=== PATIENT | female | born 1935 | race Caucasian/White ===

== ENCOUNTER 2017-02-06 01:14 | Inpatient (IN) ==
[2017-02-06] MEDS ORDERED: Ipratropium/Albuterol Neb 3 ML IH ONE (01:16)
[2017-02-06] MEDS ORDERED: Nitroglycerin 1 INCH/GM PACKET TP ONE (01:17)
[2017-02-06] MEDS ORDERED: *HR* Morphine 2 MG/ML SYRINGE IVP ONE (01:18)
--- NOTE | 2017-02-06 01:20 | Emergency Department Note ---
Disposition Clinical Impression: Respiratory distress, acute Acute exacerbation of CHF (congestive heart failure) Qualifiers: Congestive heart failure type: systolic Qualified Code(s): I50.23 - Acute on chronic systolic (congestive) heart failure Disposition: Admitted As Inpatient Condition: Undetermined Referrals: Tana Delgado DO [Primary Care Provider] - Forms: ED Satisfaction Letter Time of Disposition: 03:03 SOB HPI - General Chief Complaint: ED Shortness of Breath/Dyspnea Stated Complaint: jerilyn Time Seen by Provider: 02/06/17 01:16 Source: patient Mode of arrival: EMS Limitations: no limitations Nursing Notes Reviewed: Yes Vital Signs Reviewed: Yes - History of Present Illness ED-year-old female history of CHF who currently smokes without home oxygen arrives [facility] emergency department complaining of difficulty breathing that started just prior to calling EMS. The patient states that she typically has exacerbations of CHF and has to call EMS for this. The patient states this is similar to this in the past. Upon arrival from EMS stated the patient was hypertensive with an O2 saturation in the 70s to 80%. The patient was placed on oxygen as well as a DuoNeb started for wheezing. The patient was also given one sublingual nitroglycerin which helped relieve some of her shortness of breath. Upon arrival to the emergency department the patient was speaking in short sentences without difficulty. The patient was sitting up and using accessory muscle use. The patient was taken off oxygen for a brief period of time during transport from cot to head and became very short of breath and was unable to speak for a couple seconds. The patient will be placed on BiPAP and do a nebs will be started. Pt Subjective Complaint: shortness of breath Onset (ago): Just [employer]ITION[employer] Severity: moderate, severe Consistency/Duration: intermittent Improves with: oxygen, bronchodilators Worsens with: exertion, coughing Known history of: congestive heart failure Associated symptoms: Reports: wheezing Cough present: Yes Sputum production: No - Related Data Home oxygen amount: none Home Medications Medication Instructions Recorded Confirmed Atorvastatin [Lipitor] 20 mg PO HS 05/25/15 06/10/15 Carvedilol [Coreg] 6.25 mg PO BID 05/25/15 06/10/15 Gabapentin [Neurontin] 100 mg PO DAILY PRN 05/25/15 06/10/15 HYDROcodone/Acet 5/325 mg [[place] 1 tab PO Q6HR PRN 05/25/15 06/10/15 5-325 mg] Losartan Potassium [Cozaar] 100 mg PO DAILY 05/25/15 06/10/15 Potassium Chloride [Klor-Con M15] 20 meq PO DAILY 05/25/15 06/10/15 Aspirin [Adult Low Dose Aspirin EC] 81 mg PO 06/10/15 Previous Rx's Medication Instructions Recorded Furosemide [Lasix] 40 mg PO BID #90 tablet 06/13/15 Isosorbide MONOnitrate (24 HR) 90 mg PO DAILY #90 tab.er.24h 06/13/15 [Imdur] Spironolactone [Aldactone] 12.5 mg PO DAILY #60 tablet 06/13/15 hydrALAZINE [HydrALAZINE] 50 mg PO Q8HR #90 tablet 06/13/15 Allergies Allergy/AdvReac Type Severity Reaction Status Date / Time Penicillins [PCN] Allergy Mild Itching Verified 06/10/15 05:21 Sulfa (Sulfonamide Allergy Mild Hives Verified 06/10/15 05:21 Antibiotics) pheniramine Allergy Unknown UNKNOWN Verified 05/07/15 07:27 PER PATIENT codeine AdvReac Mild "HARD ON Verified 06/10/15 05:21 BOWELS" All systems ED: reviewed and negative except as stated. Constitutional: Reports: weakness. Denies: fever, chills, weight change Cardiovascular: Denies: chest pain, palpitations, dyspnea on exertion, edema, syncope Respiratory: Reports: dyspnea, wheezes. Denies: cough, hemoptysis, stridor, sputum production Gastrointestinal: Denies: abdominal pain, nausea, vomiting, diarrhea, constipation, hematemesis, melena, hematochezia Musculoskeletal: Denies: back pain, neck pain, arthralgia, myalgia Past Medical History - Past Medical History Attestation: Yes The following information was validated with the patient. Source: patient, old records reviewed Medical history: Reports: cardiomyopathy, CHF, COPD, coronary artery disease, hypertension, other Surgical history: Reports: other (PPM placement in 2011. Last device check was completed 04/2015. ) Psychiatric history: Reports: no psych history - Social History Smoking Status: Current every day smoker Smokeless Tobacco Status: No Alcohol use: Reports: rarely Drug use: Reports: none Physical Exam - General Limitations: no limitations General appearance: alert, in distress (Respiratory) - Neck Neck exam: Present: normal inspection, full ROM, trachea midline - Chest Chest inspection: Present: normal inspection, symmetric chest wall rise - Respiratory Respiratory exam: Present: wheezes, accessory muscle use - Expanded Respiratory Exam Location: wheezes: Left, Right, Lower - Cardiovascular Cardiovascular exam: Present: regular rate, normal rhythm, normal heart sounds - Abdominal Exam Abdominal exam: Present: soft, Non-Tender. Absent: tenderness, distention, guarding, rebound, rigidity - Extremities Exam Extremities exam: Present: normal inspection, full ROM. Absent: tenderness, pedal edema - Neurological Exam Neurological exam: Present: alert, oriented X3 Course Vital Signs Temperature 97.7 F 02/06/17 01:15 Pulse Rate 101 02/06/17 01:15 Respiratory Rate 24 02/06/17 01:15 Blood Pressure 186/110 02/06/17 01:15 O2 Sat by Pulse Oximetry 88 02/06/17 01:15 Temperature 97.7 F 02/06/17 01:15 Pulse Rate 82 02/06/17 01:55 Respiratory Rate 18 02/06/17 01:55 Blood Pressure 165/83 02/06/17 01:55 O2 Sat by Pulse Oximetry 97 02/06/17 01:55 Oxygen Delivery Oxygen Delivery Bipap Shortness of Breath/Dyspnea - MDM Narrative Medical decision making narrative: His workup here in the emergency department demonstrated findings consistent with CHF exacerbation. The patient has an elevated BNP. Chest x-ray demonstrates no acute findings. The patient was hypoxic in the low 80s upon arrival from EMS. The patient is feeling much better at this time on BiPAP after receiving nitroglycerin. She is resting comfortably with an O2 sat in the 90s on BiPAP. We will admit the patient to the hospital, accepted by Dr. Jackson. - Lab Data Lab results reviewed: Yes I reviewed the patient's lab results. Result diagrams: 02/06/17 01:25 02/06/17 01:25 Lab Results 02/06/17 02/06/17 02/06/17 Range/Units 01:25 01:25 01:25 WBC 8.3 (4.3-11.1) K/mcL RBC 4.49 (3.82-4.97) M/mcL Hgb 14.4 (11.5-15.4) g/dL Hct 44.4 (35.3-44.9) % MCV 98.9 (83.0-100.0) fL MCH 32.1 (28.0-33.3) pg MCHC 32.4 (31.6-35.5) g/dL RDW 14.1 (11.5-14.5) % Plt Count 234 (140-400) K/mcL MPV 9.5 (9.4-12.4) fL Immature Gran % 0.4 (0-4) % Seg Neutrophils % 79.6 % Lymphocytes % 8.2 % Monocytes % 9.9 % Eosinophils % 1.2 % Basophils % 0.7 % Neutrophils # 6.6 (1.6-8.9) K/mcL Lymphocytes # 0.7 (0.6-4.6) K/mcL Monocytes # 0.8 (0.0-1.3) K/mcL Eosinophils # 0.1 (0.0-0.6) K/mcL Basophils # 0.1 (0.0-0.2) K/mcL Sodium 136 (136-145) mEq/L Potassium 4.4 (3.5-4.5) mEq/L Chloride 107 (98-109) mEq/L Carbon Dioxide 20 (19-29) mEq/L BUN 18 (7-20) mg/dL Creatinine 0.78 (0.57-1.11) mg/dL Est GFR ( Amer) > 60 (> 60) Est GFR (Non-Af Amer) > 60 (> 60) BUN/Creatinine Ratio 23 (6-26) Glucose 126 H (70-99) mg/dL Calculated Osmolality 285 (280-300) Calcium 9.0 (8.6-10.8) mg/dL Troponin I 0.02 (0-0.03) ng/mL B-Natriuretic Peptide (0-100) pg/mL 02/06/17 Range/Units 01:25 WBC (4.3-11.1) K/mcL RBC (3.82-4.97) M/mcL Hgb (11.5-15.4) g/dL Hct (35.3-44.9) % MCV (83.0-100.0) fL MCH (28.0-33.3) pg MCHC (31.6-35.5) g/dL RDW (11.5-14.5) % Plt Count (140-400) K/mcL MPV (9.4-12.4) fL Immature Gran % (0-4) % Seg Neutrophils % % Lymphocytes % % Monocytes % % Eosinophils % % Basophils % % Neutrophils # (1.6-8.9) K/mcL Lymphocytes # (0.6-4.6) K/mcL Monocytes # (0.0-1.3) K/mcL Eosinophils # (0.0-0.6) K/mcL Basophils # (0.0-0.2) K/mcL Sodium (136-145) mEq/L Potassium (3.5-4.5) mEq/L Chloride (98-109) mEq/L Carbon Dioxide (19-29) mEq/L BUN (7-20) mg/dL Creatinine (0.57-1.11) mg/dL Est GFR ( Amer) (> 60) Est GFR (Non-Af Amer) (> 60) BUN/Creatinine Ratio (6-26) Glucose (70-99) mg/dL Calculated Osmolality (280-300) Calcium (8.6-10.8) mg/dL Troponin I (0-0.03) ng/mL B-Natriuretic Peptide 1579 H (0-100) pg/mL - Radiology Data Radiology results reviewed: Yes I reviewed the patient's radiology results. - EKG Data EKG attestation: Yes I reviewed and interpreted this EKG. EKG results narrative: Heart rate 95 bpm. AK interval 161 ms. QTC 395. Normal axis. Normal sinus rhythm. No ST elevation or ST depression noted. EKG is similar in appearance to EKG from 07/24/2015. Critical Care Time Critical Care Time: Yes Total Critical Care Time: 35 Attestation: Critical care performed: Time is exclusive of separately billable procedures. Time includes: direct patient care, patient reassessment, coordination of patient care, interpretation of data (laboratory data, radiology data, and respiratory data), review of patient's medical records, medical consultation and documentation of patient care. Procedures included in critical care time: Procedures excluded from critical care time: Attestation Statement - Attestation Attestation: I, Tripp Cardoso MD, personally evaluated this patient and discussed their management with the resident physician. I reviewed the resident's note and agree with the documented findings, medical decision making, and plan of care. 81-year-old female presents to the emergency department by embolus with a complaint of shortness of breath which started this evening when she tried to lay down and watched television. She states that she became short of breath which rapidly progressed and became severe. No chest pain. No cough or fever. She does have a history of CHF. On arrival patient in moderate respiratory distress. She was placed on BiPAP with significant improvement and stabilization. On examination patient is a well-developed thin elderly female in mild respiratory distress. She is alert and oriented 3. There is no cyanosis or diaphoresis. Breath sounds are decreased bilaterally with scattered bilateral rales and rhonchi. A few scattered wheezes. Heart regular rate and rhythm. Abdomen soft and nontender with normal bowel sounds. EKG shows electronic ventricular pacemaker. Labs reviewed. BNP 1579. Chest x- ray shows no significant change compared to prior study. No focal lung opacity or consolidation. Stable diffuse interstitial markings as before. The hospitalist, Dr. Jackson, was consulted and accepted admission of the patient.
[2017-02-06 01:32] LABS: Basophils # 0.1 K/mcL (0.0-0.2); Basophils % 0.7 %; Eosinophils # 0.1 K/mcL (0.0-0.6); Eosinophils % 1.2 %; Hematocrit 44.4 % (35.3-44.9); Hemoglobin 14.4 g/dL (11.5-15.4); Immature Granulocytes % 0.4 % (0-4); Lymphocytes # 0.7 K/mcL (0.6-4.6); Lymphocytes % 8.2 %; Mean Corpuscular HGB Conc 32.4 g/dL (31.6-35.5); Mean Corpuscular Hemoglobin 32.1 pg (28.0-33.3); Mean Corpuscular Volume 98.9 fL (83.0-100.0); Mean Platelet Volume 9.5 fL (9.4-12.4); Monocytes # 0.8 K/mcL (0.0-1.3); Monocytes % 9.9 %; Neutrophils # 6.6 K/mcL (1.6-8.9); Platelet Count 234 K/mcL (140-400); Red Blood Count 4.49 M/mcL (3.82-4.97); Red Cell Distribution Width 14.1 % (11.5-14.5); Segmented Neutrophils % 79.6 %
[2017-02-06 01:45] LABS: BUN/Creatinine Ratio 23 (6-26); Blood Urea Nitrogen 18 mg/dL (7-20); Carbon Dioxide 20 mEq/L (19-29); Chloride 107 mEq/L (98-109); Glucose 126 mg/dL (70-99); Osmolality,Calculated 285 (280-300); Sodium 136 mEq/L (136-145); eGFR For African Americans > 60 (> 60); eGFR For Non-African Americans > 60 (> 60)
[2017-02-06 01:46] LABS: Potassium 4.4 mEq/L (3.5-4.5)
--- NOTE | 2017-02-06 04:15 | Event Note ---
Date of Encounter: 02/06/17 Time of Encounter: 04:13 Patient seen and examined with medical transcription. Presentation suggestive of acute pulmonary edema. Onset rapid at 9 PM. Mentioned that 6 hours earlier she took a flu shot. Denies any chest pain. She has some cough with clear sputum but no significant amount of sputum production. Patient was placed on BiPAP on our arrival to the emergency room to help with the work of breathing. No active wheezing during my interview. She denies any recent increase in lower extremity swelling. This definitely maybe anti-ischemic event. Would ask real disservice to see the patient. Serial troponin. Will give one dose of 1 mg per KG Lovenox. Will start the patient, IV Lasix and long-acting nitrates. She is full code. Inpatient admission
[2017-02-06] MEDS: Furosemide 40 MG/4 ML VIAL IVP SCH ×2 (04:54→16:33)
--- NOTE | 2017-02-06 06:34 | Internal Med History&Physical ---
Date of Encounter: 02/06/17 Time of Encounter: 03:30 Assessment and Plan (1) Acute exacerbation of CHF (congestive heart failure) Current visit: Yes Status: Acute The patient's shortness of breath is likely secondary to a CHF exacerbation. Patient started on IV Lasix, long-acting nitrates, and carvedilol. One dose of 1 mg/kg Lovenox. Qualifiers: Congestive heart failure type: systolic Qualified Code(s): I50.23 - Acute on chronic systolic (congestive) heart failure (2) CHF (congestive heart failure) Current visit: No Status: Acute Continue home meds. Qualifiers: Congestive heart failure type: systolic Congestive heart failure chronicity : acute on chronic Qualified Code(s): I50.23 - Acute on chronic systolic ( congestive) heart failure (3) Respiratory distress, acute Current visit: Yes Status: Acute Patient's respiratory function is currently stable. -Continue IV Lasix. -Continue to monitor vital signs. Internal Medicine - H&P: HPI Admitted From: Home (Shortness of breath) History of present illness: Ms. Randall is a 81 year old female with past medical history of CHF presents to the emergency department with chief complaint of shortness of breath. Patient states that at approximately 9:30 PM, patient began to feel short of breath when she tried to lie down and watch television. Patient stated that she took a flu shot approximately 6 hours earlier. When patient presented to the hospital, she did not have any chest pain, although she did have some cough with clear sputum production. Upon arrival patient was hypertensive with a blood pressure of 165/83 with an O2 saturation in the 70-80%. Upon arrival, patient was placed on oxygen as well as DuoNeb's and BiPAP. Patient's O2 sat improved, rising to 97%. Patient was also given 1 sublingual nitroglycerin, which helped relieve her shortness of breath. Patient was sitting up and using accessory muscles when she first presented. EKG was obtained, which showed electronic ventricular pacemaker. Patient's labs revealed a BNP of 1579. Chest x-ray showed no significant change compared to her prior study. Patient denied having any fever, chills, productive cough, hemoptysis, weakness or lightheadedness. Past Med Surg Social Fam HX - Past Medical History Medical history: cardiomyopathy, CHF, COPD, coronary artery disease, hypertension, other Psychiatric history: no psych history - Past Surgical History Surgical History: other - Social History Smoking Status: Current every day smoker Smokeless Tobacco Status: No Alcohol use: rarely Drug use: none - Family History Father Adopted: No Family Member Ethnicity: Non- Living Status: Hx Family Cardiac Disorders: Yes Internal Medicine - H&P: Meds Atorvastatin [Lipitor] 20 mg PO HS 05/25/15 [History] Carvedilol [Coreg] 6.25 mg PO BID 05/25/15 [History] Gabapentin [Neurontin] 100 mg PO DAILY PRN 05/25/15 [History] HYDROcodone/Acet 5/325 mg [[place] 5-325 mg] 1 tab PO Q6HR PRN 05/25/15 [History] Losartan Potassium [Cozaar] 100 mg PO DAILY 05/25/15 [History] Potassium Chloride [Klor-Con M15] 20 meq PO DAILY 05/25/15 [History] Aspirin [Adult Low Dose Aspirin EC] 81 mg PO 06/10/15 [History] Furosemide [Lasix] 40 mg PO BID #90 tablet 06/13/15 [Rx] Isosorbide MONOnitrate (24 HR) [Imdur] 90 mg PO DAILY #90 tab.er.24h 06/13/15 [ Rx] Spironolactone [Aldactone] 12.5 mg PO DAILY #60 tablet 06/13/15 [Rx] hydrALAZINE [HydrALAZINE] 50 mg PO Q8HR #90 tablet 06/13/15 [Rx] 3 Allergy/AdvReac Type Severity Reaction Status Date / Time Penicillins [PCN] Allergy Mild Itching Verified 06/10/15 05:21 Sulfa (Sulfonamide Allergy Mild Hives Verified 06/10/15 05:21 Antibiotics) pheniramine Allergy Unknown UNKNOWN Verified 05/07/15 07:27 PER PATIENT codeine AdvReac Mild "HARD ON Verified 06/10/15 05:21 BOWELS" All Systems PM: A 10-system review of systems was performed and is negative for pertinent findings except as documented above in the HPI. - Constitutional Constitutional: no excessive sweating, no fatigue, no weakness - Cardiovascular Cardiovascular ROS IM: dyspnea, no chest pain, no irregular heart rhythm, no lightheadedness, no palpitations, no syncope - Respiratory Respiratory: cough, no wheezing, no stridor, no pain on inspiration, no chest congestion - Constitutional Vitals: Temp Pulse Resp BP Pulse Ox 98.1 F 78 16 148/98 93 02/06/17 03:59 02/06/17 03:59 02/06/17 04:05 02/06/17 03:59 02/06/17 04:25 General appearance: Present: A&O X 3, pleasant, answers questions appropriately - Head Head exam: Present: normal inspection - ENT ENT exam: Present: mucous membranes moist - Respiratory Respiratory exam: Present: wheezes. Absent: accessory muscle use, rales, rhonchi Additional comments: Patient has expiratory wheezes bilaterally. - Cardiovascular Cardiovascular exam: Present: RRR, +S1, +S2. Absent: diastolic murmur, gallop, rubs, systolic murmur - Extremities Exam Extremities exam: Absent: pedal edema Internal Med - H&P Results - Labs CBC & Chem 7: 02/06/17 01:25 02/06/17 01:25
[2017-02-06] MEDS: Aspirin Enteric Coated 81 MG Tablet PO SCH (08:36)
[2017-02-06] MEDS: Isosorbide MONOnitrate (24 HR) 30 MG TAB.ER.24H PO SCH (08:38)
--- NOTE | 2017-02-06 15:40 | Cardiology Consult Note ---
<Meseret Friedman - Last Filed: 02/06/17 15:34> Date of Encounter: 02/06/17 Time of Encounter: 15:00 Assessment and Plan (1) Systolic congestive heart failure, NYHA class 2 Current Visit: Yes Status: Acute Per cardiology: -Known cardiomyopathy with LVEF 40%. -Reports sudden onset shortness of breath, similar to previous CHF symptoms. -BNP 1579. -Chest x-ray with vascular congestive changes, similar to previous exam. -Weight today 111 pounds, weight 10/2016 108 pounds. -Patient reports weight up about 5 pounds per home scale. -On lasix 40IV BID. On beta marcelino. -Net positive 480 ml this admission. -Strict i/os, fluid restriction, daily weights. -Will restart losartan. -Will continue to monitor. Qualifiers: Congestive heart failure chronicity: acute on chronic Qualified Code(s): I50.23 - Acute on chronic systolic (congestive) heart failure (2) Elevated troponin I level Current Visit: No Status: Acute Per cardiology: -Troponin 0.02, 0.04, 0.03. -Troponins flat and adynamic in the setting of hypoxia and CHF. -Denies chest pain. -ECG with no ischemic changes. -06/10/15 Echo with LVEF 40%, asymetric hypertrophy of basal septum, no LVOT obsrtuction, moderate diastolic dysfunction, mild AR, mild MR, mild TR, mild pulmonary hypertension, mid inferior, basal inferior, mid inferior lateral and basal inferior lateral berad hypokinetic, all other beard with normal motion. -06/29/2011 LHC with 30% proximal LAD, 30% diagonal, 30% proximal circumflex, patent OM stent, 90-99% stenosis in mid RCA (further described as small vessel) . -Do not suspect NSTEMI, suspect demand ischemia related to above. NO cardiac rehab warranted at this time. -Will continue to monitor. (3) CAD (coronary artery disease) Current Visit: No Status: Chronic Per cardiology: -KNown CAD with LHC and echo as above -Denies chest pain. -ON asa, statin, beta blcoker. -Will continue to monitor. Qualifiers: Coronary Disease-Associated Artery/Lesion type: [place] artery [place] vs. transplanted heart: [place] heart Associated angina: without angina Qualified Code(s): I25.10 - Atherosclerotic heart disease of [place] coronary artery without angina pectoris (4) Paroxysmal atrial fibrillation Current Visit: Yes Status: Chronic Per cardiology: -Known PAF. -On beta marcelino. -Hr controlled. -Chads 2 vasc score 5 (age, gender, HTN, vascular disease, and CHF) -Not on anticoagulation due to patient's non-compliance with lab draws for INR/ Coumadin. Patient educated on risk of CVA, states understanding and accepts increased risk. -Will continue to monitor. Discussion w patient/family: The assessment and plan as outlined above was discussed with the patient who expressed understanding and agreement. All questions were answered. Thank you for involving us in the care of your patient. Please call with any questions. Discussed and reviewed with . History of Present Illness Consult date: 02/06/17 Requesting physician: Hakan Gramajo Consult reason: pulmonary edema Chief complaint: shortness of breath History of present illness: Ms. Randall is a 81 year old female with a relevant past medical history of CHF , cardiomyopathy, atrial fibrillation, HTN, CAD, [place], tachybrady syndrome s/p pacemaker, thyroid disease, CEA. Patent states she was in her normal state of health, when she was woken up by sudden onset of shortness of breath. Patient states she pushed her life alert button and was having difficulty speak to assistance due to shortness of breath. Patient states symptoms similar to previous CHF exacerbations. Per review of reports, SpO2 was noted to be 70% upon EMS arrival. Patient denies worsening edema. Patient denies chest pain or increased fatigue. Patient reports her weight is up about 5 pounds from her baseline weight. Patient reports compliance with sodium and fluid restriction at home. Past Med Surg Social Fam HX - Past Medical History Attestation: Yes The following information was validated with the patient. Source: patient, old records reviewed Medical history: cardiomyopathy, CHF, COPD, coronary artery disease, hypertension, other Psychiatric history: no psych history - Past Surgical History Surgical History: other - Social History Smoking Status: Current every day smoker Smokeless Tobacco Status: No Alcohol use: rarely Drug use: none - Family History Father Adopted: No Family Member Ethnicity: Non- Living Status: Hx Family Cardiac Disorders: Yes Medications and Allergies Atorvastatin [Lipitor] 20 mg PO HS 05/25/15 [History] Carvedilol [Coreg] 18.75 mg PO BID 05/25/15 [History] Losartan Potassium [Cozaar] 100 mg PO DAILY 05/25/15 [History] Potassium Chloride [Klor-Con M15] 20 meq PO DAILY 05/25/15 [History] Furosemide [Lasix] 40 mg PO BID #90 tablet 06/13/15 [Rx] Isosorbide MONOnitrate (24 HR) [Imdur] 90 mg PO DAILY #90 tab.er.24h 06/13/15 [ Rx] Trospium Chloride [Trospium Chloride] 20 mg PO BID 02/06/17 [History] 3 Allergy/AdvReac Type Severity Reaction Status Date / Time Penicillins [PCN] Allergy Mild Itching Verified 02/06/17 12:29 Sulfa (Sulfonamide Allergy Mild Hives Verified 02/06/17 12:29 Antibiotics) pheniramine Allergy Unknown UNKNOWN Verified 02/06/17 12:29 PER PATIENT codeine AdvReac Mild "HARD ON Verified 02/06/17 12:29 BOWELS" All Systems Review: A 10-system review of systems was performed and is negative for pertinent findings except as documented above in the HPI. - Constitutional Constitutional: weight gain - Cardiovascular Cardiovascular: as per HPI, dyspnea at rest, dyspnea on exertion Physical Examination Vital Signs Temperature 97.7 F 02/06/17 01:15 Pulse Rate 101 02/06/17 01:15 Respiratory Rate 24 02/06/17 01:15 Blood Pressure 186/110 02/06/17 01:15 O2 Sat by Pulse Oximetry 88 02/06/17 01:15 Temperature 97.9 F 02/06/17 11:00 Pulse Rate 62 02/06/17 11:00 Respiratory Rate 15 02/06/17 11:00 Blood Pressure 121/67 02/06/17 11:00 O2 Sat by Pulse Oximetry 98 02/06/17 11:00 Oxygen Delivery Oxygen Delivery Bipap General: Conversant, No Apparent Distress HEENT: Atraumatic, Normocephaly, Mucus Membranes Moist Neck: No JVD, Normal carotid pulses Cardiac: Reg Rate and Rhythm, Normal S1 and S2, No Murmur Lungs: Normal Breath Sounds, No Wheeze, Rales, Rhonchi Neuro: Alert and responsive, No focal deficits noted Abdomen: Soft, Non-Tender Skin: No rashes noted on visualized skin Musculoskeletal: No Chest Wall Tenderness Extremities: No Clubbing, No Cyanosis, No Edema, Normal Pulses Results 02/06/17 01:25 02/06/17 01:25 Lab Results Impressions Chest X-Ray 02/06/17 01:16 IMPRESSION: 1. No significant change compared to prior study. 2. No focal lung opacity or consolidation. 3. Stable diffuse interstitial markings as before. D/ / 02/06/2017 07:53:26 Julius Patricia MD / Kelsea Pearson Interpreting Provider: Julius Patricia MD Active Medications Aspirin (Aspirin Ec) 81 mg PO DAILY DIAMANTE Stop: 08/08/17 09:01 Last Admin: 02/06/17 08:36 Dose: 81 mg Atorvastatin Calcium (Lipitor) 20 mg PO HS DIAMANTE Stop: 08/08/17 21:01 Carvedilol (Coreg) 6.25 mg PO BID DIAMANTE PRN Reason: Protocol Stop: 08/08/17 09:01 Last Admin: 02/06/17 08:38 Dose: 6.25 mg Furosemide (Lasix) 40 mg IVP BIDDIURETIC DIAMANTE Stop: 08/08/17 04:31 Last Admin: 02/06/17 04:54 Dose: Not Given Isosorbide Mononitrate (Imdur) 90 mg PO DAILY DIAMANTE Stop: 08/08/17 09:01 Last Admin: 02/06/17 08:38 Dose: 90 mg Laboratory Tests 02/06/17 02/06/17 02/06/17 01:25 01:25 01:25 Hgb 14.4 Creatinine 0.78 Troponin I 0.02 B-Natriuretic Peptide 02/06/17 02/06/17 02/06/17 01:25 06:44 13:24 Hgb Creatinine Troponin I 0.04 H* 0.03 B-Natriuretic Peptide 1579 H - Imaging and Cardiology Chest Xray: report reviewed Echo: report reviewed Cardiac cath: report reviewed - EKG Interpretation EKG results cardiology: personally reviewed (ECG with paced rhythm.), other ( Telemetry reviewed with average HR previous 12 hours noted to be 70, sinus rhythm with intermittent paced rhythm. PVCs, couplets, and one 5 beat run of non -sustained ventricular tachycardia noted.) Consult Discharge Plan - Plan Referrals: Little,Tana E, DO [Primary Care Provider] - <Dennys Christopher - Last Filed: 02/07/17 08:54> Date of Encounter: 02/06/17 Assessment and Plan Discussion w patient/family: The assessment and plan as outlined above was discussed with the patient and/or family members who expressed understanding and agreement. All questions were answered. Thank you for involving us in the care of your patient. Please call with any questions. History of Present Illness History of present illness: Ms. Randall is a 81 year old female All Systems Review: A 10-system review of systems was performed and is negative for pertinent findings except as documented above in the HPI. Physical Examination Vital Signs, Last 4 Hours Temp Pulse Resp BP Pulse Ox 02/07/17 06:20 97.5 F L 62 15 145/80 96 02/07/17 04:58 98.9 F 73 21 138/77 96 Results 02/06/17 01:25 02/07/17 04:16 Lab Results 02/06/17 02/07/17 13:24 04:16 Sodium 139 Potassium 3.6 Chloride 107 Carbon Dioxide 25 BUN 23 H Creatinine 0.83 Glucose 94 Calcium 8.1 L Troponin I 0.03 - Attending Attestation PT seen and examined independently, chart reviewed, essentially agree with findings as documented, my evaluation as below IMP/Plan 1. Acute on chronic systolic heart faillure, with reduced ejection fraction, unlclear precipitating event, pt mostly compliant with dietary sodium and fluid restrictions, notes felt "flu like" symptoms following yearly flu shot with mild palpitations, nausea and shortness of breath, which have improved since hospital admission. She noted 5 pound weight gain over 48 hours. Feeling much better this afternoon, following IV diuresis, resumed Losartin, switch back to po diuretics in am if continues to improve. . 2. Moderately impaired LV systolic function with EF 40% on most recent echo due to ischemic cardiomyopathy. 3. Stable Class 2 angina on current meds, minimal elevation of troponins, suspect may have had small enzeme leak secondary to demand perfusion mismatch, not clincally significant. 4. Paroxysmal Atrial fibrillation, ventricular response rate controlled on current meds, not a candidate for systemic anticoagulation, pt refuses.
--- NOTE | 2017-02-06 15:48 | Event Note ---
<TrevonCirilo - Last Filed: 02/06/17 15:48> Date of Encounter: 02/06/17 Time of Encounter: 15:38 Patient reports sob has resolved. Denies CP, abdominal pain, nausea, blurry vision, cough, leg pain. General: pleasant female w/o distress Heart: RRR no murmur Lungs: clear w/o rales abdomen: soft NT/ND +BS Extremities: no pedal edema, +2/4 peripheral pulses Acute respritory failure with hypoxia: 2nd chf exacerbation, continue O2, diuresis Acute systolic HF NYHA class 2: BNP 1579 continue lasix, will start jonathan once exacerbation has resolved. elevated troponin: 0.02>>004>>0.03 2nd to chf exacerbation, unlikley acs CAD: Last left heart catheterization in 2011 showed patent OM stent and a 90-99 % stenosis in the mid RCA. continue aspirin statin bb DVT prophylaxis: epcds and heparin sq <Shemar Hanson - Last Filed: 02/06/17 16:10> Date of Encounter: 02/06/17 Pt admitted earlier today for acute exac CHF. Has had improvement since admit. Appreciate rob mcgee. Agree with plan as above.
[2017-02-06] MEDS: *HR* Heparin 5,000 UNIT/ML VIAL SQ SCH (18:27)
[2017-02-06] MEDS ORDERED: *HR* Heparin 5,000 UNIT/ML VIAL SQ SCH (22:00)
[2017-02-07 04:52] LABS: BUN/Creatinine Ratio 28 (6-26); Blood Urea Nitrogen 23 mg/dL (7-20); Calcium 8.1 mg/dL (8.6-10.8); Carbon Dioxide 25 mEq/L (19-29); Chloride 107 mEq/L (98-109); Glucose 94 mg/dL (70-99); Osmolality,Calculated 291 (280-300); Potassium 3.6 mEq/L (3.5-4.5); Sodium 139 mEq/L (136-145); eGFR For African Americans > 60 (> 60); eGFR For Non-African Americans > 60 (> 60)
[2017-02-07] MEDS: *HR* Heparin 5,000 UNIT/ML VIAL SQ SCH (06:07)
[2017-02-07 06:22] VITALS: BP 145/80
[2017-02-07] MEDS: Aspirin Enteric Coated 81 MG Tablet PO SCH (08:34)
[2017-02-07] MEDS: Isosorbide MONOnitrate (24 HR) 30 MG TAB.ER.24H PO SCH (08:34)
[2017-02-07] MEDS: Furosemide 40 MG/4 ML VIAL IVP SCH (08:35)
--- NOTE | 2017-02-07 09:33 | Discharge Summary ---
<Cirilo Lester - Last Filed: 02/07/17 12:11> Date of Encounter: 02/07/17 Time of Encounter: 09:30 - Discharge Diagnosis (1) Acute respiratory failure Priority: Primary Status: Acute Qualifiers: Respiratory failure complication: hypoxia Qualified Code(s): J96.01 - Acute respiratory failure with hypoxia (2) Acute systolic CHF (congestive heart failure), NYHA class 2 Priority: Secondary Status: Acute (3) Elevated troponin Priority: Secondary Status: Acute (4) DVT prophylaxis Priority: Secondary Status: Acute (5) CAD (coronary artery disease) Priority: Secondary Status: Chronic Qualifiers: Coronary Disease-Associated Artery/Lesion type: [place] artery [place] vs. transplanted heart: [place] heart Associated angina: without angina Qualified Code(s): I25.10 - Atherosclerotic heart disease of [place] coronary artery without angina pectoris - Discharge Medications Prescriptions: Losartan [Cozaar] 50 mg PO DAILY #30 tablet Home Medications: Atorvastatin [Lipitor] 20 mg PO HS 05/25/15 [History] Carvedilol [Coreg] 18.75 mg PO BID 05/25/15 [History] Losartan Potassium [Cozaar] 100 mg PO DAILY 05/25/15 [History] Potassium Chloride [Klor-Con M15] 20 meq PO DAILY 05/25/15 [History] Furosemide [Lasix] 40 mg PO BID #90 tablet 06/13/15 [Rx] Isosorbide MONOnitrate (24 HR) [Imdur] 90 mg PO DAILY #90 tab.er.24h 06/13/15 [ Rx] Trospium Chloride 20 mg PO BID 02/06/17 [History] Losartan [Cozaar] 50 mg PO DAILY #30 tablet 02/07/17 [Rx] Allergies/Adverse Reactions: 3 Allergy/AdvReac Type Severity Reaction Status Date / Time Penicillins [PCN] Allergy Mild Itching Verified 02/06/17 12:29 Sulfa (Sulfonamide Allergy Mild Hives Verified 02/06/17 12:29 Antibiotics) pheniramine Allergy Unknown UNKNOWN Verified 02/06/17 12:29 PER PATIENT codeine AdvReac Mild "HARD ON Verified 02/06/17 12:29 BOWELS" Date of admission: 02/06/17 04:16 Primary care physician: Matias Klein Consults: Cardiology Discharging clinician: Cirilo Lester Anticipated date of discharge: 02/07/17 - Patient Status Disposition: Home, Self-Care Condition: Good Functional capacity at discharge: independent ambulation Overall status at discharge: patient is progressing back to baseline - Discharge Instructions Instructions: Losartan (By mouth), Myocardial Infarction (DC), Heart Failure ( DC), Atrial Fibrillation (DC), Chronic Obstructive Pulmonary Disease (DC), Chronic Hypertension (DC) Follow Up With: Tana Delgado DO [Primary Care Provider] - (a request has been sent to dr delgado office. if they have not called you by wednesday please call their office to get an appointment) Additional Instructions: please start taking losartan. please return to ER if you have chest pain, sob, or episode of passing out. please follow up with PCP. - Diet and Activity Activity: increase activity as tolerated Diet: low fat, low cholesterol, low salt diet Interval History: 81F presentd due to sudden onset of sob. EMS found her to have SPO2 70%he was found to be in acute on chronic systolic CHF. Patient was diuresed, and started on bipap which resolved her symptoms. She initally required O2 supplementation and this was weaned off. Cardiology was consulted and restarted patients losartan. Patient has had similar episodes previously. Currently she is free of sob, tolerating her diet, ambulating independently. She is ready for discharge. Plan: start losartan. follow up with PCP after discharge. Hospital course: Ms. Randall is a 81 year old female - Time Spent with Patient Total time spent providing and/or coordinating discharge services: - Constitutional Vitals: Temp Pulse Resp BP Pulse Ox 97.5 F L 62 15 145/80 96 02/07/17 06:20 02/07/17 06:20 02/07/17 06:20 02/07/17 06:20 02/07/17 08:43 General appearance: Present: A&O X 3, pleasant, answers questions appropriately - Head Head exam: Present: atraumatic, normocephalic - Eye Eye exam: Present: PERRL, conjuntiva pink, sclera anicteric - Neck Neck exam general surgery: Present: supple, trachea midline. Absent: lymphadenopathy - Respiratory Respiratory exam: Present: CTAB. Absent: accessory muscle use, rales, rhonchi, wheezes - Cardiovascular Cardiovascular exam: Present: RRR, +S1, +S2. Absent: diastolic murmur, gallop, rubs, systolic murmur - GI/Abdominal GI/Abdominal exam: Present: normal bowel sounds, soft, no peritoneal signs. Absent: distended, tenderness - Extremities Exam Extremities exam: Present: warm, radial pulses palpable and symmetrical. Absent : calf tenderness, cyanotic, pedal edema - Neurological Exam Neurological exam: Present: CN II-XII intact, oriented X3, no focal deficits. Absent: pronater drift, facial droop, speech deficit - Skin Skin exam: Present: dry, intact <ValentinShemar Song - Last Filed: 02/07/17 13:30> Date of Encounter: 02/07/17 - Discharge Diagnosis (1) Acute respiratory failure Status: Acute Qualifiers: Respiratory failure complication: hypoxia Qualified Code(s): J96.01 - Acute respiratory failure with hypoxia (2) Acute systolic CHF (congestive heart failure), NYHA class 2 Status: Acute (3) Paroxysmal atrial fibrillation Priority: Secondary Status: Chronic (4) COPD (chronic obstructive pulmonary disease) Priority: Secondary Status: Chronic Qualifiers: COPD type: chronic bronchitis Qualified Code(s): J41.0 - Simple chronic bronchitis (5) CAD (coronary artery disease) Status: Chronic Qualifiers: Coronary Disease-Associated Artery/Lesion type: [place] artery [place] vs. transplanted heart: [place] heart Associated angina: without angina Qualified Code(s): I25.10 - Atherosclerotic heart disease of [place] coronary artery without angina pectoris (6) Hypertension Priority: Secondary Status: Chronic Qualifiers: Hypertension type: essential hypertension Qualified Code(s): I10 - Essential (primary) hypertension (7) Tobacco abuse Priority: Secondary Status: Chronic Date of admission: 02/06/17 04:16 Primary care physician: Matias Klein Hospital course: Ms. Randall is a 81 year old female - Time Spent with Patient Total time spent providing and/or coordinating discharge services: 38min - Constitutional Vitals: Temp Pulse Resp BP Pulse Ox 97.5 F L 62 15 145/80 96 02/07/17 06:20 02/07/17 06:20 02/07/17 06:20 02/07/17 06:20 02/07/17 08:43 - Attending Attestation I examined this patient and my medical decision-making was reviewed with the Resident Physician on 02/07/17. I agree with the documented findings, disposition and treatment plan as described except to the extent set forth below. Ms Randall has been admitted for hypoxic resp failure related to exac CHF. She is now on room air and vitals are stable. She is ambulating without difficulty. She feels ready to discharge home. Exam Alert. Comfortable Mucus membranes dry Heart not tachy now Lungs clear now Abd soft Plan D/C home today Follow up with PCP Resume home Coreg dose. Decrease Losartan by half.
--- NOTE | 2017-02-07 18:03 | Electrocardiograph Report ---
[place] [id number] Test Date: 2017-02-06 Pat Name: Julissa Randall Department: 103 Room: [facility] Gender: F Consulting Utility Forester: PERLA : 1935 Requested By: Maciel Santoyo Order Number: [id number] Reading MD: Addi Simental MD Measurements Intervals [place] Rate: 95 P: 45 [place]: 161 QRS: 40 QRSD: 105 T: 43 QT: 343 QTc: 395 Interpretive Statements ELECTRONIC VENTRICULAR PACEMAKER PVC Electronically Signed On 02-07-2017 18:02:05 EDT by Addi Simental MD
[2017-02-11 10:04] LABS: CK-MB (CK isoenzymes) 0 % (0-4); CK-MM (CK-isoenzymes) 100 % (96-100)
[2017-02-11 10:04] LABS: CK-MB (CK isoenzymes) 0 % (0-4); CK-MM (CK-isoenzymes) 100 % (96-100)
[2017-02-11 10:43] LABS: CK Total (Ck Isoenzymes) 42 U/L (20-180); CK-BB (CK isoenzymes) 0 % (0-0)
[2017-02-11 10:44] LABS: CK Total (Ck Isoenzymes) 38 U/L (20-180); CK-BB (CK isoenzymes) 0 % (0-0)
== END 2017-02-07 14:00 | disposition home or self-care (01) | DRG 291 ==
LOC: EMEROO 01:14 → 2NENU 01:14
PROVIDERS: ADMIT Family Medicine; ATTEND Internal Medicine

== ENCOUNTER 2017-04-10 02:22 | Observation (INO) ==
[2017-04-10] MEDS ORDERED: Oxymetazoline Nasal SPRAY BOTTLE NS ONE (02:54)
[2017-04-10] MEDS: Lidocaine Jelly 11 ml Syringe TP ONE ×2 (04:13→05:18)
[2017-04-10] MEDS ORDERED: *HR* Labetalol 100 MG/20 ML MDV IVP ONE (04:19)
--- NOTE | 2017-04-10 04:25 | Emergency Department Note ---
START Narrative - START START: I examined this patient and my medical decision-making was reviewed with the Resident Physician. I agree with the documented findings, disposition and treatment plan as described except to the extent set forth below. 82-year-old female presents with a left-sided epistaxis. We tried Afrin spray and nasal clamping without much luck. We tried to place a left-sided anterior Rhino Rocket but the patient did not tolerate this. It appears she has a deviated septum. She started bleeding on the other side. I pulled the Rhino Rocket out. We will consult with ENT as I am concerned she might have a posterior bleed. We will add on lab work including a CBC and coags. Also treat her blood pressure with labetalol. We will consult with ENT.
[2017-04-10 04:47] LABS: Basophils % 0.4 %; Eosinophils # 0.1 K/mcL (0.0-0.6); Eosinophils % 0.7 %; Hematocrit 40.6 % (35.3-44.9); Hemoglobin 13.6 g/dL (11.5-15.4); Immature Granulocytes % 0.4 % (0-4); Lymphocytes # 1.3 K/mcL (0.6-4.6); Mean Corpuscular HGB Conc 33.5 g/dL (31.6-35.5); Mean Corpuscular Hemoglobin 32.7 pg (28.0-33.3); Mean Corpuscular Volume 97.6 fL (83.0-100.0); Mean Platelet Volume 9.5 fL (9.4-12.4); Monocytes # 0.8 K/mcL (0.0-1.3); Monocytes % 10.6 %; Neutrophils # 5.2 K/mcL (1.6-8.9); Platelet Count 247 K/mcL (140-400); Red Blood Count 4.16 M/mcL (3.82-4.97); Red Cell Distribution Width 14.4 % (11.5-14.5); Segmented Neutrophils % 69.9 %
[2017-04-10 04:54] LABS: INR 1.2; Prothrombin Time 13.2 Seconds (9.4-12.1)
[2017-04-10 05:00] LABS: BUN/Creatinine Ratio 38 (6-26); Blood Urea Nitrogen 29 mg/dL (7-20); Carbon Dioxide 20 mEq/L (19-29); Chloride 107 mEq/L (98-109); Potassium 4.4 mEq/L (3.5-4.5); Sodium 137 mEq/L (136-145)
[2017-04-10 05:01] LABS: Calcium 8.9 mg/dL (8.6-10.8); Glucose 105 mg/dL (70-99); Osmolality,Calculated 290 (280-300); eGFR For African Americans > 60 (> 60); eGFR For Non-African Americans > 60 (> 60)
[2017-04-10] MEDS ORDERED: Lidocaine Jelly 6ml 1 APPL/6 ML JEL.PF.APP TP ONE (05:14)
--- NOTE | 2017-04-10 06:04 | ENT - Consult Note ---
Date of Encounter: 04/10/17 Time of Encounter: 06:00 Assessment and Plan (1) Posterior epistaxis Current Visit: Yes Status: Acute White female the left side of nose was anesthetized with 2% lidocaine gel followed by tamped to discern the exact site of bleeding which because of compliance issues was impossible a anterior posterior pack was placed and about 7 mL of saline was injected in both the anterior and posterior balloon until bleeding stopped a small ooze continued from the right side the patient's oxygen saturation was good but she felt short of breath and because of this it was thought appropriate to hospitalize her and observe her until she felt a little better encouraged her to follow-up in the ENT clinic on Wednesday for packing removal she should be placed on an antibiotic and pain medicine at home History of Present Illness Consult date: 04/10/18 Reason for ENT Consult: epistaxis History of present illness: Pleasant 82-year-old with left epistaxis apparently ER unable to pack because of resistance on placing packing patient had bleeding from a more posterior site and Bleeding posteriorly and around to the right side the actual bleeding site was not identifiable and was probably at least at the mid-level or perhaps posteriorly in the septum the right septum was severely deviated Past Med Surg Social Fam HX - Past Medical History Medical history: cardiomyopathy, CHF, COPD, coronary artery disease, hypertension, other Psychiatric history: no psych history - Past Surgical History Surgical History: other - Social History Smoking Status: Current every day smoker Smokeless Tobacco Status: No Alcohol use: rarely Drug use: none - Family History Father Adopted: No Family Member Ethnicity: Non- Living Status: Hx Family Cardiac Disorders: Yes Medications and Allergies Atorvastatin [Lipitor] 20 mg PO HS 05/25/15 [History] Carvedilol [Coreg] 18.75 mg PO BID 05/25/15 [History] Losartan Potassium [Cozaar] 100 mg PO DAILY 05/25/15 [History] Potassium Chloride [Klor-Con M15] 20 meq PO DAILY 05/25/15 [History] Furosemide [Lasix] 40 mg PO BID #90 tablet 06/13/15 [Rx] Isosorbide MONOnitrate (24 HR) [Imdur] 90 mg PO DAILY #90 tab.er.24h 06/13/15 [ Rx] Trospium Chloride 20 mg PO BID 02/06/17 [History] Losartan [Cozaar] 50 mg PO DAILY #30 tablet 02/07/17 [Rx] 3 Allergy/AdvReac Type Severity Reaction Status Date / Time Penicillins [PCN] Allergy Mild Itching Verified 02/06/17 12:29 Sulfa (Sulfonamide Allergy Mild Hives Verified 02/06/17 12:29 Antibiotics) pheniramine Allergy Unknown UNKNOWN Verified 02/06/17 12:29 PER PATIENT codeine AdvReac Mild "HARD ON Verified 02/06/17 12:29 BOWELS" ENT Exam Initial Vital Signs Temp Pulse Resp BP Pulse Ox 97.5 F L 78 20 172/85 97 04/10/17 02:33 04/10/17 02:33 04/10/17 02:33 04/10/17 02:33 04/10/17 02:33 - General physical appearance well developed, well nourished, no distress, no pain. negative: moderate distress, severe distress, moderate pain, severe pain, cachectic, obese - Eyes PERRL, normal ocular movement, icteric - ENT normal pinna, normal nares, normal mucosa, no hearing loss, no congestion, deviated nasal septum, Other (Bilateral epistaxis primarily from the left side) . negative: decreased hearing, nasal discharge, poor long-term, dentures, mucosal exudate, dry mucosa - Neck no masses, trachea midline, no lymphadectomy. negative: deviated trachea, diffuse goiter, limited ROM - Abdomen Abdomen: soft, non tender, bowel sounds, no tender, no surgical scars - Integumentary no rash, no growths, no abnormal pigmentation - Neurologic normal coordination, normal sensation - Musculoskeletal normal gait, normal posture Exam Initial Vital Signs Temp Pulse Resp BP Pulse Ox 97.5 F L 78 20 172/85 97 04/10/17 02:33 04/10/17 02:33 04/10/17 02:33 04/10/17 02:33 04/10/17 02:33 Results - Labs 04/10/17 04:39 04/10/17 04:39 Abnormal lab results PT 13.2 Seconds (9.4-12.1) H 04/10/17 04:39 BUN 29 mg/dL (7-20) H 04/10/17 04:39 BUN/Creatinine Ratio 38 (6-26) H 04/10/17 04:39 Glucose 105 mg/dL (70-99) H 04/10/17 04:39 Diabetes panel 04/10/17 Range/Units 04:39 Sodium 137 (136-145) mEq/L Potassium 4.4 (3.5-4.5) mEq/L Chloride 107 (98-109) mEq/L Carbon Dioxide 20 (19-29) mEq/L BUN 29 H (7-20) mg/dL Creatinine 0.77 (0.57-1.11) mg/dL Glucose 105 H (70-99) mg/dL Calcium 8.9 (8.6-10.8) mg/dL Calcium panel 04/10/17 Range/Units 04:39 Calcium 8.9 (8.6-10.8) mg/dL Pituitary panel 04/10/17 Range/Units 04:39 Sodium 137 (136-145) mEq/L Potassium 4.4 (3.5-4.5) mEq/L Chloride 107 (98-109) mEq/L Carbon Dioxide 20 (19-29) mEq/L BUN 29 H (7-20) mg/dL Creatinine 0.77 (0.57-1.11) mg/dL Glucose 105 H (70-99) mg/dL Calcium 8.9 (8.6-10.8) mg/dL Adrenal panel 04/10/17 Range/Units 04:39 Sodium 137 (136-145) mEq/L Potassium 4.4 (3.5-4.5) mEq/L Chloride 107 (98-109) mEq/L Carbon Dioxide 20 (19-29) mEq/L BUN 29 H (7-20) mg/dL Creatinine 0.77 (0.57-1.11) mg/dL Glucose 105 H (70-99) mg/dL Calcium 8.9 (8.6-10.8) mg/dL All other labs normal. Consult Discharge Plan - Plan Referrals: Tana Delgado DO [Primary Care Provider] -
--- NOTE | 2017-04-10 06:08 | Emergency Department Note ---
Disposition Clinical Impression: Epistaxis Disposition: Admitted As Inpatient Condition: Good Epistaxis HPI - General Chief complaint: ED Epistaxis Stated complaint: Epistaxis Time Seen by Provider: 04/10/17 02:48 Source: patient Limitations: no limitations Nursing Notes Reviewed: Yes Vital Signs Reviewed: Yes - History of Present Illness HPI Narrative: Patients presents for evaluation of nosebleed. Patient states that she takes an aspirin every day. No other anticoagulation. Patient had intermittent nosebleeds over the last several days. Today she woke up in the bleeding did not stop. She not sure if she injured her nose over the night. The patient had a nasal clamp placed. The emergency department Afrin was used as well as pressure. Patient's bleeding did not stop. The patient had a anterior nasal packing attempted to be placed. Significant resistance was met. Nasopharyngeal scope was used and unable to visualize bleed. Concern for posterior nasal bleeding. ENT was called. ENT came to bedside and evaluated the patient. He will packing was placed. Patient normally resides of her left nostril is complaining about some respiratory distress. This is related to having to mouth breathe. Patient will be admitted for further observation. ENT will follow her as consult. - Related Data Home Medications Medication Instructions Recorded Confirmed Atorvastatin [Lipitor] 20 mg PO HS 05/25/15 02/06/17 Carvedilol [Coreg] 18.75 mg PO BID 05/25/15 02/06/17 Losartan Potassium [Cozaar] 100 mg PO DAILY 05/25/15 02/06/17 Potassium Chloride [Klor-Con M15] 20 meq PO DAILY 05/25/15 02/06/17 Trospium Chloride 20 mg PO BID 02/06/17 02/06/17 Previous Rx's Medication Instructions Recorded Furosemide [Lasix] 40 mg PO BID #90 tablet 06/13/15 Isosorbide MONOnitrate (24 HR) 90 mg PO DAILY #90 tab.er.24h 06/13/15 [Imdur] Losartan [Cozaar] 50 mg PO DAILY #30 tablet 02/07/17 Allergies Allergy/AdvReac Type Severity Reaction Status Date / Time Penicillins [PCN] Allergy Mild Itching Verified 02/06/17 12:29 Sulfa (Sulfonamide Allergy Mild Hives Verified 02/06/17 12:29 Antibiotics) pheniramine Allergy Unknown UNKNOWN Verified 02/06/17 12:29 PER PATIENT codeine AdvReac Mild "HARD ON Verified 02/06/17 12:29 BOWELS" All systems ED: reviewed and negative except as stated. ENT ED: Reports: other (Epistaxis) Past Medical History - Past Medical History Medical history: Reports: cardiomyopathy, CHF, COPD, coronary artery disease, hypertension, other Surgical history: Reports: other Psychiatric history: Reports: no psych history - Social History Smoking Status: Current every day smoker Smokeless Tobacco Status: No Alcohol use: Reports: rarely Drug use: Reports: none Physical Exam General appearance: NAD, conversant Eyes: anicteric sclerae, moist conjunctivae; no lid-lag; PERRL HENT: Nasal epistaxis worse on the left than the right. Neck: Normal appearance; Trachea midline Chest: Symmetrical chest rise; No respiratory distress Extremities: No peripheral edema or extremity tenderness Skin: Normal temperature, turgor and texture; no rash, ulcers or subcutaneous nodules Psych: Appropriate mood and affect Neuro: Awake and alert - General Limitations: no limitations General appearance: alert, in no apparent distress Course Course Narrative: Initial bleeding that stopped with pressure. CBC and coags will be obtained. Patient received 2% jelly intranasally for anesthetic. Nasopharyngoscope does not show anterior bleed. ENT consult. - Consultations Consultation #1: ENT consult. Saw the patient at bedside. Posterior nasal packing in place. If the patient continues to have bleeding she can have 1 mL of air placed within the balloon that has a stripe. This is the posterior balloon that needs more volume to increase the pressure. Vital Signs Temperature 97.5 F L 04/10/17 02:33 Pulse Rate 78 04/10/17 02:33 Respiratory Rate 20 04/10/17 02:33 Blood Pressure 172/85 04/10/17 02:33 O2 Sat by Pulse Oximetry 97 04/10/17 02:33 Temperature 97.5 F L 04/10/17 08:08 Pulse Rate 69 04/10/17 08:08 Respiratory Rate 15 04/10/17 08:08 Blood Pressure 172/95 04/10/17 08:08 O2 Sat by Pulse Oximetry 97 04/10/17 08:08 Oxygen Delivery Oxygen Delivery Room Air Epistaxis - Medical Records Medical records reviewed: Yes I reviewed the patient's medical records. - Lab Data Lab results reviewed: Yes I reviewed the patient's lab results. Result diagrams: 04/10/17 04:39 04/10/17 04:39 Lab Results 04/10/17 04/10/17 04/10/17 Range/Units 04:39 04:39 04:39 WBC 7.4 (4.3-11.1) K/mcL RBC 4.16 (3.82-4.97) M/mcL Hgb 13.6 (11.5-15.4) g/dL Hct 40.6 (35.3-44.9) % MCV 97.6 (83.0-100.0) fL MCH 32.7 (28.0-33.3) pg MCHC 33.5 (31.6-35.5) g/dL RDW 14.4 (11.5-14.5) % Plt Count 247 (140-400) K/mcL MPV 9.5 (9.4-12.4) fL Immature Gran % 0.4 (0-4) % Seg Neutrophils % 69.9 % Lymphocytes % 18.0 % Monocytes % 10.6 % Eosinophils % 0.7 % Basophils % 0.4 % Neutrophils # 5.2 (1.6-8.9) K/mcL Lymphocytes # 1.3 (0.6-4.6) K/mcL Monocytes # 0.8 (0.0-1.3) K/mcL Eosinophils # 0.1 (0.0-0.6) K/mcL Basophils # 0.0 (0.0-0.2) K/mcL PT 13.2 H (9.4-12.1) Seconds INR 1.2 Sodium 137 (136-145) mEq/L Potassium 4.4 (3.5-4.5) mEq/L Chloride 107 (98-109) mEq/L Carbon Dioxide 20 (19-29) mEq/L BUN 29 H (7-20) mg/dL Creatinine 0.77 (0.57-1.11) mg/dL Est GFR ( Amer) > 60 (> 60) Est GFR (Non-Af Amer) > 60 (> 60) BUN/Creatinine Ratio 38 H (6-26) Glucose 105 H (70-99) mg/dL Calculated Osmolality 290 (280-300) Calcium 8.9 (8.6-10.8) mg/dL - Radiology Data Radiology results reviewed: Yes I reviewed the patient's radiology results. - EKG Data EKG attestation: Yes I reviewed and interpreted this EKG. EKG results narrative: EKG shows sinus rhythm with ventricular rate of 68. AR interval 154. QRS 102. QTC 386. Abnormal baseline secondary to movement.
[2017-04-10] MEDS ORDERED: *HR* FentaNYL (PF) 100 MCG/2 ML VIAL IVP ONE (06:21)
[2017-04-10] MEDS ORDERED: Acetaminophen 325 MG TABLET PO PRN (06:31)
[2017-04-10] MEDS ORDERED: Naloxone 0.4 MG/ML INJ IVP PRN ×2 (06:31→06:33)
--- NOTE | 2017-04-10 08:03 | Internal Med History&Physical ---
Date of Encounter: 04/10/17 Time of Encounter: 07:59 Assessment and Plan (1) Epistaxis Current visit: Yes Status: Acute Patient had packing by ENT service. Appreciate ENT follow-up. I will keep patient on antibiotics to prevent secondary infection. Follow H&H. Control blood pressure (2) COPD (chronic obstructive pulmonary disease) Current visit: No Status: Chronic Stable no active wheezing. Qualifiers: COPD type: chronic bronchitis Qualified Code(s): J41.0 - Simple chronic bronchitis (3) Hypertension Current visit: No Status: Chronic Systolic blood pressure 160-170. Will optimally control Qualifiers: Hypertension type: essential hypertension Qualified Code(s): I10 - Essential (primary) hypertension Internal Medicine - H&P: HPI Chief complaint: nose bleeding History of present illness: Ms. Randall is a 82 year old female with multiple medical problems presents the emergency room today with main complain of nosebleeds. This started yesterday night patient started bleeding from both nostrils. She was able to control bleeding with nasal pressure. She started bleeding again early this morning from the left nostril. She mentioned that she bled approximately one or 2 cups. The patient had anterior nasal packing attempt in the ED without control of bleeding so ENT seen the patient attended the packing with minimal bleeding around it and feeling that small amount of blood trickles back from her throat. She denies bleeding from elsewhere. She is on aspirin but no other antiplatelet or intracardiac medications. She has been hypertensive during her course in the ED systolic blood pressure running between 160s- 170 Past Med Surg Social Fam HX - Past Medical History Medical history: cardiomyopathy, CHF, COPD, coronary artery disease, hypertension, other Psychiatric history: no psych history - Past Surgical History Surgical History: other - Social History Smoking Status: Current every day smoker Smokeless Tobacco Status: No Alcohol use: rarely Drug use: none - Family History Father Adopted: No Family Member Ethnicity: Non- Living Status: Hx Family Cardiac Disorders: Yes Internal Medicine - H&P: Meds Atorvastatin [Lipitor] 20 mg PO HS 05/25/15 [History] Carvedilol [Coreg] 18.75 mg PO BID 05/25/15 [History] Losartan Potassium [Cozaar] 100 mg PO DAILY 05/25/15 [History] Potassium Chloride [Klor-Con M15] 20 meq PO DAILY 05/25/15 [History] Furosemide [Lasix] 40 mg PO BID #90 tablet 06/13/15 [Rx] Isosorbide MONOnitrate (24 HR) [Imdur] 90 mg PO DAILY #90 tab.er.24h 06/13/15 [ Rx] Trospium Chloride 20 mg PO BID 02/06/17 [History] Losartan [Cozaar] 50 mg PO DAILY #30 tablet 02/07/17 [Rx] 3 Allergy/AdvReac Type Severity Reaction Status Date / Time Penicillins [PCN] Allergy Mild Itching Verified 02/06/17 12:29 Sulfa (Sulfonamide Allergy Mild Hives Verified 02/06/17 12:29 Antibiotics) pheniramine Allergy Unknown UNKNOWN Verified 02/06/17 12:29 PER PATIENT codeine AdvReac Mild "HARD ON Verified 02/06/17 12:29 BOWELS" All Systems PM: A 10-system review of systems was performed and is negative for pertinent findings except as documented above in the HPI. Review of systems: 10 point review systems is negative except for HPI - Constitutional Vitals: Temp Pulse Resp BP Pulse Ox 97.5 F L 73 16 168/67 96 04/10/17 02:33 04/10/17 07:10 04/10/17 07:10 04/10/17 07:10 04/10/17 07:10 Exam: Gen.: patient is alert oriented times 3 not in distress. Cardiac: normal S1 S2 no additional sounds or murmurs chest: fair air entry. no active wheezing. No crackles or bronchial breathing. abdomen: soft nontender nondistended normal bowel sounds neuro: no focal deficit HEENT: nasal packing in place Internal Med - H&P Results - Labs CBC & Chem 7: 04/10/17 04:39 04/10/17 04:39
[2017-04-10] MEDS ORDERED: Cefuroxime PO 500 MG TABLET PO SCH (09:00)
[2017-04-10] MEDS: Famotidine 20 MG/2 ML VIAL IVP SCH (09:50)
[2017-04-10] MEDS: Cefuroxime PO 500 MG TABLET PO SCH ×2 (10:25→22:29)
[2017-04-10] MEDS ORDERED: Ondansetron 4 MG/2 ML VIAL ONE (11:40)
[2017-04-10] MEDS ORDERED: Ondansetron 4 MG/2 ML VIAL IVP PRN (12:05)
[2017-04-10] MEDS ORDERED: *HR* HYDROcodone/Acet 5/325 mg TABLET PO PRN (13:34)
[2017-04-10] MEDS: Furosemide 40 MG TABLET PO SCH (15:44)
[2017-04-11 03:04] LABS: Basophils % 0.3 %; Hematocrit 36.3 % (35.3-44.9); Hemoglobin 12.4 g/dL (11.5-15.4); Immature Granulocytes % 0.3 % (0-4); Immature Platelets 2.9 % (1.1-6.1); Lymphocytes # 0.7 K/mcL (0.6-4.6); Lymphocytes % 4.7 %; Mean Corpuscular HGB Conc 34.2 g/dL (31.6-35.5); Mean Corpuscular Hemoglobin 32.8 pg (28.0-33.3); Mean Platelet Volume 9.6 fL (9.4-12.4); Monocytes # 1.3 K/mcL (0.0-1.3); Monocytes % 9.5 %; Neutrophils # 11.8 K/mcL (1.6-8.9); Platelet Count 269 K/mcL (140-400); Red Blood Count 3.78 M/mcL (3.82-4.97); Red Cell Distribution Width 14.6 % (11.5-14.5); Segmented Neutrophils % 85.2 %
[2017-04-11 03:29] LABS: BUN/Creatinine Ratio 34 (6-26); Blood Urea Nitrogen 28 mg/dL (7-20); Calcium 9.1 mg/dL (8.6-10.8); Chloride 107 mEq/L (98-109); Glucose 122 mg/dL (70-99); Osmolality,Calculated 291 (280-300); Potassium 3.6 mEq/L (3.5-4.5); Sodium 137 mEq/L (136-145); eGFR For African Americans > 60 (> 60); eGFR For Non-African Americans > 60 (> 60)
[2017-04-11 03:39] LABS: Carbon Dioxide 20 mEq/L (19-29)
--- NOTE | 2017-04-11 07:50 | ENT - Progress Note ---
Date of Encounter: 04/11/17 Time of Encounter: 07:30 - Assessment and Plan (1) Posterior epistaxis Current Visit: Yes Status: Acute White female the left side of nose packed secure with slight amount of bleeding from the right side may need 1 more cc saline in the right using excessive otherwise I believe this patient can go home today on antibiotics and arrange for follow-up in the office on Wednesday we will call the patient for follow-up appointment also she was given my number to call if she has any problems. Subjective Patient reports: no new complaints, other (Minimal bleeding consistent with packing and posterior pharyngeal bleeding of small amount right nostril may need to blow up the posterior balloon with more fluid if continues to ooze ) Objective Initial Vital Signs Temp Pulse Resp BP Pulse Ox 97.5 F L 78 20 172/85 97 04/10/17 02:33 04/10/17 02:33 04/10/17 02:33 04/10/17 02:33 04/10/17 02:33 - General physical appearance well developed, well nourished, no distress - Eyes PERRL, normal ocular movement - ENT normal pinna, Other (left nasal packing secure small amt of blood in right nostril may need to inflate posterior baloon more) - Neck no masses, trachea midline, no lymphadectomy - Respiratory normal expansion, normal respiratory effort - Abdomen soft, non tender - Integumentary no rash, no growths - Neurologic CN 2-12 grossly intact, normal coordination, normal sensation - Psychiatric oriented to time, oriented to person, oriented to place, speech is normal - Labs 04/11/17 02:46 04/11/17 02:46 Diabetes panel 04/11/17 Range/Units 02:46 Sodium 137 (136-145) mEq/L Potassium 3.6 (3.5-4.5) mEq/L Chloride 107 (98-109) mEq/L Carbon Dioxide 20 (19-29) mEq/L BUN 28 H (7-20) mg/dL Creatinine 0.83 (0.57-1.11) mg/dL Glucose 122 H (70-99) mg/dL Calcium 9.1 (8.6-10.8) mg/dL Calcium panel 04/11/17 Range/Units 02:46 Calcium 9.1 (8.6-10.8) mg/dL Pituitary panel 04/11/17 Range/Units 02:46 Sodium 137 (136-145) mEq/L Potassium 3.6 (3.5-4.5) mEq/L Chloride 107 (98-109) mEq/L Carbon Dioxide 20 (19-29) mEq/L BUN 28 H (7-20) mg/dL Creatinine 0.83 (0.57-1.11) mg/dL Glucose 122 H (70-99) mg/dL Calcium 9.1 (8.6-10.8) mg/dL Adrenal panel 04/11/17 Range/Units 02:46 Sodium 137 (136-145) mEq/L Potassium 3.6 (3.5-4.5) mEq/L Chloride 107 (98-109) mEq/L Carbon Dioxide 20 (19-29) mEq/L BUN 28 H (7-20) mg/dL Creatinine 0.83 (0.57-1.11) mg/dL Glucose 122 H (70-99) mg/dL Calcium 9.1 (8.6-10.8) mg/dL Consult Discharge Plan - Plan
[2017-04-11] MEDS: Isosorbide MONOnitrate (24 HR) 30 MG TAB.ER.24H PO SCH (08:57)
[2017-04-11] MEDS: Furosemide 40 MG TABLET PO SCH ×2 (08:57→16:38)
[2017-04-11] MEDS: Famotidine 20 MG/2 ML VIAL IVP SCH (08:58)
[2017-04-11] MEDS: Cefuroxime PO 500 MG TABLET PO SCH ×2 (10:56→20:46)
--- NOTE | 2017-04-11 15:17 | Internal Med Progress Note ---
Date of Encounter: 04/11/17 Time of Encounter: 10:15 - Assessment and plan (1) Epistaxis Current Visit: Yes Status: Acute Assessment and plan: Improving. Blood counts have remained stable. ENT has cleared patient for discharge. However she is concerned about managing by herself at home. We will monitor overnight while we wait for physical therapy evaluation. (2) Generalized weakness Current Visit: Yes Status: Acute Assessment and plan: We will consult physical therapy to evaluate patient. (3) COPD (chronic obstructive pulmonary disease) Current Visit: Yes Status: Chronic Assessment and plan: Chronic. Not in Acute exacerbation. Will place patient on bronchodilators as needed. Qualifiers: COPD type: chronic bronchitis Qualified Code(s): J41.0 - Simple chronic bronchitis (4) Hypertension Current Visit: Yes Status: Chronic Assessment and plan: Blood pressure elevated this morning. Received carvedilol, Cozaar and Imdur. Blood pressure has since improved. Qualifiers: Hypertension type: essential hypertension Qualified Code(s): I10 - Essential (primary) hypertension - Subjective Interval history: Patient does not feel good at this time. Also concerned about managing by herself at home as she lives alone. Epistaxis has mostly stopped. There remains minimal oozing down her right nare. Denies any headache. Has been very somnolent. Also complains of some throat pain and discomfort. - Constitutional Vitals: Temp Pulse Resp BP Pulse Ox 98.5 F 90 14 131/63 96 04/11/17 15:03 04/11/17 15:03 04/11/17 15:03 04/11/17 15:03 04/11/17 15:03 General appearance: Present: cooperative, mild distress, A&O X 3, answers questions appropriately - ENT Additional comments: Nasal balloon in place in the left naris. - Respiratory Respiratory exam: Present: prolonged expiratory phase. Absent: accessory muscle use, rales, rhonchi, wheezes - Cardiovascular Cardiovascular exam: Present: RRR, +S1, +S2. Absent: diastolic murmur, gallop, rubs, systolic murmur - GI/Abdominal GI/Abdominal exam: Present: normal bowel sounds, soft, no peritoneal signs. Absent: distended, tenderness - Extremities Exam Extremities exam: Present: warm, radial pulses palpable and symmetrical. Absent : calf tenderness, cyanotic, pedal edema - Neurological Exam Neurological exam: Present: alert, oriented X3, no focal deficits. Absent: facial droop, speech deficit Internal Medicine: Result - Labs CBC & Chem 7: 04/11/17 02:46 04/11/17 02:46 Labs: Short CBC 04/11/17 Range/Units 02:46 WBC 13.9 H D (4.3-11.1) K/mcL Hgb 12.4 (11.5-15.4) g/dL Hct 36.3 (35.3-44.9) % Plt Count 269 (140-400) K/mcL Neutrophils # 11.8 H (1.6-8.9) K/mcL BMP 04/11/17 02:46 Sodium 137 Potassium 3.6 Chloride 107 Carbon Dioxide 20 BUN 28 H Creatinine 0.83 Glucose 122 H Calcium 9.1 - ABG Interpretation ABG results: PT/INR, D-dimer PT 13.2 Seconds (9.4-12.1) H 04/10/17 04:39 Consult Discharge Plan - Plan Instructions: Heart Failure (DC), Atrial Fibrillation (DC), Epistaxis (DC), Chronic Hypertension (DC), Cigarette Smoking and Your Health, 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
[2017-04-12 04:13] LABS: Hematocrit 33.8 % (35.3-44.9); Hemoglobin 11.2 g/dL (11.5-15.4)
--- NOTE | 2017-04-12 09:48 | ENT - Progress Note ---
Date of Encounter: 04/12/17 Time of Encounter: 09:45 - Assessment and Plan (1) Epistaxis Current Visit: Yes Status: Acute Patient previously seen and nasal packing put in place by Dr. Wallace on 04/10/17. Additional CC'S added to balloon once placed due to oozing from right nare. Patient seen and examined at bedside this A.M. with no bleeding or oozing from left nare, and with subtle oozing from right nare noted. Actual site of bleeding in right nare is not identified at this time, and bleeding is believed to be coming from posterior left side. There is no blood or clot noted to the oropharynx. Patient's O2 sats within normal limits at this time. Patient will follow up in ENT office wednesday04/14/17 for evaluation and packing removal if indicated. Continue oral antibiotics and medications for pain management as needed. Patient noted to have consistent severely elevated BP's with systolic readings noted to be in the high 170's at times. Recommend optimization of BP to aid in controlling epistaxis and oozing at this time. (2) Hypertensive urgency Current Visit: Yes Status: Acute Patient's vitals reviewed and patient noted to have continuously elevated BP's, with a systolic reading of 177 this A.M. and systolic reading of 179 on when nasal packing was placed. The elevation in BP is likely contributory to the epistaxis and continued oozing. Recommend optimization of BP at this time. Subjective Patient reports: no new complaints, tolerating liquids well, tolerating a regular diet, voiding w/o difficulty, afebrile Objective Initial Vital Signs Temp Pulse Resp BP Pulse Ox 97.5 F L 78 20 172/85 97 04/10/17 02:33 04/10/17 02:33 04/10/17 02:33 04/10/17 02:33 04/10/17 02:33 - General physical appearance no distress - Eyes normal ocular movement - ENT CN 2-12 grossly intact, Other (nasal packing and inflated nasal rhino rocket in place in left nare without drainage or oozing noted to left nare. Right nare with subtle oozing noted. No blood or clot noted to the oropharynx. 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
[2017-04-12] MEDS: Isosorbide MONOnitrate (24 HR) 30 MG TAB.ER.24H PO SCH (10:06)
[2017-04-12] MEDS: amLODIPine 5 MG TABLET PO SCH (10:06)
[2017-04-12] MEDS: Furosemide 40 MG TABLET PO SCH ×2 (10:07→17:00)
[2017-04-12] MEDS: Famotidine 20 MG TABLET PO SCH (10:08)
[2017-04-12] MEDS: Cefuroxime PO 500 MG TABLET PO SCH ×2 (10:08→22:07)
--- NOTE | 2017-04-12 12:57 | Discharge Summary ---
Date of Encounter: 04/12/17 Time of Encounter: 09:30 - Discharge Diagnosis (1) Epistaxis Priority: Primary Status: Acute (2) Generalized weakness Priority: Secondary Status: Acute (3) COPD (chronic obstructive pulmonary disease) Priority: Secondary Status: Chronic Qualifiers: COPD type: chronic bronchitis Chronic bronchitis type: simple Qualified Code(s): J41.0 - Simple chronic bronchitis (4) Hypertension Priority: Secondary Status: Chronic Qualifiers: Hypertension type: essential hypertension Qualified Code(s): I10 - Essential (primary) hypertension - Discharge Medications Prescriptions: amLODIPine [Norvasc] 5 mg PO DAILY #30 tablet Benzocaine/Menthol Reji [Cepacol Sore Throat Lozenge] 1 each MM Q2H PRN #20 lozenge PRN Reason: Sore Throat Cefuroxime PO [Ceftin] 500 mg PO Q12H #8 tablet Home Medications: Carvedilol [Coreg] 18.75 mg PO BID 05/25/15 [History] Potassium Chloride [Klor-Con M15] 20 meq PO DAILY 05/25/15 [History] Losartan [Cozaar] 50 mg PO DAILY #30 tablet 02/07/17 [Rx] Furosemide [Lasix] 40 mg PO DAILY 04/10/17 [History] HYDROcodone/Acet 5/325 mg [Luke 5-325 mg] 1 tab PO Q8H PRN 04/10/17 [History] Isosorbide MONOnitrate (24 HR) [Imdur] 30 mg PO DAILY 04/10/17 [History] Rosuvastatin Calcium [Crestor] 5 mg PO DAILY 04/10/17 [History] Atorvastatin [Lipitor] 20 mg PO HS tablet 04/12/17 [Rx] Benzocaine/Menthol Reji [Cepacol Sore Throat Lozenge] 1 each MM Q2H PRN #20 lozenge 04/12/17 [Rx] Cefuroxime PO [Ceftin] 500 mg PO Q12H #8 tablet 04/12/17 [Rx] amLODIPine [Norvasc] 5 mg PO DAILY #30 tablet 04/12/17 [Rx] Allergies/Adverse Reactions: 3 Allergy/AdvReac Type Severity Reaction Status Date / Time Penicillins [PCN] Allergy Mild Itching Verified 02/06/17 12:29 Sulfa (Sulfonamide Allergy Mild Hives Verified 02/06/17 12:29 Antibiotics) pheniramine Allergy Unknown UNKNOWN Verified 02/06/17 12:29 PER PATIENT codeine AdvReac Mild "HARD ON Verified 02/06/17 12:29 BOWELS" Date of admission: 04/10/17 07:17 Primary care physician: Matias Kleni Consults: 04/10/17 07:57 Consult to Physical Therapy [CONS] Routine Comment: Evaluate, develop and implement POC Reason for Consult: wekaness 04/11/17 12:03 Consult to Physical Therapy [CONS] Stat Comment: Evaluate, develop and implement POC Reason for Consult: patient has difficulty transfering and walking 04/11/17 12:04 OT [Consult to Occupational Therapy] [CONS] Stat Comment: Evaluate, develop and implement POC Reason for Consult: weakness and difficulty performing daily activities. Discharging clinician: Phill Morrison Anticipated date of discharge: 04/13/17 - Patient Status Disposition: Transfer Inpatient Rehab Fac Condition: Good Functional capacity at discharge: independent ambulation Overall status at discharge: patient is progressing back to baseline - Discharge Instructions Instructions: Cefuroxime (By mouth), Amlodipine (By mouth), Benzocaine/Menthol (By mouth), Heart Failure (DC), Atrial Fibrillation (DC), Epistaxis (DC), Chronic Hypertension (DC), Cigarette Smoking and Your Health, [employer] Brakes ( GEN) Follow Up With: Tana Delgado DO [Primary Care Provider] - Jonathan Valverde MD [Partnered Physician] - 04/14/17 1:00 pm Stefany Brandt DO [Non-Partnered Physician] - (CYNDI) Forms: ED Satisfaction Letter - Diet and Activity Activity: increase activity as tolerated Diet: low fat, low cholesterol, low salt diet Hospital course: Ms. Randall is a 82 year old female patient with history of COPD, HTN, CHF, Cardiomyopathy who was hospitalized here after presenting with epistaxis. ENT was consulted. Bleeding site was not able to be identified but patient underwent anterior and posterior packing with balloon which was injected with saline to stop bleeding. Patient was then hospitalized as she was short of breath. Epistaxis has slowly subsided and is now a mild ooze. Blood counts have been fairly stable. Patient has uncontrolled hypertension and her BP has been severely elevated. She is on multiple medications and amlodipine has been added to help control it better. Her hypertension would definitely make controlling her epistaxis harder but given her age, we are limited to adding medications slowly to avoid complications. Her blood pressure is improving overall and ENT recommends outpatient follow up to have the balloon removed. She was evaluated by PT and recommended inpatient rehab placement. printed circuit board reworker has been consulted and will make arrangements for this. She will stay in the hospital till she has approval for placement. She is also on antibiotics per ENT recommendations due to nasal balloon placement. - Time Spent with Patient Total time spent providing and/or coordinating discharge services: Greater than 30 minutes (35 min) - Constitutional Vitals: Temp Pulse Resp BP Pulse Ox 98.3 F 76 16 166/81 98 04/12/17 10:54 04/12/17 10:54 04/12/17 10:54 04/12/17 10:54 04/12/17 10:54 General appearance: Present: cooperative, mild distress, A&O X 3, answers questions appropriately - Eye Eye exam: Present: PERRL, conjuntiva pink, sclera anicteric Pupils: Present: PERRL - ENT Additional comments: nasal balloon in left nare. Slight oozing from right nare likely from left posterior nare - Respiratory Respiratory exam: Present: CTAB. Absent: accessory muscle use, rales, rhonchi, wheezes - Cardiovascular Cardiovascular exam: Present: RRR, +S1, +S2. Absent: diastolic murmur, gallop, rubs, systolic murmur - Extremities Exam Extremities exam: Present: warm, radial pulses palpable and symmetrical. Absent : calf tenderness, cyanotic, pedal edema - Neurological Exam Neurological exam: Present: alert, CN II-XII intact, oriented X3, no focal deficits. Absent: facial droop, speech deficit - Skin Skin exam: Present: dry, intact
--- NOTE | 2017-04-12 15:43 | Physician Discharge Referral ---
ExtendedCare Referral Info Provider in Charge after Transfer: PCP Institutional Level of Care: Skilled - Diagnosis (1) Epistaxis Priority: Primary Status: Acute (2) Generalized weakness Priority: Secondary Status: Acute (3) COPD (chronic obstructive pulmonary disease) Priority: Secondary Status: Chronic (4) Hypertension Priority: Secondary Status: Chronic Prognosis: Fair Aware of Diagnosis: Patient Aware of Prognosis: Patient - Transfer Medications Prescriptions: amLODIPine [Norvasc] 5 mg PO DAILY #30 tablet Benzocaine/Menthol Reji [Cepacol Sore Throat Lozenge] 1 each MM Q2H PRN #20 lozenge PRN Reason: Sore Throat Cefuroxime PO [Ceftin] 500 mg PO Q12H #8 tablet Home Medications: Carvedilol [Coreg] 18.75 mg PO BID 05/25/15 [History] Potassium Chloride [Klor-Con M15] 20 meq PO DAILY 05/25/15 [History] Losartan [Cozaar] 50 mg PO DAILY #30 tablet 02/07/17 [Rx] Furosemide [Lasix] 40 mg PO DAILY 04/10/17 [History] HYDROcodone/Acet 5/325 mg [[place] 5-325 mg] 1 tab PO Q8H PRN 04/10/17 [History] Isosorbide MONOnitrate (24 HR) [Imdur] 30 mg PO DAILY 04/10/17 [History] Rosuvastatin Calcium [Crestor] 5 mg PO DAILY 04/10/17 [History] Atorvastatin [Lipitor] 20 mg PO HS tablet 04/12/17 [Rx] Benzocaine/Menthol Reji [Cepacol Sore Throat Lozenge] 1 each MM Q2H PRN #20 lozenge 04/12/17 [Rx] Cefuroxime PO [Ceftin] 500 mg PO Q12H #8 tablet 04/12/17 [Rx] amLODIPine [Norvasc] 5 mg PO DAILY #30 tablet 04/12/17 [Rx] Allergies/Adverse Reactions: 3 Allergy/AdvReac Type Severity Reaction Status Date / Time Penicillins [PCN] Allergy Mild Itching Verified 02/06/17 12:29 Sulfa (Sulfonamide Allergy Mild Hives Verified 02/06/17 12:29 Antibiotics) pheniramine Allergy Unknown UNKNOWN Verified 02/06/17 12:29 PER PATIENT codeine AdvReac Mild "HARD ON Verified 02/06/17 12:29 BOWELS" - Respiratory Orders Smoking Cessation: Smoking cessation has been advised. For more information, call the [place] Tobacco Quit Line at 6-682-QCRC-NOW. - Advance Directives Code Status: Full Code - Mobility Orders Other (per PT) - Rehabiliation Orders Rehab Potential: Fair Rehab Orders: Evaluation for Physical Therapy, Evaluation for Occupational Therapy - Diet Orders Cardiac CERTIFICATION: I certify that the transfer of the above named patient to an Extended Care Facility is necessary for the continuing treatment of the diagnosis listed. The above information is true and accurate reflection of patient's current condition. Confidential - Redisclosure prohibited without a patient's written consent.
[2017-04-13] MEDS: Cefuroxime PO 500 MG TABLET PO SCH ×2 (09:39→21:55)
[2017-04-13] MEDS: Isosorbide MONOnitrate (24 HR) 30 MG TAB.ER.24H PO SCH (09:39)
[2017-04-13] MEDS: Furosemide 40 MG TABLET PO SCH ×2 (09:39→18:30)
[2017-04-13] MEDS: amLODIPine 5 MG TABLET PO SCH (09:39)
[2017-04-13] MEDS: Famotidine 20 MG TABLET PO SCH (09:40)
--- NOTE | 2017-04-13 12:40 | Internal Med Progress Note ---
Date of Encounter: 04/13/17 Time of Encounter: 12:38 - Subjective Interval history: Patient seen and examined at bedside. reports of generalized weakness but denies any chest pain or shortness of breath. No recurrent epistaxis reported noted to be in Afib with RVR but she did not receive her morning dose of Carvedilol until noon. will closely monitor and adjust meds as needed Rate currently controlled and pt tolerating increase in Carvedilol Pt was discharged yesterday pending ECF placement. D/c on hold today due to Afib with RVR LIkely d/c to ECF in am if rate remains controlled. continue home medications Vitals within acceptable range (1) Epistaxis Priority: Primary Status: Acute ENT on board will remove packing in am continue oral abx as prescribed (2) Generalized weakness Priority: Secondary Status: Acute (3) COPD (chronic obstructive pulmonary disease) Priority: Secondary Status: Chronic Qualifiers: COPD type: chronic bronchitis Chronic bronchitis type: simple Qualified Code(s): J41.0 - Simple chronic bronchitis (4) Hypertension Priority: Secondary Status: Chronic Qualifiers: Hypertension type: essential hypertension Qualified Code(s): I10 - Essential (primary) hypertension - Constitutional Vitals: Temp Pulse Resp BP Pulse Ox 97.8 F 105 14 118/87 98 04/13/17 10:35 04/13/17 10:35 04/13/17 10:35 04/13/17 10:35 04/13/17 10:35 General appearance: Present: cooperative, A&O X 3, no acute distress, answers questions appropriately - Head Head exam: Present: atraumatic, normocephalic - Eye Eye exam: Present: conjuntiva pink, sclera anicteric - Respiratory Respiratory exam: Present: CTAB. Absent: accessory muscle use, rales, rhonchi, wheezes - Cardiovascular Cardiovascular exam: Present: irregular rhythm, +S1, +S2, tachycardia - GI/Abdominal GI/Abdominal exam: Present: normal bowel sounds, soft, no peritoneal signs. Absent: distended, tenderness - Extremities Exam Extremities exam: Present: warm, radial pulses palpable and symmetrical. Absent : calf tenderness, cyanotic, pedal edema - Neurological Exam Neurological exam: Present: alert, oriented X3 Internal Medicine: Result - Labs CBC & Chem 7: 04/12/17 03:41 04/11/17 02:46 - ABG Interpretation ABG results: PT/INR, D-dimer PT 13.2 Seconds (9.4-12.1) H 04/10/17 04:39 Consult Discharge Plan - Plan Instructions: Cefuroxime (By mouth), Amlodipine (By mouth), Benzocaine/Menthol (By mouth), Heart Failure (DC), Atrial Fibrillation (DC), Epistaxis (DC), Chronic Hypertension (DC), Cigarette Smoking and Your Health, Pharmacy Operations Coordinator ( GEN) Referrals: Tana Delgado DO [Primary Care Provider] - Stefany Brandt DO [Non-Partnered Physician] - (CYNDI) Jonathan Valverde MD [Partnered Physician] - 04/14/17 1:00 pm Prescriptions: amLODIPine [Norvasc] 5 mg PO DAILY #30 tablet Benzocaine/Menthol Reji [Cepacol Sore Throat Lozenge] 1 each MM Q2H PRN #20 lozenge PRN Reason: Sore Throat Cefuroxime PO [Ceftin] 500 mg PO Q12H #8 tablet
--- NOTE | 2017-04-13 13:44 | ENT - Progress Note ---
Date of Encounter: 04/13/17 Time of Encounter: 11:00 - Assessment and Plan (1) Epistaxis Current Visit: Yes Status: Acute Patient seen and examined at bedside this A.M. with no bleeding or oozing noted from either nare bilaterally. There is no blood or clot noted to the oropharynx. Patient's O2 sats within normal limits at this time. Patient will follow up in ENT office wednesday04/14/17 for evaluation and packing removal if indicated. Continue oral antibiotics and medications for pain management as needed. Continue to monitor and optimize BP. (2) Hypertensive urgency Current Visit: Yes Status: Acute Patient's vitals reviewed today and patient's BP's readings reflect a drop, with most readings within normal limits or below. Continue to recommend optimization of BP. Subjective Patient reports: no new complaints, tolerating liquids well, tolerating a regular diet, voiding w/o difficulty Objective Initial Vital Signs Temp Pulse Resp BP Pulse Ox 97.5 F L 78 20 172/85 97 04/10/17 02:33 04/10/17 02:33 04/10/17 02:33 04/10/17 02:33 04/10/17 02:33 - General physical appearance no distress - Eyes normal ocular movement - ENT CN 2-12 grossly intact, Other (no drainage, oozing, or bleeding noted to either nare bilaterally. Inflated nasal rhino rockets in place in left nare. No blood noted in the oropharynx. ) - Neck no masses, trachea midline, no lymphadectomy - Respiratory normal respiratory effort - Labs 04/12/17 03:41 04/11/17 02:46 Consult Discharge Plan - Plan Instructions: Cefuroxime (By mouth), Amlodipine (By mouth), Benzocaine/Menthol (By mouth), Heart Failure (DC), Atrial Fibrillation (DC), Epistaxis (DC), Chronic Hypertension (DC), Cigarette Smoking and Your Health, Efficiency Expert ( GEN) Referrals: Tana Delgado DO [Primary Care Provider] - Stefany Brandt DO [Non-Partnered Physician] - (CYNDI) Jonathan Valverde MD [Partnered Physician] - 04/14/17 1:00 pm Prescriptions: amLODIPine [Norvasc] 5 mg PO DAILY #30 tablet Benzocaine/Menthol Reji [Cepacol Sore Throat Lozenge] 1 each MM Q2H PRN #20 lozenge PRN Reason: Sore Throat Cefuroxime PO [Ceftin] 500 mg PO Q12H #8 tablet
[2017-04-13] MEDS ORDERED: amLODIPine 5 MG TABLET PO SCH (14:56)
[2017-04-14 06:43] LABS: Basophils % 0.2 %; Hematocrit 32.4 % (35.3-44.9); Hemoglobin 10.8 g/dL (11.5-15.4); Immature Granulocytes % 0.3 % (0-4); Lymphocytes # 0.9 K/mcL (0.6-4.6); Lymphocytes % 9.9 %; Mean Corpuscular HGB Conc 33.3 g/dL (31.6-35.5); Mean Corpuscular Hemoglobin 32.5 pg (28.0-33.3); Mean Corpuscular Volume 97.6 fL (83.0-100.0); Mean Platelet Volume 10.1 fL (9.4-12.4); Monocytes # 1.3 K/mcL (0.0-1.3); Monocytes % 13.7 %; Neutrophils # 6.9 K/mcL (1.6-8.9); Platelet Count 222 K/mcL (140-400); Red Blood Count 3.32 M/mcL (3.82-4.97); Red Cell Distribution Width 14.8 % (11.5-14.5); Segmented Neutrophils % 75.9 %
[2017-04-14 06:55] LABS: BUN/Creatinine Ratio 30 (6-26); Blood Urea Nitrogen 24 mg/dL (7-20); Calcium 8.4 mg/dL (8.6-10.8); Carbon Dioxide 24 mEq/L (19-29); Chloride 105 mEq/L (98-109); Glucose 106 mg/dL (70-99); Osmolality,Calculated 292 (280-300); Phosphorous 2.9 mg/dL (2.3-4.7); Potassium 3.3 mEq/L (3.5-4.5); Sodium 139 mEq/L (136-145); eGFR For African Americans > 60 (> 60); eGFR For Non-African Americans > 60 (> 60)
[2017-04-14] MEDS: Isosorbide MONOnitrate (24 HR) 30 MG TAB.ER.24H PO SCH (09:10)
[2017-04-14] MEDS: Cefuroxime PO 500 MG TABLET PO SCH (09:11)
[2017-04-14] MEDS: Famotidine 20 MG TABLET PO SCH (09:11)
[2017-04-14] MEDS: Furosemide 40 MG TABLET PO SCH ×2 (09:11→17:39)
[2017-04-14 10:56] VITALS: BP 128/78
--- NOTE | 2017-04-14 12:21 | Electrocardiograph Report ---
[address] [place], [place] [address] Test Date: 2017-04-10 Pat Name: Julissa Randall Department: [id number] Room: 2NE27 Gender: F Train Dispatcher: ONEIL : [id number] Requested By: Michael Ku Order Number: [id number] Reading MD: Addi Simental MD Measurements Intervals [place] Rate: 68 P: 33 GA: 154 QRS: -39 QRSD: 102 T: 235 QT: 369 QTc: 386 Interpretive Statements SINUS RHYTHM WITH OCCASIONAL VENTRICULAR PREMATURE COMPLEXES MARKED LEFT AXIS DEVIATION LATERAL ISCHEMIA Poor R wave progression BASELINE ARTIFACT COMPLICATES ACCURATE INTERPRETATION Electronically Signed On 04-14-2017 12:19:39 EST by Addi Simental MD
--- NOTE | 2017-04-14 13:55 | ENT - Progress Note ---
Date of Encounter: 04/14/17 Time of Encounter: 13:00 - Assessment and Plan (1) Epistaxis Current Visit: Yes Status: Acute Patient remained inpatient today and was seen on unit at bedside for nasal packing removal. Patient with no bleeding or oozing noted from either nare bilaterally. Anterior/posterior balloon removal completed without complications or bleeding post removal. There was no blood or clot noted to the oropharynx post balloon removal. Patient's O2 sats within normal limits at this time. Continue oral antibiotics x5 more days and medications for pain management as needed. Orders placed for mupirocin ointment to nares bilaterally TID and normal saline spray rinses. Patient may follow up PRN on outpatient basis. (2) Hypertensive urgency Current Visit: Yes Status: Acute Patient's vitals reviewed today and patient's BP's within normal limits. Heart rate more controlled today and noted to be within normal limits. Continue to recommend optimization of BP. Subjective Patient reports: no new complaints, feels better, tolerating liquids well, tolerating a regular diet, voiding w/o difficulty Objective Initial Vital Signs Temp Pulse Resp BP Pulse Ox 97.5 F L 78 20 172/85 97 04/10/17 02:33 04/10/17 02:33 04/10/17 02:33 04/10/17 02:33 04/10/17 02:33 - General physical appearance well developed, well nourished, no distress - Eyes normal ocular movement - ENT CN 2-12 grossly intact, Other (normal right nare mucosa, with no drainage or oozing noted. No drainage or oozing noted from left nare. Inflated rhino rocket previously in place in left nare removed, with no bleeding noted after removal and no obvious hypervascular areas or areas of trauma noted to the septum. ) - Labs 04/14/17 06:08 04/14/17 06:08 Diabetes panel 04/14/17 Range/Units 06:08 Sodium 139 (136-145) mEq/L Potassium 3.3 L (3.5-4.5) mEq/L Chloride 105 (98-109) mEq/L Carbon Dioxide 24 (19-29) mEq/L BUN 24 H (7-20) mg/dL Creatinine 0.81 (0.57-1.11) mg/dL Glucose 106 H (70-99) mg/dL Calcium 8.4 L (8.6-10.8) mg/dL Calcium panel 04/14/17 Range/Units 06:08 Calcium 8.4 L (8.6-10.8) mg/dL Phosphorus 2.9 (2.3-4.7) mg/dL Pituitary panel 04/14/17 Range/Units 06:08 Sodium 139 (136-145) mEq/L Potassium 3.3 L (3.5-4.5) mEq/L Chloride 105 (98-109) mEq/L Carbon Dioxide 24 (19-29) mEq/L BUN 24 H (7-20) mg/dL Creatinine 0.81 (0.57-1.11) mg/dL Glucose 106 H (70-99) mg/dL Calcium 8.4 L (8.6-10.8) mg/dL Adrenal panel 04/14/17 Range/Units 06:08 Sodium 139 (136-145) mEq/L Potassium 3.3 L (3.5-4.5) mEq/L Chloride 105 (98-109) mEq/L Carbon Dioxide 24 (19-29) mEq/L BUN 24 H (7-20) mg/dL Creatinine 0.81 (0.57-1.11) mg/dL Glucose 106 H (70-99) mg/dL Calcium 8.4 L (8.6-10.8) mg/dL Consult Discharge Plan - Plan Instructions: Cefuroxime (By mouth), Amlodipine (By mouth), Benzocaine/Menthol (By mouth), Heart Failure (DC), Atrial Fibrillation (DC), Epistaxis (DC), Chronic Hypertension (DC), Cigarette Smoking and Your Health, Hand Umbrella Tipper ( GEN) Referrals: Tana Delgado DO [Primary Care Provider] - Stefany Brandt DO [Non-Partnered Physician] - (CYNDI) Jonathan Valverde MD [Partnered Physician] - 04/14/17 1:00 pm Prescriptions: amLODIPine [Norvasc] 5 mg PO DAILY #30 tablet Benzocaine/Menthol Reji [Cepacol Sore Throat Lozenge] 1 each MM Q2H PRN #20 lozenge PRN Reason: Sore Throat Carvedilol [Coreg] 25 mg PO BID #30 tablet Cefuroxime PO [Ceftin] 500 mg PO Q12H #8 tablet
--- NOTE | 2017-04-14 14:13 | Internal Med Progress Note ---
Date of Encounter: 04/14/17 Time of Encounter: 14:13 - Subjective Interval history: Patient seen and examined at bedside. reports of generalized weakness but denies any chest pain or shortness of breath. No recurrent epistaxis reported noted to be in Afib with RVR, increased Carvedilol to 25mg PO BID. Rate controlled. Amlodipine to be only used if SBP>140. Pt's discharge instructions updated. Pt to be discharged to ECF today continue home medications Vitals within acceptable range (1) Epistaxis Priority: Primary Status: Acute ENT on board packing removed abx given to be d/c to ECF today (2) Generalized weakness Priority: Secondary Status: Acute (3) COPD (chronic obstructive pulmonary disease) Priority: Secondary Status: Chronic Qualifiers: COPD type: chronic bronchitis Chronic bronchitis type: simple Qualified Code(s): J41.0 - Simple chronic bronchitis (4) Hypertension Priority: Secondary Status: Chronic Qualifiers: Hypertension type: essential hypertension Qualified Code(s): I10 - Essential (primary) hypertension - Constitutional Vitals: Temp Pulse Resp BP Pulse Ox 97.5 F L 68 16 128/78 99 04/14/17 11:00 04/14/17 11:00 04/14/17 11:00 04/14/17 11:00 04/14/17 11:00 General appearance: Present: cooperative, A&O X 3, no acute distress, answers questions appropriately - Head Head exam: Present: atraumatic, normocephalic - Eye Eye exam: Present: conjuntiva pink, sclera anicteric - Respiratory Respiratory exam: Present: CTAB. Absent: respiratory distress, wheezes - Cardiovascular Cardiovascular exam: Present: irregular rhythm, +S1, +S2. Absent: tachycardia - GI/Abdominal GI/Abdominal exam: Present: normal bowel sounds, soft, no peritoneal signs. Absent: distended, tenderness - Extremities Exam Extremities exam: Present: warm, radial pulses palpable and symmetrical. Absent : calf tenderness - Neurological Exam Neurological exam: Present: alert, oriented X3 Internal Medicine: Result - Labs CBC & Chem 7: 04/14/17 06:08 04/14/17 06:08 Labs: Short CBC 04/14/17 Range/Units 06:08 WBC 9.1 (4.3-11.1) K/mcL Hgb 10.8 L (11.5-15.4) g/dL Hct 32.4 L (35.3-44.9) % Plt Count 222 (140-400) K/mcL Neutrophils # 6.9 (1.6-8.9) K/mcL BMP 04/14/17 06:08 Sodium 139 Potassium 3.3 L Chloride 105 Carbon Dioxide 24 BUN 24 H Creatinine 0.81 Glucose 106 H Calcium 8.4 L - ABG Interpretation ABG results: PT/INR, D-dimer PT 13.2 Seconds (9.4-12.1) H 04/10/17 04:39 Consult Discharge Plan - Plan Instructions: Cefuroxime (By mouth), Amlodipine (By mouth), Benzocaine/Menthol (By mouth), Heart Failure (DC), Atrial Fibrillation (DC), Epistaxis (DC), Chronic Hypertension (DC), Cigarette Smoking and Your Health, Furnace Tapper ( GEN) Referrals: Tana Delgado DO [Primary Care Provider] - Stefany Brandt DO [Non-Partnered Physician] - (CYNDI) Jonathan Valverde MD [Partnered Physician] - 04/14/17 1:00 pm Prescriptions: amLODIPine [Norvasc] 5 mg PO DAILY #30 tablet Benzocaine/Menthol Reji [Cepacol Sore Throat Lozenge] 1 each MM Q2H PRN #20 lozenge PRN Reason: Sore Throat Carvedilol [Coreg] 25 mg PO BID #30 tablet Cefuroxime PO [Ceftin] 500 mg PO Q12H #8 tablet
--- NOTE | 2017-04-14 14:41 | ENT - Procedure Note ---
Date of procedure: 04/14/17 Pre-op diagnosis: epistaxis Post-op diagnosis: same Procedure: Anterior/posterior balloon deflated and removed without acute epistaxis post removal. Patient tolerated procedure well. Small amount of sterile lubricant placed in left nare post balloon removal. Orders placed for mupirocin ointment and saline rinses. Anesthesia: none Surgeon: Jonathan Valverde Estimated blood loss (cc): 0 Condition: stable
[2017-04-14] MEDS ORDERED: Saline Nasal Spray 44 ML BOTTLE NS SCH (21:00)
== END 2017-04-14 18:29 ==
LOC: 2NENU 02:22 → EMEROO 02:22 → SUATTDRO 07:17 → 2NENU 07:55
PROVIDERS: ADMIT Hospitalist; ATTEND Internal Medicine

== ENCOUNTER 2017-07-18 04:59 | Observation (INO) ==
[2017-07-18] MEDS ORDERED: Aspirin 81 MG TAB.CHEW PO ONE (05:09)
--- NOTE | 2017-07-18 05:20 | Emergency Department Note ---
Disposition Clinical Impression: Elevated troponin Chest pain Qualifiers: Chest pain type: unspecified Qualified Code(s): R07.9 - Chest pain, unspecified Abdominal pain Qualifiers: Abdominal location: generalized Qualified Code(s): R10.84 - Generalized abdominal pain UTI (urinary tract infection) Qualifiers: Urinary tract infection type: acute cystitis Hematuria presence: with hematuria Qualified Code(s): N30.01 - Acute cystitis with hematuria Disposition: Still a Patient Condition: Good Referrals: Tana Delgado DO [Primary Care Provider] - Forms: ED Satisfaction Letter General Adult HPI - General Chief complaint: ED Chest Pain Stated complaint: Chest pain, abd pain, SHAWANDA Time Seen by Provider: 07/18/17 05:00 Source: patient, EMS Mode of arrival: EMS Limitations: no limitations Nursing Notes Reviewed: Yes Vital Signs Reviewed: Yes - History of Present Illness HPI Narrative: 82-year-old female with significant past medical history of CHF, COPD and and STEMI presenting to the emergency department with chief complaint of chest pain and abdominal pain. Patient states yesterday she had an episode of substernal chest pain that may her diaphoretic and nauseous but it resolved by itself so she did not come in to be seen. Then today she had another episode similar to this. She is also complaining of some epigastric abdominal pain as well. She denies any nausea, vomiting or diarrhea. Patient is a poor historian. States she has had a stent in the past. No CABG. Pain Scale: 3 - Related Data Home Medications Medication Instructions Recorded Confirmed Potassium Chloride [Klor-Con M15] 20 meq PO DAILY 05/25/15 04/20/17 Isosorbide MONOnitrate (24 HR) 30 mg PO DAILY 04/10/17 04/20/17 [Imdur] Rosuvastatin Calcium [Crestor] 5 mg PO DAILY 04/10/17 04/20/17 Previous Rx's Medication Instructions Recorded Losartan [Cozaar] 50 mg PO DAILY #30 tablet 02/07/17 amLODIPine [Norvasc] 5 mg PO DAILY #30 tablet 04/12/17 Carvedilol [Coreg] 25 mg PO BIDWM #60 tablet 04/21/17 Furosemide [Lasix] 40 mg PO BID #60 tablet 04/21/17 Allergies Allergy/AdvReac Type Severity Reaction Status Date / Time Penicillins [PCN] Allergy Mild Itching Verified 02/06/17 12:29 Sulfa (Sulfonamide Allergy Mild Hives Verified 02/06/17 12:29 Antibiotics) pheniramine Allergy Unknown UNKNOWN Verified 02/06/17 12:29 PER PATIENT codeine AdvReac Mild "HARD ON Verified 02/06/17 12:29 BOWELS" Past Medical History - Past Medical History Medical history: Reports: cardiomyopathy, CHF, COPD, coronary artery disease, hypertension, other Surgical history: Reports: pacemaker/AICD (Dual-lead pacemaker), other Psychiatric history: Reports: no psych history - Social History Smoking Status: Current every day smoker Smokeless Tobacco Status: No Alcohol use: Reports: rarely Drug use: Reports: none Physical Exam - General Limitations: no limitations General appearance: alert, in no apparent distress - Head Head exam: atraumatic, normocephalic, normal inspection - Eye Eye exam: Present: normal appearance. Absent: scleral icterus, conjunctival injection - Neck Neck exam: Present: normal inspection. Absent: tenderness, meningismus - Chest Chest inspection: Present: normal inspection, symmetric chest wall rise. Absent : tenderness, rash - Respiratory Respiratory exam: Present: normal lung sounds bilaterally. Absent: respiratory distress, wheezes - Cardiovascular Cardiovascular exam: Present: regular rate, normal rhythm, normal heart sounds - Abdominal Exam Abdominal exam: Present: soft, tenderness. Absent: distention, guarding, rebound, rigidity Abdominal tenderness: Present: epigastrium, moderate - Extremities Exam Extremities exam: Present: normal inspection, full ROM - Neurological Exam Neurological exam: Present: alert - Psychiatric Psychiatric exam: Present: normal affect, normal mood - Skin Skin exam: Present: warm, dry Course Course Narrative: 82-year-old female presenting to the emergency department with chief complaint of chest pain. Patient has a known and STEMI in the past. She states she was nauseous and diaphoretic with this. We will obtain chest pain workup including CBC, BMP, EKG, troponin. Patient also complaining of epigastric pain. Because of this we will also obtain a CTA of the chest and abdomen with pelvis and add hepatic panel and lipase. Patient is alert and oriented 3 in the room with stable vital signs at this time. She agrees with this plan. Disposition will most likely be admission but pending results. - Reevaluation(s) Reevaluation #1: Laboratory analysis shows elevated troponin I 0.04. Last troponin completed was also 0.04. We will trend these but will not heparinize the patient at this time. Urinalysis also shows urinary tract infection. We will provide the patient with Rocephin at this time. CTA pending. We will plan to sign out this patient to the day team for continued workup and probable admission. Patient is alert and oriented 3 in the room with stable vital signs at this time. She agrees with this plan. Vital Signs Temperature 97.3 F L 07/18/17 05:00 Pulse Rate 86 07/18/17 05:00 Respiratory Rate 20 07/18/17 05:00 Blood Pressure 171/91 07/18/17 05:00 O2 Sat by Pulse Oximetry 93 07/18/17 05:00 Temperature 97.3 F L 07/18/17 05:00 Pulse Rate 86 07/18/17 05:00 Respiratory Rate 20 07/18/17 05:00 Blood Pressure 171/91 07/18/17 05:00 O2 Sat by Pulse Oximetry 93 07/18/17 05:00 Oxygen Delivery Oxygen Delivery Nasal Cannula Medical Decision Making - Lab Data Result diagrams: 07/18/17 05:20 07/18/17 05:44 Lab Results 07/18/17 07/18/17 07/18/17 Range/Units 05:20 05:44 05:44 WBC 6.8 (4.3-11.1) K/mcL RBC 4.14 (3.82-4.97) M/mcL Hgb 12.8 (11.5-15.4) g/dL Hct 40.3 (35.3-44.9) % MCV 97.3 (83.0-100.0) fL MCH 30.9 (28.0-33.3) pg MCHC 31.8 (31.6-35.5) g/dL RDW 17.4 H (11.5-14.5) % Plt Count 258 (140-400) K/mcL MPV 9.3 L (9.4-12.4) fL Immature Gran % 0.4 (0-4) % Seg Neutrophils % 70.7 % Lymphocytes % 16.8 % Monocytes % 10.2 % Eosinophils % 1.3 % Basophils % 0.6 % Neutrophils # 4.8 (1.6-8.9) K/mcL Lymphocytes # 1.2 (0.6-4.6) K/mcL Monocytes # 0.7 (0.0-1.3) K/mcL Eosinophils # 0.1 (0.0-0.6) K/mcL Basophils # 0.0 (0.0-0.2) K/mcL PT 11.3 (9.4-12.1) Seconds INR 1.1 APTT 30.0 (26.0-36.0) Seconds Sodium 134 L (136-145) mEq/L Potassium 4.7 (3.5-5.1) mEq/L Chloride 107 (98-107) mEq/L Carbon Dioxide 25 (23-29) mEq/L BUN 19 (8-23) mg/dL Creatinine 0.88 (0.60-1.20) mg/dL Est GFR ( Amer) > 60 (> 60) Est GFR (Non-Af Amer) > 60 (> 60) BUN/Creatinine Ratio 22 (6-26) Glucose 113 H (70-105) mg/dL Calculated Osmolality 281 (280-300) Calcium 9.1 (8.6-10.3) mg/dL Total Bilirubin 0.8 (0.3-1.0) mg/dL Direct Bilirubin 0.2 (0.0-0.2) mg/dL Indirect Bilirubin 0.6 (0.0-1.2) mg/dL AST 21 (13-39) Units/L ALT 10 (7-52) Units/L Alkaline Phosphatase 74 (34-104) Units/L Troponin I 0.04 H* (< 0.04) ng/mL Serum Total Protein 6.1 L (6.4-8.9) g/dL Albumin 3.5 (3.5-5.7) g/dL Globulin 2.6 (2.4-3.5) g/dL Albumin/Globulin Ratio 1.3 (1.1-2.2) Lipase 14 (11-82) Units/L Urine Color (Yellow) Urine Clarity (Clear) Urine pH (5.0-8.0) pH Units Ur Specific [place] (1.010-1.025) Urine Protein (Neg-Trace) mg/dL Urine Glucose (UA) (Normal) mg/dL Urine Ketones (Negative) mg/dL Urine Blood (Negative) Urine Nitrite (Negative) Urine Bilirubin (Negative) Urine Urobilinogen (Normal) mg/dL Ur Leukocyte Esterase (Negative) Urine Microscopic RBC (0-3) per hpf Urine Microscopic WBC (0-3) per hpf Ur Squamous Epith Cells (None-Few) per lpf Urine Bacteria (None-Few) per hpf Hyaline Casts (None-Few) per lpf Ur Culture Indicated? (NO) 07/18/17 Range/Units 06:10 WBC (4.3-11.1) K/mcL RBC (3.82-4.97) M/mcL Hgb (11.5-15.4) g/dL Hct (35.3-44.9) % MCV (83.0-100.0) fL MCH (28.0-33.3) pg MCHC (31.6-35.5) g/dL RDW (11.5-14.5) % Plt Count (140-400) K/mcL MPV (9.4-12.4) fL Immature Gran % (0-4) % Seg Neutrophils % % Lymphocytes % % Monocytes % % Eosinophils % % Basophils % % Neutrophils # (1.6-8.9) K/mcL Lymphocytes # (0.6-4.6) K/mcL Monocytes # (0.0-1.3) K/mcL Eosinophils # (0.0-0.6) K/mcL Basophils # (0.0-0.2) K/mcL PT (9.4-12.1) Seconds INR APTT (26.0-36.0) Seconds Sodium (136-145) mEq/L Potassium (3.5-5.1) mEq/L Chloride (98-107) mEq/L Carbon Dioxide (23-29) mEq/L BUN (8-23) mg/dL Creatinine (0.60-1.20) mg/dL Est GFR ( Amer) (> 60) Est GFR (Non-Af Amer) (> 60) BUN/Creatinine Ratio (6-26) Glucose (70-105) mg/dL Calculated Osmolality (280-300) Calcium (8.6-10.3) mg/dL Total Bilirubin (0.3-1.0) mg/dL Direct Bilirubin (0.0-0.2) mg/dL Indirect Bilirubin (0.0-1.2) mg/dL AST (13-39) Units/L ALT (7-52) Units/L Alkaline Phosphatase (34-104) Units/L Troponin I (< 0.04) ng/mL Serum Total Protein (6.4-8.9) g/dL Albumin (3.5-5.7) g/dL Globulin (2.4-3.5) g/dL Albumin/Globulin Ratio (1.1-2.2) Lipase (11-82) Units/L Urine Color Yellow (Yellow) Urine Clarity Cloudy A (Clear) Urine pH 5.5 (5.0-8.0) pH Units Ur Specific [place] 1.021 (1.010-1.025) Urine Protein 100 H (Neg-Trace) mg/dL Urine Glucose (UA) Normal (Normal) mg/dL Urine Ketones Negative (Negative) mg/dL Urine Blood Moderate H (Negative) Urine Nitrite Positive A (Negative) Urine Bilirubin Negative (Negative) Urine Urobilinogen Normal (Normal) mg/dL Ur Leukocyte Esterase Negative (Negative) Urine Microscopic RBC 5-15 H (0-3) per hpf Urine Microscopic WBC 5-15 H (0-3) per hpf Ur Squamous Epith Cells Many H (None-Few) per lpf Urine Bacteria Many H (None-Few) per hpf Hyaline Casts Few (None-Few) per lpf Ur Culture Indicated? NO. (NO) - EKG Data EKG #1 EKG attestation: Yes I reviewed and interpreted this EKG. EKG results narrative: Sinus rhythm. Left atrial enlargement. Left ventricular hypertrophy. A. fib beats per minute. IN interval 155, QRS 108, QTc 405. T-wave inversion noted in V5 and V6. Significant artifact in this EKG. EKG #2 EKG attestation: Yes I reviewed and interpreted this EKG. EKG results narrative: PVCs. 82 bpm. Left axis deviation. IN interval 158, QRS 107, QTC 417. T- wave inversion noted in V5, V6. Compared to previous EKG completed on 2016 no significant changes noted. Attestation Statement - Attestation Attestation: I examined this patient and my medical decision-making was reviewed with the Resident Physician. I agree with the documented findings, disposition and treatment plan as described except to the extent set forth below. Patient to the emergency department with a chief complaint of chest pain. Patient has some epigastric pain. Just some pain in her lower chest as well. Nonradiating. States she is nauseated with it. Patient is unable to describe what feels like. History of coronary disease with stent placement. Patient in no distress on examination. She is some mild epigastric tenderness. Vitals are stable. Plan. Cardiac workup. Patient has pain on both sides of the diaphragm. We will check CTA. Troponin 0.04. This is the same as her last. She is given aspirin. Will be admitted for further cardiac workup. CTA still pending at this time. We will sign out today shift. Patient is chest pain-free.
[2017-07-18] MEDS ORDERED: Nitroglycerin 0.4 MG TAB.SUBL SL PRN (05:24)
[2017-07-18 05:40] LABS: Basophils % 0.6 %; Eosinophils # 0.1 K/mcL (0.0-0.6); Eosinophils % 1.3 %; Hematocrit 40.3 % (35.3-44.9); Hemoglobin 12.8 g/dL (11.5-15.4); Immature Granulocytes % 0.4 % (0-4); Lymphocytes # 1.2 K/mcL (0.6-4.6); Lymphocytes % 16.8 %; Mean Corpuscular HGB Conc 31.8 g/dL (31.6-35.5); Mean Corpuscular Hemoglobin 30.9 pg (28.0-33.3); Mean Corpuscular Volume 97.3 fL (83.0-100.0); Mean Platelet Volume 9.3 fL (9.4-12.4); Monocytes # 0.7 K/mcL (0.0-1.3); Monocytes % 10.2 %; Neutrophils # 4.8 K/mcL (1.6-8.9); Platelet Count 258 K/mcL (140-400); Red Blood Count 4.14 M/mcL (3.82-4.97); Red Cell Distribution Width 17.4 % (11.5-14.5); Segmented Neutrophils % 70.7 %
[2017-07-18 05:46] LABS: INR 1.1; Prothrombin Time 11.3 Seconds (9.4-12.1)
[2017-07-18 06:23] LABS: Alanine Aminotransferase 10 Units/L (7-52); Albumin 3.5 g/dL (3.5-5.7); Albumin/Globulin Ratio 1.3 (1.1-2.2); Alkaline Phosphatase 74 Units/L (34-104); Aspartate Amino Transferase 21 Units/L (13-39); BUN/Creatinine Ratio 22 (6-26); Bilirubin,Direct 0.2 mg/dL (0.0-0.2); Bilirubin,Indirect 0.6 mg/dL (0.0-1.2); Bilirubin,Total 0.8 mg/dL (0.3-1.0); Blood Urea Nitrogen 19 mg/dL (8-23); Calcium 9.1 mg/dL (8.6-10.3); Carbon Dioxide 25 mEq/L (23-29); Chloride 107 mEq/L (98-107); Globulin 2.6 g/dL (2.4-3.5); Glucose 113 mg/dL (70-105); Lipase 14 Units/L (11-82); Osmolality,Calculated 281 (280-300); Potassium 4.7 mEq/L (3.5-5.1); Sodium 134 mEq/L (136-145); Total Protein 6.1 g/dL (6.4-8.9); eGFR For African Americans > 60 (> 60); eGFR For Non-African Americans > 60 (> 60)
[2017-07-18 06:36] LABS: Bilirubin,Urine Negative (Negative); Blood,Urine Moderate (Negative); Clarity,Urine Cloudy (Clear); Color,Urine Yellow (Yellow); Glucose,Urine (UA) Normal (Normal); Ketones,Urine Negative (Negative); Leukocyte Esterase,Urine Negative (Negative); Nitrite,Urine Positive (Negative); PH,Urine 5.5 pH Units (5.0-8.0); Protein,Urine 100 mg/dL (Neg-Trace); Specific Gravity,Urine 1.021 (1.010-1.025); Urobilinogen,Urine Normal (Normal)
[2017-07-18 06:39] LABS: Troponin I 0.04 ng/mL (< 0.04)
[2017-07-18 06:39] LABS: Bacteria,Urine Many per hpf (None-Few); Hyaline Casts,Urine Few per lpf (None-Few); Squamous Epithelial Cell,Urine Many per lpf (None-Few)
--- NOTE | 2017-07-18 07:25 | Emergency Department Note ---
Disposition Clinical Impression: Elevated troponin Chest pain Qualifiers: Chest pain type: unspecified Qualified Code(s): R07.9 - Chest pain, unspecified Abdominal pain Qualifiers: Abdominal location: generalized Qualified Code(s): R10.84 - Generalized abdominal pain UTI (urinary tract infection) Qualifiers: Urinary tract infection type: acute cystitis Hematuria presence: without hematuria Qualified Code(s): N30.00 - Acute cystitis without hematuria Disposition: Admitted As Inpatient Condition: Good Time of Disposition: 07:38 General Adult HPI - General Chief complaint: ED Chest Pain Stated complaint: Chest pain, abd pain, SHAWANDA Time Seen by Provider: 07/18/17 05:00 Source: patient, EMS Mode of arrival: EMS Limitations: no limitations - History of Present Illness HPI Narrative: Patient was seen by the prior provider. Please see their documentation for complete history and physical. Pain Scale: 10 - Related Data Home Medications Medication Instructions Recorded Confirmed Potassium Chloride [Klor-Con M15] 20 meq PO DAILY 05/25/15 07/18/17 Isosorbide MONOnitrate (24 HR) 30 mg PO DAILY 04/10/17 07/18/17 [Imdur] Rosuvastatin Calcium [Crestor] 5 mg PO DAILY 04/10/17 07/18/17 Aspirin 81 mg PO DAILY 07/18/17 07/18/17 Calcium Carbonate [Calcium] 500 mg PO DAILY 07/18/17 07/18/17 Previous Rx's Medication Instructions Recorded Losartan [Cozaar] 50 mg PO DAILY #30 tablet 02/07/17 Carvedilol [Coreg] 25 mg PO BIDWM #60 tablet 04/21/17 Furosemide [Lasix] 40 mg PO BID #60 tablet 04/21/17 Allergies Allergy/AdvReac Type Severity Reaction Status Date / Time Penicillins [PCN] Allergy Mild Itching Verified 07/18/17 11:20 Sulfa (Sulfonamide Allergy Mild Hives Verified 07/18/17 11:20 Antibiotics) pheniramine Allergy Unknown UNKNOWN Verified 07/18/17 11:20 PER PATIENT codeine AdvReac Mild "HARD ON Verified 07/18/17 11:20 BOWELS" Past Medical History - Past Medical History Medical history: Reports: cardiomyopathy, CHF, COPD, coronary artery disease, hypertension, other Surgical history: Reports: pacemaker/AICD (Dual-lead pacemaker), other Psychiatric history: Reports: no psych history - Social History Smoking Status: Current every day smoker Smokeless Tobacco Status: No Alcohol use: Reports: rarely Drug use: Reports: none Physical Exam - General Limitations: no limitations General appearance: alert, in no apparent distress Course - Reevaluation(s) Reevaluation #1: Patient seen and examined. Patient denies any to this time. Patient was worked up for chest pain and abdominal pain. Concerns for ACS etiology. Patient's been having symptoms over the past 24 hours. She primarily notes pain in her shoulder blades. Patient states he felt nauseous. Patient does have a cardiac history. Patient received aspirin. Patient has a troponin elevation without any acute EKG findings. Patient will be admitted to hospitalist for further evaluation of her chest pain and ACS. Time: 07:24 Vital Signs Temperature 97.3 F L 07/18/17 05:00 Pulse Rate 86 07/18/17 05:00 Respiratory Rate 20 07/18/17 05:00 Blood Pressure 171/91 07/18/17 05:00 O2 Sat by Pulse Oximetry 93 07/18/17 05:00 Temperature 97.7 F 07/18/17 11:34 Pulse Rate 69 07/18/17 11:34 Respiratory Rate 17 07/18/17 11:34 Blood Pressure 123/62 07/18/17 11:34 O2 Sat by Pulse Oximetry 95 07/18/17 11:34 Oxygen Delivery Oxygen Delivery Nasal Cannula Medical Decision Making - [facility] Narrative Medical decision making narrative: 82-year-old female transferred evaluation of chest pain and epigastric pain. Patient does have a cardiac history. Patient's workup shows an elevated troponin of 0.04. Patient's troponins were elevated in the past. Patient is currently denying any chest pain. Patient's pain has been controlled. Patient' s received aspirin. Patient had CT imaging of the chest abdomen pelvis which did not show any acute abnormalities the patient does have chronic calcifications however no pulmonary embolism was identified. No dissection. Patient incidentally had some abnormalities with the urine and was treated with Rocephin. Patient will be admitted to the hospital service for further evaluation monitoring of her chest pain. - Lab Data Lab results reviewed: Yes I reviewed the patient's lab results. Result diagrams: 07/18/17 05:20 07/18/17 05:44 Lab Results 07/18/17 07/18/17 07/18/17 Range/Units 05:20 05:44 05:44 WBC 6.8 (4.3-11.1) K/mcL RBC 4.14 (3.82-4.97) M/mcL Hgb 12.8 (11.5-15.4) g/dL Hct 40.3 (35.3-44.9) % MCV 97.3 (83.0-100.0) fL MCH 30.9 (28.0-33.3) pg MCHC 31.8 (31.6-35.5) g/dL RDW 17.4 H (11.5-14.5) % Plt Count 258 (140-400) K/mcL MPV 9.3 L (9.4-12.4) fL Immature Gran % 0.4 (0-4) % Seg Neutrophils % 70.7 % Lymphocytes % 16.8 % Monocytes % 10.2 % Eosinophils % 1.3 % Basophils % 0.6 % Neutrophils # 4.8 (1.6-8.9) K/mcL Lymphocytes # 1.2 (0.6-4.6) K/mcL Monocytes # 0.7 (0.0-1.3) K/mcL Eosinophils # 0.1 (0.0-0.6) K/mcL Basophils # 0.0 (0.0-0.2) K/mcL PT 11.3 (9.4-12.1) Seconds INR 1.1 APTT 30.0 (26.0-36.0) Seconds Sodium 134 L (136-145) mEq/L Potassium 4.7 (3.5-5.1) mEq/L Chloride 107 (98-107) mEq/L Carbon Dioxide 25 (23-29) mEq/L BUN 19 (8-23) mg/dL Creatinine 0.88 (0.60-1.20) mg/dL Est GFR ( Amer) > 60 (> 60) Est GFR (Non-Af Amer) > 60 (> 60) BUN/Creatinine Ratio 22 (6-26) Glucose 113 H (70-105) mg/dL Calculated Osmolality 281 (280-300) Calcium 9.1 (8.6-10.3) mg/dL Total Bilirubin 0.8 (0.3-1.0) mg/dL Direct Bilirubin 0.2 (0.0-0.2) mg/dL Indirect Bilirubin 0.6 (0.0-1.2) mg/dL AST 21 (13-39) Units/L ALT 10 (7-52) Units/L Alkaline Phosphatase 74 (34-104) Units/L Troponin I 0.04 H* (< 0.04) ng/mL B-Natriuretic Peptide (Less than 100) pg/mL Serum Total Protein 6.1 L (6.4-8.9) g/dL Albumin 3.5 (3.5-5.7) g/dL Globulin 2.6 (2.4-3.5) g/dL Albumin/Globulin Ratio 1.3 (1.1-2.2) Lipase 14 (11-82) Units/L Urine Color (Yellow) Urine Clarity (Clear) Urine pH (5.0-8.0) pH Units Ur Specific [place] (1.010-1.025) Urine Protein (Neg-Trace) mg/dL Urine Glucose (UA) (Normal) mg/dL Urine Ketones (Negative) mg/dL Urine Blood (Negative) Urine Nitrite (Negative) Urine Bilirubin (Negative) Urine Urobilinogen (Normal) mg/dL Ur Leukocyte Esterase (Negative) Urine Microscopic RBC (0-3) per hpf Urine Microscopic WBC (0-3) per hpf Ur Squamous Epith Cells (None-Few) per lpf Urine Bacteria (None-Few) per hpf Hyaline Casts (None-Few) per lpf Ur Culture Indicated? (NO) 07/18/17 07/18/17 Range/Units 05:44 06:10 WBC (4.3-11.1) K/mcL RBC (3.82-4.97) M/mcL Hgb (11.5-15.4) g/dL Hct (35.3-44.9) % MCV (83.0-100.0) fL MCH (28.0-33.3) pg MCHC (31.6-35.5) g/dL RDW (11.5-14.5) % Plt Count (140-400) K/mcL MPV (9.4-12.4) fL Immature Gran % (0-4) % Seg Neutrophils % % Lymphocytes % % Monocytes % % Eosinophils % % Basophils % % Neutrophils # (1.6-8.9) K/mcL Lymphocytes # (0.6-4.6) K/mcL Monocytes # (0.0-1.3) K/mcL Eosinophils # (0.0-0.6) K/mcL Basophils # (0.0-0.2) K/mcL PT (9.4-12.1) Seconds INR APTT (26.0-36.0) Seconds Sodium (136-145) mEq/L Potassium (3.5-5.1) mEq/L Chloride (98-107) mEq/L Carbon Dioxide (23-29) mEq/L BUN (8-23) mg/dL Creatinine (0.60-1.20) mg/dL Est GFR ( Amer) (> 60) Est GFR (Non-Af Amer) (> 60) BUN/Creatinine Ratio (6-26) Glucose (70-105) mg/dL Calculated Osmolality (280-300) Calcium (8.6-10.3) mg/dL Total Bilirubin (0.3-1.0) mg/dL Direct Bilirubin (0.0-0.2) mg/dL Indirect Bilirubin (0.0-1.2) mg/dL AST (13-39) Units/L ALT (7-52) Units/L Alkaline Phosphatase (34-104) Units/L Troponin I (< 0.04) ng/mL B-Natriuretic Peptide 2163 H (Less than 100) pg/mL Serum Total Protein (6.4-8.9) g/dL Albumin (3.5-5.7) g/dL Globulin (2.4-3.5) g/dL Albumin/Globulin Ratio (1.1-2.2) Lipase (11-82) Units/L Urine Color Yellow (Yellow) Urine Clarity Cloudy A (Clear) Urine pH 5.5 (5.0-8.0) pH Units Ur Specific [place] 1.021 (1.010-1.025) Urine Protein 100 H (Neg-Trace) mg/dL Urine Glucose (UA) Normal (Normal) mg/dL Urine Ketones Negative (Negative) mg/dL Urine Blood Moderate H (Negative) Urine Nitrite Positive A (Negative) Urine Bilirubin Negative (Negative) Urine Urobilinogen Normal (Normal) mg/dL Ur Leukocyte Esterase Negative (Negative) Urine Microscopic RBC 5-15 H (0-3) per hpf Urine Microscopic WBC 5-15 H (0-3) per hpf Ur Squamous Epith Cells Many H (None-Few) per lpf Urine Bacteria Many H (None-Few) per hpf Hyaline Casts Few (None-Few) per lpf Ur Culture Indicated? NO. (NO) - Radiology Data Radiology results reviewed: Yes I reviewed the patient's radiology results. Abdomen/Pelvis CTA 07/18/17 05:10 IMPRESSION: Multifocal vascular calcification. There is no aneurysm of the aorta. 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 Pleural effusions bilaterally with prominent interstitium raising the question of mild edema Additional findings in the abdomen and pelvis as described D/ / Rashawn Melo / Rashawn Melo Interpreting Provider: Rashawn Melo Chest CTA 07/18/17 05:10 IMPRESSION: Multifocal vascular calcification. There is no aneurysm of the aorta. 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 Pleural effusions bilaterally with prominent interstitium raising the question of mild edema Additional findings in the abdomen and pelvis as described D/ / Rashawn Melo / Rashawn Melo Interpreting Provider: Rashawn Melo S.BNadine - S.B.AReese Situation: Demographics Background: Presenting Complaint Assessment: Vital Signs, Patient/Family Expectation Recommendation: Barrier(s) to disposition, Recommendation based on pending studies, treatments, or consults S.B.ASocorroRSocorro Report Given to: Dr. Munoz SJacques Repor Time: 07:37 Attestation Statement - Attestation Attestation: I, Marco A Cowan DO, examined this patient [id number] and my medical decision-making was reviewed with Dr. Gerardo Toscano, Resident Physician. I agree with the documented findings, disposition and treatment plan as described except to the extent set forth below. Please see my progress notes for details. 82-year-old female presents to the emergency room for complaint of generalized malaise, chest pain, difficulty in breathing. Patient was seen and evaluated and treatment course was established by the daytime physicians Drs. Ricketts. Detailed review of the patient's presentation symptoms and social issues were discussed. Patient does currently live at home by herself. She has described chest discomfort and pain. She has also had intermittent shortness of breath. She does not have oxygen in place at home. Detailed physical exam completed with chest x-ray CT angiography of the chest and CT of the belly secondary to the multiple vague complaints. Troponin was elevated but it appears to be chronic. EKG shows stable presentation. Physical exam, patient is well- appearing resting in the bed talking in full sentences. She has multiple things that she describes and discusses during the evaluation at the bedside none of which appear to be specific or consistent with any medical issues at this time. Patient will be admitted and managed for what appears to be chest discomfort of undifferentiated nature causing shortness of breath and oxygen requirement. Patient is also concerning for being discharged home secondary to living by herself and few resources in place. Otherwise her labs imaging and vital signs remained stable throughout treatment course and evaluation. Patient will be admitted for further evaluation and definitive management. Mildly involvement was with the follow-up on CT imaging of the chest and abdomen admission process. Patient otherwise has not required any further intervention or workup. The emergency room. Physical exam shows clear lungs heart is regular abdomen that soft but she does have some mild diffuse tenderness but no point tenderness guarding or rigidity. She moves all 4 extremities. She has no visible signs of pitting edema or swelling at this point. Patient will be admitted under the hospitalist care for further evaluation and treatment course. See detailed documentation of the physical exam medical intervention medical decision-making and disposition and the previous provider's note as well as my resident's documentation. Patient was admitted to the hospital for further evaluation of her intermittent exertional dyspnea and shortness of breath. Patient otherwise is clinically stable except for when she exerts herself but chose to have conversations. No other clinical findings noted in his treatment course and evaluation. Patient will be admitted at this time. She is in stable medical condition.
[2017-07-18] MEDS ORDERED: Naloxone 0.4 MG/ML INJ IVP PRN (08:20)
[2017-07-18] MEDS ORDERED: Acetaminophen 325 MG TABLET PO PRN (08:20)
--- NOTE | 2017-07-18 08:47 | Internal Med History&Physical ---
<Ja Leon - Last Filed: 07/18/17 09:13> Date of Encounter: 07/18/17 Time of Encounter: 08:47 Assessment and Plan (1) Systolic and diastolic CHF, acute on chronic Current visit: No Status: Acute - Last ECHO 04/20/2017 EF 35% with moderate LVDD. NYHA stage 3. - home meds including losartan, coreg, lasix, imdur and norvasc. - BP elevated at ED with [id number]. BNP 2162 ( 04/2017, 2290) - DC Norvasc due to negative inotropic effect, titrate imdur to acheive better BP control. change lasix to 40 mg IV BID ( home dose 40 mg po BID). May increase dose of Losartan if BP still high. - Heart health diet, daily weight, and 1500 md FR. (2) Abdominal pain Current visit: No Status: Acute - CT abdominal possible cholecystitis, will order US. - IV PPI for possible GERD. Qualifiers: Abdominal location: generalized Qualified Code(s): R10.84 - Generalized abdominal pain (3) Chest pain Current visit: No Status: Acute _ EKG normal, troponin negative x1. - cycle troponin, stress test in am. - increase dose of imdur. monitor BP and adjust meds as needed to achieve SBP< 120. Qualifiers: Chest pain type: unspecified Qualified Code(s): R07.9 - Chest pain, unspecified (4) UTI (urinary tract infection) Current visit: No Status: Acute - pending urine culture. - start on rocephin IV daily. Qualifiers: Urinary tract infection type: acute cystitis Hematuria presence: without hematuria Qualified Code(s): N30.00 - Acute cystitis without hematuria (5) Accelerated essential hypertension Current visit: No Status: Acute - BP poorly controlled. - reinforced education about the importance of BP given CAD, CHF, abdominal aneurysm, and diffuse atherosclerosis. - adjust meds to achieve SBP<120. (6) CAD (coronary artery disease) Current visit: No Status: Chronic - continue asa, BB, ARB. - achieve better BP control. - may increase statin dose to high-strength due to CV risk factors. Qualifiers: Coronary Disease-Associated Artery/Lesion type: [place] vs. transplanted heart: [place] heart Associated angina: without angina Qualified Code(s): I25.10 - Atherosclerotic heart disease of [place] coronary artery without angina pectoris (7) Paroxysmal atrial fibrillation Current visit: No Status: Chronic - currently SR. - not on AC due to poor compliance and risk of fall. (8) Hyperlipemia Current visit: No Status: Chronic - continue statins. Qualifiers: Hyperlipidemia type: unspecified Qualified Code(s): E78.5 - Hyperlipidemia , unspecified Internal Medicine - H&P: HPI Admitted From: Home Plans for Post Hospital Care: Home History of present illness: 82-year-old female with significant past medical history of CHF, COPD and and STEMI presenting to the emergency department with chief complaint of sob, chest pain, and abdominal pain. She first noticed shortness of breath starting the beginning of last week with associated weakness. Home PT told her to use cane and she said she has to use cane more than usual. She also reported subjective fever and a cough productive of white mucus with blood tinge. She also told me that she drank pop which caused heartburn and chest pain. Patient states yesterday she had an episode of substernal chest pain that makes her diaphoretic and nauseous but it resolved by itself so she did not come in to be seen. She described the pain is different from the heartburn and is similar to the pain when she had a heart attach. Today she had another episode similar to this. She is also complaining of some epigastric abdominal pain as well. She denies any nausea, vomiting or diarrhea. Patient is a poor historian. States she has had a stent in the past. No CABG. She was admitted to this hospital last April for shortness of breath. Repeat echocardiogram revealed EF 35% with moderate left ventricular diastolic dysfunction. She was treated with diuretics and then released home. At the ED her blood pressure was significantly elevated. Troponin was negative. EKG revealed sinus rhythm without ST-T changes. UA revealed UTI. CT chest and CT abdomen revealed diffuse atherosclerosis and the bilateral iliac artery aneurysm, increased interlobular septum sickening, and small bilateral pleural effusion. She will be admitted to inpatient for further management. Past Med Surg Social Fam HX - Past Medical History Medical history: cardiomyopathy, CHF, COPD, coronary artery disease, hypertension, other Psychiatric history: no psych history - Past Surgical History Surgical History: pacemaker/AICD (Dual-lead pacemaker), other - Social History Smoking Status: Current every day smoker Smokeless Tobacco Status: No Alcohol use: rarely Drug use: none - Family History Father Adopted: No Family Member Ethnicity: Non- Living Status: Hx Family Cardiac Disorders: Yes Internal Medicine - H&P: Meds Potassium Chloride [Klor-Con M15] 20 meq PO DAILY 05/25/15 [History] Losartan [Cozaar] 50 mg PO DAILY #30 tablet 02/07/17 [Rx] Isosorbide MONOnitrate (24 HR) [Imdur] 30 mg PO DAILY 04/10/17 [History] Rosuvastatin Calcium [Crestor] 5 mg PO DAILY 04/10/17 [History] Carvedilol [Coreg] 25 mg PO BIDWM #60 tablet 04/21/17 [Rx] Furosemide [Lasix] 40 mg PO BID #60 tablet 04/21/17 [Rx] Aspirin 81 mg PO DAILY 07/18/17 [History] Calcium Carbonate [Calcium] 500 mg PO DAILY 07/18/17 [History] 3 Allergy/AdvReac Type Severity Reaction Status Date / Time Penicillins [PCN] Allergy Mild Itching Verified 07/18/17 11:20 Sulfa (Sulfonamide Allergy Mild Hives Verified 07/18/17 11:20 Antibiotics) pheniramine Allergy Unknown UNKNOWN Verified 07/18/17 11:20 PER PATIENT codeine AdvReac Mild "HARD ON Verified 07/18/17 11:20 BOWELS" All Systems PM: A 10-system review of systems was performed and is negative for pertinent findings except as documented above in the HPI. Review of systems: REVIEW OF SYSTEMS: CONSTITUTIONAL: see HPI. HEENT: Eyes: No visual loss, blurred vision, double vision or yellow sclerae. Ears, Nose, Throat: No hearing loss, sneezing, congestion, runny nose or sore throat. SKIN: No rash or itching. CARDIOVASCULAR: see HPI. RESPIRATORY: see HPI. GASTROINTESTINAL: see HPI. GENITOURINARY: No dysuria, urgency, or frequency. NEUROLOGICAL: No headache, dizziness, syncope, paralysis, ataxia, numbness or tingling in the extremities. No change in bowel or bladder control. MUSCULOSKELETAL: No muscle, back pain, joint pain or stiffness. HEMATOLOGIC: No anemia, bleeding or bruising. LYMPHATICS: No enlarged nodes. No history of splenectomy. PSYCHIATRIC: No history of depression or anxiety. ENDOCRINOLOGIC: No reports of sweating, cold or heat intolerance. No polyuria or polydipsia. - Constitutional Vitals: Temp Pulse Resp BP Pulse Ox 97.3 F L 71 13 154/82 97 07/18/17 05:00 07/18/17 08:13 07/18/17 08:13 07/18/17 08:13 07/18/17 08:13 Exam: PHYSICAL EXAMINATION: GENERAL APPEARANCE: The patient is alert, oriented and in no acute distress. HEENT: Head is normocephalic. The sinuses are nontender. Pupils are equal and reactive. The nares are patent. Oropharynx clear without lesions. NECK: Supple without lymphadenopathy. HEART: Regular rate and rhythm. LUNGS: bilateral crackles noted to the middle lung zone. ABDOMEN: Soft, nontender, nondistended with good bowel sounds heard. Inguinal area is normal. EXTREMITIES: 1+ pitting edema bilaterally NEUROLOGICAL: Gross nonfocal. SKIN: Warm and dry without any rash. Internal Med - H&P Results - Labs CBC & Chem 7: 07/18/17 05:20 07/18/17 05:44 <Sera Munoz - Last Filed: 07/18/17 18:18> Date of Encounter: 07/18/17 Internal Medicine - H&P: HPI History of present illness: Ms. Randall is a 82 year old female All Systems PM: A 10-system review of systems was performed and is negative for pertinent findings except as documented above in the HPI. - Constitutional Vitals: Temp Pulse Resp BP Pulse Ox 98.8 F 61 16 118/56 92 07/18/17 16:44 07/18/17 16:44 07/18/17 16:44 07/18/17 16:44 07/18/17 16:44 Internal Med - H&P Results - Labs CBC & Chem 7: 07/18/17 05:20 07/18/17 05:44 Labs: Cardiac Enzymes 07/18/17 Range/Units 12:32 Troponin I 0.03 (< 0.04) ng/mL - Attending Attestation I have personally performed a face to face evaluation on this patient. I have reviewed and agree with the care plan provided by [facility] . History and Exam by me shows: 82-year-old female with significant past medical history of combined CHF, COPD , HTN and CAD pt presented to ER with SOB and Chest discomfort. Gen: A, A, O x 3 Chest: Diminished BS b/l Heart: S1S2+ RRR No murmurs A/p 1. Mild acute on chronic combine CHF exacerbation Gentle diuresis resumed other home meds 2 D Echo 04/25 EF 35% with moderate LV diastolic dysfunction 2. Acute chest pain on Tele check serial trop stress test in AM
[2017-07-18] MEDS ORDERED: Isosorbide MONOnitrate (24 HR) 30 MG TAB.ER.24H PO SCH (09:00)
[2017-07-18] MEDS: Isosorbide MONOnitrate (24 HR) 60 MG TAB.ER.24H PO SCH (09:10)
[2017-07-18] MEDS: traMADol 50 MG TABLET PO PRN ×2 (09:12→18:01)
[2017-07-18] MEDS: Pantoprazole 40 MG VIAL IVP SCH (09:17)
[2017-07-18] MEDS ORDERED: Mag Hydrox/Al Hydrox/Simeth 30 ML UDC PO PRN (09:20)
[2017-07-18] MEDS ORDERED: Ondansetron 4 MG/2 ML VIAL IVP PRN (09:20)
[2017-07-18] MEDS: Furosemide 40 MG/4 ML VIAL IVP SCH ×2 (09:25→18:00)
[2017-07-18] MEDS: cefTRIAXone 1,000 MG in Water for inj. (sterile) 20 ML 10 ML IVP SCH (09:25)
[2017-07-18] MEDS: *HR* Heparin 5,000 UNIT/ML VIAL SQ SCH (17:59)
[2017-07-19 05:10] LABS: Basophils % 0.5 %; Eosinophils # 0.1 K/mcL (0.0-0.6); Eosinophils % 1.9 %; Hematocrit 34.8 % (35.3-44.9); Immature Granulocytes % 0.2 % (0-4); Lymphocytes % 22.7 %; Mean Corpuscular HGB Conc 31.6 g/dL (31.6-35.5); Mean Corpuscular Hemoglobin 30.9 pg (28.0-33.3); Mean Corpuscular Volume 97.8 fL (83.0-100.0); Mean Platelet Volume 9.7 fL (9.4-12.4); Monocytes # 0.6 K/mcL (0.0-1.3); Neutrophils # 2.6 K/mcL (1.6-8.9); Platelet Count 193 K/mcL (140-400); Red Blood Count 3.56 M/mcL (3.82-4.97); Red Cell Distribution Width 17.3 % (11.5-14.5); Segmented Neutrophils % 60.7 %
[2017-07-19 05:34] LABS: Calcium 8.5 mg/dL (8.6-10.3); Chol/HDL Ratio 2.7 (0-4.9); Magnesium 2.2 mg/dL (1.6-2.6); Potassium 4.5 mEq/L (3.5-5.1)
[2017-07-19] MEDS: *HR* Heparin 5,000 UNIT/ML VIAL SQ SCH ×2 (05:55→18:10)
[2017-07-19] MEDS: Isosorbide MONOnitrate (24 HR) 60 MG TAB.ER.24H PO SCH (09:31)
[2017-07-19] MEDS: Pantoprazole 40 MG VIAL IVP SCH (09:34)
[2017-07-19] MEDS: Furosemide 40 MG/4 ML VIAL IVP SCH ×2 (09:34→18:09)
[2017-07-19] MEDS: cefTRIAXone 1,000 MG in Water for inj. (sterile) 20 ML 10 ML IVP SCH (09:35)
--- NOTE | 2017-07-19 13:14 | Internal Med Progress Note ---
Date of Encounter: 07/19/17 Time of Encounter: 13:12 - Assessment and plan (1) Acute systolic CHF (congestive heart failure), NYHA class 2 Current Visit: No Status: Acute Assessment and plan: presented with SOB and lower extremity edema. 04/2017 TTE with EF 35-40%, BNP 2162. Chest CTA with mild edema. Appears overloaded with rails and lower extremity edema on exam. Continue IV Lasix, daily weights, strict BRENDAN and low- sodium diet. Consider cardiology consult if not adequately diuresing (2) Abdominal pain Current Visit: Yes Status: Acute Assessment and plan: ABD CT concerning for cholecystitis. Right upper quadrant ultrasound with possible mild gallbladder sludge no evidence of acute cholecystitis. Of note RUQ US showed small enhancing liver lesions that were not well visualized. Denies ABD pain on my exam. Hold on general surgery consult at this time. Monitor overnight and we will consult neurosurgery if abdominal pain recurs. Liver MRI pending. Qualifiers: Abdominal location: generalized Qualified Code(s): R10.84 - Generalized abdominal pain (3) UTI (urinary tract infection) Current Visit: Yes Status: Acute Assessment and plan: UA concerning for UTI. Continue ceftriaxone. Follow urine culture and narrow ATB accordingly. Qualifiers: Urinary tract infection type: acute cystitis Hematuria presence: with hematuria Qualified Code(s): N30.01 - Acute cystitis with hematuria (4) Accelerated hypertension Current Visit: Yes Status: Acute Assessment and plan: With SBP's in 160s to 170s on arrival. Likely secondary to medication noncompliance. BP controlled with resuming home BP medication. Monitor BP and titrate PRN . (5) CAD (coronary artery disease) Current Visit: No Status: Chronic Assessment and plan: hx 2 previous MIs. With right shoulder pain similar to previous MIs, concerning for anginal equivalent. ABVD/pelvis CTA with multifocal vascular calcification. Nothing by mouth at midnight for stress test. Continue ASA, BB , arm, statin. Qualifiers: Coronary Disease-Associated Artery/Lesion type: [place] artery [place] vs. transplanted heart: [place] heart Associated angina: without angina Qualified Code(s): I25.10 - Atherosclerotic heart disease of [place] coronary artery without angina pectoris (6) DVT prophylaxis Current Visit: No Status: Acute Assessment and plan: heparin - Subjective Interval history: Seen and examined at bedside, patient is new to me. Information obtained from chart review and patient report. Says she feels well on my exam. No abdominal pain or chest pain at this time. Feels a little short of breath gets worse with exertion and feels weak lower extremities have mild swelling. She reports medication compliance but has several frozen/prepackaged meals over the past few days. - Constitutional Vitals: Temp Pulse Resp BP Pulse Ox 97.4 F L 65 16 129/63 96 07/19/17 11:06 07/19/17 11:06 07/19/17 11:06 07/19/17 11:06 07/19/17 11:06 General appearance: Present: A&O X 3, no acute distress - Head Head exam: Present: atraumatic, normocephalic - Eye Eye exam: Present: PERRL, conjuntiva pink, sclera anicteric Pupils: Present: PERRL - Neck Neck exam general surgery: Present: supple, trachea midline. Absent: lymphadenopathy - Respiratory Respiratory exam: Present: rales. Absent: accessory muscle use, rhonchi, wheezes - Cardiovascular Cardiovascular exam: Present: RRR, +S1, +S2. Absent: diastolic murmur, gallop, rubs, systolic murmur - GI/Abdominal GI/Abdominal exam: Present: normal bowel sounds, soft, no peritoneal signs. Absent: distended, tenderness - Extremities Exam Extremities exam: Present: warm, radial pulses palpable and symmetrical. Absent : calf tenderness, cyanotic, pedal edema - Neurological Exam Neurological exam: Present: CN II-XII intact, oriented X3, no focal deficits. Absent: pronater drift, facial droop, speech deficit - Skin Skin exam: Present: dry, intact Internal Medicine: Result - Labs CBC & Chem 7: 07/19/17 04:16 07/19/17 04:16 Labs: Short CBC 07/19/17 Range/Units 04:16 WBC 4.2 L (4.3-11.1) K/mcL Hgb 11.0 L D (11.5-15.4) g/dL Hct 34.8 L (35.3-44.9) % Plt Count 193 (140-400) K/mcL Neutrophils # 2.6 (1.6-8.9) K/mcL BMP 07/19/17 04:16 Sodium 136 Potassium 4.5 Chloride 106 Carbon Dioxide 24 BUN 22 Creatinine 1.08 Glucose 79 Calcium 8.5 L Cardiac Enzymes 07/18/17 07/18/17 07/18/17 Range/Units 12:32 17:40 22:40 Troponin I 0.03 0.03 0.04 H* (< 0.04) ng/mL - ABG Interpretation ABG results: PT/INR, D-dimer PT 11.3 Seconds (9.4-12.1) 07/18/17 05:44 - Impressions Impressions Gallbladder Ultrasound 07/19/17 08:30 IMPRESSION: 1. Possible mild gallbladder sludge. No evidence for acute cholecystitis. 2. Small enhancing liver lesions seen on CT are not visualized on ultrasound. Consider [facility] liver MRI for further evaluation. 3. A 6 x 5 mm cystic lesion within the pancreatic tail is nonspecific but could represent a side branch IPMN. No follow-up needed unless clinically indicated. 4. 1.4 cm right renal cyst. 5. Small right pleural effusion. D/ / Tyron Arreaga MD / Tyron Arreaga MD Interpreting Provider: Tyron Arreaga MD Consult Discharge Plan - Plan Referrals: Tana Delgado DO [Primary Care Provider] -
[2017-07-19] MEDS: traMADol 50 MG TABLET PO PRN (18:11)
--- NOTE | 2017-07-19 19:50 | Electrocardiograph Report ---
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
--- NOTE | 2017-07-19 19:52 | Electrocardiograph Report ---
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
[2017-07-20] MEDS: traMADol 50 MG TABLET PO PRN ×2 (01:18→23:13)
[2017-07-20] MEDS: *HR* Heparin 5,000 UNIT/ML VIAL SQ SCH ×2 (06:03→18:01)
[2017-07-20] MEDS ORDERED: Regadenoson 0.4 MG/5 ML SYRINGE IVP ONE (06:17)
[2017-07-20] MEDS: Isosorbide MONOnitrate (24 HR) 60 MG TAB.ER.24H PO SCH (11:31)
[2017-07-20] MEDS: cefTRIAXone 1,000 MG in Water for inj. (sterile) 20 ML 10 ML IVP SCH (11:34)
[2017-07-20] MEDS: Furosemide 40 MG/4 ML VIAL IVP SCH ×2 (11:34→18:02)
[2017-07-20] MEDS: Pantoprazole 40 MG VIAL IVP SCH (11:36)
--- NOTE | 2017-07-20 17:11 | Internal Med Progress Note ---
Date of Encounter: 07/20/17 Time of Encounter: 14:00 - Time Spent With Patient (1) Acute systolic CHF (congestive heart failure), NYHA class 2 Current Visit: No Status: Acute Assessment and plan: presented with SOB and lower extremity edema. 04/2017 TTE with EF 35-40%, BNP 2162. Chest CTA with mild edema. Appears overloaded with rails and lower extremity edema on exam. Continue IV Lasix, daily weights, strict I&O, low- sodium diet. Weight is trending down; will likely change Lasix to oral 07/21 (2) CAD (coronary artery disease) Current Visit: No Status: Chronic Assessment and plan: hx 2 previous MIs. With right shoulder pain similar to previous MIs, concerning for anginal equivalent. ABD/pelvis CTA with multifocal vascular calcification. Stress test with infarct involving the inferior and inferior lateral beard, no evidence of for ischemia. Still with intermittent right shoulder and back pain. Increase isosorbide and monitor overnight. If symptoms persist consult cardiology for anginal equivalent. Continue ASA, BB, arm, statin. Qualifiers: Coronary Disease-Associated Artery/Lesion type: [place] artery [place] vs. transplanted heart: [place] heart Associated angina: without angina Qualified Code(s): I25.10 - Atherosclerotic heart disease of [place] coronary artery without angina pectoris (3) Abdominal pain Current Visit: Yes Status: Acute Assessment and plan: ABD CT concerning for cholecystitis. Right upper quadrant ultrasound with possible mild gallbladder sludge no evidence of acute cholecystitis. Of note RUQ US showed small enhancing liver lesions that were not well visualized. Unable to have MRI secondary to PPM. Out ACS as noted above, if symptoms persist we will consult general surgery Qualifiers: Abdominal location: generalized Qualified Code(s): R10.84 - Generalized abdominal pain (4) UTI (urinary tract infection) Current Visit: Yes Status: Acute Assessment and plan: UA concerning for UTI. Continue ceftriaxone. Follow urine culture and narrow ATB accordingly. Qualifiers: Urinary tract infection type: acute cystitis Hematuria presence: with hematuria Qualified Code(s): N30.01 - Acute cystitis with hematuria (5) Accelerated hypertension Current Visit: Yes Status: Acute Assessment and plan: With SBP's in 160s to 170s on arrival. Likely secondary to medication noncompliance. BP controlled with resuming home BP medication. Monitor BP and titrate PRN. BP acceptable on 07/20 review (6) DVT prophylaxis Current Visit: No Status: Acute Assessment and plan: heparin - Subjective Interval history: Seen and examined at bedside; says she did not sleep well. Still having intermittent right shoulder pain and right scapula pain. No abdominal pain. No chest pain or shortness of breath - Constitutional Vitals: Temp Pulse Resp BP Pulse Ox 97.6 F 61 16 120/66 96 07/20/17 16:02 07/20/17 16:02 07/20/17 16:02 07/20/17 16:02 07/20/17 16:02 General appearance: Present: A&O X 3, no acute distress - Head Head exam: Present: atraumatic, normocephalic - Eye Eye exam: Present: PERRL, conjuntiva pink, sclera anicteric Pupils: Present: PERRL - Neck Neck exam general surgery: Present: supple, trachea midline. Absent: lymphadenopathy - Respiratory Respiratory exam: Present: CTAB. Absent: accessory muscle use, rales, rhonchi, wheezes - Cardiovascular Cardiovascular exam: Present: RRR, +S1, +S2. Absent: diastolic murmur, gallop, rubs, systolic murmur - GI/Abdominal GI/Abdominal exam: Present: normal bowel sounds, soft, no peritoneal signs. Absent: distended, tenderness - Extremities Exam Extremities exam: Present: warm, radial pulses palpable and symmetrical. Absent : calf tenderness, cyanotic, pedal edema - Neurological Exam Neurological exam: Present: CN II-XII intact, oriented X3, no focal deficits. Absent: pronater drift, facial droop, speech deficit - Skin Skin exam: Present: dry, intact Internal Medicine: Result - Labs CBC & Chem 7: 07/19/17 04:16 07/19/17 04:16 - ABG Interpretation ABG results: PT/INR, D-dimer PT 11.3 Seconds (9.4-12.1) 07/18/17 05:44 Consult Discharge Plan - Plan Referrals: Tana Delgado DO [Primary Care Provider] -
[2017-07-20] MEDS ORDERED: Isosorbide MONOnitrate (24 HR) 30 MG TAB.ER.24H PO ONE (17:47)
[2017-07-21 04:38] LABS: Hematocrit 33.3 % (35.3-44.9); Hemoglobin 10.6 g/dL (11.5-15.4); Mean Corpuscular HGB Conc 31.8 g/dL (31.6-35.5); Mean Corpuscular Hemoglobin 30.9 pg (28.0-33.3); Mean Corpuscular Volume 97.1 fL (83.0-100.0); Mean Platelet Volume 9.7 fL (9.4-12.4); Platelet Count 196 K/mcL (140-400); Red Blood Count 3.43 M/mcL (3.82-4.97); Red Cell Distribution Width 17.2 % (11.5-14.5)
[2017-07-21 04:52] LABS: BUN/Creatinine Ratio 23 (6-26); Blood Urea Nitrogen 24 mg/dL (8-23); Calcium 8.6 mg/dL (8.6-10.3); Carbon Dioxide 26 mEq/L (23-29); Chloride 105 mEq/L (98-107); Glucose 90 mg/dL (70-105); Osmolality,Calculated 286 (280-300); Potassium 4.1 mEq/L (3.5-5.1); Sodium 136 mEq/L (136-145); eGFR For African Americans > 60 (> 60); eGFR For Non-African Americans 51 (> 60)
[2017-07-21] MEDS: *HR* Heparin 5,000 UNIT/ML VIAL SQ SCH (06:21)
[2017-07-21] MEDS: Isosorbide MONOnitrate (24 HR) 60 MG TAB.ER.24H PO SCH (08:50)
[2017-07-21] MEDS: cefTRIAXone 1,000 MG in Water for inj. (sterile) 20 ML 10 ML IVP SCH (08:51)
[2017-07-21] MEDS: Furosemide 40 MG/4 ML VIAL IVP SCH (08:51)
[2017-07-21] MEDS: Pantoprazole 40 MG VIAL IVP SCH (08:52)
--- NOTE | 2017-07-21 15:10 | Discharge Summary ---
Orders not resulted at time of discharge: Pending orders 07/19/17 13:49 NM michele perf SPECT multi [NM] Routine Date of Encounter: 07/21/17 Time of Encounter: 14:59 - Discharge Diagnosis (1) Acute systolic CHF (congestive heart failure), NYHA class 2 Priority: Primary Status: Acute Comments: presented with SOB and lower extremity edema. 04/2017 TTE with EF 35-40%, BNP 2162. Chest CTA with mild edema. Appeared overloaded with rails and lower extremity edema on exam. She was diuresed with IV Lasix. Educated on importance of daily weights, strict I&O, low-sodium diet. Cont home ASA, lasix, ARB, BB. Follow-up with cardiology outpatient (2) Abdominal pain Priority: Primary Status: Acute Comments: ABD CT concerning for cholecystitis. Right upper quadrant ultrasound with possible mild gallbladder sludge no evidence of acute cholecystitis. Of note RUQ US showed small enhancing liver lesions that were not well visualized. Unable to have MRI secondary to PPM. Patient declined General Surgery consultation. She was not agreeable to cholecystectomy at this time. Preferred to follow-up outpatient with PCP. ABD pain improved at time of discharge. Advised to return to ER if severe abdominal pain recurs. Qualifiers: Abdominal location: generalized Qualified Code(s): R10.84 - Generalized abdominal pain (3) Accelerated essential hypertension Priority: Primary Status: Acute Comments: With SBP's in 160s to 170s on arrival. Likely secondary to medication noncompliance. BP controlled with resuming home BP medication. (4) UTI (urinary tract infection) Priority: Primary Status: Acute Comments: UA concerning for UTI. No urine cx available for review. Completed 4 day course of IV ceftriaxone. Qualifiers: Urinary tract infection type: acute cystitis Hematuria presence: with hematuria Qualified Code(s): N30.01 - Acute cystitis with hematuria (5) CAD (coronary artery disease) Priority: Primary Status: Acute Comments: hx 2 previous MIs. With right shoulder pain similar to previous MIs, concerning for anginal equivalent. ABD/pelvis CTA with multifocal vascular calcification. Stress test with evidence of prior infarct, no ischemia. TTE as noted above. Home isosorbide increased with improvement in symptoms. Continue ASA, BB, ARB, statin, nitrate. Follow-up with cardiology outpatient Qualifiers: Coronary Disease-Associated Artery/Lesion type: [place] artery [place] vs. transplanted heart: [place] heart Associated angina: with stable angina Qualified Code(s): I25.118 - Atherosclerotic heart disease of [place] coronary artery with other forms of angina pectoris Hospital course: Ms. Randall is a 82 year old female with past medical history CHF, CAD and hypertension who presented to [facility] on 07/18/2017 with complaints of right shoulder and abdominal pain. She was placed in observation status for further workup and treatment. She was found to be a mild CHF exacerbation was diuresed with IV Lasix. There was concern that right shoulder pain could be anginal, went to make: She underwent a negative stress test and TTE with no acute changes. Home isosorbide was increased with improvement in symptoms. Regarding her abdominal pain, a gallbladder ultrasound was completed that showed gallbladder sludge, no stones. Abdominal pain improved; patient declined general surgery consultation. She was undecided on whether or not she would want cholecystectomy. She preferred to be discharged with patient follow- up. She was advised to return to ER if chest pain, shortness of breath or abdominal pain recurs. Please see assessment and plan for further details. Discharge discussed with: patient - Time Spent with Patient Total time spent providing and/or coordinating discharge services: - Discharge Medications Prescriptions: Isosorbide MONOnitrate (24 HR) [Imdur] 60 mg PO DAILY #60 tab.er.24h Home Medications: Potassium Chloride [Klor-Con M15] 20 meq PO DAILY 05/25/15 [History] Losartan [Cozaar] 50 mg PO DAILY #30 tablet 02/07/17 [Rx] Rosuvastatin Calcium [Crestor] 5 mg PO DAILY 04/10/17 [History] Carvedilol [Coreg] 25 mg PO BIDWM #60 tablet 04/21/17 [Rx] Furosemide [Lasix] 40 mg PO BID #60 tablet 04/21/17 [Rx] Aspirin 81 mg PO DAILY 07/18/17 [History] Calcium Carbonate [Calcium] 500 mg PO DAILY 07/18/17 [History] Isosorbide MONOnitrate (24 HR) [Imdur] 60 mg PO DAILY #60 tab.er.24h 07/21/17 [ Rx] Allergies/Adverse Reactions: 3 Allergy/AdvReac Type Severity Reaction Status Date / Time Penicillins [PCN] Allergy Mild Itching Verified 07/18/17 11:20 Sulfa (Sulfonamide Allergy Mild Hives Verified 07/18/17 11:20 Antibiotics) pheniramine Allergy Unknown UNKNOWN Verified 07/18/17 11:20 PER PATIENT codeine AdvReac Mild "HARD ON Verified 07/18/17 11:20 BOWELS" Date of admission: 07/18/17 07:57 Primary care physician: Matias Klein Consults: 07/18/17 08:15 Consult to Nurse Navigator [CONS] Routine Comment: 07/20/17 09:14 Consult to Physical Therapy [CONS] Routine Comment: Evaluate, develop and implement POC Reason for Consult: slight weakness lives alone Does patient have active BEDREST order?: No Is patient medically & hemodynamically stable?: Yes Patient assessed for mobility or mobilized this visit?: Yes 07/20/17 16:39 Consult to Iuss Acoustic Analyst [CONS] Routine Reason for SW Consult: may need home health Discharging clinician: Colleen Glover Anticipated date of discharge: 07/21/17 - Constitutional Vitals: Temp Pulse Resp BP Pulse Ox 97.8 F 59 15 129/74 93 07/21/17 11:18 07/21/17 11:18 07/21/17 11:18 07/21/17 11:18 07/21/17 11:18 General appearance: Present: A&O X 3, no acute distress - Head Head exam: Present: atraumatic, normocephalic - Eye Eye exam: Present: PERRL, conjuntiva pink, sclera anicteric Pupils: Present: PERRL - Neck Neck exam general surgery: Present: supple, trachea midline. Absent: lymphadenopathy - Respiratory Respiratory exam: Present: CTAB. Absent: accessory muscle use, rales, rhonchi, wheezes - Cardiovascular Cardiovascular exam: Present: RRR, +S1, +S2. Absent: diastolic murmur, gallop, rubs, systolic murmur - GI/Abdominal GI/Abdominal exam: Present: normal bowel sounds, soft, no peritoneal signs. Absent: distended, tenderness - Extremities Exam Extremities exam: Present: warm, radial pulses palpable and symmetrical. Absent : calf tenderness, cyanotic, pedal edema - Neurological Exam Neurological exam: Present: CN II-XII intact, oriented X3, no focal deficits. Absent: pronater drift, facial droop, speech deficit - Skin Skin exam: Present: dry, intact - Patient Status Disposition: Home, Self-Care Condition: Good Functional capacity at discharge: uses cane/walker Overall status at discharge: patient is back to baseline - Discharge Instructions Instructions: Heart Failure (DC), Isosorbide Mononitrate (By mouth), Biliary Colic (GEN) Follow Up With: Tana Delgado DO [Primary Care Provider] - (Please call for follow-up appointment within 1-2 weeks) Dung Larios MD [Partnered Physician] - (Please call for follow-up appointment within 1-2 weeks) - Diet and Activity Activity: increase activity as tolerated Diet: advance to your usual diet
[2017-07-21 15:47] VITALS: BP 131/60
[2017-07-21] MEDS ORDERED: Isosorbide MONOnitrate (24 HR) 30 MG TAB.ER.24H PO ONE (17:00)
== END 2017-07-21 17:27 | disposition home or self-care (01) ==
LOC: EMEROO 04:59 → 3BNU 04:59
PROVIDERS: ADMIT Family Medicine; ATTEND Registered Nurse

== ENCOUNTER 2017-08-16 20:48 | Observation (INO) ==
[2017-08-16] MEDS ORDERED: Aspirin 81 MG TAB.CHEW PO STA (21:00)
--- NOTE | 2017-08-16 21:02 | Emergency Department Note ---
Disposition Clinical Impression: Shortness of breath Chest pain Qualifiers: Chest pain type: unspecified Qualified Code(s): R07.9 - Chest pain, unspecified Back pain Qualifiers: Back pain location: thoracic back pain Chronicity: acute Back pain laterality: right Qualified Code(s): M54.6 - Pain in thoracic spine Disposition: Admitted As Inpatient Condition: Fair Time of Disposition: 00:08 General Adult HPI - General Stated complaint: back pain Time Seen by Provider: 08/16/17 20:58 Mode of arrival: EMS Limitations: no limitations Nursing Notes Reviewed: Yes Vital Signs Reviewed: Yes - History of Present Illness HPI Narrative: Patient is a 82-year-old female that presents to the emergency Department with back pain and shortness of breath. States this is been ongoing for proximally 2 days. She states that it is intermittent and is worse with exertion. She states that her pain and her shortness of breath become worse. Patient states that she has a previous [place] back in 1990. Patient states that on her way in with EMS she developed right-sided chest pain under her right breast. Patient denies any other radiation other than the pain going into her back. When asked to describe the pain she states that the pain just hurts. - Related Data Home Medications Medication Instructions Recorded Confirmed Aspirin 81 mg PO DAILY 07/18/17 08/16/17 Furosemide [Lasix] 40 mg PO DAILY 08/16/17 08/16/17 HYDROcodone/Acet 5/325 mg [[place] 1 tab PO Q8HR PRN 08/16/17 08/16/17 5-325 mg] Isosorbide MONOnitrate (24 HR) 30 mg PO DAILY 08/16/17 08/16/17 [Imdur] Losartan Potassium [Cozaar] 50 mg PO DAILY 08/16/17 08/16/17 Nitroglycerin [Nitrostat] 0.4 mg PO Q5M PRN 08/16/17 08/16/17 Potassium Chloride [K-Tab ER] 20 meq PO DAILY 08/16/17 08/16/17 Previous Rx's Medication Instructions Recorded Carvedilol [Coreg] 25 mg PO BIDWM #60 tablet 04/21/17 Allergies Allergy/AdvReac Type Severity Reaction Status Date / Time Penicillins [PCN] Allergy Mild Itching Verified 07/18/17 11:20 Sulfa (Sulfonamide Allergy Mild Hives Verified 07/18/17 11:20 Antibiotics) pheniramine Allergy Unknown UNKNOWN Verified 07/18/17 11:20 PER PATIENT codeine AdvReac Mild "HARD ON Verified 07/18/17 11:20 BOWELS" All systems ED: reviewed and negative except as stated. Cardiovascular: Reports: chest pain Respiratory: Reports: dyspnea Musculoskeletal: Reports: back pain Past Medical History - Past Medical History Medical history: Reports: cardiomyopathy, CHF, COPD, coronary artery disease, hypertension, other Surgical history: Reports: pacemaker/AICD (Dual-lead pacemaker), other Psychiatric history: Reports: no psych history - Social History Smoking Status: Current every day smoker Smokeless Tobacco Status: No Alcohol use: Reports: rarely Drug use: Reports: none Physical Exam - General Limitations: no limitations General appearance: alert, in no apparent distress - Head Head exam: atraumatic, normocephalic - Eye Eye exam: Present: normal appearance, EOMI - Neck Neck exam: Present: normal inspection, full ROM, trachea midline - Respiratory Respiratory exam: Present: normal lung sounds bilaterally. Absent: respiratory distress, wheezes - Cardiovascular Cardiovascular exam: Present: regular rate, normal rhythm, normal heart sounds, +S1, +S2 - Abdominal Exam Abdominal exam: Present: soft, Non-Tender, normal bowel sounds - Extremities Exam Extremities exam: Present: other (Patient has 2+ pitting edema bilateral lower extremities) - Neurological Exam Neurological exam: Present: alert, oriented X3 - Psychiatric Psychiatric exam: Present: normal affect, normal mood - Skin Skin exam: Present: warm, dry, intact Course Vital Signs Temperature 97.6 F 08/16/17 20:58 Pulse Rate 69 08/16/17 20:58 Respiratory Rate 20 08/16/17 20:58 Blood Pressure 147/85 08/16/17 20:58 O2 Sat by Pulse Oximetry 97 08/16/17 20:58 Temperature 97.6 F 08/16/17 20:58 Pulse Rate 68 08/17/17 03:46 Respiratory Rate 15 08/17/17 03:46 Blood Pressure 150/84 08/17/17 03:46 O2 Sat by Pulse Oximetry 98 08/17/17 03:46 Oxygen Delivery Oxygen Delivery Nasal Cannula Medical Decision Making - MDM Narrative Medical decision making narrative: Due the patient presenting with chest pain, shortness of breath as well as back pain we will obtain a CBC, BMP, troponin, chest x-ray, EKG and a CT of the chest to rule out possible pulmonary embolus versus aortic dissection. Patient was given aspirin and nitro. CT of the chest was negative for acute pulmonary embolus or aortic dissection. Patient's troponin was 0.03. Due to the patient' s age and her presenting symptoms feel that it is necessary to admit the patient for 2 coronary syndrome rule out. I have spoken with hospitalist and they have accepted the patient to their service. Patient will be admitted to the hospital this time for further evaluation and management. - Lab Data Lab results reviewed: Yes I reviewed the patient's lab results. Result diagrams: 08/16/17 21:23 08/16/17 21:23 Lab Results 08/16/17 08/16/17 08/16/17 Range/Units 21:23 21:23 21:23 WBC 5.4 (4.3-11.1) K/mcL RBC 3.55 L (3.82-4.97) M/mcL Hgb 11.3 L (11.5-15.4) g/dL Hct 34.2 L (35.3-44.9) % MCV 96.3 (83.0-100.0) fL MCH 31.8 (28.0-33.3) pg MCHC 33.0 (31.6-35.5) g/dL RDW 16.5 H (11.5-14.5) % Plt Count 248 (140-400) K/mcL MPV 9.5 (9.4-12.4) fL Immature Gran % 0.4 (0-4) % Seg Neutrophils % 68.5 % Lymphocytes % 16.2 % Monocytes % 13.4 % Eosinophils % 0.9 % Basophils % 0.6 % Neutrophils # 3.7 (1.6-8.9) K/mcL Lymphocytes # 0.9 (0.6-4.6) K/mcL Monocytes # 0.7 (0.0-1.3) K/mcL Eosinophils # 0.1 (0.0-0.6) K/mcL Basophils # 0.0 (0.0-0.2) K/mcL PT 12.9 H (9.4-12.1) Seconds INR 1.2 APTT 29.4 (26.0-36.0) Seconds Sodium 134 L (136-145) mEq/L Potassium 4.0 (3.5-5.1) mEq/L Chloride 103 (98-107) mEq/L Carbon Dioxide 26 (23-29) mEq/L BUN 17 (8-23) mg/dL Creatinine 0.91 (0.60-1.20) mg/dL Est GFR ( Amer) > 60 (> 60) Est GFR (Non-Af Amer) 59 L (> 60) BUN/Creatinine Ratio 19 (6-26) Glucose 103 (70-105) mg/dL Calculated Osmolality 280 (280-300) Calcium 8.8 (8.6-10.3) mg/dL Troponin I 0.03 (< 0.04) ng/mL - Radiology Data Radiology results reviewed: Yes I reviewed the patient's radiology results. Chest X-Ray 08/16/17 20:58 IMPRESSION: Cardiomegaly without overt failure. No focal infiltrate identified. D/ / Lazaro Shah MD / Lazaro Shah MD Interpreting Provider: Lazaro Shah MD Chest CTA 08/16/17 20:59 IMPRESSION: [id number] CHF. Otherwise no acute disease. Coronary artery disease. D/ / Sav Lopez MD / Sav Lopez MD Interpreting Provider: Sav Lopez MD - EKG Data EKG #1 EKG attestation: Yes I reviewed and interpreted this EKG. EKG results narrative: EKG showed a sinus rhythm at a rate of 69 bpm, AR interval of 157, QRS duration of 108, QTC of 415 with a normal axis. There are some depressions in V4 and V5. When compared to previous EKG on 07/18/17 there were depressions and V5. We will repeat the EKG in 30 minutes. EKG #2 EKG attestation: Yes I reviewed and interpreted this EKG. EKG results narrative: The second EKG obtained at 2137 showed a sinus rhythm at a rate of 60 bpm, AR interval of 158, QRS duration 113, QTc of 416 with a normal axis. There is still some mild depressions in V5. There are also flipped T waves in V5 and V6 that were present on previous EKG. Attestation Statement - Attestation Attestation: I examined this patient and my medical decision-making was reviewed with the Resident Physician. I agree with the documented findings, disposition and treatment plan as described except to the extent set forth below. Patient with chest pain symptoms. Onset was this evening. EKG shows nonspecific ischemic changes which are chronic. Repeat EKG does not demonstrate any significant change. She was given aspirin and nitroglycerin. Initial cardiac biomarkers were negative. Her story is concerning for possible early and STEMI and as such she will be admitted for further evaluation and management and trending of cardiac biomarkers.
[2017-08-16] MEDS ORDERED: Nitroglycerin 0.4 MG TAB.SUBL SL ONE (21:07)
[2017-08-16 22:06] LABS: Basophils % 0.6 %; Eosinophils # 0.1 K/mcL (0.0-0.6); Eosinophils % 0.9 %; Hematocrit 34.2 % (35.3-44.9); Hemoglobin 11.3 g/dL (11.5-15.4); Immature Granulocytes % 0.4 % (0-4); Lymphocytes # 0.9 K/mcL (0.6-4.6); Lymphocytes % 16.2 %; Mean Corpuscular Hemoglobin 31.8 pg (28.0-33.3); Mean Corpuscular Volume 96.3 fL (83.0-100.0); Mean Platelet Volume 9.5 fL (9.4-12.4); Monocytes # 0.7 K/mcL (0.0-1.3); Monocytes % 13.4 %; Neutrophils # 3.7 K/mcL (1.6-8.9); Platelet Count 248 K/mcL (140-400); Red Blood Count 3.55 M/mcL (3.82-4.97); Red Cell Distribution Width 16.5 % (11.5-14.5); Segmented Neutrophils % 68.5 %
[2017-08-16 22:11] LABS: INR 1.2; Prothrombin Time 12.9 Seconds (9.4-12.1)
[2017-08-16 22:14] LABS: Activated Partial Thrombo Time 29.4 Seconds (26.0-36.0)
[2017-08-16] MEDS ORDERED: *HR* HYDROcodone/Acet 5/325 mg TABLET PO ONE (22:39)
[2017-08-16 23:14] LABS: BUN/Creatinine Ratio 19 (6-26); Blood Urea Nitrogen 17 mg/dL (8-23); Calcium 8.8 mg/dL (8.6-10.3); Carbon Dioxide 26 mEq/L (23-29); Chloride 103 mEq/L (98-107); Glucose 103 mg/dL (70-105); Osmolality,Calculated 280 (280-300); Sodium 134 mEq/L (136-145); eGFR For African Americans > 60 (> 60); eGFR For Non-African Americans 59 (> 60)
[2017-08-17] MEDS ORDERED: *HR* OxyCODONE Immed Rel 5 MG TABLET PO PRN (00:48)
[2017-08-17] MEDS ORDERED: Acetaminophen 325 MG TABLET PO PRN (00:48)
[2017-08-17] MEDS ORDERED: Ondansetron 4 MG/2 ML VIAL IVP PRN (00:48)
[2017-08-17] MEDS ORDERED: Naloxone 0.4 MG/ML INJ IVP PRN (00:48)
[2017-08-17] MEDS ORDERED: *HR* Promethazine 25 MG/ML VIAL IVP PRN (00:48)
[2017-08-17] MEDS ORDERED: Nitroglycerin 0.4 MG TAB.SUBL SL PRN (00:52)
--- NOTE | 2017-08-17 01:24 | Internal Med History&Physical ---
Date of Encounter: 08/17/17 Time of Encounter: 00:15 Internal Medicine - H&P: HPI Chief complaint: back pain Admitted From: Emergency Dept Plans for Post Hospital Care: Home History of present illness: Ms. Randall is a 82 year old female with known PMH of HTN, Systolic CHF, CAD s/ p stents, who recently admitted here in July with CHF exacerbation and Rt shoulder pain, now she presented to ER with similar compliant of upper back pain in between her shoulder. Pt stated she does have this pain for 3 days, intermittent pain, non radiating, associated with SOB. Her pain is more like stabbing and sharp pain. She denied any nausea. She did have stress test in July 2017 which showed Infract involving the inferior and infero lateral beard , no perfusion evidence of ischemia. Past Med Surg Social Fam HX - Past Medical History Medical history: cardiomyopathy, CHF, COPD, coronary artery disease, hypertension, other Psychiatric history: no psych history - Past Surgical History Surgical History: pacemaker/AICD (Dual-lead pacemaker), other - Social History Smoking Status: Current every day smoker Smokeless Tobacco Status: No Alcohol use: rarely Drug use: none - Family History Father Adopted: No Family Member Ethnicity: Non- Living Status: Hx Family Cardiac Disorders: Yes Internal Medicine - H&P: Meds Carvedilol [Coreg] 25 mg PO BIDWM #60 tablet 04/21/17 [Rx] Aspirin 81 mg PO DAILY 07/18/17 [History] Furosemide [Lasix] 40 mg PO DAILY 08/16/17 [History] HYDROcodone/Acet 5/325 mg [[place] 5-325 mg] 1 tab PO Q8HR PRN 08/16/17 [History] Isosorbide MONOnitrate (24 HR) [Imdur] 30 mg PO DAILY 08/16/17 [History] Losartan Potassium [Cozaar] 50 mg PO DAILY 08/16/17 [History] Nitroglycerin [Nitrostat] 0.4 mg PO Q5M PRN 08/16/17 [History] Potassium Chloride [K-Tab ER] 20 meq PO DAILY 08/16/17 [History] 3 Allergy/AdvReac Type Severity Reaction Status Date / Time Penicillins [PCN] Allergy Mild Itching Verified 07/18/17 11:20 Sulfa (Sulfonamide Allergy Mild Hives Verified 07/18/17 11:20 Antibiotics) pheniramine Allergy Unknown UNKNOWN Verified 07/18/17 11:20 PER PATIENT codeine AdvReac Mild "HARD ON Verified 07/18/17 11:20 BOWELS" All Systems PM: A 10-system review of systems was performed and is negative for pertinent findings except as documented above in the HPI. Review of systems: All the systems are reviewed everything is benign except the systems and symptoms I mentioned in the history of present illness - Constitutional Vitals: Temp Pulse Resp BP Pulse Ox 97.6 F 66 20 155/77 96 08/16/17 20:58 08/16/17 23:30 08/16/17 20:58 08/16/17 23:30 08/16/17 23:30 General appearance: Present: A&O X 3, no acute distress, answers questions appropriately - Head Head exam: Present: atraumatic, normal inspection - Neck Neck exam general surgery: Present: supple - Respiratory Respiratory exam: Present: decreased breath sounds. Absent: rales, respiratory distress, rhonchi, wheezes - Cardiovascular Cardiovascular exam: Present: RRR, +S1, +S2. Absent: tachycardia - GI/Abdominal GI/Abdominal exam: Present: normal bowel sounds, soft. Absent: rebound, rigid, tenderness - Extremities Exam Extremities exam: Present: pedal edema (1+). Absent: calf tenderness, tenderness - Back Exam Back exam: Present: paraspinal tenderness (upper back). Absent: CVA tenderness (L), CVA tenderness (R) - Neurological Exam Neurological exam: Present: alert, oriented X3, no focal deficits - Psychiatric Psychiatric exam: Present: normal affect, normal mood - Skin Skin exam: Absent: rash Internal Med - H&P Results - Labs CBC & Chem 7: 08/16/17 21:23 08/16/17 21:23 - Assessment and plan (1) Back pain Current Visit: Yes Status: Acute Assessment and plan: Will admit the pt into Tele for observation Her intermittent back pain is less likely cardiac related however given her recent hospitalization and recurrent history need further work up Will place pt on telemetry monitor check serial troponin so far negative troponin EKG reviewed - showed sinus rhythm at a rate of 69 bpm, no acute ischemic changes noticed will cont pt on ASA and Nitro PRN for pain Will check FLP in AM Reviewed her stress test in July 2017 which showed Infract involving the inferior and infero lateral beard, no perfusion evidence of ischemia. Will consult cardiology for further eval cont BB + ASA + Imdur Also will obtain X ray of thorasic spine Her CTA of chest negative for PE Qualifiers: Back pain location: thoracic back pain Chronicity: acute Back pain laterality: right Qualified Code(s): M54.6 - Pain in thoracic spine (2) CAD (coronary artery disease) Current Visit: No Status: Acute Assessment and plan: resumed all her home meds Qualifiers: Coronary Disease-Associated Artery/Lesion type: [place] artery [place] vs. transplanted heart: [place] heart Associated angina: with stable angina Qualified Code(s): I25.118 - Atherosclerotic heart disease of [place] coronary artery with other forms of angina pectoris (3) Systolic congestive heart failure, NYHA class 2 Current Visit: No Status: Acute Assessment and plan: not in exacerbation mild pedal edema noticed resumed home dose of Lasix Qualifiers: Congestive heart failure chronicity: acute on chronic Qualified Code(s): I50.23 - Acute on chronic systolic (congestive) heart failure (4) COPD (chronic obstructive pulmonary disease) Current Visit: No Status: Chronic Assessment and plan: stable not in exacerbation resumed home regimen Qualifiers: COPD type: chronic bronchitis Chronic bronchitis type: simple Qualified Code(s): J41.0 - Simple chronic bronchitis (5) Hyperlipemia Current Visit: No Status: Chronic Assessment and plan: on statin Qualifiers: Hyperlipidemia type: unspecified Qualified Code(s): E78.5 - Hyperlipidemia , unspecified (6) Hypertension Current Visit: No Status: Chronic Assessment and plan: stable with home meds Qualifiers: Hypertension type: essential hypertension Qualified Code(s): I10 - Essential (primary) hypertension - Time Spent With Patient Total time spent is greater than 50% in coordination of care (as documented) at patient's floor/unit and/or counseling patient:
[2017-08-17 03:59] LABS: Chol/HDL Ratio 3.1 (0-4.9)
[2017-08-17 06:52] LABS: Troponin I 0.05 ng/mL (< 0.04)
--- NOTE | 2017-08-17 09:17 | Cardiology Consult Note ---
<Daniel Car R - Last Filed: 08/17/17 11:42> Date of Encounter: 08/17/17 Time of Encounter: 08:30 Assessment and Plan (1) Chest pain Current Visit: Yes Status: Acute Pt is a poor historian and unable to provide consistent history of symptoms. Unsure of what her symptoms were when she had prior PCI. Intermittent symptoms, tender to palpation. Taking Imdur 30mg daily. [facility] in 2011 showed PCI to 1st OM and 90-99% in distal RCA Stress 07/2017: infarct inferior and inferiolateral beard, no evidence of ischemia EKG shows NSR, rate 68, normal axis, normal intervals, LVH, T wave inversions in II, V4-6 consistent with previous EKG. Mild ST depressions in V4-5 - difficult to reliably interpret in the setting of LVH, but given recent negative stress test no further intervention at this time Trop 0.05, 0.05 - adynamic, has been mildly elevated several times in the past Pain likely multifactorial: angina, GERD, and musculoskelatal Suspect a large component of musculoskeletal pain: patient is very tender to palpation along anterior ribs, thoracic region, and shoulder blade. Thoracic x- rays shows osteopenia with no obvious fracture or shortening of vertebrae Plan: - trend troponin - no further cardiac imaging at this time - continue Imdur - consider treatment for musculoskeletal pain and dyspepsia per primary team Qualifiers: Chest pain type: unspecified Qualified Code(s): R07.9 - Chest pain, unspecified (2) Systolic congestive heart failure Current Visit: Yes Status: Acute Compensated systolic CHF secondary to ischemic cardiomyopathy - mild LE edema, lungs clear, no JVP, CXR shows no edema Continue Lasix Qualifiers: Heart failure chronicity: chronic Qualified Code(s): I50.22 - Chronic systolic (congestive) heart failure (3) Hypertension Current Visit: Yes Status: Chronic BP 147-173/72-85. Continue home meds Qualifiers: Hypertension type: essential hypertension Qualified Code(s): I10 - Essential (primary) hypertension (4) CAD (coronary artery disease) Current Visit: Yes Status: Chronic Prior PCI to 1st OM prior to 2011 Continue ASA, BB, Imdur Qualifiers: Coronary Disease-Associated Artery/Lesion type: [place] artery [place] vs. transplanted heart: [place] heart Associated angina: with stable angina Qualified Code(s): I25.118 - Atherosclerotic heart disease of [place] coronary artery with other forms of angina pectoris (5) Dyspepsia Current Visit: Yes Status: Acute Pt reporting some epigastric abdominal pain. Prior gallbladder sludge noted. Management per primary team Discussion w patient/family: The assessment and plan as outlined above was discussed with the patient and/or family members who expressed understanding and agreement. All questions were answered. Thank you for involving us in the care of your patient. Please call with any questions. History of Present Illness Consult date: 08/17/17 Requesting physician: Sera Munoz Consult reason: Reccurent upper back pain Chief complaint: Back Pain History of present illness: Ms. Randall is a 82 year old female with PMH of systolic CHF (EF 35%), pacemaker, ICM, HTN, COPD, and PAF, presents with the complaint of intermittent right shoulder blade/thoracic back pain for the past 3 days described as sharp and stabbing. She also describes some intermittent right sided lower chest pain , but is unsure of how long it's been there. It does not seem to happen at the same time as the back pain. She states her chest pain improves with pepsi and belching, and walking seems to help the pain. Denies known aggravating factors. Associated symptoms include dyspnea, fatigue, nausea, and intermittent epigastric pain. Denies diaphoresis, orthopnea, worsening LE edema, or exertional symptoms. Prior Cardiac Imaging: - Echo 04/2017: LVEF 35-40%, moderate LV dysfunction, mildly dilated LV - NM Stress 07/2017: infarct inferior and inferiolateral beard, no evidence of ischemia, gated EF 42% Past Med Surg Social Fam HX - Past Medical History Medical history: cardiomyopathy, CHF, COPD, coronary artery disease, hypertension, other Psychiatric history: no psych history - Past Surgical History Surgical History: pacemaker/AICD (Dual-lead pacemaker), other - Social History Smoking Status: Current every day smoker Smokeless Tobacco Status: No Alcohol use: rarely Drug use: none - Family History Father Adopted: No Family Member Ethnicity: Non- Living Status: Hx Family Cardiac Disorders: Yes Medications and Allergies Carvedilol [Coreg] 25 mg PO BIDWM #60 tablet 04/21/17 [Rx] Aspirin 81 mg PO DAILY 07/18/17 [History] Furosemide [Lasix] 40 mg PO DAILY 08/16/17 [History] HYDROcodone/Acet 5/325 mg [Arnett 5-325 mg] 1 tab PO Q8HR PRN 08/16/17 [History] Isosorbide MONOnitrate (24 HR) [Imdur] 30 mg PO DAILY 08/16/17 [History] Losartan Potassium [Cozaar] 50 mg PO DAILY 08/16/17 [History] Nitroglycerin [Nitrostat] 0.4 mg PO Q5M PRN 08/16/17 [History] Potassium Chloride [K-Tab ER] 20 meq PO DAILY 08/16/17 [History] 3 Allergy/AdvReac Type Severity Reaction Status Date / Time Penicillins [PCN] Allergy Mild Itching Verified 07/18/17 11:20 Sulfa (Sulfonamide Allergy Mild Hives Verified 07/18/17 11:20 Antibiotics) pheniramine Allergy Unknown UNKNOWN Verified 07/18/17 11:20 PER PATIENT codeine AdvReac Mild "HARD ON Verified 07/18/17 11:20 BOWELS" All Systems Review: The remainder of the systems were reviewed and are negative Physical Examination Vital Signs, Last 4 Hours Temp Pulse Resp BP Pulse Ox 08/17/17 07:05 97.8 F 66 16 173/81 97 General: Conversant, No Apparent Distress HEENT: Atraumatic, Normocephaly, Mucus Membranes Moist Neck: No JVD, Normal carotid pulses Cardiac: Reg Rate and Rhythm, Normal S1 and S2, No Murmur Lungs: No Wheeze, Rales, Rhonchi, Other (Diminished breath sounds) Neuro: Alert and responsive, No focal deficits noted Abdomen: Soft, Other (Tenderness in epigastric region, no gaurding or rebound) Skin: No rashes noted on visualized skin Musculoskeletal: Other (Tenderness along right side of chest and medial aspect of ribs) Extremities: No Clubbing, No Cyanosis, Normal Pulses, Other (Mild bilateral pitting edema) Other: Tenderness to palpation of right shoulder blade and right thoracic regions Results 08/16/17 21:23 08/16/17 21:23 Lab Results 08/17/17 03:13 Troponin I 0.05 H* - EKG Interpretation EKG results cardiology: personally reviewed, sinus rhythm, no diagnostic ischemia Consult Discharge Plan - Plan Referrals: Tana Delgado DO [Primary Care Provider] - <Dennys Christopher - Last Filed: 08/17/17 15:27> Date of Encounter: 08/17/17 - Attending Attestation I examined this patient and my medical decision-making was reviewed with the Resident Physician. I agree with the documented findings, disposition and treatment plan as described except to the extent set forth below. CC: Chest pain Pt is not a reliable historian, hx obtained partially from pt and confirmed with medical record Pt complains of severe mid back pain, /, dull ache, worse with movement, worse with cough, has some relief with changes in position, has been present for several days. Pt also complains of mid epigastric chest pain, more severe with cough, also positional, pt reports not associated with nausea, palpitations or shortness of breath. Pt reports she had some cardiac event in 2011, which resulted in having a PPMK, but unclear if had LHC at that time, not sure if she had some kind of percutaneous intervention. She denies chest pain at present, but is complaining of severe back pain. PMH: CHF, COPD, Cardiomyopathy, CAD, hyptn, confusion PE: Reviewed, agree with above, pt has marked tenderness to palpation in mid thoracic spine, reproduces both chest pain and back pain. IMP: 1. Chest pain: musculoskeletal chest pain, consider thoracic spine compression fracture in differential. 2. CAD - an chart, pt unable to recall history, old records requested, have been able to locate stress test 07/2017, which shows old inf and inferiorlateral scar, no ischemia, consistent with previous MA 3. Cardiomypathy: Last ECHO 04/25, EF 42%, moderate LV systolic impairment with subsegmental wall motion abnormalities consistent with previous MA, and ischemic cardiomyopathy 4. Mild confusion 5. Indwelling AICD, placed 2011 6. Mild confusion Rec: Continue medical tx, no indication for further cardiac evaluation, will arrange outpatient follow up, will sign off. Assessment and Plan Discussion w patient/family: The assessment and plan as outlined above was discussed with the patient and/or family members who expressed understanding and agreement. All questions were answered. Thank you for involving us in the care of your patient. Please call with any questions. History of Present Illness History of present illness: Ms. Randall is a 82 year old female All Systems Review: The remainder of the systems were reviewed and are negative Physical Examination Vital Signs, Last 4 Hours Temp Pulse Resp BP Pulse Ox 08/17/17 11:55 97.4 F L 71 16 152/82 97 Results 08/16/17 21:23 08/16/17 21:23 Lab Results 08/17/17 08/17/17 03:13 09:16 Troponin I 0.05 H* 0.04 H*
[2017-08-17] MEDS: Isosorbide MONOnitrate (24 HR) 30 MG TAB.ER.24H PO SCH (09:21)
[2017-08-17] MEDS: Furosemide 40 MG TABLET PO SCH (09:22)
[2017-08-17] MEDS: Aspirin 81 MG TAB.CHEW PO SCH (09:22)
[2017-08-17] MEDS: *HR* HYDROcodone/Acet 5/325 mg TABLET PO PRN ×2 (12:35→20:30)
--- NOTE | 2017-08-17 14:36 | Internal Med Progress Note ---
Date of Encounter: 08/17/17 Time of Encounter: 10:00 - Assessment and plan (1) COPD (chronic obstructive pulmonary disease) Current Visit: Yes Status: Chronic Assessment and plan: no acute exacerbation. Lungs are clear and diminished throughout. Patient is not requiring supplemental oxygen. Continue telemetry Oxygen as needed to maintain sats greater than 92%. Qualifiers: COPD type: chronic bronchitis Chronic bronchitis type: simple Qualified Code(s): J41.0 - Simple chronic bronchitis (2) Systolic congestive heart failure, NYHA class 2 Current Visit: No Status: Acute Assessment and plan: No acute exacerbation. Patient is euvolemic. Lungs are clear, no peripheral edema. Continue telemetry Continue home dose of Lasix Monitor labs and patient condition. Qualifiers: Congestive heart failure chronicity: chronic Qualified Code(s): I50.22 - Chronic systolic (congestive) heart failure (3) Hypertension Current Visit: Yes Status: Chronic Assessment and plan: Chronic. Stable. Continue home medications. Qualifiers: Hypertension type: essential hypertension Qualified Code(s): I10 - Essential (primary) hypertension (4) Hyperlipemia Current Visit: Yes Status: Chronic Assessment and plan: Chronic. Continue home dose of statin. Qualifiers: Hyperlipidemia type: unspecified Qualified Code(s): E78.5 - Hyperlipidemia , unspecified (5) CAD (coronary artery disease) Current Visit: Yes Status: Chronic Assessment and plan: Chronic. Continue home medications. Continue telemetry. Qualifiers: Coronary Disease-Associated Artery/Lesion type: [place] artery [place] vs. transplanted heart: [place] heart Associated angina: with stable angina Qualified Code(s): I25.118 - Atherosclerotic heart disease of [place] coronary artery with other forms of angina pectoris (6) Back pain Current Visit: Yes Status: Acute Assessment and plan: Patient reports intermittent, sharp upper back pain. Patient with tenderness to palpation at right medial scapular border. Onset 3 days ago. Patient states that she is uncertain of what she was doing onset of pain. Does not appear to be affected by movement or deep inspiration. It is however painful to palpation. Thoracic spine x-ray shows osteopenia with no acute abnormality. Chest x-ray was negative for focal infiltrate, or any acute processes. Attempted Lidoderm patch today without relief. Primary nurse reports that she gave patient a [place]. Patient requested Biofreeze, menthol topical solution ordered. PT/OT consultations ordered and pending. Qualifiers: Back pain location: thoracic back pain Chronicity: acute Back pain laterality: right Qualified Code(s): M54.6 - Pain in thoracic spine - Time Spent With Patient Total time spent is greater than 50% in coordination of care (as documented) at patient's floor/unit and/or counseling patient: less than 15 minutes - Constitutional Vitals: Temp Pulse Resp BP Pulse Ox 97.4 F L 71 16 152/82 97 08/17/17 11:55 08/17/17 11:55 08/17/17 11:55 08/17/17 11:55 08/17/17 11:55 General appearance: Present: cooperative, mild distress, A&O X 3, pleasant, answers questions appropriately - Head Head exam: Present: atraumatic, normal inspection, normocephalic - Eye Eye exam: Present: normal appearance, conjuntiva pink, sclera anicteric - Neck Neck exam general surgery: Present: normal inspection, supple, trachea midline. Absent: lymphadenopathy, tenderness - Respiratory Respiratory exam: Present: chest wall tenderness, CTAB. Absent: accessory muscle use, rales, respiratory distress, rhonchi, wheezes - Cardiovascular Cardiovascular exam: Present: RRR, +S1, +S2. Absent: diastolic murmur, gallop, rubs, systolic murmur - GI/Abdominal GI/Abdominal exam: Present: normal bowel sounds, soft. Absent: distended, hepatomegaly, tenderness - Extremities Exam Extremities exam: Present: normal capillary refill, normal inspection, warm, radial pulses palpable and symmetrical. Absent: calf tenderness, cyanotic, pedal edema, tenderness - Back Exam Back exam: Present: paraspinal tenderness, tenderness. Absent: normal inspection, vertebral tenderness - Neurological Exam Neurological exam: Present: alert, oriented X3, no focal deficits, strengths equal and symetr throughout. Absent: facial droop, speech deficit - Skin Skin exam: Present: dry, intact, normal color, warm. Absent: rash Internal Medicine: Result - Labs CBC & Chem 7: 08/16/17 21:23 08/16/17 21:23 Labs: Cardiac Enzymes 08/17/17 08/17/17 Range/Units 03:13 09:16 Troponin I 0.05 H* 0.04 H* (< 0.04) ng/mL - ABG Interpretation ABG results: PT/INR, D-dimer PT 12.9 Seconds (9.4-12.1) H 08/16/17 21:23 - Impressions Impressions Thoracic Spine X-Ray 08/17/17 01:47 IMPRESSION: Osteopenia with no acute abnormality. D/ / Girma Smith MD / Girma Smith MD Interpreting Provider: Girma Smith MD Consult Discharge Plan - Plan Referrals: Tana Delgado DO [Primary Care Provider] -
[2017-08-17] MEDS: Methyl Salicylate/Menthol 28 GM TUBE TP PRN (20:18)
--- NOTE | 2017-08-17 23:39 | Electrocardiograph Report ---
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
--- NOTE | 2017-08-17 23:52 | Electrocardiograph Report ---
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
[2017-08-18 05:42] LABS: Basophils % 0.6 %; Eosinophils # 0.1 K/mcL (0.0-0.6); Eosinophils % 2.5 %; Hematocrit 33.9 % (35.3-44.9); Hemoglobin 10.9 g/dL (11.5-15.4); Immature Granulocytes % 0.2 % (0-4); Lymphocytes # 0.8 K/mcL (0.6-4.6); Lymphocytes % 17.5 %; Mean Corpuscular HGB Conc 32.2 g/dL (31.6-35.5); Mean Corpuscular Hemoglobin 31.3 pg (28.0-33.3); Mean Corpuscular Volume 97.4 fL (83.0-100.0); Mean Platelet Volume 9.6 fL (9.4-12.4); Monocytes # 0.7 K/mcL (0.0-1.3); Monocytes % 14.1 %; Neutrophils # 3.1 K/mcL (1.6-8.9); Platelet Count 194 K/mcL (140-400); Red Blood Count 3.48 M/mcL (3.82-4.97); Red Cell Distribution Width 16.6 % (11.5-14.5); Segmented Neutrophils % 65.1 %
[2017-08-18 06:00] LABS: BUN/Creatinine Ratio 19 (6-26); Blood Urea Nitrogen 17 mg/dL (8-23); Calcium 8.7 mg/dL (8.6-10.3); Carbon Dioxide 23 mEq/L (23-29); Chloride 102 mEq/L (98-107); Glucose 85 mg/dL (70-105); Osmolality,Calculated 275 (280-300); Potassium 4.5 mEq/L (3.5-5.1); Sodium 132 mEq/L (136-145); eGFR For African Americans > 60 (> 60); eGFR For Non-African Americans > 60 (> 60)
[2017-08-18 07:43] VITALS: BP 147/80
[2017-08-18] MEDS: Isosorbide MONOnitrate (24 HR) 30 MG TAB.ER.24H PO SCH (09:18)
[2017-08-18] MEDS: Methyl Salicylate/Menthol 28 GM TUBE TP PRN (09:19)
[2017-08-18] MEDS: Aspirin 81 MG TAB.CHEW PO SCH (09:19)
[2017-08-18] MEDS: Furosemide 40 MG TABLET PO SCH (09:19)
--- NOTE | 2017-08-18 10:46 | Discharge Summary ---
- NOTES TO OUTPATIENT PROVIDER Notes to Outpatient Provider: Pt has declined inpt rehab, home health, was agreeable to in-home PT/OT. Date of Encounter: 08/18/17 Time of Encounter: 09:00 - Discharge Diagnosis (1) COPD (chronic obstructive pulmonary disease) Priority: Primary Status: Chronic Comments: No acute exacerbation. Lungs are clear and diminished throughout, patient is not requiring supplemental oxygen. Patient with clear rhinorrhea, postnasal drip. She reports this is chronic. We will start her on Claritin and Flonase daily. Qualifiers: COPD type: chronic bronchitis Chronic bronchitis type: simple Qualified Code(s): J41.0 - Simple chronic bronchitis (2) Systolic congestive heart failure, NYHA class 2 Priority: Secondary Status: Chronic Comments: No acute exacerbation. Patient appears to be euvolemic. Lungs are clear, she has mild +1 nonpitting bilateral lower extremity. Full edema that she states is normal for her. She reports that normally resolves when her feet are up. Continue her home dose of Lasix. Qualifiers: Congestive heart failure chronicity: chronic Qualified Code(s): I50.22 - Chronic systolic (congestive) heart failure (3) Hypertension Priority: Secondary Status: Chronic Comments: Chronic. Well controlled in the hospital. Continue home medications. Qualifiers: Hypertension type: essential hypertension Qualified Code(s): I10 - Essential (primary) hypertension (4) Hyperlipemia Priority: Secondary Status: Chronic Comments: Chronic. Continue statin at home. Qualifiers: Hyperlipidemia type: unspecified Qualified Code(s): E78.5 - Hyperlipidemia , unspecified (5) CAD (coronary artery disease) Priority: Secondary Status: Chronic Comments: Chronic. Patient denies chest pain. Continue home medications. Qualifiers: Coronary Disease-Associated Artery/Lesion type: [place] artery [place] vs. transplanted heart: [place] heart Associated angina: with stable angina Qualified Code(s): I25.118 - Atherosclerotic heart disease of [place] coronary artery with other forms of angina pectoris (6) Back pain Priority: Secondary Status: Acute Comments: She reports that back pain has improved today. She is unclear about what made her back pain improved, but she denies any pain at all. I will send her home with prescription for lidocaine patches, as well as Biofreeze/BenGay. Patient was seen by PT/OT. They recommended SNF/ECF after discharge. Patient refuses. She states that she is 82 years old and is not going to walk perfectly ever again. She states that she does not want to do outpatient PT/OT , but is open to them coming to her home. She declines need for home health, she states that she has a neighbor who is helpful, as well as family nearby. I contacted Dr. Robert by phone today, he states his office will arrange for in- home PT/OT. Patient normally sees Dr. Delgado, Dr. Robert is covering. Qualifiers: Back pain location: thoracic back pain Chronicity: acute Back pain laterality: right Qualified Code(s): M54.6 - Pain in thoracic spine (7) GERD (gastroesophageal reflux disease) Priority: Secondary Status: Chronic Comments: Patient with what she describes as heartburn symptoms at home. Epigastric area is mildly tender to palpation. She reports heartburn symptoms when she lies down at night. Continue PPI at home. Qualifiers: Esophagitis presence: esophagitis presence not specified Qualified Code(s) : K21.9 - Gastro-esophageal reflux disease without esophagitis (8) DVT prophylaxis Priority: Secondary Status: Acute Comments: Patient has been ambulatory in her room, up to chair up to bedside. Hospital course: Ms. Randall is a 82 year old female with past medical history of systolic CHF, coronary artery disease with stent placement, hypertension. Patient was admitted in July with CHF exacerbation and right shoulder plain, presented to the emergency department with similar complaints for 3 days prior to admission. She also reported intermittent shortness of breath. Back pain was tender to palpation, it was not increased with movement or deep inspiration. There is no visible injury or trauma. The pain has resolved with Lidoderm patch, by mouth anti-inflammatory, Biofreeze/BenGay. Patient denies any chest pain. Patient has stress test in July, which showed infarct without evidence of ischemia. Cardiology has been consulted, recommend treating back pain and GERD symptoms. Troponins were mildly elevated, appears to be chronic, flat and adynamic. EKG was normal sinus rhythm, mild ST depression, but given recent negative stress test, cardiology did not recommend any further intervention. They recommended continue her Imdur and other home medications. She denies any chest pain at all, she reports that back pain has resolved. She will continue Lidoderm patches, Biofreeze/BenGay at home. She may continue anti-inflammatories at home. Prescriptions have been called to her pharmacy. He should not was evaluated by PT, they recommended SNF/ECF for discharge rehabilitation. Patient refuses and states that she has done therapy in the past, she is not going to walk any better than she does right now. She also declined home health. She states that she has a neighbor who helps her. She is interested in in-home PT/OT. I spoke with Dr. Robert by phone, he states his office will arrange for this. She is alert, oriented, able to make her decisions. She reports almost constant bilateral knee pain but is able to get around at home with a cane. Labs and vital signs are stable and within normal limits, patient is appropriate for discharge. Discharge discussed with: patient, nurse, social work - Time Spent with Patient Total time spent providing and/or coordinating discharge services: Less than 30 minutes - Discharge Medications Prescriptions: Lidocaine Patch [Lidoderm 5% patch] 1 each TP DAILY PRN #30 adh..patch PRN Reason: Pain Menthol [Biofreeze] 118 ml TP BID PRN #1 unit PRN Reason: Pain Omeprazole [PriLOSEC] 20 mg PO DAILY #30 cap Home Medications: Carvedilol [Coreg] 25 mg PO BIDWM #60 tablet 04/21/17 [Rx] Aspirin 81 mg PO DAILY 07/18/17 [History] Furosemide [Lasix] 40 mg PO DAILY 08/16/17 [History] HYDROcodone/Acet 5/325 mg [[place] 5-325 mg] 1 tab PO Q8HR PRN 08/16/17 [History] Isosorbide MONOnitrate (24 HR) [Imdur] 30 mg PO DAILY 08/16/17 [History] Losartan Potassium [Cozaar] 50 mg PO DAILY 08/16/17 [History] Nitroglycerin [Nitrostat] 0.4 mg PO Q5M PRN 08/16/17 [History] Potassium Chloride [K-Tab ER] 20 meq PO DAILY 08/16/17 [History] Lidocaine Patch [Lidoderm 5% patch] 1 each TP DAILY PRN #30 adh..patch 08/18/17 [Rx] Menthol [Biofreeze] 118 ml TP BID PRN #1 unit 08/18/17 [Rx] Omeprazole [PriLOSEC] 20 mg PO DAILY #30 cap 08/18/17 [Rx] Allergies/Adverse Reactions: 3 Allergy/AdvReac Type Severity Reaction Status Date / Time Penicillins [PCN] Allergy Mild Itching Verified 07/18/17 11:20 Sulfa (Sulfonamide Allergy Mild Hives Verified 07/18/17 11:20 Antibiotics) pheniramine Allergy Unknown UNKNOWN Verified 07/18/17 11:20 PER PATIENT codeine AdvReac Mild "HARD ON Verified 07/18/17 11:20 BOWELS" Date of admission: 08/17/17 00:21 Primary care physician: Matias Klein Consults: 08/17/17 01:47 Consult to Cardiology [CONS] Routine Comment: Consulting Provider: Cardiology Radha Reason for Consult: Recurrent upper back pain.. ?? Abnormal stress test in July 2017 Call Completed: No 08/17/17 12:45 Consult to Fire Fighting Equipment Specialist [CONS] Routine Reason for SW Consult: lives home alone 08/17/17 12:46 Consult to Physical Therapy [CONS] Routine Comment: Evaluate, develop and implement POC Reason for Consult: discharge planning Does patient have active BEDREST order?: No Is patient medically & hemodynamically stable?: Yes Patient assessed for mobility or mobilized this visit?: No 08/17/17 12:48 Consult to Occupational Therapy [CONS] Routine Comment: Evaluate, develop and implement POC Reason for Consult: discharge planning Does patient have active BEDREST order?: No Is patient medically & hemodynamically stable?: Yes Patient assessed for mobility or mobilized this visit?: No Discharging clinician: Radha Owusu Anticipated date of discharge: 08/18/17 - Constitutional Vitals: Temp Pulse Resp BP Pulse Ox 97.9 F 70 14 147/80 94 08/18/17 07:42 08/18/17 07:42 08/18/17 07:42 08/18/17 07:42 08/18/17 07:42 General appearance: Present: cooperative, mild distress, A&O X 3, pleasant, answers questions appropriately - Head Head exam: Present: atraumatic, normal inspection, normocephalic - Eye Eye exam: Present: normal appearance, conjuntiva pink, sclera anicteric - Neck Neck exam general surgery: Present: normal inspection, supple, trachea midline. Absent: lymphadenopathy, tenderness - Respiratory Respiratory exam: Present: CTAB. Absent: accessory muscle use, chest wall tenderness, rales, respiratory distress, rhonchi, wheezes - Cardiovascular Cardiovascular exam: Present: RRR, +S1, +S2. Absent: diastolic murmur, gallop, rubs, systolic murmur - GI/Abdominal GI/Abdominal exam: Present: normal bowel sounds, soft. Absent: distended, hepatomegaly, tenderness - Extremities Exam Extremities exam: Present: normal capillary refill, normal inspection, warm, radial pulses palpable and symmetrical. Absent: calf tenderness, cyanotic, pedal edema, tenderness - Neurological Exam Neurological exam: Present: alert, oriented X3, no focal deficits. Absent: facial droop, speech deficit - Skin Skin exam: Present: dry, intact, normal color, warm. Absent: rash - Patient Status Disposition: Home, Self-Care Condition: Good Functional capacity at discharge: uses cane/walker Overall status at discharge: patient is progressing back to baseline - Discharge Instructions Follow Up With: Tana Delgado DO [Primary Care Provider] - Forms: ED Satisfaction Letter Additional Instructions: Take your medications as directed. I have called in 2 prescriptions to your pharmacy. See your doctor in the next 7-10 days for a recheck. Return to the ER if your symptoms return or worsen, or if you have any other problems. Take your other medications as directed and return to your normal activities as tolerated. Use your cane when you are walking at home. Dr Delgado's office will arrange your Physical Therapy. - Diet and Activity Activity: as per physical therapy, increase activity as tolerated Diet: advance to your usual diet
== END 2017-08-18 12:35 | disposition home or self-care (01) ==
LOC: EMEROO 20:48 → 3BNU 20:48
PROVIDERS: ADMIT Family Medicine; ATTEND Registered Nurse

== ENCOUNTER 2017-08-24 00:44 | Observation (INO) ==
[2017-08-24] MEDS ORDERED: 0.9 % Sodium Chloride 500 ML IVC ONE (00:48)
[2017-08-24] MEDS ORDERED: Ondansetron 4 MG/2 ML VIAL IVP ONE (00:48)
--- NOTE | 2017-08-24 00:51 | Emergency Department Note ---
Disposition Clinical Impression: Acute exacerbation of CHF (congestive heart failure), Elevated troponin I level , CAD (coronary artery disease) Disposition: Admitted As Inpatient Condition: Fair Referrals: Tana Delgado DO [Primary Care Provider] - Time of Disposition: 02:12 Chest Pain HPI - General Stated Complaint: Chest Pain Time Seen by Provider: 08/24/17 00:48 Source: patient, EMS Mode of arrival: EMS Limitations: other Vital Signs Reviewed: Yes Nursing Notes Reviewed: Yes - History of Present Illness HPI Narrative: Patient presents to the ED with the chief complaint of chest pain, nausea and vomiting. EMS reports that the patient states her pain is been ongoing since yesterday morning and is gradually getting worse. When talking to the patient and she states "I have been here 2 times for similar things and they will keep send me home, somebody needs to figure out what is going on right now." When asking about her pain. She states that it should be in her medical record. She is noncompliant with obtaining a history and physical and states that she hurts. - Related Data Home Medications Medication Instructions Recorded Confirmed Aspirin 81 mg PO DAILY 07/18/17 08/16/17 Furosemide [Lasix] 40 mg PO DAILY 08/16/17 08/16/17 HYDROcodone/Acet 5/325 mg [[place] 1 tab PO Q8HR PRN 08/16/17 08/16/17 5-325 mg] Isosorbide MONOnitrate (24 HR) 30 mg PO DAILY 08/16/17 08/16/17 [Imdur] Losartan Potassium [Cozaar] 50 mg PO DAILY 08/16/17 08/16/17 Nitroglycerin [Nitrostat] 0.4 mg PO Q5M PRN 08/16/17 08/16/17 Potassium Chloride [K-Tab ER] 20 meq PO DAILY 08/16/17 08/16/17 Previous Rx's Medication Instructions Recorded Carvedilol [Coreg] 25 mg PO BIDWM #60 tablet 04/21/17 Lidocaine Patch [Lidoderm 5% patch] 1 each TP DAILY PRN #30 adh..patch 08/18/17 Menthol [Biofreeze] 118 ml TP BID PRN #1 unit 08/18/17 Omeprazole [PriLOSEC] 20 mg PO DAILY #30 cap 08/18/17 Allergies Allergy/AdvReac Type Severity Reaction Status Date / Time Penicillins [PCN] Allergy Mild Itching Verified 07/18/17 11:20 Sulfa (Sulfonamide Allergy Mild Hives Verified 07/18/17 11:20 Antibiotics) pheniramine Allergy Unknown UNKNOWN Verified 07/18/17 11:20 PER PATIENT codeine AdvReac Mild "HARD ON Verified 07/18/17 11:20 BOWELS" Limitations: ROS unobtainable due to patients medical condition Chest Pain PMH - Past Medical History Medical history: Reports: cardiomyopathy, CHF, COPD, coronary artery disease, hypertension, other Surgical history: Reports: pacemaker/AICD (Dual-lead pacemaker), other Psychiatric history: Reports: no psych history - Social History Smoking Status: Current every day smoker Alcohol use: Reports: rarely Drug use: Reports: none Physical Exam - General Limitations: no limitations General appearance: alert - Head Head exam: atraumatic, normocephalic, normal inspection - Respiratory Respiratory exam: Present: normal lung sounds bilaterally - Cardiovascular Cardiovascular exam: Present: regular rate, normal rhythm, normal heart sounds - Abdominal Exam Abdominal exam: Present: soft, Non-Tender. Absent: tenderness, distention, guarding, rebound, rigidity Course Course Narrative: Patient presenting with chest pain. States she has been here before for similar symptoms. She does not history of coronary disease. She is really noncompliant with obtaining history and physical, so we will order labs, chest x -ray, EKG and looked back at her previous records and see if we can and obtain any more history. - Reevaluation(s) Reevaluation #1: Labs are back. Troponins chronically elevated. BNP is also higher than it ever has been she does have some pulmonary vascular congestion. We will give her dose Lasix. Spoke with the hospitalist for admission and he also wanted a half-inch of Nitropaste. Vital Signs Temperature 97.6 F 08/24/17 00:46 Pulse Rate 86 08/24/17 00:46 Respiratory Rate 23 08/24/17 00:46 Blood Pressure 172/111 08/24/17 00:46 O2 Sat by Pulse Oximetry 94 08/24/17 00:46 Temperature 97.6 F 08/24/17 00:46 Pulse Rate 71 08/24/17 02:07 Respiratory Rate 16 08/24/17 02:07 Blood Pressure 159/89 08/24/17 02:07 O2 Sat by Pulse Oximetry 94 08/24/17 02:07 Oxygen Delivery Oxygen Delivery Nasal Cannula Chest Pain - Medical Records Medical records reviewed: Yes I reviewed the patient's medical records. - Lab Data Lab results reviewed: Yes I reviewed the patient's lab results. Result diagrams: 08/24/17 01:14 08/24/17 01:14 Lab Results 08/24/17 08/24/17 08/24/17 Range/Units 01:14 01:14 01:14 WBC (4.3-11.1) K/mcL RBC (3.82-4.97) M/mcL Hgb (11.5-15.4) g/dL Hct (35.3-44.9) % MCV (83.0-100.0) fL MCH (28.0-33.3) pg MCHC (31.6-35.5) g/dL RDW (11.5-14.5) % Plt Count (140-400) K/mcL MPV (9.4-12.4) fL Immature Gran % (0-4) % Seg Neutrophils % % Lymphocytes % % Monocytes % % Eosinophils % % Basophils % % Neutrophils # (1.6-8.9) K/mcL Lymphocytes # (0.6-4.6) K/mcL Monocytes # (0.0-1.3) K/mcL Eosinophils # (0.0-0.6) K/mcL Basophils # (0.0-0.2) K/mcL PT 11.7 (9.4-12.1) Seconds INR 1.1 APTT 28.6 (26.0-36.0) Seconds Sodium (136-145) mEq/L Potassium (3.5-5.1) mEq/L Chloride (98-107) mEq/L Carbon Dioxide (23-29) mEq/L BUN (8-23) mg/dL Creatinine (0.60-1.20) mg/dL Est GFR ( Amer) (> 60) Est GFR (Non-Af Amer) (> 60) BUN/Creatinine Ratio (6-26) Glucose (70-105) mg/dL Calculated Osmolality (280-300) Calcium (8.6-10.3) mg/dL Total Bilirubin 0.8 (0.3-1.0) mg/dL Direct Bilirubin 0.3 H (0.0-0.2) mg/dL Indirect Bilirubin 0.5 (0.0-1.2) mg/dL AST 19 (13-39) Units/L ALT 9 (7-52) Units/L Alkaline Phosphatase 74 (34-104) Units/L Troponin I (< 0.04) ng/mL B-Natriuretic Peptide 3879 H (Less than 100) pg/mL Serum Total Protein 6.1 L (6.4-8.9) g/dL Albumin 3.6 (3.5-5.7) g/dL Globulin 2.5 (2.4-3.5) g/dL Albumin/Globulin Ratio 1.4 (1.1-2.2) Lipase 22 (11-82) Units/L 08/24/17 08/24/17 Range/Units 01:14 01:14 WBC 5.7 (4.3-11.1) K/mcL RBC 4.02 (3.82-4.97) M/mcL Hgb 12.5 D (11.5-15.4) g/dL Hct 38.4 (35.3-44.9) % MCV 95.5 (83.0-100.0) fL MCH 31.1 (28.0-33.3) pg MCHC 32.6 (31.6-35.5) g/dL RDW 16.2 H (11.5-14.5) % Plt Count 260 (140-400) K/mcL MPV 9.1 L (9.4-12.4) fL Immature Gran % 0.4 (0-4) % Seg Neutrophils % 63.5 % Lymphocytes % 22.3 % Monocytes % 11.7 % Eosinophils % 1.2 % Basophils % 0.9 % Neutrophils # 3.6 (1.6-8.9) K/mcL Lymphocytes # 1.3 (0.6-4.6) K/mcL Monocytes # 0.7 (0.0-1.3) K/mcL Eosinophils # 0.1 (0.0-0.6) K/mcL Basophils # 0.1 (0.0-0.2) K/mcL PT (9.4-12.1) Seconds INR APTT (26.0-36.0) Seconds Sodium 132 L (136-145) mEq/L Potassium 4.3 (3.5-5.1) mEq/L Chloride 104 (98-107) mEq/L Carbon Dioxide 22 L (23-29) mEq/L BUN 16 (8-23) mg/dL Creatinine 0.94 (0.60-1.20) mg/dL Est GFR ( Amer) > 60 (> 60) Est GFR (Non-Af Amer) 57 L (> 60) BUN/Creatinine Ratio 17 (6-26) Glucose 118 H (70-105) mg/dL Calculated Osmolality 276 L (280-300) Calcium 8.9 (8.6-10.3) mg/dL Total Bilirubin (0.3-1.0) mg/dL Direct Bilirubin (0.0-0.2) mg/dL Indirect Bilirubin (0.0-1.2) mg/dL AST (13-39) Units/L ALT (7-52) Units/L Alkaline Phosphatase (34-104) Units/L Troponin I 0.04 H* (< 0.04) ng/mL B-Natriuretic Peptide (Less than 100) pg/mL Serum Total Protein (6.4-8.9) g/dL Albumin (3.5-5.7) g/dL Globulin (2.4-3.5) g/dL Albumin/Globulin Ratio (1.1-2.2) Lipase (11-82) Units/L - Radiology Data Radiology results reviewed: Yes I reviewed the patient's radiology results. - EKG Data EKG attestation: Yes I reviewed and interpreted this EKG. EKG results narrative: Sinus rhythm with PVCs, rate 92, PA interval 154, QRS 109, QTC 402, normal axis , lateral ST segment depression of 1 mm and V5 and V6, otherwise no acute changes.
[2017-08-24 01:30] LABS: Basophils # 0.1 K/mcL (0.0-0.2); Basophils % 0.9 %; Eosinophils # 0.1 K/mcL (0.0-0.6); Eosinophils % 1.2 %; Hematocrit 38.4 % (35.3-44.9); Hemoglobin 12.5 g/dL (11.5-15.4); Immature Granulocytes % 0.4 % (0-4); Lymphocytes # 1.3 K/mcL (0.6-4.6); Lymphocytes % 22.3 %; Mean Corpuscular HGB Conc 32.6 g/dL (31.6-35.5); Mean Corpuscular Hemoglobin 31.1 pg (28.0-33.3); Mean Corpuscular Volume 95.5 fL (83.0-100.0); Mean Platelet Volume 9.1 fL (9.4-12.4); Monocytes # 0.7 K/mcL (0.0-1.3); Monocytes % 11.7 %; Neutrophils # 3.6 K/mcL (1.6-8.9); Platelet Count 260 K/mcL (140-400); Red Blood Count 4.02 M/mcL (3.82-4.97); Red Cell Distribution Width 16.2 % (11.5-14.5); Segmented Neutrophils % 63.5 %
[2017-08-24 01:41] LABS: INR 1.1; Prothrombin Time 11.7 Seconds (9.4-12.1)
[2017-08-24 01:43] LABS: Activated Partial Thrombo Time 28.6 Seconds (26.0-36.0)
[2017-08-24 01:48] LABS: Albumin 3.6 g/dL (3.5-5.7); Albumin/Globulin Ratio 1.4 (1.1-2.2); Bilirubin,Direct 0.3 mg/dL (0.0-0.2); Bilirubin,Indirect 0.5 mg/dL (0.0-1.2); Bilirubin,Total 0.8 mg/dL (0.3-1.0); Globulin 2.5 g/dL (2.4-3.5); Total Protein 6.1 g/dL (6.4-8.9)
[2017-08-24 01:50] LABS: BUN/Creatinine Ratio 17 (6-26); Blood Urea Nitrogen 16 mg/dL (8-23); Calcium 8.9 mg/dL (8.6-10.3); Carbon Dioxide 22 mEq/L (23-29); Chloride 104 mEq/L (98-107); Glucose 118 mg/dL (70-105); Osmolality,Calculated 276 (280-300); Potassium 4.3 mEq/L (3.5-5.1); Sodium 132 mEq/L (136-145); eGFR For African Americans > 60 (> 60); eGFR For Non-African Americans 57 (> 60)
[2017-08-24 01:56] LABS: Troponin I 0.04 ng/mL (< 0.04)
[2017-08-24] MEDS ORDERED: Furosemide 40 MG/4 ML VIAL IVP ONE (01:56)
[2017-08-24] MEDS ORDERED: Nitroglycerin 1 INCH/GM PACKET TP ONE (02:11)
[2017-08-24 03:23] LABS: Bilirubin,Urine Negative (Negative); Blood,Urine Negative (Negative); Clarity,Urine Clear (Clear); Color,Urine Yellow (Yellow); Glucose,Urine (UA) Normal (Normal); Ketones,Urine Negative (Negative); Leukocyte Esterase,Urine Negative (Negative); Nitrite,Urine Positive (Negative); PH,Urine 6.5 pH Units (5.0-8.0); Protein,Urine 30 mg/dL (Neg-Trace); Specific Gravity,Urine 1.009 (1.010-1.025); Urobilinogen,Urine Normal (Normal)
[2017-08-24 03:25] LABS: Bacteria,Urine Many per hpf (None-Few); Hyaline Casts,Urine None Seen per lpf (None-Few); RBC,Urine 0-3 per hpf (0-3); Squamous Epithelial Cell,Urine Many per lpf (None-Few); WBC,Urine 0-3 per hpf (0-3)
[2017-08-24 03:33] LABS: Amphetamine Screen,Urine Negative ng/mL (Cutoff=1000); Barbiturate Screen,Urine Negative ng/mL (Cutoff=200); Benzodiazepines Screen,Urine Negative ng/mL (Cutoff=200); Cannabinoid Screen,Urine Negative ng/mL (Cutoff = 50); Cocaine Screen,Urine Negative ng/mL (Cutoff= 300); Opiate Screen,Urine Positive ng/mL (Cutoff=300); Phencyclidine Screen,Urine Negative ng/mL (Cutoff=25)
[2017-08-24] MEDS ORDERED: Acetaminophen 325 MG TABLET PO PRN (03:51)
[2017-08-24] MEDS ORDERED: Naloxone 0.4 MG/ML INJ IVP PRN (03:51)
[2017-08-24] MEDS ORDERED: Nitroglycerin 0.4 MG TAB.SUBL SL PRN (03:57)
[2017-08-24] MEDS ORDERED: *HR* HYDROcodone/Acet 5/325 mg TABLET PO PRN (03:57)
[2017-08-24 04:57] LABS: Magnesium 2.1 mg/dL (1.6-2.6)
--- NOTE | 2017-08-24 05:03 | Emergency Department Note ---
Disposition Clinical Impression: Acute exacerbation of CHF (congestive heart failure), Elevated troponin I level , CAD (coronary artery disease) Disposition: Admitted As Inpatient Condition: Fair Referrals: Tana Delgado DO [Primary Care Provider] - General Adult HPI - General Chief complaint: ED Chest Pain Stated complaint: Chest Pain Time Seen by Provider: 08/24/17 00:48 Source: patient, EMS Mode of arrival: EMS Limitations: no limitations - History of Present Illness Pain Scale: 6 - Related Data Home Medications Medication Instructions Recorded Confirmed Aspirin 81 mg PO DAILY 07/18/17 08/16/17 Furosemide [Lasix] 40 mg PO DAILY 08/16/17 08/16/17 HYDROcodone/Acet 5/325 mg [[place] 1 tab PO Q8HR PRN 08/16/17 08/16/17 5-325 mg] Isosorbide MONOnitrate (24 HR) 30 mg PO DAILY 08/16/17 08/16/17 [Imdur] Losartan Potassium [Cozaar] 50 mg PO DAILY 08/16/17 08/16/17 Nitroglycerin [Nitrostat] 0.4 mg PO Q5M PRN 08/16/17 08/16/17 Potassium Chloride [K-Tab ER] 20 meq PO DAILY 08/16/17 08/16/17 Previous Rx's Medication Instructions Recorded Carvedilol [Coreg] 25 mg PO BIDWM #60 tablet 04/21/17 Lidocaine Patch [Lidoderm 5% patch] 1 each TP DAILY PRN #30 adh..patch 08/18/17 Menthol [Biofreeze] 118 ml TP BID PRN #1 unit 08/18/17 Omeprazole [PriLOSEC] 20 mg PO DAILY #30 cap 08/18/17 Allergies Allergy/AdvReac Type Severity Reaction Status Date / Time Penicillins [PCN] Allergy Mild Itching Verified 07/18/17 11:20 Sulfa (Sulfonamide Allergy Mild Hives Verified 07/18/17 11:20 Antibiotics) pheniramine Allergy Unknown UNKNOWN Verified 07/18/17 11:20 PER PATIENT codeine AdvReac Mild "HARD ON Verified 07/18/17 11:20 BOWELS" Past Medical History - Past Medical History Medical history: Reports: cardiomyopathy, CHF, COPD, coronary artery disease, hypertension, other Surgical history: Reports: pacemaker/AICD (Dual-lead pacemaker), other Psychiatric history: Reports: no psych history - Social History Smoking Status: Current every day smoker Smokeless Tobacco Status: No Alcohol use: Reports: rarely Drug use: Reports: none Physical Exam - General Limitations: no limitations General appearance: alert Course Vital Signs Temperature 97.6 F 08/24/17 00:46 Pulse Rate 86 08/24/17 00:46 Respiratory Rate 23 08/24/17 00:46 Blood Pressure 172/111 08/24/17 00:46 O2 Sat by Pulse Oximetry 94 08/24/17 00:46 Temperature 97.6 F 08/24/17 00:46 Pulse Rate 75 08/24/17 03:55 Respiratory Rate 16 08/24/17 03:55 Blood Pressure 164/95 08/24/17 03:55 O2 Sat by Pulse Oximetry 96 08/24/17 03:55 Oxygen Delivery Oxygen Delivery Nasal Cannula Medical Decision Making - Lab Data Result diagrams: 08/24/17 01:14 08/24/17 01:14 Lab Results 08/24/17 08/24/17 08/24/17 Range/Units 01:14 01:14 01:14 WBC (4.3-11.1) K/mcL RBC (3.82-4.97) M/mcL Hgb (11.5-15.4) g/dL Hct (35.3-44.9) % MCV (83.0-100.0) fL MCH (28.0-33.3) pg MCHC (31.6-35.5) g/dL RDW (11.5-14.5) % Plt Count (140-400) K/mcL MPV (9.4-12.4) fL Immature Gran % (0-4) % Seg Neutrophils % % Lymphocytes % % Monocytes % % Eosinophils % % Basophils % % Neutrophils # (1.6-8.9) K/mcL Lymphocytes # (0.6-4.6) K/mcL Monocytes # (0.0-1.3) K/mcL Eosinophils # (0.0-0.6) K/mcL Basophils # (0.0-0.2) K/mcL PT 11.7 (9.4-12.1) Seconds INR 1.1 APTT 28.6 (26.0-36.0) Seconds Sodium (136-145) mEq/L Potassium (3.5-5.1) mEq/L Chloride (98-107) mEq/L Carbon Dioxide (23-29) mEq/L BUN (8-23) mg/dL Creatinine (0.60-1.20) mg/dL Est GFR ( Amer) (> 60) Est GFR (Non-Af Amer) (> 60) BUN/Creatinine Ratio (6-26) Glucose (70-105) mg/dL Calculated Osmolality (280-300) Calcium (8.6-10.3) mg/dL Magnesium 2.1 (1.6-2.6) mg/dL Total Bilirubin 0.8 (0.3-1.0) mg/dL Direct Bilirubin 0.3 H (0.0-0.2) mg/dL Indirect Bilirubin 0.5 (0.0-1.2) mg/dL AST 19 (13-39) Units/L ALT 9 (7-52) Units/L Alkaline Phosphatase 74 (34-104) Units/L Troponin I (< 0.04) ng/mL B-Natriuretic Peptide 3879 H (Less than 100) pg/mL Serum Total Protein 6.1 L (6.4-8.9) g/dL Albumin 3.6 (3.5-5.7) g/dL Globulin 2.5 (2.4-3.5) g/dL Albumin/Globulin Ratio 1.4 (1.1-2.2) Lipase 22 (11-82) Units/L Urine Color (Yellow) Urine Clarity (Clear) Urine pH (5.0-8.0) pH Units Ur Specific [place] (1.010-1.025) Urine Protein (Neg-Trace) mg/dL Urine Glucose (UA) (Normal) mg/dL Urine Ketones (Negative) mg/dL Urine Blood (Negative) Urine Nitrite (Negative) Urine Bilirubin (Negative) Urine Urobilinogen (Normal) mg/dL Ur Leukocyte Esterase (Negative) Urine Microscopic RBC (0-3) per hpf Urine Microscopic WBC (0-3) per hpf Ur Squamous Epith Cells (None-Few) per lpf Urine Bacteria (None-Few) per hpf Hyaline Casts (None-Few) per lpf Ur Culture Indicated? (NO) Urine Opiates Screen (Onnzaw=114) ng/mL Ur Barbiturates Screen (Feglxx=629) ng/mL Ur Phencyclidine Scrn (Cutoff=25) ng/mL Ur Amphetamines Screen (Tvtnql=7955) ng/mL U Benzodiazepines Scrn (Psunbx=035) ng/mL Urine Cocaine Screen (Cutoff= 300) ng/mL U Marijuana (THC) Screen (Cutoff = 50) ng/mL 08/24/17 08/24/17 08/24/17 Range/Units 01:14 01:14 03:10 WBC 5.7 (4.3-11.1) K/mcL RBC 4.02 (3.82-4.97) M/mcL Hgb 12.5 D (11.5-15.4) g/dL Hct 38.4 (35.3-44.9) % MCV 95.5 (83.0-100.0) fL MCH 31.1 (28.0-33.3) pg MCHC 32.6 (31.6-35.5) g/dL RDW 16.2 H (11.5-14.5) % Plt Count 260 (140-400) K/mcL MPV 9.1 L (9.4-12.4) fL Immature Gran % 0.4 (0-4) % Seg Neutrophils % 63.5 % Lymphocytes % 22.3 % Monocytes % 11.7 % Eosinophils % 1.2 % Basophils % 0.9 % Neutrophils # 3.6 (1.6-8.9) K/mcL Lymphocytes # 1.3 (0.6-4.6) K/mcL Monocytes # 0.7 (0.0-1.3) K/mcL Eosinophils # 0.1 (0.0-0.6) K/mcL Basophils # 0.1 (0.0-0.2) K/mcL PT (9.4-12.1) Seconds INR APTT (26.0-36.0) Seconds Sodium 132 L (136-145) mEq/L Potassium 4.3 (3.5-5.1) mEq/L Chloride 104 (98-107) mEq/L Carbon Dioxide 22 L (23-29) mEq/L BUN 16 (8-23) mg/dL Creatinine 0.94 (0.60-1.20) mg/dL Est GFR ( Amer) > 60 (> 60) Est GFR (Non-Af Amer) 57 L (> 60) BUN/Creatinine Ratio 17 (6-26) Glucose 118 H (70-105) mg/dL Calculated Osmolality 276 L (280-300) Calcium 8.9 (8.6-10.3) mg/dL Magnesium (1.6-2.6) mg/dL Total Bilirubin (0.3-1.0) mg/dL Direct Bilirubin (0.0-0.2) mg/dL Indirect Bilirubin (0.0-1.2) mg/dL AST (13-39) Units/L ALT (7-52) Units/L Alkaline Phosphatase (34-104) Units/L Troponin I 0.04 H* (< 0.04) ng/mL B-Natriuretic Peptide (Less than 100) pg/mL Serum Total Protein (6.4-8.9) g/dL Albumin (3.5-5.7) g/dL Globulin (2.4-3.5) g/dL Albumin/Globulin Ratio (1.1-2.2) Lipase (11-82) Units/L Urine Color Yellow (Yellow) Urine Clarity Clear (Clear) Urine pH 6.5 (5.0-8.0) pH Units Ur Specific [place] 1.009 L (1.010-1.025) Urine Protein 30 H (Neg-Trace) mg/dL Urine Glucose (UA) Normal (Normal) mg/dL Urine Ketones Negative (Negative) mg/dL Urine Blood Negative (Negative) Urine Nitrite Positive A (Negative) Urine Bilirubin Negative (Negative) Urine Urobilinogen Normal (Normal) mg/dL Ur Leukocyte Esterase Negative (Negative) Urine Microscopic RBC 0-3 (0-3) per hpf Urine Microscopic WBC 0-3 (0-3) per hpf Ur Squamous Epith Cells Many H (None-Few) per lpf Urine Bacteria Many H (None-Few) per hpf Hyaline Casts None Seen (None-Few) per lpf Ur Culture Indicated? NO. (NO) Urine Opiates Screen (Vxrszc=620) ng/mL Ur Barbiturates Screen (Fxvptx=420) ng/mL Ur Phencyclidine Scrn (Cutoff=25) ng/mL Ur Amphetamines Screen (Rqxlff=9071) ng/mL U Benzodiazepines Scrn (Rxoqra=589) ng/mL Urine Cocaine Screen (Cutoff= 300) ng/mL U Marijuana (THC) Screen (Cutoff = 50) ng/mL 04/17/18 Range/Units 03:10 WBC (4.3-11.1) K/mcL RBC (3.82-4.97) M/mcL Hgb (11.5-15.4) g/dL Hct (35.3-44.9) % MCV (83.0-100.0) fL MCH (28.0-33.3) pg MCHC (31.6-35.5) g/dL RDW (11.5-14.5) % Plt Count (140-400) K/mcL MPV (9.4-12.4) fL Immature Gran % (0-4) % Seg Neutrophils % % Lymphocytes % % Monocytes % % Eosinophils % % Basophils % % Neutrophils # (1.6-8.9) K/mcL Lymphocytes # (0.6-4.6) K/mcL Monocytes # (0.0-1.3) K/mcL Eosinophils # (0.0-0.6) K/mcL Basophils # (0.0-0.2) K/mcL PT (9.4-12.1) Seconds INR APTT (26.0-36.0) Seconds Sodium (136-145) mEq/L Potassium (3.5-5.1) mEq/L Chloride (98-107) mEq/L Carbon Dioxide (23-29) mEq/L BUN (8-23) mg/dL Creatinine (0.60-1.20) mg/dL Est GFR ( Amer) (> 60) Est GFR (Non-Af Amer) (> 60) BUN/Creatinine Ratio (6-26) Glucose (70-105) mg/dL Calculated Osmolality (280-300) Calcium (8.6-10.3) mg/dL Magnesium (1.6-2.6) mg/dL Total Bilirubin (0.3-1.0) mg/dL Direct Bilirubin (0.0-0.2) mg/dL Indirect Bilirubin (0.0-1.2) mg/dL AST (13-39) Units/L ALT (7-52) Units/L Alkaline Phosphatase (34-104) Units/L Troponin I (< 0.04) ng/mL B-Natriuretic Peptide (Less than 100) pg/mL Serum Total Protein (6.4-8.9) g/dL Albumin (3.5-5.7) g/dL Globulin (2.4-3.5) g/dL Albumin/Globulin Ratio (1.1-2.2) Lipase (11-82) Units/L Urine Color (Yellow) Urine Clarity (Clear) Urine pH (5.0-8.0) pH Units Ur Specific [place] (1.010-1.025) Urine Protein (Neg-Trace) mg/dL Urine Glucose (UA) (Normal) mg/dL Urine Ketones (Negative) mg/dL Urine Blood (Negative) Urine Nitrite (Negative) Urine Bilirubin (Negative) Urine Urobilinogen (Normal) mg/dL Ur Leukocyte Esterase (Negative) Urine Microscopic RBC (0-3) per hpf Urine Microscopic WBC (0-3) per hpf Ur Squamous Epith Cells (None-Few) per lpf Urine Bacteria (None-Few) per hpf Hyaline Casts (None-Few) per lpf Ur Culture Indicated? (NO) Urine Opiates Screen Positive H (Lmvmoy=352) ng/mL Ur Barbiturates Screen Negative (Eqlpne=937) ng/mL Ur Phencyclidine Scrn Negative (Cutoff=25) ng/mL Ur Amphetamines Screen Negative (Pcvxmm=1931) ng/mL U Benzodiazepines Scrn Negative (Ifhywu=536) ng/mL Urine Cocaine Screen Negative (Cutoff= 300) ng/mL U Marijuana (THC) Screen Negative (Cutoff = 50) ng/mL Attestation Statement - Attestation Attestation: I examined this patient and my medical decision-making was reviewed with the Resident Physician. I agree with the documented findings, disposition and treatment plan as described except to the extent set forth below. Findings consistent with chest pain as well as heart failure. This appears to be a recurring condition with this patient as she has had multiple visits recently. She was actually admitted by myself last week and was seen by cardiology. Plan to administer nitroglycerin, pain control, diuresis. EKG shows nonspecific findings and does not suggest STEMI at this time. Cardiac biomarkers are elevated however this appears to be chronic as well and may be potentially due to underlying heart failure. Final disposition will be admission to the hospital with turning of cardiac biomarkers and further management by cardiology.
--- NOTE | 2017-08-24 05:34 | Internal Med History&Physical ---
Date of Encounter: 08/24/17 Time of Encounter: 03:00 Internal Medicine - H&P: HPI Chief complaint: Shortness of breath Admitted From: Home Plans for Post Hospital Care: Home History of present illness: Ms. Randall is a 82 year old female present to ER for shortness of breath and intermittent chest pain. Her past medical history is significant for CHF, hypertension, CAD, S/P PPM Patient said she started to have shortness of breath and she knows that it is heart congestion. Patient also has intermittent chest pain. Located on mid chest, no radiation. Patient has mild nausea. Patient denies diaphoresis. EMS was called and she was sent to ER. In the emergency room, BNP over 3000, chest x-ray shows pulmonary edema. Patient was given Lasix 40 mg IV once. Patient is pain-free when I saw patient. Past Med Surg Social Fam HX - Past Medical History Medical history: cardiomyopathy, CHF, COPD, coronary artery disease, hypertension, other Psychiatric history: no psych history - Past Surgical History Surgical History: pacemaker/AICD (Dual-lead pacemaker), other - Social History Smoking Status: Current every day smoker Smokeless Tobacco Status: No Alcohol use: rarely Drug use: none - Family History Father Adopted: No Family Member Ethnicity: Non- Living Status: Hx Family Cardiac Disorders: Yes Internal Medicine - H&P: Meds Carvedilol [Coreg] 25 mg PO BIDWM #60 tablet 04/21/17 [Rx] Aspirin 81 mg PO DAILY 07/18/17 [History] Furosemide [Lasix] 40 mg PO DAILY 08/16/17 [History] HYDROcodone/Acet 5/325 mg [[place] 5-325 mg] 1 tab PO Q8HR PRN 08/16/17 [History] Isosorbide MONOnitrate (24 HR) [Imdur] 30 mg PO DAILY 08/16/17 [History] Losartan Potassium [Cozaar] 50 mg PO DAILY 08/16/17 [History] Nitroglycerin [Nitrostat] 0.4 mg PO Q5M PRN 08/16/17 [History] Potassium Chloride [K-Tab ER] 20 meq PO DAILY 08/16/17 [History] Lidocaine Patch [Lidoderm 5% patch] 1 each TP DAILY PRN #30 adh..patch 08/18/17 [Rx] Menthol [Biofreeze] 118 ml TP BID PRN #1 unit 08/18/17 [Rx] Omeprazole [PriLOSEC] 20 mg PO DAILY #30 cap 08/18/17 [Rx] 3 Allergy/AdvReac Type Severity Reaction Status Date / Time Penicillins [PCN] Allergy Mild Itching Verified 07/18/17 11:20 Sulfa (Sulfonamide Allergy Mild Hives Verified 07/18/17 11:20 Antibiotics) pheniramine Allergy Unknown UNKNOWN Verified 07/18/17 11:20 PER PATIENT codeine AdvReac Mild "HARD ON Verified 07/18/17 11:20 BOWELS" All Systems PM: A 10-system review of systems was performed and is negative for pertinent findings except as documented above in the HPI. - Constitutional Vitals: Temp Pulse Resp BP Pulse Ox 97.6 F 75 16 164/95 96 08/24/17 00:46 08/24/17 03:55 08/24/17 03:55 08/24/17 03:55 08/24/17 03:55 General appearance: Present: A&O X 3, no acute distress, answers questions appropriately - Head Head exam: Present: atraumatic, normocephalic - Eye Eye exam: Present: PERRL, conjuntiva pink, sclera anicteric Pupils: Present: PERRL - Neck Neck exam general surgery: Present: supple, trachea midline. Absent: lymphadenopathy - Respiratory Respiratory exam: Present: CTAB. Absent: accessory muscle use, rales, rhonchi, wheezes - Cardiovascular Cardiovascular exam: Present: RRR, +S1, +S2. Absent: diastolic murmur, gallop, rubs, systolic murmur - GI/Abdominal GI/Abdominal exam: Present: normal bowel sounds, soft, no peritoneal signs. Absent: distended, tenderness - Extremities Exam Extremities exam: Present: pedal edema (Bilateral pedal edema), warm, radial pulses palpable and symmetrical. Absent: calf tenderness, cyanotic - Neurological Exam Neurological exam: Present: CN II-XII intact, oriented X3, no focal deficits. Absent: pronater drift, facial droop, speech deficit - Skin Skin exam: Present: dry, intact Internal Med - H&P Results - Labs CBC & Chem 7: 08/24/17 01:14 08/24/17 01:14 Labs: Short CBC 08/24/17 Range/Units 01:14 WBC 5.7 (4.3-11.1) K/mcL Hgb 12.5 D (11.5-15.4) g/dL Hct 38.4 (35.3-44.9) % Plt Count 260 (140-400) K/mcL Neutrophils # 3.6 (1.6-8.9) K/mcL BMP 08/24/17 01:14 Sodium 132 L Potassium 4.3 Chloride 104 Carbon Dioxide 22 L BUN 16 Creatinine 0.94 Glucose 118 H Calcium 8.9 Cardiac Enzymes 08/24/17 Range/Units 01:14 Troponin I 0.04 H* (< 0.04) ng/mL Liver Function 08/24/17 Range/Units 01:14 Total Bilirubin 0.8 (0.3-1.0) mg/dL Direct Bilirubin 0.3 H (0.0-0.2) mg/dL AST 19 (13-39) Units/L ALT 9 (7-52) Units/L Alkaline Phosphatase 74 (34-104) Units/L Albumin 3.6 (3.5-5.7) g/dL Urine 08/24/17 Range/Units 03:10 Urine Color Yellow (Yellow) Urine Clarity Clear (Clear) Urine pH 6.5 (5.0-8.0) pH Units Ur Specific [place] 1.009 L (1.010-1.025) Urine Protein 30 H (Neg-Trace) mg/dL Urine Glucose (UA) Normal (Normal) mg/dL - EKG Data -: EKG Interpreted by Myself EKG shows normal: sinus rhythm, ST-T waves (Lateral lead T-wave inversion, which is no change with the previous EKG) Rate: normal - Impressions ITS Impressions Chest X-Ray 08/24/17 00:48 IMPRESSION: Cardiomegaly with increased mild interstitial pulmonary edema. D/ / Diogo Chaney / Diogo Chaney Interpreting Provider: Diogo Chaney - Assessment and plan (1) Acute exacerbation of CHF (congestive heart failure) Current Visit: Yes Status: Acute Assessment and plan: Patient has a history of systolic CHF with LVEF 35-40%. Increase the shortness of breath. Elevated BNP. Chest x-ray shows pulmonary edema. Patient has increased pedal edema. - Place patient on continuous cardiac monitoring - Lasix 40 mg IV twice a day - Fluid restriction diet - Strict I and O - Continue home medication beta marcelino and ARB Qualifiers: Heart failure type: systolic Qualified Code(s): I50.23 - Acute on chronic systolic (congestive) heart failure (2) Elevated troponin I level Current Visit: Yes Status: Acute Assessment and plan: We will check 3 sets of troponin. Probably due to CHF (3) CAD (coronary artery disease) Current Visit: Yes Status: Chronic Assessment and plan: Continue home medications. Check 3 sets of troponin to rule out ACS Qualifiers: Coronary Disease-Associated Artery/Lesion type: [place] artery [place] vs. transplanted heart: [place] heart Associated angina: with stable angina Qualified Code(s): I25.118 - Atherosclerotic heart disease of [place] coronary artery with other forms of angina pectoris (4) Chest pain Current Visit: No Status: Acute Assessment and plan: Patient complaint intermittent chest pain. History of CAD. Need to rule out ACS. - Continuous cardiac monitoring - Track 3 sets of troponin - Echocardiogram in a.m. Qualifiers: Chest pain type: precordial pain Qualified Code(s): R07.2 - Precordial pain (5) DVT prophylaxis Current Visit: No Status: Acute Assessment and plan: Heparin subcutaneously (6) Essential hypertension Current Visit: No Status: Acute Assessment and plan: Continue home medications and a follow-up BP - Time Spent With Patient Total time spent is greater than 50% in coordination of care (as documented) at patient's floor/unit and/or counseling patient: 40 minutes Greater than 35 minutes
[2017-08-24] MEDS: *HR* Heparin 5,000 UNIT/ML VIAL SQ SCH ×2 (10:24→18:41)
[2017-08-24] MEDS: Furosemide 40 MG/4 ML VIAL IVP SCH ×2 (10:27→21:57)
[2017-08-24] MEDS: Aspirin 81 MG TAB.CHEW PO SCH (10:27)
[2017-08-24] MEDS: Isosorbide MONOnitrate (24 HR) 30 MG TAB.ER.24H PO SCH (12:51)
--- NOTE | 2017-08-24 16:41 | Event Note ---
Date of Encounter: 08/24/17 Time of Encounter: 15:00 82-year-old female with history of systolic CHF status post AICD/pacemaker placement, coronary artery disease status post stent, COPD, who was admitted with chest pain or shortness of breath. Patient has had multiple recurrent hospitalizations with similar complaints, noted to be very adamant and set in her ways, refuses rehabilitation placement; Seen and examined at bedside. Chest-S1, S2 heard. Lungs with bibasal crackles. Acute CHF. Continue diuresis with IV Lasix, fluid restriction, urine output monitoring. Continue beta marcelino, nitrate, ARB. Telemetry monitoring, serial troponins noted to be negative for ACS. Echocardiogram from April 2017 shows EF 35-40%, mild LV dilation, indeterminate diastolic function.
[2017-08-25 04:38] LABS: Basophils % 0.5 %; Eosinophils # 0.1 K/mcL (0.0-0.6); Eosinophils % 2.1 %; Hematocrit 34.6 % (35.3-44.9); Hemoglobin 11.4 g/dL (11.5-15.4); Lymphocytes # 0.8 K/mcL (0.6-4.6); Lymphocytes % 20.6 %; Mean Corpuscular HGB Conc 32.9 g/dL (31.6-35.5); Mean Corpuscular Volume 97.2 fL (83.0-100.0); Mean Platelet Volume 9.2 fL (9.4-12.4); Monocytes # 0.5 K/mcL (0.0-1.3); Monocytes % 12.3 %; Neutrophils # 2.4 K/mcL (1.6-8.9); Platelet Count 214 K/mcL (140-400); Red Blood Count 3.56 M/mcL (3.82-4.97); Segmented Neutrophils % 64.5 %
[2017-08-25 04:56] LABS: BUN/Creatinine Ratio 20 (6-26); Blood Urea Nitrogen 19 mg/dL (8-23); Calcium 8.6 mg/dL (8.6-10.3); Carbon Dioxide 26 mEq/L (23-29); Chloride 105 mEq/L (98-107); Glucose 113 mg/dL (70-105); Osmolality,Calculated 283 (280-300); Potassium 3.8 mEq/L (3.5-5.1); Sodium 135 mEq/L (136-145); eGFR For African Americans > 60 (> 60); eGFR For Non-African Americans 56 (> 60)
[2017-08-25] MEDS: Furosemide 40 MG/4 ML VIAL IVP SCH ×2 (09:30→20:55)
[2017-08-25] MEDS: Aspirin 81 MG TAB.CHEW PO SCH (09:30)
[2017-08-25] MEDS: *HR* Heparin 5,000 UNIT/ML VIAL SQ SCH ×3 (09:31→22:53)
[2017-08-25] MEDS: Isosorbide MONOnitrate (24 HR) 30 MG TAB.ER.24H PO SCH (09:31)
--- NOTE | 2017-08-25 16:06 | Internal Med Progress Note ---
Date of Encounter: 08/25/17 Time of Encounter: 12:30 - Assessment and plan (1) Acute exacerbation of CHF (congestive heart failure) Current Visit: Yes Status: Acute Assessment and plan: Echocardiogram from April 2017 shows EF 35-40%, mild LV dilation, indeterminate diastolic function. Repeat limited echocardiogram shows mild improvement in EF 40-45%, mild segmental LV systolic dysfunction. Patient reports compliance to medications and fluid restriction. Continue diuresis with IV Lasix, fluid restriction and urine output monitoring. Improving clinically. Not requiring supplemental oxygen. Continue beta marcelino , nitrate and ARB. Patient has been evaluated by cardiology during recent admission last week, recommended no further intervention. Physical therapy evaluation recommends ECF placement, patient continues to decline as she did during her previous admissions. Anticipate discharge in a.m. with home health services. Qualifiers: Heart failure type: systolic Qualified Code(s): I50.23 - Acute on chronic systolic (congestive) heart failure (2) DVT prophylaxis Current Visit: Yes Status: Acute (3) Elevated troponin I level Current Visit: Yes Status: Acute Assessment and plan: Serial troponins flat and adynamic, likely due to acute CHF. Continue current management. Nuclear stress test last month was negative for ischemia. (4) Essential hypertension Current Visit: Yes Status: Chronic Assessment and plan: Blood pressure noted to be well controlled. Continue home medications. (5) CAD (coronary artery disease) Current Visit: Yes Status: Chronic Assessment and plan: Continue aspirin, statin, beta marcelino, ARB. Recent nuclear stress test last month was negative for acute ischemia. Qualifiers: Coronary Disease-Associated Artery/Lesion type: [place] artery [place] vs. transplanted heart: [place] heart Associated angina: with stable angina Qualified Code(s): I25.118 - Atherosclerotic heart disease of [place] coronary artery with other forms of angina pectoris (6) COPD (chronic obstructive pulmonary disease) Current Visit: Yes Status: Chronic Assessment and plan: Not in acute exacerbation. Continue when necessary breathing treatments. Not requiring supplemental oxygen at this time. Qualifiers: COPD type: chronic bronchitis Chronic bronchitis type: simple Qualified Code(s): J41.0 - Simple chronic bronchitis - Time Spent With Patient Total time spent is greater than 50% in coordination of care (as documented) at patient's floor/unit and/or counseling patient: - Subjective Interval history: Feels better with improved shortness of breath, chest pain, leg swelling; no cough; continues to be irritable with her care, declines ECF placement. - Constitutional Vitals: Temp Pulse Resp BP Pulse Ox 98.1 F 62 15 154/75 94 08/25/17 10:53 08/25/17 10:53 08/25/17 10:53 08/25/17 10:53 08/25/17 10:53 General appearance: Present: A&O X 3, answers questions appropriately - Respiratory Respiratory exam: Present: CTAB. Absent: accessory muscle use, rales, rhonchi, wheezes - Cardiovascular Cardiovascular exam: Present: RRR, +S1, +S2. Absent: diastolic murmur, gallop, rubs, systolic murmur - GI/Abdominal GI/Abdominal exam: Present: normal bowel sounds, soft, no peritoneal signs. Absent: distended, tenderness - Extremities Exam Extremities exam: Present: full ROM, warm, radial pulses palpable and symmetrical. Absent: calf tenderness, cyanotic, pedal edema - Neurological Exam Neurological exam: Present: CN II-XII intact, oriented X3, no focal deficits. Absent: pronater drift, facial droop, speech deficit Internal Medicine: Result - Labs CBC & Chem 7: 08/25/17 04:10 08/25/17 04:10 Labs: Short CBC 08/25/17 Range/Units 04:10 WBC 3.7 L (4.3-11.1) K/mcL Hgb 11.4 L (11.5-15.4) g/dL Hct 34.6 L (35.3-44.9) % Plt Count 214 (140-400) K/mcL Neutrophils # 2.4 (1.6-8.9) K/mcL BMP 08/25/17 04:10 Sodium 135 L Potassium 3.8 Chloride 105 Carbon Dioxide 26 BUN 19 Creatinine 0.95 Glucose 113 H Calcium 8.6 - ABG Interpretation ABG results: PT/INR, D-dimer PT 11.7 Seconds (9.4-12.1) 08/24/17 01:14 Consult Discharge Plan - Plan
[2017-08-26] MEDS: Aspirin 81 MG TAB.CHEW PO SCH (07:56)
[2017-08-26] MEDS: Furosemide 40 MG/4 ML VIAL IVP SCH (07:57)
[2017-08-26] MEDS: Isosorbide MONOnitrate (24 HR) 30 MG TAB.ER.24H PO SCH (07:57)
[2017-08-26 11:16] VITALS: BP 137/73
--- NOTE | 2017-08-26 11:57 | Discharge Summary ---
- NOTES TO OUTPATIENT PROVIDER Notes to Outpatient Provider: Recurrent admission for acute CHF Date of Encounter: 08/26/17 Time of Encounter: 11:56 - Discharge Diagnosis (1) Acute exacerbation of CHF (congestive heart failure) Priority: Primary Status: Acute Qualifiers: Heart failure type: systolic Qualified Code(s): I50.23 - Acute on chronic systolic (congestive) heart failure (2) Elevated troponin I level Priority: Primary Status: Acute (3) Essential hypertension Priority: Secondary Status: Chronic (4) CAD (coronary artery disease) Priority: Secondary Status: Chronic Qualifiers: Coronary Disease-Associated Artery/Lesion type: [place] artery [place] vs. 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 Randall is a 82 year old female with history of systolic CHF, who was admitted with chest pain and shortness of breath. Patient was recently discharged from this hospital after being treated for acute CHF. She reported compliance to medications and fluid restriction. She was started on IV diuresis with Lasix along with fluid restriction and urine output monitoring. Her clinical condition significantly improved with appropriate urine output. She no longer required supplemental oxygen. Echocardiogram from April 2017 shows EF 35-40%, mild LV dilation, indeterminate diastolic function. Repeat limited echocardiogram shows mild improvement in EF 40-45%, mild segmental LV systolic dysfunction. Patient was evaluated by cardiology during his recent admission with no further recommendations. Physical and occupational therapy evaluation was completed, they have repeatedly recommended ECF placement, and patient has repeatedly declined. Referral for home health services is being completed at this time. Patient was noted to be very irritable and upset with medical staff and blamed the hospital for her recurrent readmissions. I have discussed her case with her daughter, Dang Moulton, who verbalized understanding and agreed that her mother had a component of medical noncompliance as they found several of her Lasix pills on the floor at home. She agrees that her mother needs ECF placement, however patient is adamant and continues to refuse to be placed. Discharge discussed with: patient - Time Spent with Patient Total time spent providing and/or coordinating discharge services: Greater than 30 minutes (40 min) - Discharge Medications Prescriptions: Furosemide [Lasix] 40 mg PO BID #60 tablet Home Medications: Carvedilol [Coreg] 25 mg PO BIDWM #60 tablet 04/21/17 [Rx] Aspirin 81 mg PO DAILY 07/18/17 [History] HYDROcodone/Acet 5/325 mg [[place] 5-325 mg] 1 tab PO Q8HR PRN 08/16/17 [History] Isosorbide MONOnitrate (24 HR) [Imdur] 30 mg PO DAILY 08/16/17 [History] Losartan Potassium [Cozaar] 50 mg PO DAILY 08/16/17 [History] Nitroglycerin [Nitrostat] 0.4 mg PO Q5M PRN 08/16/17 [History] Potassium Chloride [K-Tab ER] 20 meq PO DAILY 08/16/17 [History] Lidocaine Patch [Lidoderm 5% patch] 1 each TP DAILY PRN #30 adh..patch 08/18/17 [Rx] Menthol [Biofreeze] 118 ml TP BID PRN #1 unit 08/18/17 [Rx] Omeprazole [PriLOSEC] 20 mg PO DAILY #30 cap 08/18/17 [Rx] Furosemide [Lasix] 40 mg PO BID #60 tablet 08/26/17 [Rx] Allergies/Adverse Reactions: 3 Allergy/AdvReac Type Severity Reaction Status Date / Time Penicillins [PCN] Allergy Mild Itching Verified 07/18/17 11:20 Sulfa (Sulfonamide Allergy Mild Hives Verified 07/18/17 11:20 Antibiotics) pheniramine Allergy Unknown UNKNOWN Verified 07/18/17 11:20 PER PATIENT codeine AdvReac Mild "HARD ON Verified 07/18/17 11:20 BOWELS" Date of admission: 08/24/17 06:57 Primary care physician: Matias Klein Discharging clinician: Cynthia Pollack Anticipated date of discharge: 08/26/17 - Constitutional Vitals: Temp Pulse Resp BP Pulse Ox 97.3 F L 55 16 137/73 97 08/26/17 11:13 08/26/17 11:13 08/26/17 11:13 08/26/17 11:13 08/26/17 11:13 General appearance: Present: A&O X 3, answers questions appropriately - Respiratory Respiratory exam: Present: CTAB. Absent: accessory muscle use, rales, rhonchi, wheezes - Patient Status Disposition: Home Health Service Condition: Fair Functional capacity at discharge: uses cane/walker Overall status at discharge: patient is progressing back to baseline - Discharge Instructions Instructions: Furosemide (By mouth), Heart Failure (DC), Chronic Obstructive Pulmonary Disease (DC), Chronic Hypertension (DC) Follow Up With: Tana Delgado DO [Primary Care Provider] - 09/01/17 1:00 pm (This appointment is with Joanna Lauren CNP. Thank you!) Forms: ED Satisfaction Letter - Diet and Activity Activity: as per physical therapy Diet: low fat, low cholesterol, low salt diet (fluid restriction to 1.2L/day)
--- NOTE | 2017-08-26 12:01 | Physician Discharge Referral ---
Home Health/Hosp Referral Info Transfer to: Home Health Attending Provider: Cynthia Pollack Provider in Charge Post Discharge: PCP - Diagnosis (1) Acute exacerbation of CHF (congestive heart failure) Priority: Primary Status: Acute (2) Elevated troponin I level Priority: Primary Status: Acute (3) Essential hypertension Priority: Secondary Status: Chronic (4) CAD (coronary artery disease) Priority: Secondary Status: Chronic (5) COPD (chronic obstructive pulmonary disease) Priority: Secondary Status: Chronic - Respiratory Orders Smoking Cessation: Smoking cessation has been advised. For more information, call the [place] Tobacco Quit Line at 3-276-ZYSB-NOW. - Diet/Nutrition Diet/Nutrition Orders: Cardiac (fluid restriction to 1.2L/day) - Activity Activity Orders: Ambulate, Walker - Services Needed Following services are medically necessary services: Nursing, Physical Therapy, Occupational Therapy - Transfer Medications Prescriptions: Furosemide [Lasix] 40 mg PO BID #60 tablet Home Medications: Carvedilol [Coreg] 25 mg PO BIDWM #60 tablet 04/21/17 [Rx] Aspirin 81 mg PO DAILY 07/18/17 [History] HYDROcodone/Acet 5/325 mg [[place] 5-325 mg] 1 tab PO Q8HR PRN 08/16/17 [History] Isosorbide MONOnitrate (24 HR) [Imdur] 30 mg PO DAILY 08/16/17 [History] Losartan Potassium [Cozaar] 50 mg PO DAILY 08/16/17 [History] Nitroglycerin [Nitrostat] 0.4 mg PO Q5M PRN 08/16/17 [History] Potassium Chloride [K-Tab ER] 20 meq PO DAILY 08/16/17 [History] Lidocaine Patch [Lidoderm 5% patch] 1 each TP DAILY PRN #30 adh..patch 08/18/17 [Rx] Menthol [Biofreeze] 118 ml TP BID PRN #1 unit 08/18/17 [Rx] Omeprazole [PriLOSEC] 20 mg PO DAILY #30 cap 08/18/17 [Rx] Furosemide [Lasix] 40 mg PO BID #60 tablet 08/26/17 [Rx] Allergies/Adverse Reactions: 3 Allergy/AdvReac Type Severity Reaction Status Date / Time Penicillins [PCN] Allergy Mild Itching Verified 07/18/17 11:20 Sulfa (Sulfonamide Allergy Mild Hives Verified 07/18/17 11:20 Antibiotics) pheniramine Allergy Unknown UNKNOWN Verified 07/18/17 11:20 PER PATIENT codeine AdvReac Mild "HARD ON Verified 07/18/17 11:20 BOWELS" Certification: Further, I certify that my clinical findings support that this patient is homebound (i.e. absences from home require considerable and taxing effort and are for medical reasons or church services or infrequently or short duration when for other reasons) because: Homebound Reason: Patient requires assistance of a person or device to safely leave home, Leaving home requires considerable and taxing effort due to condition, Severity of cardiac or pulmonary status limits activity tolerance Attestation: My signature below is to certify that this patient is under my care and that I, or nurse practitioner, or a physician's commercial lending assistant working with me, has a face-to -face encounter with this patient.
--- NOTE | 2017-08-27 14:47 | Electrocardiograph Report ---
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
--- NOTE | 2017-08-27 15:31 | Electrocardiograph Report ---
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
== END 2017-08-26 14:28 | disposition home health service (06) ==
LOC: EMEROO 00:44 → SUATTDRO 06:57 → 2SOUTHHOLD 06:57 → INTOOBSV 06:57 → 2SOUTHHOLD 08:30 → 3BNU 08-25 18:54
PROVIDERS: ADMIT Internal Medicine; ATTEND Internal Medicine

== ENCOUNTER 2017-09-29 04:37 | Observation (INO) ==
[2017-09-29] MEDS ORDERED: *HR* Morphine Immed Rel 30 MG TABLET PO ONE (05:01)
--- NOTE | 2017-09-29 05:14 | Emergency Department Note ---
Disposition Clinical Impression: Acute exacerbation of CHF (congestive heart failure) Qualifiers: Heart failure type: unspecified Qualified Code(s): I50.9 - Heart failure, unspecified Disposition: Admitted As Inpatient Condition: Undetermined Forms: ED Satisfaction Letter SOB HPI - General Chief Complaint: ED Shortness of Breath/Dyspnea Stated Complaint: SoB weakness Time Seen by Provider: 09/29/17 04:46 Source: patient, EMS Mode of arrival: EMS Limitations: no limitations Nursing Notes Reviewed: Yes Vital Signs Reviewed: Yes - History of Present Illness 82-year-old female with a past medical history that includes systolic CHF, COPD , and NSTEMI's, CAD, hyperlipidemia, hypertension with a pacer/AICD presents emergency department for shortness of breath and weakness starting last 2 days. Patient states she was seen here on 09/24/17 after sustaining a mechanical fall which had no fractures. Since then her ribs have been hurting, she has been having difficulty in breathing and shortness of breath also accompanied with coughing and mucus production at her baseline. Patient states this has become increasingly worse and tonight she can take it anymore and so she called EMS to bring her to the emergency department. Patient states she has been compliant with all of her medications. Patient denies chest pain, increased coughing, increased sputum production, change in sputum production, nausea, vomiting, fever, chills, diarrhea, constipation or any other systemic complaint. Patient states that she refuses to take deep breaths said because it hurts, and coughing also increases the pain. Patient noted to be slightly hypoxic and 90% on room air at home, she was placed on 2 L nasal cannula with EMS and has been satting greater than 95% since then. EMS reports that her house was full of cigarette smoke, and patient was smoking whenever they arrived on scene. Pt Subjective Complaint: shortness of breath Onset (ago): day(s) Severity: moderate Consistency/Duration: intermittent Known history of: COPD, congestive heart failure Associated symptoms: Reports: pain with inspiration, cough (No increase from baseline), sputum production (No increased from baseline). Denies: chest pain, fever, wheezing, orthopnea, lower extremity pain, polyuria, polydipsia, parasthesias, palpitations, hemoptysis, diaphoresis, nausea/vomiting, syncope, abdominal pain, rash, sense of impending doom Treatment prior to arrival: oxygen Cough present: Yes Cough Description: Involuntary, Productive Cough Frequency: Intermittent Sputum production: Yes - Related Data Home oxygen amount: none Home Medications Medication Instructions Recorded Confirmed Aspirin 81 mg PO DAILY 07/18/17 08/24/17 HYDROcodone/Acet 5/325 mg [[place] 1 tab PO Q8HR PRN 08/16/17 08/24/17 5-325 mg] Isosorbide MONOnitrate (24 HR) 30 mg PO DAILY 08/16/17 08/24/17 [Imdur] Losartan Potassium [Cozaar] 50 mg PO DAILY 08/16/17 08/24/17 Nitroglycerin [Nitrostat] 0.4 mg PO Q5M PRN 08/16/17 08/24/17 Potassium Chloride [K-Tab ER] 20 meq PO DAILY 08/16/17 08/24/17 Previous Rx's Medication Instructions Recorded Carvedilol [Coreg] 25 mg PO BIDWM #60 tablet 04/21/17 Lidocaine Patch [Lidoderm 5% patch] 1 each TP DAILY PRN #30 adh..patch 08/18/17 Menthol [Biofreeze] 118 ml TP BID PRN #1 unit 08/18/17 Omeprazole [PriLOSEC] 20 mg PO DAILY #30 cap 08/18/17 Furosemide [Lasix] 40 mg PO BID #60 tablet 08/26/17 Allergies Allergy/AdvReac Type Severity Reaction Status Date / Time Penicillins [PCN] Allergy Mild Itching Verified 07/18/17 11:20 Sulfa (Sulfonamide Allergy Mild Hives Verified 07/18/17 11:20 Antibiotics) pheniramine Allergy Unknown UNKNOWN Verified 07/18/17 11:20 PER PATIENT codeine AdvReac Mild "HARD ON Verified 07/18/17 11:20 BOWELS" All systems ED: reviewed and negative except as stated. Review of Systems: As Per HPI Past Medical History - Past Medical History Attestation: Yes The following information was validated with the patient. Source: patient Medical history: Reports: cardiomyopathy, CHF, COPD, coronary artery disease, hypertension, myocardial infarction, other Surgical history: Reports: pacemaker/AICD, other Psychiatric history: Reports: no psych history - Social History Smoking Status: Current every day smoker Smokeless Tobacco Status: No Alcohol use: Reports: rarely Drug use: Reports: none Physical Exam - General Limitations: no limitations General appearance: alert, in no apparent distress - Head Head exam: atraumatic, normocephalic, normal inspection - Eye Eye exam: Present: normal appearance, PERRL, EOMI - ENT ENT exam: mucous membranes moist - Neck Neck exam: Present: normal inspection, full ROM, trachea midline - Chest Chest inspection: Present: normal inspection, symmetric chest wall rise - Respiratory Respiratory exam: Present: accessory muscle use, prolonged expiratory phase - Expanded Respiratory Exam Location: wheezes: Left, Right, Lower (Scattered), decreased breath sounds: Left , Right, Lower - Cardiovascular Cardiovascular exam: Present: irregular rhythm, normal heart sounds - Abdominal Exam Abdominal exam: Present: soft, Non-Tender, normal bowel sounds. Absent: tenderness, distention, guarding, rebound, rigidity - Extremities Exam Extremities exam: Present: normal inspection, full ROM. Absent: tenderness, pedal edema - Neurological Exam Neurological exam: Present: alert, oriented X3 - Psychiatric Psychiatric exam: Present: normal affect, normal mood - Skin Skin exam: Present: warm, dry, intact, normal color Course Course Narrative: 82-year-old female in no apparent distress. Respirations are easy and even. She is noted to moan out in pain with any movement due to the pain in her back and her rib cage. Patient smells strongly of cigarette smoke. She is alert and oriented 3, hard. Lungs diminished with slight wheezing to bilateral lower lobes, 95% on 2 L nasal cannula. Pain to reproducible with palpation, same with pain in back, noted with increased moaning during coughing or deep inspiration. Heart rate irregular, EKG shows sinus rhythm with occasional PVCs , then rate 74 beats minute, normal axis, normal measurements, 1+ pitting edema to bilateral lower extremities. Bowel sounds 4, no pain or tenderness with palpation, no masses, no organomegaly. Concern for CHF exacerbation, COPD exacerbation, pneumonia, musculoskeletal pain. We will obtain basic labs, chest x-ray and reevaluate. - Reevaluation(s) Reevaluation #1: Patient has been resting comfortably, continues to require 2 L of oxygen and maintained O2 saturations greater than 92%. Troponin returns at 0.04 a slightly elevated. Review of old troponin show several at the 0.04 level however she does have some normal troponins as well. Consideration given for elevated troponin been at baseline, however patient also with hypoxia which most likely is a CHF exacerbation causing the spelling of the troponins. BNP Returns elevated greater than 2800. We will give 40 mg IV Lasix 1. Plan at this time is to admit to hospitalist services for CHF exacerbation, elevated troponins. Time: 05:59 Reevaluation #2: Spoke with hospitalist who is agreeable to take the patient. Patient is agreeable to plan of care. Dr. Price at 11 face time with patient and agrees with plan of care at this time. Time: 06:19 Vital Signs Temperature 98.1 F 09/29/17 04:41 Pulse Rate 77 09/29/17 04:41 Respiratory Rate 26 09/29/17 04:41 Blood Pressure 179/101 09/29/17 04:41 O2 Sat by Pulse Oximetry 95 09/29/17 04:41 Temperature 98.1 F 09/29/17 04:41 Pulse Rate 77 09/29/17 04:41 Respiratory Rate 26 09/29/17 04:41 Blood Pressure 179/101 09/29/17 04:41 O2 Sat by Pulse Oximetry 95 09/29/17 04:52 Oxygen Delivery Oxygen Delivery Nasal Cannula Shortness of Breath/Dyspnea - Differential Diagnosis Likely: acute exacerbation of chronic obstructive airways disease, congestive heart failure, pneumonia, pulmonary embolism. Unlikely: asthma with exacerbation, pneumothorax, arrhythmia - Medical Records Medical records reviewed: Yes I reviewed the patient's medical records. - Lab Data Lab results reviewed: Yes I reviewed the patient's lab results. Result diagrams: 09/29/17 05:08 09/29/17 04:48 Lab Results 09/29/17 09/29/17 09/29/17 Range/Units 04:48 05:08 05:08 WBC 6.2 (4.3-11.1) K/mcL RBC 3.94 (3.82-4.97) M/mcL Hgb 12.1 (11.5-15.4) g/dL Hct 37.2 (35.3-44.9) % MCV 94.4 (83.0-100.0) fL MCH 30.7 (28.0-33.3) pg MCHC 32.5 (31.6-35.5) g/dL RDW 14.6 H (11.5-14.5) % Plt Count 225 (140-400) K/mcL MPV 9.4 (9.4-12.4) fL Immature Gran % 0.2 (0-4) % Seg Neutrophils % 70.0 % Lymphocytes % 14.4 % Monocytes % 12.7 % Eosinophils % 1.9 % Basophils % 0.8 % Neutrophils # 4.3 (1.6-8.9) K/mcL Lymphocytes # 0.9 (0.6-4.6) K/mcL Monocytes # 0.8 (0.0-1.3) K/mcL Eosinophils # 0.1 (0.0-0.6) K/mcL Basophils # 0.1 (0.0-0.2) K/mcL Sodium 136 (136-145) mEq/L Potassium 3.9 (3.5-5.1) mEq/L Chloride 104 (98-107) mEq/L Carbon Dioxide 25 (23-29) mEq/L BUN 26 H (8-23) mg/dL Creatinine 0.97 (0.60-1.20) mg/dL Est GFR ( Amer) > 60 (> 60) Est GFR (Non-Af Amer) 55 L (> 60) BUN/Creatinine Ratio 27 H (6-26) Glucose 106 H (70-105) mg/dL Calculated Osmolality 287 (280-300) Lactic Acid 0.9 (0.5-2.2) mmol/L Calcium 9.2 (8.6-10.3) mg/dL Troponin I 0.04 H* (< 0.04) ng/mL - Radiology Data Radiology results reviewed: Yes I reviewed the patient's radiology results. Chest X-Ray 09/29/17 04:48 IMPRESSION: No significant interval change in pulmonary interstitial edema and mild bilateral pleural effusions. Persistently enlarged cardiomediastinal silhouette. D/ / Trevor Yañez MD / Trevor Yañez MD Interpreting Provider: Trevor Yañez MD - EKG Data EKG attestation: Yes I reviewed and interpreted this EKG. EKG results narrative: EKG reveals sinus rhythm with occasional PVCs, the rate 74 beats a minute, axis normal, measurements normal. No sign of ST elevation or depression.
[2017-09-29 05:26] LABS: Basophils # 0.1 K/mcL (0.0-0.2); Basophils % 0.8 %; Eosinophils # 0.1 K/mcL (0.0-0.6); Eosinophils % 1.9 %; Hematocrit 37.2 % (35.3-44.9); Hemoglobin 12.1 g/dL (11.5-15.4); Immature Granulocytes % 0.2 % (0-4); Lymphocytes # 0.9 K/mcL (0.6-4.6); Lymphocytes % 14.4 %; Mean Corpuscular HGB Conc 32.5 g/dL (31.6-35.5); Mean Corpuscular Hemoglobin 30.7 pg (28.0-33.3); Mean Corpuscular Volume 94.4 fL (83.0-100.0); Mean Platelet Volume 9.4 fL (9.4-12.4); Monocytes # 0.8 K/mcL (0.0-1.3); Monocytes % 12.7 %; Neutrophils # 4.3 K/mcL (1.6-8.9); Platelet Count 225 K/mcL (140-400); Red Blood Count 3.94 M/mcL (3.82-4.97); Red Cell Distribution Width 14.6 % (11.5-14.5)
[2017-09-29 05:34] LABS: BUN/Creatinine Ratio 27 (6-26); Blood Urea Nitrogen 26 mg/dL (8-23); Calcium 9.2 mg/dL (8.6-10.3); Carbon Dioxide 25 mEq/L (23-29); Chloride 104 mEq/L (98-107); Glucose 106 mg/dL (70-105); Osmolality,Calculated 287 (280-300); Potassium 3.9 mEq/L (3.5-5.1); Sodium 136 mEq/L (136-145); eGFR For African Americans > 60 (> 60); eGFR For Non-African Americans 55 (> 60)
[2017-09-29 05:37] LABS: Troponin I 0.04 ng/mL (< 0.04)
[2017-09-29] MEDS ORDERED: Aspirin 81 MG TAB.CHEW PO ONE (05:49)
[2017-09-29] MEDS ORDERED: Furosemide 40 MG/4 ML VIAL IVP ONE (05:56)
[2017-09-29 05:57] LABS: Bilirubin,Urine Negative (Negative); Blood,Urine Small (Negative); Clarity,Urine Cloudy (Clear); Color,Urine Yellow (Yellow); Glucose,Urine (UA) Normal (Normal); Ketones,Urine Negative (Negative); Leukocyte Esterase,Urine Small (Negative); Nitrite,Urine Positive (Negative); PH,Urine 5.5 pH Units (5.0-8.0); Protein,Urine 30 mg/dL (Neg-Trace); Specific Gravity,Urine 1.018 (1.010-1.025); Urobilinogen,Urine Normal (Normal)
[2017-09-29 06:00] LABS: Bacteria,Urine Many per hpf (None-Few); Hyaline Casts,Urine None Seen per lpf (None-Few); RBC,Urine 15-30 per hpf (0-3); Squamous Epithelial Cell,Urine Many per lpf (None-Few); WBC,Urine 15-30 per hpf (0-3)
[2017-09-29] MEDS ORDERED: Naloxone 0.4 MG/ML INJ IVP PRN ×2 (06:14→08:10)
[2017-09-29] MEDS ORDERED: Acetaminophen 325 MG TABLET PO PRN (06:14)
--- NOTE | 2017-09-29 06:46 | Emergency Department Note ---
Disposition Clinical Impression: Acute exacerbation of CHF (congestive heart failure) Qualifiers: Heart failure type: unspecified Qualified Code(s): I50.9 - Heart failure, unspecified Disposition: Admitted As Inpatient Condition: Undetermined Referrals: Tana Delgado DO [Primary Care Provider] - Forms: ED Satisfaction Letter General Adult HPI - General Chief complaint: ED Shortness of Breath/Dyspnea Stated complaint: SoB weakness Time Seen by Provider: 09/29/17 04:46 Source: patient, EMS Mode of arrival: EMS Limitations: no limitations - History of Present Illness Pain Scale: 10 - Related Data Home Medications Medication Instructions Recorded Confirmed Aspirin 81 mg PO DAILY 07/18/17 08/24/17 HYDROcodone/Acet 5/325 mg [[place] 1 tab PO Q8HR PRN 08/16/17 08/24/17 5-325 mg] Isosorbide MONOnitrate (24 HR) 30 mg PO DAILY 08/16/17 08/24/17 [Imdur] Losartan Potassium [Cozaar] 50 mg PO DAILY 08/16/17 08/24/17 Nitroglycerin [Nitrostat] 0.4 mg PO Q5M PRN 08/16/17 08/24/17 Potassium Chloride [K-Tab ER] 20 meq PO DAILY 08/16/17 08/24/17 Previous Rx's Medication Instructions Recorded Carvedilol [Coreg] 25 mg PO BIDWM #60 tablet 04/21/17 Lidocaine Patch [Lidoderm 5% patch] 1 each TP DAILY PRN #30 adh..patch 08/18/17 Menthol [Biofreeze] 118 ml TP BID PRN #1 unit 08/18/17 Omeprazole [PriLOSEC] 20 mg PO DAILY #30 cap 08/18/17 Furosemide [Lasix] 40 mg PO BID #60 tablet 08/26/17 Allergies Allergy/AdvReac Type Severity Reaction Status Date / Time Penicillins [PCN] Allergy Mild Itching Verified 07/18/17 11:20 Sulfa (Sulfonamide Allergy Mild Hives Verified 07/18/17 11:20 Antibiotics) pheniramine Allergy Unknown UNKNOWN Verified 07/18/17 11:20 PER PATIENT codeine AdvReac Mild "HARD ON Verified 07/18/17 11:20 BOWELS" Past Medical History - Past Medical History Medical history: Reports: cardiomyopathy, CHF, COPD, coronary artery disease, hypertension, myocardial infarction, other Surgical history: Reports: pacemaker/AICD, other Psychiatric history: Reports: no psych history - Social History Smoking Status: Current every day smoker Smokeless Tobacco Status: No Alcohol use: Reports: rarely Drug use: Reports: none Physical Exam - General Limitations: no limitations General appearance: alert, in no apparent distress Course Vital Signs Temperature 98.1 F 09/29/17 04:41 Pulse Rate 77 09/29/17 04:41 Respiratory Rate 26 09/29/17 04:41 Blood Pressure 179/101 09/29/17 04:41 O2 Sat by Pulse Oximetry 95 09/29/17 04:41 Temperature 98.1 F 09/29/17 04:41 Pulse Rate 62 09/29/17 05:55 Respiratory Rate 22 09/29/17 05:55 Blood Pressure 174/102 09/29/17 05:55 O2 Sat by Pulse Oximetry 96 09/29/17 05:55 Oxygen Delivery Oxygen Delivery Nasal Cannula Medical Decision Making - Lab Data Result diagrams: 09/29/17 05:08 09/29/17 04:48 Lab Results 09/29/17 09/29/17 09/29/17 Range/Units 04:48 05:08 05:08 WBC 6.2 (4.3-11.1) K/mcL RBC 3.94 (3.82-4.97) M/mcL Hgb 12.1 (11.5-15.4) g/dL Hct 37.2 (35.3-44.9) % MCV 94.4 (83.0-100.0) fL MCH 30.7 (28.0-33.3) pg MCHC 32.5 (31.6-35.5) g/dL RDW 14.6 H (11.5-14.5) % Plt Count 225 (140-400) K/mcL MPV 9.4 (9.4-12.4) fL Immature Gran % 0.2 (0-4) % Seg Neutrophils % 70.0 % Lymphocytes % 14.4 % Monocytes % 12.7 % Eosinophils % 1.9 % Basophils % 0.8 % Neutrophils # 4.3 (1.6-8.9) K/mcL Lymphocytes # 0.9 (0.6-4.6) K/mcL Monocytes # 0.8 (0.0-1.3) K/mcL Eosinophils # 0.1 (0.0-0.6) K/mcL Basophils # 0.1 (0.0-0.2) K/mcL Sodium 136 (136-145) mEq/L Potassium 3.9 (3.5-5.1) mEq/L Chloride 104 (98-107) mEq/L Carbon Dioxide 25 (23-29) mEq/L BUN 26 H (8-23) mg/dL Creatinine 0.97 (0.60-1.20) mg/dL Est GFR ( Amer) > 60 (> 60) Est GFR (Non-Af Amer) 55 L (> 60) BUN/Creatinine Ratio 27 H (6-26) Glucose 106 H (70-105) mg/dL Calculated Osmolality 287 (280-300) Lactic Acid 0.9 (0.5-2.2) mmol/L Calcium 9.2 (8.6-10.3) mg/dL Troponin I 0.04 H* (< 0.04) ng/mL B-Natriuretic Peptide (Less than 100) pg/mL Urine Color (Yellow) Urine Clarity (Clear) Urine pH (5.0-8.0) pH Units Ur Specific [place] (1.010-1.025) Urine Protein (Neg-Trace) mg/dL Urine Glucose (UA) (Normal) mg/dL Urine Ketones (Negative) mg/dL Urine Blood (Negative) Urine Nitrite (Negative) Urine Bilirubin (Negative) Urine Urobilinogen (Normal) mg/dL Ur Leukocyte Esterase (Negative) Urine Microscopic RBC (0-3) per hpf Urine Microscopic WBC (0-3) per hpf Ur Squamous Epith Cells (None-Few) per lpf Urine Bacteria (None-Few) per hpf Hyaline Casts (None-Few) per lpf Ur Culture Indicated? (NO) 09/29/17 09/29/17 Range/Units 05:08 05:35 WBC (4.3-11.1) K/mcL RBC (3.82-4.97) M/mcL Hgb (11.5-15.4) g/dL Hct (35.3-44.9) % MCV (83.0-100.0) fL MCH (28.0-33.3) pg MCHC (31.6-35.5) g/dL RDW (11.5-14.5) % Plt Count (140-400) K/mcL MPV (9.4-12.4) fL Immature Gran % (0-4) % Seg Neutrophils % % Lymphocytes % % Monocytes % % Eosinophils % % Basophils % % Neutrophils # (1.6-8.9) K/mcL Lymphocytes # (0.6-4.6) K/mcL Monocytes # (0.0-1.3) K/mcL Eosinophils # (0.0-0.6) K/mcL Basophils # (0.0-0.2) K/mcL Sodium (136-145) mEq/L Potassium (3.5-5.1) mEq/L Chloride (98-107) mEq/L Carbon Dioxide (23-29) mEq/L BUN (8-23) mg/dL Creatinine (0.60-1.20) mg/dL Est GFR ( Amer) (> 60) Est GFR (Non-Af Amer) (> 60) BUN/Creatinine Ratio (6-26) Glucose (70-105) mg/dL Calculated Osmolality (280-300) Lactic Acid (0.5-2.2) mmol/L Calcium (8.6-10.3) mg/dL Troponin I (< 0.04) ng/mL B-Natriuretic Peptide 2317 H (Less than 100) pg/mL Urine Color Yellow (Yellow) Urine Clarity Cloudy A (Clear) Urine pH 5.5 (5.0-8.0) pH Units Ur Specific [place] 1.018 (1.010-1.025) Urine Protein 30 H (Neg-Trace) mg/dL Urine Glucose (UA) Normal (Normal) mg/dL Urine Ketones Negative (Negative) mg/dL Urine Blood Small H (Negative) Urine Nitrite Positive A (Negative) Urine Bilirubin Negative (Negative) Urine Urobilinogen Normal (Normal) mg/dL Ur Leukocyte Esterase Small H (Negative) Urine Microscopic RBC 15-30 H (0-3) per hpf Urine Microscopic WBC 15-30 H (0-3) per hpf Ur Squamous Epith Cells Many H (None-Few) per lpf Urine Bacteria Many H (None-Few) per hpf Hyaline Casts None Seen (None-Few) per lpf Ur Culture Indicated? NO. A (NO) Attestation Statement - Attestation Attestation: I examined this patient and my medical decision-making was reviewed with the [employer]TENS[employer] DIVISION DIRECTOR/PA/Advanced Practice Nurse/Resident Physician. I agree with the documented findings, disposition and treatment plan as described except to the extent set forth below. I did see the patient spoke with her and examined her. She did sustain a fall several days ago but chest x-ray does not show any evidence of rib fracture or pneumothorax. Patient is short of breath and does have an elevated BNP as well as minimally elevated troponin. Patient will be admitted. I did review the labs as well as to previous CTA scan of the chest in August and July 645
--- NOTE | 2017-09-29 07:56 | Internal Med History&Physical ---
Date of Encounter: 09/29/17 Time of Encounter: 07:49 Internal Medicine - H&P: HPI Chief complaint: sob Admitted From: Home Plans for Post Hospital Care: Home History of present illness: Ms. Randall is a 82 year old female who has history of CHF COPD CAD hypertension pacemaker AICD presenting emergency room for SOB and the leg swelling for last 3 days. Patient is active smoker, smokes 6-10 cigarettes daily, COPD not on home O2, she become more shortness of breasts over last 3 days unable to FALL asleep at night, she had to sit up in a chair. Patient has severe paroxysmal nocturnal dyspnea. She also increased bilateral leg swelling. Patient also c/o epigastric pain 8 out of 10, on and off, has been taking omeprazole, increase the dose to twice a day. Milk helps some pain, pain is cramping radiating to the back for few months. She was told that it is related to her gallbladder. but she does not want to have surgery done. She wants have GI consult to see if they can look at if she has ulcers In the ER, chest x-ray shows pulmonary edema, troponin 0.04 BNP 2317. UA shows pyuria. Patient is going to be admitted for CHF exacerbation and a UTI, epigastric pain. Past Med Surg Social Fam HX - Past Medical History Medical history: cardiomyopathy, CHF, COPD, coronary artery disease, hypertension, myocardial infarction, other Psychiatric history: no psych history - Past Surgical History Surgical History: pacemaker/AICD, other - Social History Smoking Status: Current every day smoker Smokeless Tobacco Status: No Alcohol use: rarely Drug use: none - Family History Father Adopted: No Family Member Ethnicity: Non- Living Status: Hx Family Cardiac Disorders: Yes Internal Medicine - H&P: Meds Carvedilol [Coreg] 25 mg PO BIDWM #60 tablet 04/21/17 [Rx] Aspirin 81 mg PO DAILY 07/18/17 [History] HYDROcodone/Acet 5/325 mg [[place] 5-325 mg] 1 tab PO Q8HR PRN 08/16/17 [History] Isosorbide MONOnitrate (24 HR) [Imdur] 30 mg PO DAILY 08/16/17 [History] Losartan Potassium [Cozaar] 50 mg PO DAILY 08/16/17 [History] Nitroglycerin [Nitrostat] 0.4 mg PO Q5M PRN 08/16/17 [History] Potassium Chloride [K-Tab ER] 20 meq PO DAILY 08/16/17 [History] Lidocaine Patch [Lidoderm 5% patch] 1 each TP DAILY PRN #30 adh..patch 08/18/17 [Rx] Menthol [Biofreeze] 118 ml TP BID PRN #1 unit 08/18/17 [Rx] Omeprazole [PriLOSEC] 20 mg PO DAILY #30 cap 08/18/17 [Rx] Furosemide [Lasix] 40 mg PO DAILY 09/29/17 [History] 3 Allergy/AdvReac Type Severity Reaction Status Date / Time Penicillins [PCN] Allergy Mild Itching Verified 07/18/17 11:20 Sulfa (Sulfonamide Allergy Mild Hives Verified 07/18/17 11:20 Antibiotics) pheniramine Allergy Unknown UNKNOWN Verified 07/18/17 11:20 PER PATIENT codeine AdvReac Mild "HARD ON Verified 07/18/17 11:20 BOWELS" All Systems PM: A 10-system review of systems was performed and is negative for pertinent findings except as documented above in the HPI. - Constitutional Vitals: Temp Pulse Resp BP Pulse Ox 98.1 F 69 20 165/89 96 09/29/17 04:41 09/29/17 07:30 09/29/17 07:30 09/29/17 07:30 09/29/17 07:30 General appearance: Present: A&O X 3, pleasant, answers questions appropriately Exam: CONSTITUTIONAL: Patient appears as an age appropriate female well developed, in no acute distress. EYES Clear sclerae, bilateral pupils are equal, reactive to light and accommodation. Extraocular movements are intact RESPIRATORY: No accessory muscle use, bilateral clear to auscultation, scant wheezing, basilar crackles/rales. CARDIOVASCULAR: Regular heart rate, normal S1 and S2, no murmurs GASTROINTESTINAL: bowel sounds present, soft, no tenderness. No hepatosplenomegaly. No bilateral CVA tenderness MUSCULOSKELETAL: Joints in normal range of motion, no clubbing, +++ edema, no cyanosis. Bilateral peripheral pulses 2+ LYMPHATIC no lymphadenopathy in neck, groin and axilla bilaterally, no thyromegaly. NEUROLOGIC: CN II to XII are grossly intact, no focal neurological deficit. Deep tendon reflexes 2+ bilaterally. Normal light touch sensation to upper and lower extremity PSYCHIATRIC: Oriented x3, with good insight, mood is euthymic. No hallucinations or delusions. SKIN: Skin warm and dry, no rashes, no open wound. Internal Med - H&P Results - Labs CBC & Chem 7: 09/29/17 05:08 09/29/17 04:48 - Assessment and plan (1) Systolic and diastolic CHF, acute on chronic Current Visit: Yes Status: Acute Assessment and plan: Acute on chronic systolic CHF exacerbation with EF 40-45%, she had a negative stress test in July 2017. The troponin 0.04 Will follow-up troponin Give IV Lasix (2) Abdominal pain Current Visit: No Status: Acute Assessment and plan: Patient has on and off epigastric pain for few months, she has been increasing PPI from one to twice a day. pain radiates to back and the right shoulder. Patient requests a GI consult for endoscopy we will consult the GI called [facility] Qualifiers: Abdominal location: epigastric Qualified Code(s): R10.13 - Epigastric pain (3) COPD exacerbation Current Visit: Yes Status: Acute Assessment and plan: Patient has diffuse wheezing, very reduced breath sounds, will give prednisone 40 mg once daily. She still still smokes daily, smoking cessation discussed add duoneb Q4 (4) CAD (coronary artery disease) Current Visit: Yes Status: Chronic Assessment and plan: Continue aspirin statin Qualifiers: Coronary Disease-Associated Artery/Lesion type: [place] artery [place] vs. transplanted heart: [place] heart Associated angina: without angina Qualified Code(s): I25.10 - Atherosclerotic heart disease of [place] coronary artery without angina pectoris (5) Elevated troponin I level Current Visit: Yes Status: Acute Assessment and plan: Patient has troponin 0.04, will trending troponin. She denies chest pain had a negative stress test in July 2017, cardiology was consulted during last admission, no further workup (6) Hypertension Current Visit: Yes Status: Chronic Assessment and plan: Continue imdur losartan Qualifiers: Hypertension type: essential hypertension Qualified Code(s): I10 - Essential (primary) hypertension (7) Tobacco abuse Current Visit: No Status: Chronic Assessment and plan: She smokes half pack daily smoking cessation discussed (8) Hyperlipemia Current Visit: Yes Status: Chronic Qualifiers: Hyperlipidemia type: unspecified Qualified Code(s): E78.5 - Hyperlipidemia , unspecified (9) UTI (urinary tract infection) Current Visit: No Status: Acute Assessment and plan: ceftriaxone Qualifiers: Urinary tract infection type: acute cystitis Hematuria presence: with hematuria Qualified Code(s): N30.01 - Acute cystitis with hematuria (10) DVT prophylaxis Current Visit: No Status: Acute Assessment and plan: heparin SC - Time Spent With Patient Total time spent is greater than 50% in coordination of care (as documented) at patient's floor/unit and/or counseling patient: Greater than 35 minutes
[2017-09-29] MEDS ORDERED: Nitroglycerin 0.4 MG TAB.SUBL SL PRN (07:59)
[2017-09-29] MEDS ORDERED: MENTHOL TP PRN (07:59)
[2017-09-29] MEDS: Furosemide 40 MG/4 ML VIAL IVP SCH ×2 (10:37→20:52)
[2017-09-29] MEDS: Isosorbide MONOnitrate (24 HR) 30 MG TAB.ER.24H PO SCH (10:37)
[2017-09-29] MEDS: cefTRIAXone 1,000 MG in Water for inj. (sterile) 20 ML 10 ML IVP SCH (10:37)
[2017-09-29] MEDS: predniSONE 20 MG TABLET PO SCH (10:39)
[2017-09-29] MEDS: Aspirin 81 MG TAB.CHEW PO SCH (10:42)
[2017-09-29 10:51] LABS: INR 1.1; Prothrombin Time 12.3 Seconds (9.4-12.1)
[2017-09-29 11:43] LABS: Troponin I 0.04 ng/mL (< 0.04)
[2017-09-29] MEDS: Ipratropium/Albuterol Neb 3 ML IH SCH ×4 (12:03→23:30)
[2017-09-29 12:35] LABS: Albumin 3.6 g/dL (3.5-5.7); Albumin/Globulin Ratio 1.2 (1.1-2.2); Bilirubin,Direct 0.2 mg/dL (0.0-0.2); Bilirubin,Indirect 0.6 mg/dL (0.0-1.2); Bilirubin,Total 0.8 mg/dL (0.3-1.0); Globulin 2.9 g/dL (2.4-3.5); Total Protein 6.5 g/dL (6.4-8.9)
[2017-09-29] MEDS: Methyl Salicylate/Menthol 28 GM TUBE TP PRN (13:34)
--- NOTE | 2017-09-29 13:35 | Gastroenterology Consult Note ---
<Jeanette Delgado - Last Filed: 09/29/17 13:26> Date of Encounter: 09/29/17 Time of Encounter: 09:45 - Assessment and plan (1) Epigastric abdominal pain Current Visit: Yes Status: Acute Assessment and plan: 82 year old female who presented with CHF exacerbation. She also complains of epigastric pain. She has some relief with omeprazole twice a day. She was advised EGD to rule out PUD, esophagitis and gastritis but she refuses endoscopic work up at this time. Continue PPI, add carafate. - Time Spent With Patient Total time spent is greater than 50% in coordination of care (as documented) at patient's floor/unit and/or counseling patient: GI History of Present Illness - Data of Consult Patient: new to practice Consult date: 09/29/17 Requesting Physician: Mc Nsah - Consult Narrative Reason for consult: epigastric pain History of present illness: Ms. Randall is an 82 year old female who has history of CHF COPD CAD hypertension pacemaker AICD presenting emergency room for SOB and the leg swelling for last 3 days. Patient is active smoker, smokes 6-10 cigarettes daily, COPD not on home O2, she become more shortness of breasts over last 3 days with orthopnea. She also increased bilateral leg swelling. Patient also c/ o epigastric pain 8 out of 10, on and off, has been taking omeprazole, increase the dose to twice a day. Milk helps some pain, pain is cramping radiating to the back for few months. In the ER, chest x-ray shows pulmonary edema, troponin 0.04 BNP 2317. UA shows pyuria. Patient is going to be admitted for CHF exacerbation and a UTI, epigastric pain. She had recent GB ultrasound that showed some sludge. She denies fever, chills, diarrhea, constipation, GERD, bloody or tarry stools. procedures: denies nsAIDS: asa 81 mg Anticoagulants: plavix 300 mg po 629 Past Med Surg Social Fam HX - Past Medical History Medical history: cardiomyopathy, CHF, COPD, coronary artery disease, hypertension, myocardial infarction, other Psychiatric history: no psych history - Past Surgical History Surgical History: pacemaker/AICD, other - Social History Smoking Status: Current every day smoker Smokeless Tobacco Status: No Alcohol use: rarely Drug use: none - Family History Father Adopted: No Family Member Ethnicity: Non- Living Status: Hx Family Cardiac Disorders: Yes Review of Systems: GI: as per [place] GENERAL: denies fever, has some chills EYES: denies yellow discoloration ENT: reports some difficulty swallowing pills CARDIO: denies chest pain, palpitations RESP: Shortness of breath with exertion : denies change in color of urine NEURO: weakness HEME: Denies any bruising MS: chronic back and joint pain DERM: denies rash or itching PSYCH: history of anxiety and depression - Constitutional Vitals: Temp Pulse Resp BP Pulse Ox 97.5 F L 66 16 152/76 97 09/29/17 11:35 09/29/17 11:35 09/29/17 12:06 09/29/17 11:35 09/29/17 12:06 Exam: CONSTITUTIONAL:~alert, no acute distress.~HEAD:~normocephalic.~EYES:~no jaundice.~NECK:~no obvious swelling.~HEART:~regular rate and rhythm, no murmurs. ~LUNGS:~bilateral fair air entry, bibasilar crackles.~ABDOMEN:~non distended, soft, tender epigastric region, no masses palpable, no organomegaly.~RECTAL EXAM :~Deferred.~EXTREMITIES:~no clubbing, cyanosis, 1-2+ BLE edema.~SKIN:~pallor noted, no stigmata of chronic liver disease.~NEUROLOGIC:~no obvious focal defect.~~~~ Results - Labs CBC & Chem 7: 09/29/17 05:08 09/29/17 04:48 Labs: Last Result Calcium 9.2 mg/dL (8.6-10.3) 09/29/17 04:48 Troponin I 0.04 ng/mL (< 0.04) H* 09/29/17 10:34 Entire Visit Hgb 12.1 g/dL (11.5-15.4) 09/29/17 05:08 Hct 37.2 % (35.3-44.9) 09/29/17 05:08 PT 12.3 Seconds (9.4-12.1) H 09/29/17 10:34 Total Bilirubin 0.8 mg/dL (0.3-1.0) 09/29/17 10:34 AST 18 Units/L (13-39) 09/29/17 10:34 ALT 9 Units/L (7-52) 09/29/17 10:34 - ABG ABG results: PT/INR, D-dimer PT 12.3 Seconds (9.4-12.1) H 09/29/17 10:34 Consult Discharge Plan - Plan Referrals: Tana Delgado, [Primary Care Provider] - <Pamela Burt - Last Filed: 09/29/17 16:32> Date of Encounter: 09/29/17 Time of Encounter: 16:25 - Time Spent With Patient Total time spent is greater than 50% in coordination of care (as documented) at patient's floor/unit and/or counseling patient: GI History of Present Illness - Data of Consult Requesting Physician: Mc Nash - Consult Narrative History of present illness: Ms. Randall is a 82 year old female - Constitutional Vitals: Temp Pulse Resp BP Pulse Ox 97.8 F 68 14 153/70 95 09/29/17 15:31 09/29/17 15:31 09/29/17 16:16 09/29/17 15:31 09/29/17 16:16 Results - Labs CBC & Chem 7: 09/29/17 05:08 09/29/17 04:48 Labs: Last Result Calcium 9.2 mg/dL (8.6-10.3) 09/29/17 04:48 Troponin I 0.04 ng/mL (< 0.04) H* 09/29/17 10:34 Entire Visit Hgb 12.1 g/dL (11.5-15.4) 09/29/17 05:08 Hct 37.2 % (35.3-44.9) 09/29/17 05:08 PT 12.3 Seconds (9.4-12.1) H 09/29/17 10:34 Total Bilirubin 0.8 mg/dL (0.3-1.0) 09/29/17 10:34 AST 18 Units/L (13-39) 09/29/17 10:34 ALT 9 Units/L (7-52) 09/29/17 10:34 - ABG ABG results: PT/INR, D-dimer PT 12.3 Seconds (9.4-12.1) H 09/29/17 10:34 - Attending Attestation I have personally performed a face to face evaluation on this patient. I have reviewed and agree with the care plan. History and Exam by me shows: Patient seen patient with epigastric pain and CT of the abdomen few weeks before has been negative. Does has tenderness on palpation. Has been taking PPI. Recommendation: EGD to rule out gastric causes for her abdominal pain. Patient want to talk to her daughter before she agrees for the procedure
[2017-09-29] MEDS: *HR* Heparin 5,000 UNIT/ML VIAL SQ SCH ×2 (14:29→20:52)
[2017-09-29] MEDS: *HR* HYDROcodone/Acet 5/325 mg TABLET PO PRN ×2 (14:29→22:43)
[2017-09-29] MEDS: Sucralfate 1 GM TABLET PO SCH ×2 (18:03→20:52)
--- NOTE | 2017-09-29 20:36 | Electrocardiograph Report ---
[address] [place], [place] [address] Test Date: 2017-09-29 Pat Name: Julissa Randall Department: 103 Room: 3B Gender: F Integrity Assessor: JAVID : [id number] Requested By: [id number] Order Number: [id number] Reading MD: Addi Simental Measurements Intervals [place] Rate: 74 P: 84 AL: 152 QRS: 47 QRSD: 109 T: 208 QT: 390 QTc: 418 Interpretive Statements SINUS RHYTHM WITH OCCASIONAL VENTRICULAR PREMATURE COMPLEXES OLIVIA LATERAL ISCHEMIA Poor R wave progression Electronically Signed On 09-29-2017 20:34:38 EDT by Addi Simental
[2017-09-30] MEDS: Ondansetron 4 MG/2 ML VIAL IVP PRN (03:33)
[2017-09-30] MEDS: Ipratropium/Albuterol Neb 3 ML IH SCH ×6 (04:01→23:13)
[2017-09-30 08:06] LABS: Basophils % 0.3 %; Eosinophils % 0.1 %; Hematocrit 34.6 % (35.3-44.9); Hemoglobin 11.5 g/dL (11.5-15.4); Immature Granulocytes % 0.7 % (0-4); Lymphocytes # 0.6 K/mcL (0.6-4.6); Mean Corpuscular HGB Conc 33.2 g/dL (31.6-35.5); Mean Corpuscular Hemoglobin 31.9 pg (28.0-33.3); Mean Corpuscular Volume 96.1 fL (83.0-100.0); Mean Platelet Volume 9.5 fL (9.4-12.4); Monocytes # 0.8 K/mcL (0.0-1.3); Monocytes % 10.9 %; Neutrophils # 6.1 K/mcL (1.6-8.9); Platelet Count 207 K/mcL (140-400); Red Cell Distribution Width 14.6 % (11.5-14.5)
[2017-09-30 08:18] LABS: Amylase 69 Units/L (29-103); Lipase 45 Units/L (11-82)
[2017-09-30] MEDS: cefTRIAXone 1,000 MG in Water for inj. (sterile) 20 ML 10 ML IVP SCH (08:44)
[2017-09-30] MEDS: *HR* Heparin 5,000 UNIT/ML VIAL SQ SCH ×3 (08:45→20:37)
[2017-09-30] MEDS: Sucralfate 1 GM TABLET PO SCH ×4 (08:45→20:37)
[2017-09-30] MEDS: Isosorbide MONOnitrate (24 HR) 30 MG TAB.ER.24H PO SCH (08:45)
[2017-09-30] MEDS: predniSONE 20 MG TABLET PO SCH (08:46)
[2017-09-30] MEDS: Aspirin 81 MG TAB.CHEW PO SCH (08:46)
[2017-09-30] MEDS: Furosemide 40 MG/4 ML VIAL IVP SCH ×3 (08:46→23:17)
[2017-09-30 10:11] LABS: Magnesium 2.2 mg/dL (1.6-2.6); Potassium 4.5 mEq/L (3.5-5.1)
[2017-09-30] MEDS: *HR* HYDROcodone/Acet 5/325 mg TABLET PO PRN (11:19)
--- NOTE | 2017-09-30 13:47 | Gastroenterology Progress Note ---
Date of Encounter: 09/30/17 Time of Encounter: 09:37 - Assessment and plan (1) Epigastric abdominal pain Current Visit: Yes Status: Acute Assessment and plan: 82 year old female who presented with CHF exacerbation. She states breathing is improved. Abdominal pain is improved. She does not want EGD at this time. Would recommend continuing PPI bid and carafate tid as an outpatient and follow up with GI. . - Time Spent With Patient Total time spent is greater than 50% in coordination of care (as documented) at patient's floor/unit and/or counseling patient: - Subjective Interval history: Pt awake sitting up in the chair. She refused EGD yesterday. She is continued on ppi and carafate. She states she feels much better and is asking to go home. - Constitutional Vitals: Temp Pulse Resp BP Pulse Ox 97.7 F 68 16 151/70 95 09/30/17 11:30 09/30/17 11:30 09/30/17 11:30 09/30/17 11:30 09/30/17 11:30 Exam: CONSTITUTIONAL:~alert, no acute distress.~HEAD:~normocephalic.~EYES:~no jaundice.~NECK:~no obvious swelling.~HEART:~regular rate and rhythm, no murmurs. ~LUNGS:~bilateral good air entry.~ABDOMEN:~non distended, soft, non tander, no masses pulpable, no organomegaly.~RECTAL EXAM:~Deferred.~EXTREMITIES:~no clubbing, cyanosis or edema.~SKIN:~no stigmata of chronic liver disease.~ NEUROLOGIC:~no obvious focal defect.~~~~ Results - Labs CBC & Chem 7: 09/30/17 07:46 09/30/17 07:46 Labs: Last Result Calcium 9.0 mg/dL (8.6-10.3) 09/30/17 07:46 Troponin I 0.03 ng/mL (< 0.04) 09/29/17 23:12 Entire Visit Hgb 11.5 g/dL (11.5-15.4) 09/30/17 07:46 Hct 34.6 % (35.3-44.9) L 09/30/17 07:46 PT 12.3 Seconds (9.4-12.1) H 09/29/17 10:34 Total Bilirubin 0.8 mg/dL (0.3-1.0) 09/29/17 10:34 AST 18 Units/L (13-39) 09/29/17 10:34 ALT 9 Units/L (7-52) 09/29/17 10:34 Amylase 69 Units/L (29-103) 09/30/17 07:46 Lipase 45 Units/L (11-82) 09/30/17 07:46 - ABG ABG results: PT/INR, D-dimer PT 12.3 Seconds (9.4-12.1) H 09/29/17 10:34 Consult Discharge Plan - Plan Referrals: Tana Delgado DO [Primary Care Provider] -
--- NOTE | 2017-09-30 19:38 | Internal Med Progress Note ---
Date of Encounter: 09/30/17 Time of Encounter: 14:15 - Assessment and plan (1) Abdominal pain Current Visit: Yes Status: Chronic Assessment and plan: Patient reports intermittent epigastric pain for the last 4-5 months. She reports that she has increased her PPI to twice daily with minimal change in pain. She reports the pain radiates to the back and to her right shoulder. Patient did request a GI consult, when they arrived she declined treatment. He reports improvement in abdominal pain. Her abdomen is soft and nontender with bowel sounds present. Continue to monitor labs and patient condition. Qualifiers: Abdominal location: epigastric Qualified Code(s): R10.13 - Epigastric pain (2) COPD (chronic obstructive pulmonary disease) Current Visit: Yes Status: Chronic Assessment and plan: Mild acute exacerbation of COPD. Patient with feeding wheezing heard and posterior apices. Lung sounds are still diminished. Prednisone 40 mg by mouth daily. Duo nebs every 4 hours. O2 as needed to maintain sats greater than 92%. Patient still smokes daily. Qualifiers: COPD type: chronic bronchitis Chronic bronchitis type: simple Qualified Code(s): J41.0 - Simple chronic bronchitis (3) DVT prophylaxis Current Visit: Yes Status: Acute Assessment and plan: Heparin. Patient is ambulatory to and from the bathroom. Uterine encourage ambulation. (4) Elevated troponin I level Current Visit: Yes Status: Acute Assessment and plan: Mild, flat, adynamic elevation in troponin in the setting of chronic CHF, likely demand ischemia. Patient denies chest pain Continue telemetry. (5) Hypertension Current Visit: Yes Status: Chronic Assessment and plan: Chronic. Continue home medications. 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 Elevated BNP at 3528. *Echocardiogram August, showed an LVEF of 40-45% with mild segmental LV systolic function. Stress test completed 07/20/2017 showed an infarct involving the inferior and inferolateral beard, no perfusion evidence for ischemia. With a gated EF of 49% . LHC in 2011 showed PCI to first OM and 90-99% in distal RCA. Continue diuresis with Lasix IV Continue daily weights, strict I and O, 1.5 L fluid restriction and low sodium diet. (7) Tobacco abuse Current Visit: Yes Status: Chronic Assessment and plan: Patient still smokes approximately one half pack per day. Encourage smoking cessation. Nicotine replacement therapy available. (8) UTI (urinary tract infection) Current Visit: Yes Status: Acute Assessment and plan: UA indicative of urinary tract infection. Culture ordered and pending. Neuro antibiotic as results become available. Patient denies urinary symptoms. She does not have any CVA tenderness. No leukocytosis or fever. Continue Rocephin 1 g IV daily. Qualifiers: Urinary tract infection type: acute cystitis Hematuria presence: with hematuria Qualified Code(s): N30.01 - Acute cystitis with hematuria - Time Spent With Patient Total time spent is greater than 50% in coordination of care (as documented) at patient's floor/unit and/or counseling patient: less than 15 minutes - Subjective Interval history: Patient was seen and assessed at bedside to 15. She is alert, oriented, pleasant. Patient reports that shortness of breath and abdominal pain are somewhat better. Is requesting to go home. I did convince her to stay overnight and continued diuresis, she was agreeable. She denies any headache, nausea, vomiting, vision changes, diarrhea, reports improving abdominal pain. - Constitutional Vitals: Temp Pulse Resp BP Pulse Ox 97.6 F 67 19 156/70 96 09/30/17 19:05 09/30/17 19:05 09/30/17 19:05 09/30/17 19:05 09/30/17 19:05 General appearance: Present: cooperative, A&O X 3, pleasant, no acute distress, answers questions appropriately - Head Head exam: Present: atraumatic, normal inspection, normocephalic - Eye Eye exam: Present: normal appearance, conjuntiva pink, sclera anicteric - Neck Neck exam general surgery: Present: supple, trachea midline. Absent: lymphadenopathy, tenderness - Respiratory Respiratory exam: Present: CTAB. Absent: accessory muscle use, rales, respiratory distress, rhonchi, wheezes - Cardiovascular Cardiovascular exam: Present: RRR, +S1, +S2. Absent: diastolic murmur, gallop, rubs, systolic murmur - GI/Abdominal GI/Abdominal exam: Present: normal bowel sounds, soft. Absent: distended, hepatomegaly, tenderness - Extremities Exam Extremities exam: Present: normal capillary refill, normal inspection, warm, radial pulses palpable and symmetrical. Absent: calf tenderness, cyanotic, pedal edema, tenderness - Neurological Exam Neurological exam: Present: alert, oriented X3, no focal deficits. Absent: facial droop, speech deficit - Skin Skin exam: Present: dry, intact, normal color, warm. Absent: rash Internal Medicine: Result - Labs CBC & Chem 7: 09/30/17 07:46 09/30/17 07:46 Labs: Short CBC 09/30/17 Range/Units 07:46 WBC 7.6 (4.3-11.1) K/mcL Hgb 11.5 (11.5-15.4) g/dL Hct 34.6 L (35.3-44.9) % Plt Count 207 (140-400) K/mcL Neutrophils # 6.1 (1.6-8.9) K/mcL BMP 09/30/17 07:46 Sodium 135 L Potassium 4.5 Chloride 101 Carbon Dioxide 24 BUN 34 H Creatinine 1.18 Glucose 115 H Calcium 9.0 Cardiac Enzymes 09/29/17 Range/Units 23:12 Troponin I 0.03 (< 0.04) ng/mL - ABG Interpretation ABG results: PT/INR, D-dimer PT 12.3 Seconds (9.4-12.1) H 09/29/17 10:34 Consult Discharge Plan - Plan Referrals: Tana Delgado DO [Primary Care Provider] -
[2017-10-01] MEDS: Furosemide 40 MG TABLET PO SCH ×3 (00:01→17:02)
[2017-10-01] MEDS: Ipratropium/Albuterol Neb 3 ML IH SCH ×6 (03:54→23:11)
[2017-10-01] MEDS: *HR* Heparin 5,000 UNIT/ML VIAL SQ SCH ×3 (05:28→21:48)
[2017-10-01] MEDS: *HR* HYDROcodone/Acet 5/325 mg TABLET PO PRN ×3 (05:29→21:48)
[2017-10-01] MEDS: Methyl Salicylate/Menthol 28 GM TUBE TP PRN ×2 (05:39→08:56)
[2017-10-01 07:28] LABS: Calcium 9.1 mg/dL (8.6-10.3); Potassium 4.6 mEq/L (3.5-5.1)
[2017-10-01 07:33] LABS: Basophils % 0.4 %; Eosinophils % 0.4 %; Hematocrit 33.4 % (35.3-44.9); Hemoglobin 11.3 g/dL (11.5-15.4); Immature Granulocytes % 0.6 % (0-4); Lymphocytes # 0.6 K/mcL (0.6-4.6); Lymphocytes % 11.3 %; Mean Corpuscular HGB Conc 33.8 g/dL (31.6-35.5); Mean Corpuscular Hemoglobin 32.4 pg (28.0-33.3); Mean Corpuscular Volume 95.7 fL (83.0-100.0); Mean Platelet Volume 9.6 fL (9.4-12.4); Monocytes # 0.5 K/mcL (0.0-1.3); Monocytes % 9.9 %; Neutrophils # 4.1 K/mcL (1.6-8.9); Platelet Count 202 K/mcL (140-400); Red Blood Count 3.49 M/mcL (3.82-4.97); Red Cell Distribution Width 14.5 % (11.5-14.5); Segmented Neutrophils % 77.4 %
[2017-10-01] MEDS: Sucralfate 1 GM TABLET PO SCH ×4 (08:53→21:47)
[2017-10-01] MEDS: predniSONE 20 MG TABLET PO SCH ×2 (08:54→09:18)
[2017-10-01] MEDS: Isosorbide MONOnitrate (24 HR) 30 MG TAB.ER.24H PO SCH (08:54)
[2017-10-01] MEDS: Aspirin 81 MG TAB.CHEW PO SCH (08:55)
[2017-10-01] MEDS: cefTRIAXone 1,000 MG in Water for inj. (sterile) 20 ML 10 ML IVP SCH (13:00)
--- NOTE | 2017-10-01 15:00 | Internal Med Progress Note ---
Date of Encounter: 10/01/17 Time of Encounter: 11:50 - Assessment and plan (1) Abdominal pain Current Visit: Yes Status: Chronic Assessment and plan: Improved. Her abdomen is soft and nontender with bowel sounds present. Continue to monitor labs and patient condition. Pt is able to eat and drink without difficulty. Qualifiers: Abdominal location: epigastric Qualified Code(s): R10.13 - Epigastric pain (2) COPD (chronic obstructive pulmonary disease) Current Visit: Yes Status: Chronic Assessment and plan: Mild acute exacerbation of COPD. Lung sounds are clear and diminished. Prednisone 40 mg by mouth daily, taper. Duo nebs every 4 hours. O2 as needed to maintain sats greater than 92%. Patient still smokes daily. Qualifiers: COPD type: chronic bronchitis Chronic bronchitis type: simple Qualified Code(s): J41.0 - Simple chronic bronchitis (3) DVT prophylaxis Current Visit: Yes Status: Acute Assessment and plan: Heparin. Continue encourage ambulation. (4) Elevated troponin I level Current Visit: Yes Status: Resolved Assessment and plan: Resolved. (5) Hypertension Current Visit: Yes Status: Chronic Assessment and plan: Chronic. Well controlled in the hospital. Continue home medications. 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 Elevated BNP at 3528 on admission. Follow I& O when available. Continue diuresis with Lasix IV Continue daily weights, strict I and O, 1.5 L fluid restriction and low sodium diet. (7) Tobacco abuse Current Visit: Yes Status: Chronic Assessment and plan: Chronic smoker, will contiinue to encourage smoking cessation. (8) UTI (urinary tract infection) Current Visit: Yes Status: Acute Assessment and plan: Today, pt reports right flank pain. Peripheral IV had infiltrated and pt refused to allow nursing to replace it. Pt was agreeable to IV after we discussed need for IV antibiotics. Tylenol for pain IVF and antibiotics for UTI Rocephin Monitor labs and vitals, watch for signs of sepsis or pyelonephritis. Qualifiers: Urinary tract infection type: acute cystitis Hematuria presence: with hematuria Qualified Code(s): N30.01 - Acute cystitis with hematuria - Time Spent With Patient Total time spent is greater than 50% in coordination of care (as documented) at patient's floor/unit and/or counseling patient: less than 15 minutes - Subjective Interval history: Patient was seen and assessed at bedside to 1150. She is alert, oriented, pleasant, mildly agitated at having to stay. Pt had previously refused IV attempts, but was agreeable by the time I went to the room. Patient reports that shortness of breath and abdominal pain are somewhat better. She now complains of right flank pain and states that she does not feel well. She denies any headache, nausea, vomiting, vision changes, diarrhea, reports improving abdominal pain. - Constitutional Vitals: Temp Pulse Resp BP Pulse Ox 97.9 F 62 16 137/86 100 10/01/17 11:33 10/01/17 11:33 10/01/17 11:33 10/01/17 11:33 10/01/17 11:33 General appearance: Present: cooperative, A&O X 3, pleasant, no acute distress, answers questions appropriately - Head Head exam: Present: atraumatic, normal inspection, normocephalic - Eye Eye exam: Present: normal appearance, conjuntiva pink, sclera anicteric - Neck Neck exam general surgery: Present: supple, trachea midline. Absent: lymphadenopathy - Respiratory Respiratory exam: Present: decreased breath sounds, CTAB. Absent: accessory muscle use, rales, rhonchi, wheezes - Cardiovascular Cardiovascular exam: Present: RRR, +S1, +S2. Absent: diastolic murmur, gallop, rubs, systolic murmur - GI/Abdominal GI/Abdominal exam: Present: normal bowel sounds, soft. Absent: distended, hepatomegaly, tenderness - Extremities Exam Extremities exam: Present: normal capillary refill, normal inspection, warm, radial pulses palpable and symmetrical. Absent: calf tenderness, cyanotic, pedal edema, tenderness - Neurological Exam Neurological exam: Present: alert, oriented X3, no focal deficits. Absent: facial droop, speech deficit - Skin Skin exam: Present: dry, intact, normal color, warm. Absent: rash Internal Medicine: Result - Labs CBC & Chem 7: 10/01/17 06:55 10/01/17 06:55 Labs: Short CBC 10/01/17 Range/Units 06:55 WBC 5.3 (4.3-11.1) K/mcL Hgb 11.3 L (11.5-15.4) g/dL Hct 33.4 L (35.3-44.9) % Plt Count 202 (140-400) K/mcL Neutrophils # 4.1 (1.6-8.9) K/mcL BMP 10/01/17 06:55 Sodium 130 L Potassium 4.6 Chloride 98 Carbon Dioxide 25 BUN 34 H Creatinine 1.18 Glucose 129 H Calcium 9.1 - ABG Interpretation ABG results: PT/INR, D-dimer PT 12.3 Seconds (9.4-12.1) H 09/29/17 10:34 Consult Discharge Plan - Plan Referrals: Tana Delgado DO [Primary Care Provider] - 10/05/17 10:35 am ()
[2017-10-01] MEDS: Ondansetron 4 MG/2 ML VIAL IVP PRN (21:48)
[2017-10-02] MEDS: Ipratropium/Albuterol Neb 3 ML IH SCH ×6 (03:30→23:50)
[2017-10-02] MEDS: *HR* Heparin 5,000 UNIT/ML VIAL SQ SCH ×3 (05:44→21:33)
[2017-10-02 05:47] LABS: Basophils % 0.2 %; Eosinophils % 0.2 %; Hemoglobin 11.3 g/dL (11.5-15.4); Immature Granulocytes % 0.6 % (0-4); Lymphocytes # 0.6 K/mcL (0.6-4.6); Lymphocytes % 11.1 %; Mean Corpuscular HGB Conc 34.2 g/dL (31.6-35.5); Mean Corpuscular Hemoglobin 32.2 pg (28.0-33.3); Mean Platelet Volume 9.5 fL (9.4-12.4); Monocytes # 0.6 K/mcL (0.0-1.3); Monocytes % 11.9 %; Neutrophils # 3.8 K/mcL (1.6-8.9); Platelet Count 212 K/mcL (140-400); Red Blood Count 3.51 M/mcL (3.82-4.97); Red Cell Distribution Width 14.5 % (11.5-14.5)
[2017-10-02 06:06] LABS: Calcium 9.1 mg/dL (8.6-10.3); Potassium 4.4 mEq/L (3.5-5.1)
[2017-10-02] MEDS: *HR* HYDROcodone/Acet 5/325 mg TABLET PO PRN (07:35)
[2017-10-02] MEDS: Sucralfate 1 GM TABLET PO SCH ×4 (07:35→21:33)
[2017-10-02] MEDS: Isosorbide MONOnitrate (24 HR) 30 MG TAB.ER.24H PO SCH (07:35)
[2017-10-02] MEDS: predniSONE 20 MG TABLET PO SCH (07:35)
[2017-10-02] MEDS: Aspirin 81 MG TAB.CHEW PO SCH (07:36)
[2017-10-02] MEDS: Furosemide 40 MG TABLET PO SCH ×2 (07:37→17:17)
[2017-10-02] MEDS: cefTRIAXone 1,000 MG in Water for inj. (sterile) 20 ML 10 ML IVP SCH (07:37)
[2017-10-02] MEDS: Methyl Salicylate/Menthol 28 GM TUBE TP PRN (12:15)
--- NOTE | 2017-10-02 12:39 | Internal Med Progress Note ---
Date of Encounter: 10/02/17 Time of Encounter: 11:40 - Assessment and plan (1) Abdominal pain Current Visit: Yes Status: Resolved Assessment and plan: Resolved. Pt denies. Abd soft, non-tender, bowel sounds present. Pt denies n/v/d. Qualifiers: Abdominal location: epigastric Qualified Code(s): R10.13 - Epigastric pain (2) COPD (chronic obstructive pulmonary disease) Current Visit: Yes Status: Chronic Assessment and plan: Mild acute exacerbation of COPD. Lung sounds are clear and diminished. Prednisone 40 mg by mouth daily x 4 doses. Decreased to 30mg po x 3 days, will send home with remainder of taper. Duo nebs every 4 hours between the hours of 2509-9908. O2 as needed to maintain sats greater than 92%. Patient still smokes daily, states that she does not want to stop smoking. Qualifiers: COPD type: chronic bronchitis Chronic bronchitis type: simple Qualified Code(s): J41.0 - Simple chronic bronchitis (3) Elevated troponin I level Current Visit: Yes Status: Resolved Assessment and plan: Resolved. (4) Hypertension Current Visit: Yes Status: Chronic Assessment and plan: Chronic. Continue home medications. 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 Elevated BNP at 3528 on admission. I and O ordered, output not documented. Continue diuresis with Lasix IV Continue daily weights, strict I and O, 1.5 L fluid restriction and low sodium diet. (6) Tobacco abuse Current Visit: Yes Status: Chronic Assessment and plan: Chronic smoker, will contiinue to encourage smoking cessation. Pt denies desire to stop smoking (7) UTI (urinary tract infection) Current Visit: Yes Status: Acute Assessment and plan: Initial culture GNR, final and sensitivity pending. Tylenol for pain Rocephin 1 gram IV daily Monitor labs and vitals, watch for signs of sepsis or pyelonephritis. Qualifiers: Urinary tract infection type: acute cystitis Hematuria presence: with hematuria Qualified Code(s): N30.01 - Acute cystitis with hematuria (8) DVT prophylaxis Current Visit: Yes Status: Acute Assessment and plan: Heparin. Continue encourage ambulation. Pt is up in the chair already this a.m. - Time Spent With Patient Total time spent is greater than 50% in coordination of care (as documented) at patient's floor/unit and/or counseling patient: less than 15 minutes - Subjective Interval history: Patient was seen and assessed at bedside to 1140. She is alert, oriented, pleasant. She now complains of right scapular pain that is "making me batty." She denies any headache, nausea, vomiting, vision changes, diarrhea, reports improving abdominal pain. Pt states that she has not been sleeping due to noise in the hallway and to people entering her room to check on her, do vitals, etc. She reports that the mattress is hurting her back and requests that the Bengay frequency be increased. Patient denies any urinary symptoms today. - Constitutional Vitals: Temp Pulse Resp BP Pulse Ox 97.9 F 64 20 158/79 95 10/02/17 11:53 10/02/17 11:53 10/02/17 11:53 10/02/17 11:53 10/02/17 11:53 General appearance: Present: cooperative, A&O X 3, pleasant, no acute distress, answers questions appropriately - Head Head exam: Present: atraumatic, normal inspection, normocephalic - Eye Eye exam: Present: normal appearance, conjuntiva pink, sclera anicteric - Neck Neck exam general surgery: Present: supple, trachea midline. Absent: lymphadenopathy, tenderness - Respiratory Respiratory exam: Present: CTAB. Absent: accessory muscle use, rales, rhonchi, wheezes - Cardiovascular Cardiovascular exam: Present: RRR, +S1, +S2. Absent: diastolic murmur, gallop, rubs, systolic murmur - GI/Abdominal GI/Abdominal exam: Present: normal bowel sounds, soft. Absent: distended, hepatomegaly, tenderness - Extremities Exam Extremities exam: Present: normal capillary refill, warm, radial pulses palpable and symmetrical. Absent: calf tenderness, cyanotic, pedal edema, tenderness - Neurological Exam Neurological exam: Present: alert, oriented X3, no focal deficits. Absent: facial droop, speech deficit - Skin Skin exam: Present: dry, intact, normal color, warm. Absent: rash Internal Medicine: Result - Labs CBC & Chem 7: 10/02/17 05:28 10/02/17 05:28 Labs: Short CBC 10/02/17 Range/Units 05:28 WBC 4.9 (4.3-11.1) K/mcL Hgb 11.3 L (11.5-15.4) g/dL Hct 33.0 L (35.3-44.9) % Plt Count 212 (140-400) K/mcL Neutrophils # 3.8 (1.6-8.9) K/mcL BMP 10/02/17 05:28 Sodium 133 L Potassium 4.4 Chloride 100 Carbon Dioxide 25 BUN 33 H Creatinine 1.09 Glucose 100 Calcium 9.1 - ABG Interpretation ABG results: PT/INR, D-dimer PT 12.3 Seconds (9.4-12.1) H 09/29/17 10:34 Consult Discharge Plan - Plan Referrals: Tana Delgado DO [Primary Care Provider] - 10/05/17 10:35 am ()
[2017-10-02] MEDS: Methyl Salicylate/Menthol 28 GM TUBE TP SCH ×3 (13:12→20:11)
[2017-10-02] MEDS: Ondansetron 4 MG/2 ML VIAL IVP PRN (22:46)
[2017-10-03] MEDS: Ipratropium/Albuterol Neb 3 ML IH SCH ×3 (03:35→11:14)
[2017-10-03] MEDS: *HR* Heparin 5,000 UNIT/ML VIAL SQ SCH (05:48)
[2017-10-03 07:02] LABS: Basophils % 0.1 %; Eosinophils % 0.2 %; Hematocrit 34.2 % (35.3-44.9); Hemoglobin 11.2 g/dL (11.5-15.4); Immature Granulocytes % 0.2 % (0-4); Lymphocytes # 0.7 K/mcL (0.6-4.6); Lymphocytes % 8.4 %; Mean Corpuscular HGB Conc 32.7 g/dL (31.6-35.5); Mean Corpuscular Hemoglobin 30.9 pg (28.0-33.3); Mean Corpuscular Volume 94.5 fL (83.0-100.0); Mean Platelet Volume 9.6 fL (9.4-12.4); Monocytes % 12.1 %; Neutrophils # 6.6 K/mcL (1.6-8.9); Platelet Count 214 K/mcL (140-400); Red Blood Count 3.62 M/mcL (3.82-4.97); Red Cell Distribution Width 14.6 % (11.5-14.5)
[2017-10-03 07:34] LABS: Calcium 9.3 mg/dL (8.6-10.3)
[2017-10-03 08:03] LABS: Potassium 4.1 mEq/L (3.5-5.1)
[2017-10-03 08:12] VITALS: BP 162/95
[2017-10-03] MEDS: Methyl Salicylate/Menthol 28 GM TUBE TP SCH ×2 (08:23→13:33)
[2017-10-03] MEDS: Furosemide 40 MG TABLET PO SCH (08:26)
[2017-10-03] MEDS: cefTRIAXone 1,000 MG in Water for inj. (sterile) 20 ML 10 ML IVP SCH (08:26)
[2017-10-03] MEDS: Isosorbide MONOnitrate (24 HR) 30 MG TAB.ER.24H PO SCH (08:26)
[2017-10-03] MEDS: Sucralfate 1 GM TABLET PO SCH (08:26)
[2017-10-03] MEDS: Aspirin 81 MG TAB.CHEW PO SCH (08:26)
[2017-10-03] MEDS ORDERED: predniSONE 10 MG TABLET PO SCH (09:00)
--- NOTE | 2017-10-03 12:12 | Discharge Summary ---
- NOTES TO OUTPATIENT PROVIDER Notes to Outpatient Provider: Pt was admitted for AECHF with increased shortness of breath and leg swelling for 3 days prior to arrival. Last echocardiogram was August, that showed an LVEF of 4045% with mild LV systolic dysfunction, hypokinetic basal inferior mid inferior lateral and basal inferior lateral beard. Patient was diuresed and states that she is feeling better. Patient also reports right scapula pain, tender to palpation. She has been given Lidoderm patches and some relief from the pain with Flexeril, however due to her age and risk of falls, I will not send her home with Flexeril prescription. Orders not resulted at time of discharge: Pending orders 10/04/17 04:00 Basic Metabolic Panel AM 0400 Complete Blood Count [HEME] AM 040 Date of Encounter: 10/03/17 Time of Encounter: 10:00 - Discharge Diagnosis (1) Abdominal pain Priority: Secondary Status: Resolved Assessment and Plan: Resolved. Pt was evaluated by GI, declined further evaluation. STates that she has gotten relief from Carafate. Qualifiers: Abdominal location: epigastric Qualified Code(s): R10.13 - Epigastric pain (2) COPD (chronic obstructive pulmonary disease) Priority: Secondary Status: Chronic Assessment and Plan: Mild acute exacerbation of COPD. Improved. Lungs clear and diminished. No 02. Will continue prednisone taper at discharge. Patient still smokes daily, states that she does not want to stop smoking. Qualifiers: COPD type: chronic bronchitis Chronic bronchitis type: simple Qualified Code(s): J41.0 - Simple chronic bronchitis (3) Elevated troponin I level Priority: Secondary Status: Resolved Assessment and Plan: Resolved. (4) Hypertension Priority: Secondary Status: Chronic Assessment and Plan: Chronic. Continue home medications. 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 Elevated BNP at 3528 on admission. I and O ordered, output not documented. Pt states that she is compliant with fluid restriction and low sodium diet. Continue these at home, as well as daily weights and home dose of Lasix. (6) Tobacco abuse Priority: Secondary Status: Chronic Assessment and Plan: Pt denies need or desire for smoking cessation education or nicotine replacement therapy. Encouraged smoking cessation and discussed methods, pt declines. Pt smokes 1/2 PPD. (7) UTI (urinary tract infection) Priority: Secondary Status: Acute Assessment and Plan: Initial culture GNR, Final E. coli Tylenol for pain Levaquin 500mg po daily x 7 days Qualifiers: Urinary tract infection type: acute cystitis Hematuria presence: with hematuria Qualified Code(s): N30.01 - Acute cystitis with hematuria (8) DVT prophylaxis Priority: Secondary Status: Acute Assessment and Plan: Heparin, pt has been up to chair and ambulating to and from bathroom. (9) Pain of right scapula Priority: Secondary Status: Acute Assessment and Plan: Pt reports pain to right scapula for several weeks. Tender to palpation in inner scapula border. Xray negative. Lidoderm patch. pt was given Flexeril 5mg po x 1 dose and received relief. Due to increased risk of falls and age, I will not give pt rx for Flexeril, will defer to PCP for contiued treatment. Hospital course: Ms. Randall is a 82 year old female Discharge discussed with: patient, family Time spent discussing smoking cessation with patient: 3 to 10 minutes - Time Spent with Patient Total time spent providing and/or coordinating discharge services: Less than 30 minutes - Discharge Medications Prescriptions: levoFLOXacin [Levaquin] 500 mg PO DAILY #7 tablet Lidocaine Patch [Lidoderm 5% patch] 1 each TP DAILY PRN #20 adh..patch PRN Reason: Pain predniSONE [PredniSONE] 30 mg PO DAILY #12 tablet Sucralfate [Carafate] 1 gm PO QIDAC #120 tablet Home Medications: Carvedilol [Coreg] 25 mg PO BIDWM #60 tablet 04/21/17 [Rx] Aspirin 81 mg PO DAILY 07/18/17 [History] HYDROcodone/Acet 5/325 mg [[place] 5-325 mg] 1 tab PO Q8HR PRN 08/16/17 [History] Isosorbide MONOnitrate (24 HR) [Imdur] 30 mg PO DAILY 08/16/17 [History] Losartan Potassium [Cozaar] 50 mg PO DAILY 08/16/17 [History] Nitroglycerin [Nitrostat] 0.4 mg PO Q5M PRN 08/16/17 [History] Potassium Chloride [K-Tab ER] 20 meq PO DAILY 08/16/17 [History] Lidocaine Patch [Lidoderm 5% patch] 1 each TP DAILY PRN #30 adh..patch 08/18/17 [Rx] Menthol [Biofreeze] 118 ml TP BID PRN #1 unit 08/18/17 [Rx] Omeprazole [PriLOSEC] 20 mg PO DAILY #30 cap 08/18/17 [Rx] Furosemide [Lasix] 40 mg PO DAILY 09/29/17 [History] Lidocaine Patch [Lidoderm 5% patch] 1 each TP DAILY PRN #20 adh..patch 10/03/17 [Rx] Methyl Salicylate/Menthol [Bengay] 1 appl TP QID tube 10/03/17 [Rx] Sucralfate [Carafate] 1 gm PO QIDAC #120 tablet 10/03/17 [Rx] levoFLOXacin [Levaquin] 500 mg PO DAILY #7 tablet 10/03/17 [Rx] predniSONE [PredniSONE] 30 mg PO DAILY #12 tablet 10/03/17 [Rx] Allergies/Adverse Reactions: 3 Allergy/AdvReac Type Severity Reaction Status Date / Time Penicillins [PCN] Allergy Mild Itching Verified 07/18/17 11:20 Sulfa (Sulfonamide Allergy Mild Hives Verified 07/18/17 11:20 Antibiotics) pheniramine Allergy Unknown UNKNOWN Verified 07/18/17 11:20 PER PATIENT codeine AdvReac Mild "HARD ON Verified 07/18/17 11:20 BOWELS" Date of admission: 09/29/17 06:55 Primary care physician: Matias Klein Consults: 09/29/17 08:09 Consult to Gastroenterology [CONS] Routine Consulting Provider: Gastroenterology Radha Reason for Consult: epigastric Dr valderrama gul Call Completed: Yes 09/29/17 08:15 Consult to Physical Therapy [CONS] Routine Comment: Evaluate, develop and implement POC Reason for Consult: weakness Does patient have active BEDREST order?: No Is patient medically & hemodynamically stable?: Yes Patient assessed for mobility or mobilized this visit?: Yes 09/29/17 11:45 Consult to Nurse Navigator [CONS] Routine Comment: CHF 09/29/17 11:54 Consult to Coiled Tubing Operator [CONS] Routine Reason for SW Consult: possible needs @ home. Discharging clinician: Radha Owusu Anticipated date of discharge: 10/03/17 - Constitutional Vitals: Temp Pulse Resp BP Pulse Ox 97.4 F L 75 17 162/95 97 10/03/17 08:07 10/03/17 08:07 10/03/17 08:08 10/03/17 08:07 10/03/17 08:08 General appearance: Present: cooperative, A&O X 3, pleasant, no acute distress, answers questions appropriately - Head Head exam: Present: atraumatic, normal inspection, normocephalic - Eye Eye exam: Present: normal appearance, conjuntiva pink, sclera anicteric - Neck Neck exam general surgery: Present: supple, trachea midline. Absent: lymphadenopathy, tenderness - Respiratory Respiratory exam: Present: decreased breath sounds, CTAB. Absent: accessory muscle use, chest wall tenderness, rales, respiratory distress, rhonchi, wheezes - Cardiovascular Cardiovascular exam: Present: RRR, +S1, +S2. Absent: diastolic murmur, gallop, rubs, systolic murmur - GI/Abdominal GI/Abdominal exam: Present: normal bowel sounds, soft. Absent: distended, hepatomegaly, tenderness - Extremities Exam Extremities exam: Present: normal capillary refill, normal inspection, warm, radial pulses palpable and symmetrical. Absent: calf tenderness, cyanotic, pedal edema, tenderness - Neurological Exam Neurological exam: Present: alert, oriented X3, no focal deficits. Absent: altered, facial droop, speech deficit - Skin Skin exam: Present: dry, intact, normal color, warm. Absent: rash - Patient Status Disposition: Home, Self-Care Condition: Good Functional capacity at discharge: independent ambulation Overall status at discharge: patient is progressing back to baseline - Discharge Instructions Follow Up With: Tana Delgado DO [Primary Care Provider] - 10/05/17 10:35 am () Additional Instructions: Please see your PCP this coming week. Call them and let them know that you were in the hospital and need to follow up for CHF Take your medications as directed. Return to the ER as needed for any other problems or concerns, or if your symptoms return or worsen. Watch your fluids, no more than 1.5 liters for a few more days, and limit your sodium Return to your normal diet and activities as tolerated. - Diet and Activity Activity: increase activity as tolerated Diet: low salt diet
[2017-10-03] MEDS ORDERED: levoFLOXacin 500 MG TABLET PO SCH (12:30)
== END 2017-10-03 14:15 | disposition home or self-care (01) ==
LOC: EMEROO 04:37 → INTOOBSV 06:55 → 2SOUTHHOLD 06:55 → 3BNU 10:33
PROVIDERS: ADMIT Internal Medicine; ATTEND Internal Medicine

== ENCOUNTER 2017-11-01 10:06 | Inpatient (IN) ==
[2017-11-01] MEDS ORDERED: 0.9 % Sodium Chloride 1,000 ML ONE (10:16)
[2017-11-01] MEDS ORDERED: 0.9 % Sodium Chloride 1,000 ML IVC ONE (10:29)
[2017-11-01 10:47] LABS: Basophils % 0.5 %; Eosinophils % 0.7 %; Hematocrit 35.2 % (35.3-44.9); Hemoglobin 11.7 g/dL (11.5-15.4); Immature Granulocytes % 0.5 % (0-4); Lymphocytes # 0.6 K/mcL (0.6-4.6); Lymphocytes % 11.1 %; Mean Corpuscular HGB Conc 33.2 g/dL (31.6-35.5); Mean Corpuscular Hemoglobin 29.9 pg (28.0-33.3); Mean Platelet Volume 9.4 fL (9.4-12.4); Monocytes # 0.6 K/mcL (0.0-1.3); Monocytes % 11.1 %; Neutrophils # 4.4 K/mcL (1.6-8.9); Platelet Count 227 K/mcL (140-400); Red Blood Count 3.91 M/mcL (3.82-4.97); Red Cell Distribution Width 15.1 % (11.5-14.5); Segmented Neutrophils % 76.1 %
[2017-11-01 11:06] LABS: Albumin 3.2 g/dL (3.5-5.7); Albumin/Globulin Ratio 1.2 (1.1-2.2); Bilirubin,Total 0.8 mg/dL (0.3-1.0); Calcium 8.8 mg/dL (8.6-10.3); Globulin 2.6 g/dL (2.4-3.5); Total Protein 5.8 g/dL (6.4-8.9)
--- NOTE | 2017-11-01 11:56 | Emergency Department Note ---
Disposition Clinical Impression: Dehydration Disposition: Still a Patient Referrals: Tana Delgado DO [Primary Care Provider] - General Adult HPI - General Chief complaint: ED Nausea/Vomiting/Diarrhea Stated complaint: Diarrhea Time Seen by Provider: 11/01/17 10:29 Source: patient, EMS Limitations: no limitations - History of Present Illness Pain Scale: 7 - Related Data Home Medications Medication Instructions Recorded Confirmed Aspirin 81 mg PO DAILY 07/18/17 09/29/17 HYDROcodone/Acet 5/325 mg [[place] 1 tab PO Q8HR PRN 08/16/17 09/29/17 5-325 mg] Isosorbide MONOnitrate (24 HR) 30 mg PO DAILY 08/16/17 09/29/17 [Imdur] Losartan Potassium [Cozaar] 50 mg PO DAILY 08/16/17 09/29/17 Nitroglycerin [Nitrostat] 0.4 mg PO Q5M PRN 08/16/17 09/29/17 Potassium Chloride [K-Tab ER] 20 meq PO DAILY 08/16/17 09/29/17 Furosemide [Lasix] 40 mg PO DAILY 09/29/17 09/29/17 Previous Rx's Medication Instructions Recorded Carvedilol [Coreg] 25 mg PO BIDWM #60 tablet 04/21/17 Lidocaine Patch [Lidoderm 5% patch] 1 each TP DAILY PRN #30 adh..patch 08/18/17 Menthol [Biofreeze] 118 ml TP BID PRN #1 unit 08/18/17 Omeprazole [PriLOSEC] 20 mg PO DAILY #30 cap 08/18/17 Lidocaine Patch [Lidoderm 5% patch] 1 each TP DAILY PRN #20 adh..patch 10/03/17 Methyl Salicylate/Menthol [Bengay] 1 appl TP QID tube 10/03/17 Sucralfate [Carafate] 1 gm PO QIDAC #120 tablet 10/03/17 levoFLOXacin [Levaquin] 500 mg PO DAILY #7 tablet 10/03/17 predniSONE [PredniSONE] 30 mg PO DAILY #12 tablet 10/03/17 Allergies Allergy/AdvReac Type Severity Reaction Status Date / Time Penicillins [PCN] Allergy Mild Itching Verified 11/01/17 10:12 Sulfa (Sulfonamide Allergy Mild Hives Verified 11/01/17 10:12 Antibiotics) pheniramine Allergy Unknown UNKNOWN Verified 11/01/17 10:12 PER PATIENT codeine AdvReac Mild "HARD ON Verified 11/01/17 10:12 BOWELS" Past Medical History - Past Medical History Medical history: Reports: cancer, cardiomyopathy, CHF, COPD, coronary artery disease, hypertension, myocardial infarction, other Surgical history: Reports: pacemaker/AICD, other Psychiatric history: Reports: no psych history - Social History Smoking Status: Current every day smoker Smokeless Tobacco Status: No Alcohol use: Reports: rarely Drug use: Reports: none Physical Exam - General Limitations: no limitations General appearance: alert, in no apparent distress Course - Reevaluation(s) Reevaluation #1: Attestation note I examined this patient and my medical decision-making was reviewed with the emergency medicine resident. I agree with the documented findings, disposition and treatment plan as described except to the extent set forth below. Patient seen with emergency medicine resident Dr. Belinda Hernandez, Please see a copy of his note for details of the H&P, ED evaluation, management and disposition. I have independently evaluated the patient and confirmed appropriate portions of the history and physical exam. Briefly: 82-year-old female [facility] from [facility] for abdominal pain and loose stools. Patient has diffuse tenderness with no rebound or guarding patient slightly tachycardic is getting IV fluids abdominal pelvic CT screening labs. Providing 35 minutes critical care service for this patient, disposition pending Time: 11:55 Vital Signs Temperature 97.5 F L 11/01/17 10:07 Pulse Rate 109 11/01/17 10:07 Respiratory Rate 18 11/01/17 10:07 Blood Pressure 90/62 11/01/17 10:07 O2 Sat by Pulse Oximetry 95 11/01/17 10:07 Temperature 97.5 F L 11/01/17 10:07 Pulse Rate 109 11/01/17 10:07 Respiratory Rate 18 11/01/17 10:07 Blood Pressure 90/62 11/01/17 10:07 O2 Sat by Pulse Oximetry 95 11/01/17 10:07 Oxygen Delivery Oxygen Delivery Room Air Medical Decision Making - Lab Data Result diagrams: 11/01/17 10:20 11/01/17 10:20 Lab Results 11/01/17 11/01/17 Range/Units 10:20 10:20 WBC 5.8 (4.3-11.1) K/mcL RBC 3.91 (3.82-4.97) M/mcL Hgb 11.7 (11.5-15.4) g/dL Hct 35.2 L (35.3-44.9) % MCV 90.0 (83.0-100.0) fL MCH 29.9 (28.0-33.3) pg MCHC 33.2 (31.6-35.5) g/dL RDW 15.1 H (11.5-14.5) % Plt Count 227 (140-400) K/mcL MPV 9.4 (9.4-12.4) fL Immature Gran % 0.5 (0-4) % Seg Neutrophils % 76.1 % Lymphocytes % 11.1 % Monocytes % 11.1 % Eosinophils % 0.7 % Basophils % 0.5 % Neutrophils # 4.4 (1.6-8.9) K/mcL Lymphocytes # 0.6 (0.6-4.6) K/mcL Monocytes # 0.6 (0.0-1.3) K/mcL Eosinophils # 0.0 (0.0-0.6) K/mcL Basophils # 0.0 (0.0-0.2) K/mcL Sodium 129 L (136-145) mEq/L Potassium 5.0 (3.5-5.1) mEq/L Chloride 102 (98-107) mEq/L Carbon Dioxide 20 L (23-29) mEq/L BUN 27 H (8-23) mg/dL Creatinine 1.30 H (0.60-1.20) mg/dL Est GFR ( Amer) 48 L (> 60) Est GFR (Non-Af Amer) 39 L (> 60) BUN/Creatinine Ratio 21 (6-26) Glucose 113 H (70-105) mg/dL Calculated Osmolality 274 L (280-300) Calcium 8.8 (8.6-10.3) mg/dL Total Bilirubin 0.8 (0.3-1.0) mg/dL AST 15 (13-39) Units/L ALT 8 (7-52) Units/L Alkaline Phosphatase 78 (34-104) Units/L Serum Total Protein 5.8 L (6.4-8.9) g/dL Albumin 3.2 L (3.5-5.7) g/dL Globulin 2.6 (2.4-3.5) g/dL Albumin/Globulin Ratio 1.2 (1.1-2.2) Lipase 12 (11-82) Units/L
--- NOTE | 2017-11-01 12:07 | Emergency Department Note ---
Disposition Clinical Impression: Dehydration, HARMONY (acute kidney injury), Cholecystitis Disposition: Admitted As Inpatient Condition: Good Referrals: Tana Delgado DO [Primary Care Provider] - Forms: ED Satisfaction Letter Time of Disposition: 12:28 General Adult HPI - General Chief complaint: ED Nausea/Vomiting/Diarrhea Stated complaint: Diarrhea Time Seen by Provider: 11/01/17 10:29 Source: patient, EMS Limitations: no limitations Nursing Notes Reviewed: Yes Vital Signs Reviewed: Yes - History of Present Illness HPI Narrative: 2- 3 week history of diarrhea. No fevers. Abdominal pain for this long as well. No shortness of breath or chest pain. No fevers. Patient also complaining of generalized weakness and the inability to walk without a walker. Pain Scale: 7 - Related Data Home Medications Medication Instructions Recorded Confirmed Aspirin 81 mg PO DAILY 07/18/17 09/29/17 HYDROcodone/Acet 5/325 mg [[place] 1 tab PO Q8HR PRN 08/16/17 09/29/17 5-325 mg] Isosorbide MONOnitrate (24 HR) 30 mg PO DAILY 08/16/17 09/29/17 [Imdur] Losartan Potassium [Cozaar] 50 mg PO DAILY 08/16/17 09/29/17 Nitroglycerin [Nitrostat] 0.4 mg PO Q5M PRN 08/16/17 09/29/17 Potassium Chloride [K-Tab ER] 20 meq PO DAILY 08/16/17 09/29/17 Furosemide [Lasix] 40 mg PO DAILY 09/29/17 09/29/17 Previous Rx's Medication Instructions Recorded Carvedilol [Coreg] 25 mg PO BIDWM #60 tablet 04/21/17 Lidocaine Patch [Lidoderm 5% patch] 1 each TP DAILY PRN #30 adh..patch 08/18/17 Menthol [Biofreeze] 118 ml TP BID PRN #1 unit 08/18/17 Omeprazole [PriLOSEC] 20 mg PO DAILY #30 cap 08/18/17 Lidocaine Patch [Lidoderm 5% patch] 1 each TP DAILY PRN #20 adh..patch 10/03/17 Methyl Salicylate/Menthol [Bengay] 1 appl TP QID tube 10/03/17 Sucralfate [Carafate] 1 gm PO QIDAC #120 tablet 10/03/17 levoFLOXacin [Levaquin] 500 mg PO DAILY #7 tablet 10/03/17 predniSONE [PredniSONE] 30 mg PO DAILY #12 tablet 10/03/17 Allergies Allergy/AdvReac Type Severity Reaction Status Date / Time Penicillins [PCN] Allergy Mild Itching Verified 11/01/17 10:12 Sulfa (Sulfonamide Allergy Mild Hives Verified 11/01/17 10:12 Antibiotics) pheniramine Allergy Unknown UNKNOWN Verified 11/01/17 10:12 PER PATIENT codeine AdvReac Mild "HARD ON Verified 11/01/17 10:12 BOWELS" All systems ED: reviewed and negative except as stated. Constitutional: Denies: fever, chills ENT ED: Denies: congestion Cardiovascular: Denies: chest pain, palpitations, syncope Respiratory: Denies: cough, dyspnea Gastrointestinal: Reports: abdominal pain, diarrhea. Denies: nausea, vomiting, hematemesis, melena, hematochezia Genitourinary: Denies: urgency, dysuria, frequency, hematuria Musculoskeletal: Reports: back pain, other (Lower rib pain bilaterally). Denies : neck pain Integumentary: Denies: rash Neurological: Reports: weakness Past Medical History - Past Medical History Attestation: Yes The following information was validated with the patient. Source: patient Medical history: Reports: cancer, cardiomyopathy, CHF, COPD, coronary artery disease, hypertension, myocardial infarction, other Surgical history: Reports: pacemaker/AICD, other Psychiatric history: Reports: no psych history - Social History Smoking Status: Current every day smoker Smokeless Tobacco Status: No Alcohol use: Reports: rarely Drug use: Reports: none Physical Exam - General Limitations: no limitations General appearance: alert, in no apparent distress - Head Head exam: atraumatic, normocephalic, normal inspection - Eye Eye exam: Present: normal appearance, PERRL, EOMI - ENT ENT exam: normal exam, normal oropharynx, mucous membranes moist - Neck Neck exam: Present: normal inspection, full ROM, trachea midline - Chest Chest inspection: Present: normal inspection, symmetric chest wall rise - Respiratory Respiratory exam: Present: normal lung sounds bilaterally - Cardiovascular Cardiovascular exam: Present: regular rate, normal rhythm, normal heart sounds - Abdominal Exam Abdominal exam: Present: soft, tenderness (To palpation diffusely seems to be concentrated in the right upper quadrant however), guarding (To right upper quadrant palpation). Absent: distention, rebound, rigidity, organomegaly - Extremities Exam Extremities exam: Present: normal inspection, full ROM, normal capillary refill. Absent: tenderness, pedal edema - Back Exam Back exam: Present: normal inspection - Neurological Exam Neurological exam: Present: alert, oriented X3 - Psychiatric Psychiatric exam: Present: normal affect, normal mood - Skin Skin exam: Present: warm, dry, intact, normal color. Absent: rash, cyanosis Course Course Narrative: Female patient presenting to emergency with a 2 week history of diarrhea. She reports also a generalized weakness. States that she has not needs a walker to get around. She is also complaining of a diffuse abdominal pain. No nausea or vomiting. No fevers. She is well-appearing and very feisty while I am talking to her. Her lung sounds are clear heart tones are normal her abdomen is grossly tender to palpation. It is not distended. She has most of her pain in her right upper quadrant. We did get basic lab workup as well as a CT of her abdomen. This showed acute cholecystitis as well as periportal edema. Her white blood cell count is not elevated and her liver enzymes are normal. We will give her a liter of fluid she is refusing any type of pain medication at this time. Whenever I go back to reassess her she states that she is having some lower rib pain as well as some back pain. We will get a chest x-ray. We will discuss the patient with Dr. Lofton and admitted to the hospitalist. We do have a lab and for stool culture however the patient is unable to stool while here. Patient states her diarrhea is brown in color occasionally had a yellow history. She has not given us a stool sample while here. She denies any blood in her stool or dark stools. - Consultations Consultation #1: I spoke with Dr Hannon nurse. We will admit to the hospital service and have a consult to Dr Lopez. Time: 12:20 Consultation #2: Dr Stanley accepted Pt in stable condition. Time: 12:27 Vital Signs Temperature 97.5 F L 11/01/17 10:07 Pulse Rate 109 11/01/17 10:07 Respiratory Rate 18 11/01/17 10:07 Blood Pressure 90/62 11/01/17 10:07 O2 Sat by Pulse Oximetry 95 11/01/17 10:07 Temperature 97.5 F L 11/01/17 10:07 Pulse Rate 109 11/01/17 10:07 Respiratory Rate 18 11/01/17 10:07 Blood Pressure 90/62 11/01/17 10:07 O2 Sat by Pulse Oximetry 95 11/01/17 10:07 Oxygen Delivery Oxygen Delivery Room Air Medical Decision Making - Medical Records Medical records reviewed: Yes I reviewed the patient's medical records. - Lab Data Lab results reviewed: Yes I reviewed the patient's lab results. Result diagrams: 11/01/17 10:20 11/01/17 10:20 Lab Results 11/01/17 11/01/17 Range/Units 10:20 10:20 WBC 5.8 (4.3-11.1) K/mcL RBC 3.91 (3.82-4.97) M/mcL Hgb 11.7 (11.5-15.4) g/dL Hct 35.2 L (35.3-44.9) % MCV 90.0 (83.0-100.0) fL MCH 29.9 (28.0-33.3) pg MCHC 33.2 (31.6-35.5) g/dL RDW 15.1 H (11.5-14.5) % Plt Count 227 (140-400) K/mcL MPV 9.4 (9.4-12.4) fL Immature Gran % 0.5 (0-4) % Seg Neutrophils % 76.1 % Lymphocytes % 11.1 % Monocytes % 11.1 % Eosinophils % 0.7 % Basophils % 0.5 % Neutrophils # 4.4 (1.6-8.9) K/mcL Lymphocytes # 0.6 (0.6-4.6) K/mcL Monocytes # 0.6 (0.0-1.3) K/mcL Eosinophils # 0.0 (0.0-0.6) K/mcL Basophils # 0.0 (0.0-0.2) K/mcL Sodium 129 L (136-145) mEq/L Potassium 5.0 (3.5-5.1) mEq/L Chloride 102 (98-107) mEq/L Carbon Dioxide 20 L (23-29) mEq/L BUN 27 H (8-23) mg/dL Creatinine 1.30 H (0.60-1.20) mg/dL Est GFR ( Amer) 48 L (> 60) Est GFR (Non-Af Amer) 39 L (> 60) BUN/Creatinine Ratio 21 (6-26) Glucose 113 H (70-105) mg/dL Calculated Osmolality 274 L (280-300) Calcium 8.8 (8.6-10.3) mg/dL Total Bilirubin 0.8 (0.3-1.0) mg/dL AST 15 (13-39) Units/L ALT 8 (7-52) Units/L Alkaline Phosphatase 78 (34-104) Units/L Serum Total Protein 5.8 L (6.4-8.9) g/dL Albumin 3.2 L (3.5-5.7) g/dL Globulin 2.6 (2.4-3.5) g/dL Albumin/Globulin Ratio 1.2 (1.1-2.2) Lipase 12 (11-82) Units/L - Radiology Data Radiology results reviewed: Yes I reviewed the patient's radiology results. Abdomen/Pelvis CT 11/01/17 10:30 IMPRESSION: 1. Nonspecific periportal edema can be seen with hepatitis. This can also be reactive. 2. Gallbladder findings suggesting cholelithiasis and acute cholecystitis. 3. Cardiomegaly. 4. Small volume pericardial effusion. 5. Rather extensive calcific atherosclerosis aorta and its branches. 6. Right renal cysts. 7. Trace pelvic ascites is probably reactive. Nonspecific. 8. Portions of the pelvis are obscured by beam hardening artifact related to right hip arthroplasty. D/ / Jc Comer / Jc Comer Interpreting Provider: Jc Comer - EKG Data EKG #1 EKG attestation: Yes I reviewed and interpreted this EKG.
[2017-11-01] MEDS ORDERED: 0.9 % Sodium Chloride 1,000 ML IVC SCH ×2 (13:00→22:45)
--- NOTE | 2017-11-01 13:19 | General Surgery Consult Note ---
<Dori Cohn - Last Filed: 11/01/17 13:17> Date of Encounter: 11/01/17 Time of Encounter: 13:17 Assessment and Plan (1) Abdominal pain Current Visit: No Status: Resolved DX: Cholelithiasis w/o acute cholecystitis vs PUD and viral etiology for diarrhea Patient reports multiple episodes daily of diarrhea for the last 2 weeks. She reports right rib and shoulder blade pain that was present on her previous admission (September 2017) as well as epigastric pain. GI did evaluate her at that time and recommended an EGD to r/o PUD, esophagitis, or gastritis (which the patient refused), and she was recommended to continue PPI therapy twice daily and add Carafate. Patient is unable to state whether she feels this has been effective or not. Stool panel ordered per ED and is pending CT of the abdomen and pelvis without contrast reveals gallbladder wall thickened and Fe-cholecystic fluid present, high density and the dependent portion of the gallbladder typical of stones, bowel appears unremarkable, there is Carlos Eduardo portal edema, trace pelvic ascites probably reactive. Her liver function and bilirubin are unremarkable. Her white blood cell count is normal. She is noted to have elevated creatinine 1.30. CTA of the abdomen and pelvis in July 2017 noted no definitive gallstone, subtle gallbladder wall thickening and dilated small bowel loops Patient preemptively states "I am not having surgery for anything." I did review with patient that her abdominal discomfort, shoulder blade pain, right upper quadrant pain could be related to possible PUD, gastritis, esophagitis as above and accompanied by viral diarrhea vs symptomatic cholelithiasis with possible cholecystitis. Although WBC, LFT, and bilirubin is within normal limits, it would be reasonable to consider laparoscopic cholecystectomy for symptomatic cholelithiasis. Plan: -IV hydration per primary team -continue PPI and carafate -supportive care and discomfort management -G.I. and DVT prophylaxis -unfortunately if patient is unwilling to discuss the possibility of surgical intervention, there is little that surgery has to offer at this time. will collaborate with -attending for final recommendations. Qualifiers: Abdominal location: epigastric Qualified Code(s): R10.13 - Epigastric pain (2) Cholelithiasis Current Visit: Yes Status: Acute CT of the abdomen and pelvis without contrast reveals gallbladder wall thickened and Fe-cholecystic fluid present, high density and the dependent portion of the gallbladder typical of stones, bowel appears unremarkable, there is Carlos Eduardo portal edema, trace pelvic ascites probably reactive. Her liver function and bilirubin are unremarkable. Her white blood cell count is normal. She is noted to have elevated creatinine 1.30. CTA of the abdomen and pelvis in July 2017 noted no definitive gallstone, subtle gallbladder wall thickening and dilated small bowel loops Patient reports multiple episodes daily of diarrhea for the last 2 weeks. She reports right rib and shoulder blade pain that was present on her previous admission (September 2017) as well as epigastric pain. GI did evaluate her at that time and recommended an EGD to r/o PUD, esophagitis, or gastritis (which the patient refused), and she was recommended to continue PPI therapy twice daily and add Carafate. Patient is unable to state whether she feels this has been effective or not. Plan: See a/p plan above Qualifiers: Cholelithiasis location: gallbladder Cholecystitis presence: without cholecystitis Biliary obstruction: without biliary obstruction Qualified Code(s): K80.20 - Calculus of gallbladder without cholecystitis without obstruction (3) Diarrhea Current Visit: Yes Status: Acute DX: Cholelithiasis w/o acute cholecystitis vs PUD and viral etiology for diarrhea Stool panel pending supportive care per primary team Qualifiers: Diarrhea type: unspecified type Qualified Code(s): R19.7 - Diarrhea, unspecified (4) HARMONY (acute kidney injury) Current Visit: Yes Status: Acute Management per primary team (5) ASHD (arteriosclerotic heart disease) Current Visit: Yes Status: Acute Ischemic cardiomyopathy. Noted ICD in place. If patient were to agree to surgical intervention, would likely need cardiovascular preoperative risk stratification. History of Present Illness Consult date: 11/01/17 Reason for consult: other (abnormal findings on CT) Requesting physician: Belinda Hernandez History of present illness: Julissa is an 82 year old with a PMH significant for breast cancer, cardiomyopathy, CHF, pacemaker/ICD, COPD, ASHD, myocardial infarction, hypertension, current everyday smoker, and a surgical history of partial hysterectomy, appendectomy, DNC, and left breast. She states she lives alone. She presented on 11/01/2017 for a two-week history of diarrhea. She reports multiple episodes daily of diarrhea that is Brown. She states that her 1st couple episodes of diarrhea were yellow mucus. She reports right ribs and shoulder blade pain that has been ongoing for several weeks. She denies symptoms of heartburn, nausea, vomiting, chest pain, or shortness of breath. She states she has been eating peanut butter sandwiches with a glass of milk on most days because she "just doesn't feel like cooking anything." She denies fever, chills, headache, dizziness, weakness, urinary signs or symptoms, black, bloody, or tarry stool. She is very concerned about the amount of medication that she takes and states that she feels this may be contributing to her symptoms. Past Med Surg Social Fam HX - Past Medical History Source: patient, old records reviewed Medical history: cancer, cardiomyopathy, CHF, COPD, coronary artery disease, hypertension, myocardial infarction, other Additional medical history: Breast Cancer Psychiatric history: no psych history - Past Surgical History Surgical History: pacemaker/AICD, other Additional surgical history: breast biopsy, stent placement, bladder tuck - Social History Smoking Status: Current every day smoker Smokeless Tobacco Status: No Alcohol use: rarely Drug use: none Occupational status: unemployed Current living situation: Home - Independent Activity Level: Uses cane/walker Recent Out of Country Travel Within the Last 8 Weeks: No Exposure or Possible Exposure to Illness During Travel: No - Family History Father Adopted: No Family Member Ethnicity: Non- Living Status: Hx Family Cardiac Disorders: Yes Medications and Allergies Carvedilol [Coreg] 25 mg PO BIDWM #60 tablet 04/21/17 [Rx] Aspirin 81 mg PO DAILY 07/18/17 [History] Isosorbide MONOnitrate (24 HR) [Imdur] 30 mg PO DAILY 08/16/17 [History] Losartan Potassium [Cozaar] 50 mg PO DAILY 08/16/17 [History] Nitroglycerin [Nitrostat] 0.4 mg PO Q5M PRN 08/16/17 [History] Potassium Chloride [K-Tab ER] 20 meq PO DAILY 08/16/17 [History] Menthol [Biofreeze] 118 ml TP BID PRN #1 unit 08/18/17 [Rx] Omeprazole [PriLOSEC] 20 mg PO DAILY #30 cap 08/18/17 [Rx] Furosemide [Lasix] 40 mg PO BID 09/29/17 [History] Methyl Salicylate/Menthol [Bengay] 1 appl TP QID tube 10/03/17 [Rx] Sucralfate [Carafate] 1 gm PO QIDAC #120 tablet 10/03/17 [Rx] 3 Allergy/AdvReac Type Severity Reaction Status Date / Time Penicillins [PCN] Allergy Mild Itching Verified 11/01/17 10:12 Sulfa (Sulfonamide Allergy Mild Hives Verified 11/01/17 14:14 Antibiotics) pheniramine Allergy Unknown UNKNOWN Verified 11/01/17 10:12 PER PATIENT codeine AdvReac Mild "HARD ON Verified 11/01/17 14:14 BOWELS" Review of Systems All systems PM: reviewed and no additional remarkable complaints except as stated All systems PM: The remainder of the systems were reviewed and are negative General Surgery Exam Initial Vital Signs Temp Pulse Resp BP Pulse Ox 97.5 F L 109 18 90/62 95 11/01/17 10:07 11/01/17 10:07 11/01/17 10:07 11/01/17 10:07 11/01/17 10:07 VITAL SIGNS: Reviewed. See [facility] GENERAL: In no apparent distress. HEENT: Normocephalic, atraumatic, pupils are equal and reactive, extraocular motions intact, oropharynx is pink and moist, there is no neck adenopathy or JVD noted. CHEST/RESPIRATORY: The thorax is free from signs of trauma. Lung sounds: decreased CARDIAC: tachycardic VASCULAR: No Edema. 2+ peripheral pulses. ABDOMEN: soft, right upper quadrant tenderness, active bowel sounds MUSCULOSKELETAL: Good range of motion of all major joints. Extremities without clubbing, cyanosis or edema. NEUROLOGIC EXAM: Alert and oriented x 3. Speech normal. Follows commands. PSYCHIATRIC: Mood normal. SKIN: No rash or lesions. Exam Initial Vital Signs Temp Pulse Resp BP Pulse Ox 97.5 F L 109 18 90/62 95 11/01/17 10:07 11/01/17 10:07 11/01/17 10:07 11/01/17 10:07 11/01/17 10:07 Results - Labs 11/01/17 10:20 11/01/17 10:20 Abnormal lab results Hct 35.2 % (35.3-44.9) L 11/01/17 10:20 RDW 15.1 % (11.5-14.5) H 11/01/17 10:20 Sodium 129 mEq/L (136-145) L 11/01/17 10:20 Carbon Dioxide 20 mEq/L (23-29) L 11/01/17 10:20 BUN 27 mg/dL (8-23) H 11/01/17 10:20 Creatinine 1.30 mg/dL (0.60-1.20) H 11/01/17 10:20 Est GFR ( Amer) 48 (> 60) L 11/01/17 10:20 Est GFR (Non-Af Amer) 39 (> 60) L 11/01/17 10:20 Glucose 113 mg/dL (70-105) H 11/01/17 10:20 Calculated Osmolality 274 (280-300) L 11/01/17 10:20 Serum Total Protein 5.8 g/dL (6.4-8.9) L 11/01/17 10:20 Albumin 3.2 g/dL (3.5-5.7) L 11/01/17 10:20 Diabetes panel 11/01/17 Range/Units 10:20 Sodium 129 L (136-145) mEq/L Potassium 5.0 (3.5-5.1) mEq/L Chloride 102 (98-107) mEq/L Carbon Dioxide 20 L (23-29) mEq/L BUN 27 H (8-23) mg/dL Creatinine 1.30 H (0.60-1.20) mg/dL Glucose 113 H (70-105) mg/dL Calcium 8.8 (8.6-10.3) mg/dL AST 15 (13-39) Units/L ALT 8 (7-52) Units/L Alkaline Phosphatase 78 (34-104) Units/L Albumin 3.2 L (3.5-5.7) g/dL Calcium panel 11/01/17 Range/Units 10:20 Calcium 8.8 (8.6-10.3) mg/dL Albumin 3.2 L (3.5-5.7) g/dL Pituitary panel 11/01/17 Range/Units 10:20 Sodium 129 L (136-145) mEq/L Potassium 5.0 (3.5-5.1) mEq/L Chloride 102 (98-107) mEq/L Carbon Dioxide 20 L (23-29) mEq/L BUN 27 H (8-23) mg/dL Creatinine 1.30 H (0.60-1.20) mg/dL Glucose 113 H (70-105) mg/dL Calcium 8.8 (8.6-10.3) mg/dL Adrenal panel 11/01/17 Range/Units 10:20 Sodium 129 L (136-145) mEq/L Potassium 5.0 (3.5-5.1) mEq/L Chloride 102 (98-107) mEq/L Carbon Dioxide 20 L (23-29) mEq/L BUN 27 H (8-23) mg/dL Creatinine 1.30 H (0.60-1.20) mg/dL Glucose 113 H (70-105) mg/dL Calcium 8.8 (8.6-10.3) mg/dL Total Bilirubin 0.8 (0.3-1.0) mg/dL AST 15 (13-39) Units/L ALT 8 (7-52) Units/L Alkaline Phosphatase 78 (34-104) Units/L Albumin 3.2 L (3.5-5.7) g/dL All other labs normal. - Imaging CT scan - abdomen: report reviewed CT scan - pelvis: report reviewed Consult Discharge Plan - Plan Referrals: Tana Delgado, [Primary Care Provider] - <Guillermina Lopez - Last Filed: 11/02/17 10:44> Date of Encounter: 11/01/17 Time of Encounter: 17:25 Assessment and Plan (1) Abdominal pain Current Visit: Yes Status: Acute discussed with patient that I personally reviewed her CT and she has rectal and sigmoid colon wall thickening which is due to her C diff but she has no lower abdominal or pelvic pain. Her pain is all RUQ and radiates to her back, pain is likely related to her gallbladder Qualifiers: Abdominal location: right upper quadrant Qualified Code(s): R10.11 - Right upper quadrant pain (2) C. difficile diarrhea Current Visit: Yes Status: Acute patients gi panel positive for C diff, started oral vancomycin (3) Cholecystitis Current Visit: Yes Status: Acute discussed with patient that she may likely have two seperate issues currently, her gallbladder and cdiff, she states no matter what she is not having surgery. It is reasonable to treat the Cdiff and see how she feels. After treatment for Cdiff if she is still having RUQ pain, nausea and she would consider having surgery I can see her as outpatient. If she would not consider surgery there is no reason to see her in followup recommend low fat diet when taking in po no acute surgical intervention at this time if surgery would be recommended patient would refuse so surgery signing off at this time. History of Present Illness History of present illness: Patient is 82 yo female who states she has had abdominal pain and diarrhea for 2 weeks. The pain is RUQ and epigastric area, at times sharp and radiates into her back. She has nausea frequently with it and rare emesis. She has been having multiple episodes of diarrhea daily for the last two weeks. She is unsure if the pain is related to diet. No fevers, chills or night sweats. No melena or hematochezia. Patient states that she is "not having surgery". She states her granddaughter had her gallbladder out at [facility] this year and had complications and she is concerned that may happen to her. She states she only wants to address one thing and that is her diarrhea. Past Med Surg Social Fam HX - Family History Father Adopted: No Race: Family Member Ethnicity: Non- Living Status: Age at : 87 Cause of : Heart failure Hx Family Cardiac Disorders: Yes (HF, CAD, [place]) Mother Race: Family Member Ethnicity: Non- Living Status: Age at : 85 Cause of : Unknown Brother Race: Family Member Ethnicity: Non- Living Status: Age at : 54 Cause of : Stomach cancer Hx Family Cancer: Yes (Stomach) Review of Systems All systems PM: reviewed and no additional remarkable complaints except as stated All systems PM: The remainder of the systems were reviewed and are negative General Surgery Exam Initial Vital Signs Temp Pulse Resp BP Pulse Ox 97.5 F L 109 18 90/62 95 11/01/17 10:07 11/01/17 10:07 11/01/17 10:07 11/01/17 10:07 11/01/17 10:07 - General physical appearance no distress, chronically ill - Eyes pinpoint pupil, normal ocular movement - ENT normal mucosa, normocephalic - Neck trachea midline - Respiratory normal expansion, clear to auscultation - Cardiovascular Cardiovascular exam: Present: RRR - Abdomen Abdomen general surgery: Present: bowel sounds present, soft, tender. Absent: distended, guarding, rebound Abdominal Tenderness: Present: RUQ - Integumentary Integumentary general surgery: Present: warm and dry, no abnormal pigmentation - Neurologic Present: CN 2-12 grossly intact - Musculoskeletal Present: normal posture - Psychiatric Psychiatric general surgery: Present: A&Ox3, speech is normal Exam Initial Vital Signs Temp Pulse Resp BP Pulse Ox 97.5 F L 109 18 90/62 95 11/01/17 10:07 11/01/17 10:07 11/01/17 10:07 11/01/17 10:07 11/01/17 10:07 Results - Labs 11/02/17 00:32 11/02/17 00:32 Abnormal lab results RBC 3.69 M/mcL (3.82-4.97) L 11/02/17 00:32 Hgb 11.2 g/dL (11.5-15.4) L 11/02/17 00:32 Hct 33.7 % (35.3-44.9) L 11/02/17 00:32 RDW 15.0 % (11.5-14.5) H 11/02/17 00:32 MPV 9.2 fL (9.4-12.4) L 11/02/17 00:32 PT 14.0 Seconds (9.4-12.1) H 11/02/17 00:23 APTT 50.2 Seconds (26.0-36.0) H 11/02/17 07:18 Sodium 130 mEq/L (136-145) L 11/02/17 00:32 Carbon Dioxide 19 mEq/L (23-29) L 11/02/17 00:32 BUN 26 mg/dL (8-23) H 11/02/17 00:32 Creatinine 1.22 mg/dL (0.60-1.20) H 11/02/17 00:32 Est GFR ( Amer) 51 (> 60) L 11/02/17 00:32 Est GFR (Non-Af Amer) 42 (> 60) L 11/02/17 00:32 Calculated Osmolality 275 (280-300) L 11/02/17 00:32 Calcium 8.3 mg/dL (8.6-10.3) L 11/02/17 00:32 Serum Total Protein 5.1 g/dL (6.4-8.9) L 11/02/17 00:32 Albumin 3.0 g/dL (3.5-5.7) L 11/02/17 00:32 Globulin 2.1 g/dL (2.4-3.5) L 11/02/17 00:32 Ur Specimen Adequacy See below A 11/01/17 14:55 Urine Blood Trace-intact (Negative) H 11/01/17 14:55 Urine Bilirubin Small (Negative) H 11/01/17 14:55 Ur Leukocyte Esterase Trace (Negative) H 11/01/17 14:55 Urine Microscopic WBC 3-5 per hpf (0-3) H 11/01/17 14:55 Ur Squamous Epith Cells Many per lpf (None-Few) H 11/01/17 14:55 Ur Culture Indicated? NO. (NO) A 11/01/17 14:55 Stl C. diff Tox A/B PCR See reflex test (Not detect) A 11/01/17 12:27 Diabetes panel 11/02/17 Range/Units 00:32 Sodium 130 L (136-145) mEq/L Potassium 4.3 (3.5-5.1) mEq/L Chloride 103 (98-107) mEq/L Carbon Dioxide 19 L (23-29) mEq/L BUN 26 H (8-23) mg/dL Creatinine 1.22 H (0.60-1.20) mg/dL Glucose 103 (70-105) mg/dL Calcium 8.3 L (8.6-10.3) mg/dL AST 13 (13-39) Units/L ALT 7 (7-52) Units/L Alkaline Phosphatase 69 (34-104) Units/L Albumin 3.0 L (3.5-5.7) g/dL Triglycerides 91 (< 150) mg/dL HDL Cholesterol 42 (40-59) mg/dL Thyroid panel 11/02/17 Range/Units 00:32 TSH 3.243 (0.340-5.600) mcIU/mL Calcium panel 11/02/17 Range/Units 00:32 Calcium 8.3 L (8.6-10.3) mg/dL Albumin 3.0 L (3.5-5.7) g/dL Pituitary panel 11/02/17 11/02/17 Range/Units 00:32 00:32 Sodium 130 L (136-145) mEq/L Potassium 4.3 (3.5-5.1) mEq/L Chloride 103 (98-107) mEq/L Carbon Dioxide 19 L (23-29) mEq/L BUN 26 H (8-23) mg/dL Creatinine 1.22 H (0.60-1.20) mg/dL Glucose 103 (70-105) mg/dL Calcium 8.3 L (8.6-10.3) mg/dL TSH 3.243 (0.340-5.600) mcIU/mL Adrenal panel 11/02/17 Range/Units 00:32 Sodium 130 L (136-145) mEq/L Potassium 4.3 (3.5-5.1) mEq/L Chloride 103 (98-107) mEq/L Carbon Dioxide 19 L (23-29) mEq/L BUN 26 H (8-23) mg/dL Creatinine 1.22 H (0.60-1.20) mg/dL Glucose 103 (70-105) mg/dL Calcium 8.3 L (8.6-10.3) mg/dL Total Bilirubin 0.7 (0.3-1.0) mg/dL AST 13 (13-39) Units/L ALT 7 (7-52) Units/L Alkaline Phosphatase 69 (34-104) Units/L Albumin 3.0 L (3.5-5.7) g/dL All other labs normal. - Imaging CT scan - abdomen: report reviewed, image reviewed CT scan - pelvis: report reviewed, image reviewed (CT shows thickened distal sigmoid and rectum) - Attending Attestation I have personally performed a face to face evaluation on this patient. I have reviewed and agree with the care plan. History and Exam by me shows:
[2017-11-01] MEDS ORDERED: Naloxone 0.4 MG/ML INJ IVP PRN (13:47)
[2017-11-01] MEDS ORDERED: Acetaminophen 325 MG TABLET PO PRN (13:47)
[2017-11-01 14:08] LABS: Adenovirus F 40/41 PCR Not detected (Not detect); Astrovirus PCR Not detected (Not detect); C.difficile Toxin A/B by PCR See reflex test (Not detect); Campylobacter by PCR Not detected (Not detect); Cryptosporidium by PCR Not detected (Not detect); Cyclospora cayetanensis PCR Not detected (Not detect); E. coli O157 by PCR Not detected (Not detect); Entamoeba histolytica PCR Not detected (Not detect); Enteroaggregative E.coli(EAEC) Not detected (Not detect); Enteropathogenic E.coli(EPEC) Not detected (Not detect); Enterotoxigenic E.coli (ETEC) Not detected (Not detect); Giardia lamblia PCR Not detected (Not detect); Norovirus GI/GII PCR Not detected (Not detect); Plesiomonas shigelloides PCR Not detected (Not detect); Rotavirus A PCR Not detected (Not detect); Salmonella PCR Not detected (Not detect); Sapovirus PCR Not detected (Not detect); Shig/EnteroinvasiveE coli EIEC Not detected (Not detect); Shigalike tox-prod E coli STEC Not detected (Not detect); Vibrio PCR Not detected (Not detect); Vibrio cholerae PCR Not detected (Not detect); Yersinia enterocolitica PCR Not detected (Not detect)
--- NOTE | 2017-11-01 14:36 | Internal Med History&Physical ---
<RainemaritzacamilleMaciel saleem - Last Filed: 11/01/17 16:39> Date of Encounter: 11/01/17 Time of Encounter: 12:30 Internal Medicine - H&P: HPI Chief complaint: Nausea/Vomiting/Diarrhea Admitted From: Emergency Dept Plans for Post Hospital Care: Home History of present illness: Ms. Randall is a 82 year old female w/PMH of cancer, cardiomyopathy, CHF, COPD , CAD, HTN, previous myocardial infarction, and pacemaker/AICD presents from the ED w/CC of nausea, vomiting, abdominal pain, and diarrhea intermittently for the past 2-3 weeks. Patient also reports increasing generalized weakness over the past month resulting in changing from cane use to walker use. Pt. also reports reduced appetite and intake for the past 4 months. Pt. denies recent illness, recent abx use, fever, chills, headache, changes in vision, unusual bleeding, chest pain, SOB, constipation, dizziness, lightheadedness, numbness, tingling, pre-syncope, or syncope. Past Med Surg Social Fam HX - Past Medical History Source: patient, old records reviewed Medical history: cancer, cardiomyopathy, CHF, COPD, coronary artery disease, hypertension, myocardial infarction, other Additional medical history: Breast Cancer Psychiatric history: no psych history - Past Surgical History Surgical History: pacemaker/AICD, other Additional surgical history: breast biopsy, stent placement, bladder tuck - Social History Smoking Status: Current every day smoker Smokeless Tobacco Status: No Alcohol use: rarely Drug use: none Current living situation: Home Activity Level: Uses cane/walker Recent Out of Country Travel Within the Last 8 Weeks: No Exposure or Possible Exposure to Illness During Travel: No - Family History Father Adopted: No Race: Family Member Ethnicity: Non- Living Status: Age at : 87 Cause of : Heart failure Hx Family Cardiac Disorders: Yes (HF, CAD, ID) Mother Race: Family Member Ethnicity: Non- Living Status: Age at : 85 Cause of : Unknown Brother Race: Family Member Ethnicity: Non- Living Status: Age at : 54 Cause of : Stomach cancer Hx Family Cancer: Yes (Stomach) Internal Medicine - H&P: Meds Carvedilol [Coreg] 25 mg PO BIDWM #60 tablet 04/21/17 [Rx] Aspirin 81 mg PO DAILY 07/18/17 [History] Isosorbide MONOnitrate (24 HR) [Imdur] 30 mg PO DAILY 08/16/17 [History] Losartan Potassium [Cozaar] 50 mg PO DAILY 08/16/17 [History] Nitroglycerin [Nitrostat] 0.4 mg PO Q5M PRN 08/16/17 [History] Potassium Chloride [K-Tab ER] 20 meq PO DAILY 08/16/17 [History] Menthol [Biofreeze] 118 ml TP BID PRN #1 unit 08/18/17 [Rx] Omeprazole [PriLOSEC] 20 mg PO DAILY #30 cap 08/18/17 [Rx] Furosemide [Lasix] 40 mg PO BID 09/29/17 [History] Methyl Salicylate/Menthol [Bengay] 1 appl TP QID tube 10/03/17 [Rx] Sucralfate [Carafate] 1 gm PO QIDAC #120 tablet 10/03/17 [Rx] 3 Allergy/AdvReac Type Severity Reaction Status Date / Time Penicillins [PCN] Allergy Mild Itching Verified 11/01/17 10:12 Sulfa (Sulfonamide Allergy Mild Hives Verified 11/01/17 14:14 Antibiotics) pheniramine Allergy Unknown UNKNOWN Verified 11/01/17 10:12 PER PATIENT codeine AdvReac Mild "HARD ON Verified 11/01/17 14:14 BOWELS" All Systems PM: A 10-system review of systems was performed and is negative for pertinent findings except as documented above in the HPI. - Constitutional Constitutional: as per HPI, fatigue, weakness, weight loss, no chills, no fever( s), no night sweats - EENT Eyes: no change in vision, no discharge, no pain, no photophobia Ears: no ear discharge, no ear pain, no tinnitus Nose, mouth and throat: no dysphagia, no nasal discharge, no neck pain, no sore throat - Breasts Breasts: as per HPI - Cardiovascular Cardiovascular ROS IM: no chest pain, no diaphoresis, no dyspnea, no lightheadedness, no palpitations, no syncope - Respiratory Respiratory: no cough, no dyspnea, no wheezing, no excessive phlegm production - Gastrointestinal Gastrointestinal: as per HPI, abdominal pain, diarrhea, nausea, vomiting, no hematemesis, no hematochezia, no melena - Genitourinary Genitourinary: no change in urinary stream, no dysuria, no flank pain, no hematuria Menstruation: as per HPI - Musculoskeletal Musculoskeletal ROS IM: no numbness, no tingling - Integumentary Integumentary IM: no rash, no unusual bruising - Neurological Neurological ROS: as per HPI, weakness, no confusion, no convulsions, no focal weakness, no numbness, no tingling, no tremor(s) - Psychiatric Psychiatric: as per HPI - Endocrine Endocrine IM: as per HPI - Hematologic/Lymphatic Hematologic/Lymphatic: no easy bruising - Allergic/Immunologic Allergic/Immunologic: as per HPI - Constitutional Vitals: Temp Pulse Resp BP Pulse Ox 97.5 F L 98 18 123/88 99 11/01/17 10:07 11/01/17 13:00 11/01/17 13:00 11/01/17 13:00 11/01/17 13:00 General appearance: Present: cooperative, A&O X 3, pleasant, no acute distress, underweight, answers questions appropriately - Head Head exam: Present: atraumatic, normocephalic - Eye Eye exam: Present: PERRL, conjuntiva pink, sclera anicteric Pupils: Present: PERRL - ENT ENT exam: Present: normal exam - Neck Neck exam general surgery: Present: normal inspection, supple, trachea midline. Absent: lymphadenopathy - Respiratory Respiratory exam: Present: CTAB. Absent: accessory muscle use, rales, rhonchi, wheezes - Cardiovascular Cardiovascular exam: Present: irregular rhythm - GI/Abdominal GI/Abdominal exam: Present: normal bowel sounds, soft, no peritoneal signs. Absent: distended, tenderness - Rectal Rectal exam: Present: deferred - Additional comments: exam deferred. - Extremities Exam Extremities exam: Present: warm, radial pulses palpable and symmetrical. Absent : calf tenderness, cyanotic, pedal edema - Back Exam Back exam: Present: normal inspection - Neurological Exam Neurological exam: Present: alert, CN II-XII intact, oriented X3, no focal deficits. Absent: pronater drift, facial droop, speech deficit - Psychiatric Psychiatric exam: Present: normal affect, normal mood - Skin Skin exam: Present: dry, intact Internal Med - H&P Results - Labs CBC & Chem 7: 11/01/17 10:20 11/01/17 10:20 - EKG Data Prior EKG available for review: yes Interpretation IM: suggestive of ischemia EKG comments: 11/01/17 14:49 EKG dated 09/29/17 shows sinus rhythm with occasional ventricular premature complexes, OLIVIA, lateral ischemia, and poor R-wave progression. 11/01/17 14:50 EKG dated 11/01/17 shows uncertain irregular rhythm, electronic ventricular pacemaker (see contour analysis based on intrinsic rhythm), septal myocardial infarction of indeterminate age, moderate T-wave abnormality (consider lateral ischemia), and moderate T-wave abnormality (consider inferior ischemia). - Diagnostic Studies Chest x-ray Additional comments: Impressions Chest X-Ray 11/01/17 12:14 IMPRESSION: 1. Cardiomegaly. 2. Calcific atherosclerosis aorta. 3. Chronic interstitial disease. 4. Given history of rib and thoracic back pain, dedicated rib and thoracic spine series may be considered. D/ / Jc Comer / Jc Comer Interpreting Provider: Jc Comer CT scan - abdomen Additional comments: Impressions Abdomen/Pelvis CT 11/01/17 10:30 IMPRESSION: 1. Nonspecific periportal edema can be seen with hepatitis. This can also be reactive. 2. Gallbladder findings suggesting cholelithiasis and acute cholecystitis. 3. Cardiomegaly. 4. Small volume pericardial effusion. 5. Rather extensive calcific atherosclerosis aorta and its branches. 6. Right renal cysts. 7. Trace pelvic ascites is probably reactive. Nonspecific. 8. Portions of the pelvis are obscured by beam hardening artifact related to right hip arthroplasty. D/ / Jc Comer / Jc Comer Interpreting Provider: Jc Comer - Assessment and plan (1) Cholelithiasis Current Visit: Yes Status: Acute Assessment and plan: Acute cholelithiasis. Acute on chronic abdominal pain for the past month. GI recommendation for EGD last admission to r/o PUR, esophagitis, or gastritis ( pt. refused). PPI and Carafate added to home medications. Stool panel negative. CT of abd/pel shows thickened and pericholecystic fluid present, high density in the dependent portion of the gallbladder typical of stones. Bowel appears unremarkable. Periportal edema with trace pelvic ascites probably reactive. Liver function bilirubin unremarkable. WBC normal. Elevated creatinine of 1.3. Surgery consult ordered in ED with surgical recommendation for laparoscopic cholecystectomy for symptomatic cholelithiasis. Continue IV hydration, PPI, Carafate. Pain mgmt. Clear liquid diet to be advanced as tolerated. Pt. discussed w/Dr. Stanley who agrees w/plan of care. Pt. is moderate risk for further morbidity d/t current sx, current reduced intake and dehydration requiring IV fluid hydration, hx, and risk factors. Patient changed from Observation status to Inpatient status per Utilization Review. Qualifiers: Cholelithiasis location: gallbladder Cholecystitis presence: without cholecystitis Biliary obstruction: without biliary obstruction Qualified Code(s): K80.20 - Calculus of gallbladder without cholecystitis without obstruction (2) Cholecystitis Current Visit: Yes Status: Acute Assessment and plan: Acute cholecystitis. Acute on chronic abdominal pain for the past month. GI recommendation for EGD last admission to r/o PUR, esophagitis, or gastritis ( pt. refused). PPI and Carafate added to home medications. Stool panel negative. CT of abd/pel shows thickened and pericholecystic fluid present, high density in the dependent portion of the gallbladder typical of stones. Bowel appears unremarkable. Periportal edema with trace pelvic ascites probably reactive. Liver function bilirubin unremarkable. WBC normal. Elevated creatinine of 1.3. Surgery consult ordered in ED with surgical recommendation for laparoscopic cholecystectomy for symptomatic cholelithiasis. Continue IV hydration, PPI, Carafate. Pain mgmt. Clear liquid diet to be advanced as tolerated. (3) C. difficile diarrhea Current Visit: Yes Status: Acute Assessment and plan: Acute on chronic diarrhea for the past 2-3 weeks. Pt. denies abx use recently. GI panel and C.Diff test ordered in ED w/contact precautions. C. Diff positive so contact precautions continued and PO vancomycin 125 mg oral solution QID ordered. (4) Abdominal pain Current Visit: Yes Status: Acute Assessment and plan: Acute on chronic abdominal pain for the past month. GI recommendation for EGD last admission to r/o PUR, esophagitis, or gastritis (pt. refused). PPI and Carafate added to home medications. Stool panel negative. CT of abd/pel shows thickened and pericholecystic fluid present, high density in the dependent portion of the gallbladder typical of stones. Bowel appears unremarkable. Periportal edema with trace pelvic ascites probably reactive. Liver function bilirubin unremarkable. WBC normal. Elevated creatinine of 1.3. Surgical recommendation for laparoscopic cholecystectomy for symptomatic cholelithiasis. Continue IV hydration, PPI, Carafate. Pain mgmt. Qualifiers: Abdominal location: right upper quadrant Qualified Code(s): R10.11 - Right upper quadrant pain (5) Generalized weakness Current Visit: Yes Status: Acute Assessment and plan: Acute generalized weakness and fatigue for the past 2-3 weeks, most likely d/t dehydration, decreased appetite and oral intake. Nutrition consult for PO supplemention. Falls/safety precautions and up with assist only. PT/OT consults for increased and bilateral LE weakness. (6) Dehydration Current Visit: Yes Status: Acute Assessment and plan: Acute dehydration d/t reduced appetite and oral intake for the past month. 1L 0.9 NS fluid bolus in ED. Will use f/u fluids judiciously d/t CHF hx. Monitor I& O and daily weight. (7) CAD (coronary artery disease) Current Visit: Yes Status: Chronic Assessment and plan: Hx of chronic CAD. Pacemaker/AICD. Continuous cardiac telemetry. Echocardiogram of 08/18/17 shows LVEF of 40-45%, mild segmental left ventricular systolic function, normal right ventricular structure and function, and a device lead was visualized in the right atrium and right ventricle. Qualifiers: Coronary Disease-Associated Artery/Lesion type: [place] artery [place] vs. transplanted heart: [place] heart Associated angina: angina presence unspecified Qualified Code(s): I25.10 - Atherosclerotic heart disease of [place] coronary artery without angina pectoris (8) HARMONY (acute kidney injury) Current Visit: Yes Status: Chronic Assessment and plan: Acute on chronic HARMONY. GFR 39 and creatinine of 1.30, down from 08/18/17. Pt. reports decreased appetite and intake for the past month. Received 1L 0.9 NS fluid bolus in ED. Will use IV fluids judiciously for current dehydration d/t CHF hx. Monitor I&O and daily weight. (9) Anemia Current Visit: Yes Status: Chronic Assessment and plan: Hx of chronic anemia. Hgb currently 11.7 and Hct 35.2. Monitor f/u labs. Qualifiers: Anemia type: other cause Other causes of anemia: acute posthemorrhagic Qualified Code(s): D62 - Acute posthemorrhagic anemia (10) GERD (gastroesophageal reflux disease) Current Visit: Yes Status: Chronic Assessment and plan: Hx of chronic GERD. Continue pts. PO Prilosec. IVP Zofran 4 mg Q6HR PRN for N/ V. Qualifiers: Esophagitis presence: esophagitis presence not specified Qualified Code(s) : K21.9 - Gastro-esophageal reflux disease without esophagitis (11) DVT prophylaxis Current Visit: Yes Status: Acute Assessment and plan: Bilateral SCDs on LEs for DVT prophylaxis. (12) CHF (congestive heart failure) Current Visit: Yes Status: Chronic Assessment and plan: Hx of CHF. Stable. Will use IV fluids judiciously d/t current cholestasis/ cholecystitis and monitor pt. for fluid overload. Echocardiogram of 08/24/17 shows LVEF of 40-45%, mild segmental left ventricular systolic function, normal right ventricular structure and function, and a device lead was visualized in the right atrium and right ventricle. Continuous cardiac telemetry. Qualifiers: Heart failure type: systolic Heart failure chronicity: chronic Qualified Code(s): I50.22 - Chronic systolic (congestive) heart failure - Time Spent With Patient Total time spent is greater than 50% in coordination of care (as documented) at patient's floor/unit and/or counseling patient: Greater than 35 minutes <Daryl Stanley - Last Filed: 11/01/17 19:46> Date of Encounter: 11/01/17 Internal Medicine - H&P: HPI History of present illness: Ms. Randall is a 82 year old female All Systems PM: A 10-system review of systems was performed and is negative for pertinent findings except as documented above in the HPI. - Constitutional Vitals: Temp Pulse Resp BP Pulse Ox 97.4 F L 95 16 106/72 98 11/01/17 16:13 11/01/17 16:13 11/01/17 16:13 11/01/17 16:13 11/01/17 16:13 Internal Med - H&P Results - Labs CBC & Chem 7: 11/01/17 10:20 11/01/17 10:20 - Attending Attestation Discussed with BRIAN and agree with assessment and plan as above Briefly, patient is an 82-year-old female who presented with generalized weakness and diarrhea found to have C. difficile on stool cultures. On general exam patient appears dehydrated but cardiovascular exam revealed regular rate and rhythm Will treat with oral vancomycin and IV fluids - Assessment and plan (1) DVT prophylaxis Current Visit: Yes Status: Acute (2) Generalized weakness Current Visit: Yes Status: Acute (3) Anemia Current Visit: Yes Status: Chronic Qualifiers: Anemia type: other cause Other causes of anemia: acute posthemorrhagic Qualified Code(s): D62 - Acute posthemorrhagic anemia (4) GERD (gastroesophageal reflux disease) Current Visit: Yes Status: Chronic Qualifiers: Esophagitis presence: esophagitis presence not specified Qualified Code(s) : K21.9 - Gastro-esophageal reflux disease without esophagitis (5) Dehydration Current Visit: Yes Status: Acute (6) HARMONY (acute kidney injury) Current Visit: Yes Status: Chronic (7) Cholecystitis Current Visit: Yes Status: Acute (8) Cholelithiasis Current Visit: Yes Status: Acute Qualifiers: Cholelithiasis location: gallbladder Cholecystitis presence: without cholecystitis Biliary obstruction: without biliary obstruction Qualified Code(s): K80.20 - Calculus of gallbladder without cholecystitis without obstruction (9) CAD (coronary artery disease) Current Visit: Yes Status: Chronic Qualifiers: Coronary Disease-Associated Artery/Lesion type: [place] artery [place] vs. transplanted heart: [place] heart Associated angina: angina presence unspecified Qualified Code(s): I25.10 - Atherosclerotic heart disease of [place] coronary artery without angina pectoris (10) Abdominal pain Current Visit: Yes Status: Acute Qualifiers: Abdominal location: right upper quadrant Qualified Code(s): R10.11 - Right upper quadrant pain (11) C. difficile diarrhea Current Visit: Yes Status: Acute (12) CHF (congestive heart failure) Current Visit: Yes Status: Chronic Qualifiers: Heart failure type: systolic Heart failure chronicity: chronic Qualified Code(s): I50.22 - Chronic systolic (congestive) heart failure - Time Spent With Patient Total time spent is greater than 50% in coordination of care (as documented) at patient's floor/unit and/or counseling patient:
[2017-11-01] MEDS ORDERED: MENTHOL TP PRN (14:57)
[2017-11-01 15:10] LABS: Bilirubin,Urine Small (Negative); Blood,Urine Trace-intact (Negative); Clarity,Urine Clear (Clear); Color,Urine Yellow (Yellow); Glucose,Urine (UA) Normal (Normal); Ketones,Urine Negative (Negative); Leukocyte Esterase,Urine Trace (Negative); Nitrite,Urine Negative (Negative); PH,Urine 5.5 pH Units (5.0-8.0); Protein,Urine Trace mg/dL (Neg-Trace); Urobilinogen,Urine Normal (Normal)
[2017-11-01 15:32] LABS: RBC,Urine 0-3 per hpf (0-3); Squamous Epithelial Cell,Urine Many per lpf (None-Few)
[2017-11-01 15:33] LABS: Amorphous Sediment,Urine Few (Few); Bacteria,Urine Few per hpf (None-Few)
[2017-11-01] MEDS: Furosemide 40 MG TABLET PO SCH (16:17)
[2017-11-01] MEDS: Vancomycin Oral Soln 125 MG/2.5 ML UDC PO SCH ×2 (16:18→20:43)
[2017-11-01] MEDS: Sucralfate 1 GM TABLET PO SCH ×2 (16:18→20:43)
[2017-11-01] MEDS: Methyl Salicylate/Menthol 28 GM TUBE TP SCH ×2 (16:21→20:46)
--- NOTE | 2017-11-01 17:06 | Electrocardiograph Report ---
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
[2017-11-01] MEDS: *HR* HYDROcodone/Acet 5/325 mg TABLET PO PRN (20:45)
[2017-11-01] MEDS ORDERED: metroNIDAZOLE 500 MG TABLET PO SCH (21:00)
[2017-11-01] MEDS: Nitroglycerin 0.4 MG TAB.SUBL SL PRN (23:59)
[2017-11-02] MEDS: Nitroglycerin 0.4 MG TAB.SUBL SL PRN (00:07)
[2017-11-02] MEDS ORDERED: *HR* Metoprolol 5 MG/5 ML VIAL IVP ONE ×2 (00:26→00:29)
--- NOTE | 2017-11-02 00:33 | Event Note ---
<Maciel Salas - Last Filed: 11/02/17 01:11> Date of Encounter: 11/02/17 Time of Encounter: 22:28 Alerted by patient's nurse SEGUNDO Santiago that pt. was beginning to have runs of PVCs on telemetry. Cardiology consult ordered and discussed W/Dr. Henderson with recommendation to repeat EKG and monitor pt. overnight. Pt. was resting in bed during PVC episodes. Nurse continued to update me of VS. 23:18 BP 113/76, HR 98. 23:55 nurse alerted me that pt. was now having CP rating it 10/10. Nurse administered SL nitro ordered. I instructed nurse to get stat EKG and troponin. Pt. reporting SOB. Sx during run of PVCs. 23:57 BP 108/80, HR 105, SpO2 98%. 00: 09 BP 113/70, HR 122, SpO2 96% on RA. CP continues to be 10/10. Second SL nitro administered. First EKG same as previous EKGs. Second shows Afib w/RVR. Call placed to Dr. Henderson w/recommedation to administer 5 mg IVP Metoprolol. If pt. reacts well to Metoprolol, then schedule Q4HR 5 mg IVP. If pt. does not respond to metoprolol, then start low-dose heparin drip w/bolus and amiodarone drip W/O BOLUS d/t pts. currently low BP. Awaiting results of stat troponin. Timed troponins ordered. Went to see pt. who was complaining of continued CP that she would not rate but said it had not improved. Reporting some SOB w/sx. Pt. still in Afib w/RVR. Informed pt. that she would be going to ICU for a heparin drip and amiodarone drip. Pt. stated that she was not going to take blood thinners because people on blood thinners. Informed pt. that her risk of dying from an GA was higher than the risk of being placed on heparin drip. Pt. again stated that she did not want blood thinners. I again informed the pt. that her risk of was higher w/o the heparin d/t her current atrial fibrillation, CP rated as 10/10, and PVCs on telemetry. Pt. stated that she would allow the heparin drip. Pts. nurse Santiago witnessed conversation and pts. consent for heparin drip. No change in pts. status post-Metoprolol. Notified Bed Management at 01:00 that pt. needed bed in 2N or ICU for amiodarone drip. Pt. will go to ICU as 2N overflow. Pt. to be monitored closely overnight. Mill Operator Head command and control to be notified of decline in status immediately. <Jewell Tejeda - Last Filed: 11/04/17 06:42> Date of Encounter: 11/02/17
[2017-11-02 00:47] LABS: Basophils % 0.4 %; Eosinophils # 0.1 K/mcL (0.0-0.6); Eosinophils % 1.1 %; Hematocrit 33.7 % (35.3-44.9); Hemoglobin 11.2 g/dL (11.5-15.4); Immature Granulocytes % 0.4 % (0-4); Immature Platelets 2.7 % (1.1-6.1); Lymphocytes # 0.7 K/mcL (0.6-4.6); Lymphocytes % 13.3 %; Mean Corpuscular HGB Conc 33.2 g/dL (31.6-35.5); Mean Corpuscular Hemoglobin 30.4 pg (28.0-33.3); Mean Corpuscular Volume 91.3 fL (83.0-100.0); Mean Platelet Volume 9.2 fL (9.4-12.4); Monocytes # 0.8 K/mcL (0.0-1.3); Monocytes % 14.8 %; Neutrophils # 3.9 K/mcL (1.6-8.9); Platelet Count 208 K/mcL (140-400); Red Blood Count 3.69 M/mcL (3.82-4.97)
[2017-11-02 00:53] LABS: INR 1.3
[2017-11-02] MEDS ORDERED: *HR* Heparin 5,000 UNIT/ML VIAL IVP ONE (01:06)
[2017-11-02] MEDS ORDERED: *HR* Heparin 5,000 UNIT/ML VIAL IVP PRN ×2 (01:06)
[2017-11-02] MEDS ORDERED: Amiodarone Premix 360 MG/200 ML BAG IVC ONE (01:08)
[2017-11-02] MEDS ORDERED: Amiodarone Premix 360 MG/200 ML BAG IVC SCH (01:15)
[2017-11-02] MEDS ORDERED: Heparin 25,000 UNIT/500 ML D5W 25,000 UNIT/500 ML BAG IVC SCH (01:15)
[2017-11-02 01:32] LABS: Albumin/Globulin Ratio 1.4 (1.1-2.2); Bilirubin,Total 0.7 mg/dL (0.3-1.0); Calcium 8.3 mg/dL (8.6-10.3); Chol/HDL Ratio 3.7 (0-4.9); Globulin 2.1 g/dL (2.4-3.5); Magnesium 1.9 mg/dL (1.6-2.6); Potassium 4.3 mEq/L (3.5-5.1); Total Protein 5.1 g/dL (6.4-8.9)
[2017-11-02 01:48] LABS: Thyroid Stimulating Hormone 3.243 mcIU/mL (0.340-5.600)
[2017-11-02] MEDS: Sucralfate 1 GM TABLET PO SCH ×4 (06:36→20:52)
[2017-11-02] MEDS: Furosemide 40 MG TABLET PO SCH ×2 (07:57→13:39)
[2017-11-02] MEDS: Aspirin 81 MG TAB.CHEW PO SCH (08:01)
[2017-11-02] MEDS: Isosorbide MONOnitrate (24 HR) 30 MG TAB.ER.24H PO SCH (08:01)
[2017-11-02] MEDS: Methyl Salicylate/Menthol 28 GM TUBE TP SCH ×4 (08:09→20:53)
--- NOTE | 2017-11-02 08:21 | Event Note ---
Date of Encounter: 11/02/17 Time of Encounter: 08:18 Patient with noted positive C diff and oral vancomycin treatment. She does have cholelithiasis without acute cholecystitis. Her symptoms could certainly be a combination of symptomatic cholelithiasis vs PUD vs C diff the file. Unfortunately if patient is unwilling to discuss the possibility of surgical intervention, there is little that surgery has to offer at this time. Surgery will sign off at this time. Thank you for allowing us to participate and barbarous care. Please reconsult if the need arises.
[2017-11-02] MEDS: Vancomycin Oral Soln 125 MG/2.5 ML UDC PO SCH ×4 (08:49→20:52)
--- NOTE | 2017-11-02 09:38 | Cardiology Consult Note ---
Date of Encounter: 11/02/17 Time of Encounter: 08:30 Assessment and Plan (1) Cholecystitis Current Visit: Yes Status: Acute Per cardiology: -Admitted with abdominal pain. -Cholecystitis noted per CT. -Refuses surgery. -Management per primary service. (2) C. difficile diarrhea Current Visit: Yes Status: Acute Per cardiology: -C.diff stool positive. -Management per primary service. (3) Paroxysmal atrial fibrillation Current Visit: No Status: Chronic Per cardiology: -Known history of PAF. -On BB, coreg 25mg BID in outpatient setting. -[id number] score 6 (age, gender, HTN, vascular disease, CHF). Patient adamantly refuses anticoagulation. Educated and aware of increased risk of CVA/ embolic event. States understanding and refuses anticoagulation. -A.fib RVR noted on ECGs with PVCs. -Was started on heparin drip and amiodarone drip last night. -Telemetry reviewed with average HR previous 12 hours noted to be 92. -Has pacemaker for tachybrady syndrome. -Patient adamantly refuses addition of medicines or change in current medications. -Can consider switching coreg to toprol, if patient would be agreeable. -Will stop amiodarone drip and heparin drip per patient's request. -Consider palliative care consult. Patient does not wish for further intervention or treatments. -Cardiology will sign off. Please re-consult if needed. (4) Systolic congestive heart failure Current Visit: Yes Status: Chronic Per cardiology: -Known chronic systolic CHF. -Last TTE with LVEF 40-45% 07/2017. Previous TTE 04/2017 with LVEF 35-40%. -ON BB, ARB, lasix. -Euvolemic on exam. -Continue current medical therapy. Qualifiers: Heart failure chronicity: chronic Qualified Code(s): I50.22 - Chronic systolic (congestive) heart failure (5) Chest pain Current Visit: No Status: Acute Per cardiology: -Notes reviewed with 02/16 chest pain described. -Patient denies current chest pain, denies chest pain yesterday. -ECGs with a.fib, T wave inversions noted in inferior and lateral leads, somewhat similar to previous. -Troponins negative x2. -Stress 07/2017 negative for ischemia, infarct noted inferior and inferolateral. -Refuses further work up. Qualifiers: Chest pain type: unspecified Qualified Code(s): R07.9 - Chest pain, unspecified Discussion w patient/family: The assessment and plan as outlined above was discussed with the patient who expressed understanding and agreement. All questions were answered. Thank you for involving us in the care of your patient. Please call with any questions. Discussed and reviewed with . History of Present Illness Consult date: 11/01/17 Requesting physician: Maciel Salas Consult reason: ECG changes, a.fib. Chief complaint: abdominal pain, diarrhea. History of present illness: Ms. Randall is a 82 year old female with a relevant past medical history of CAD s/p PCI, ischemic cardiomyopathy, PAF not on anticoagulation due to patient' s refusal, pacemaker for tachy kyle syndrome, HTN, osteoarthritis, HLD, PVD, thyroid disease, carotid endarterectomy who presented to [facility] with complaints of abdominal pain and diarrhea. Patient denies current chest pain and is adamant that she did not have chest pain yesterday either. Patient states breathing is "so, so." States about baseline. Denies palpitations or fluttering. Patient is very upset in room about being started on heparin drip and amiodarone. Patient states she does not want these medications, especially anticoagulation. Patient states she just wants to go home. Does not wish for any further testing or treatments. States she does not want new medications or medications adjustments. Also patient states "If it's my time to , I'm just going to ." Past Med Surg Social Fam HX - Past Medical History Attestation: Yes The following information was validated with the patient. Source: patient, old records reviewed Medical history: atrial fibrillation, cancer, cardiomyopathy, CHF, COPD, coronary artery disease, hyperlipidemia, hypertension, myocardial infarction, other Additional medical history: Breast Cancer Psychiatric history: no psych history - Past Surgical History Surgical History: pacemaker/AICD, other Additional surgical history: breast biopsy, stent placement, bladder tuck - Social History Smoking Status: Current every day smoker Smokeless Tobacco Status: No Alcohol use: rarely Drug use: none - Family History Mother Race: Family Member Ethnicity: Non- Living Status: Age at : 85 Cause of : Unknown Brother Race: Family Member Ethnicity: Non- Living Status: Age at : 54 Cause of : Stomach cancer Hx Family Cancer: Yes (Stomach) Father Adopted: No Race: Family Member Ethnicity: Non- Living Status: Age at : 87 Cause of : Heart failure Hx Family Cardiac Disorders: Yes (HF, CAD, [place]) Medications and Allergies Carvedilol [Coreg] 25 mg PO BIDWM #60 tablet 04/21/17 [Rx] Aspirin 81 mg PO DAILY 07/18/17 [History] Isosorbide MONOnitrate (24 HR) [Imdur] 30 mg PO DAILY 08/16/17 [History] Losartan Potassium [Cozaar] 50 mg PO DAILY 08/16/17 [History] Nitroglycerin [Nitrostat] 0.4 mg PO Q5M PRN 08/16/17 [History] Potassium Chloride [K-Tab ER] 20 meq PO DAILY 08/16/17 [History] Menthol [Biofreeze] 118 ml TP BID PRN #1 unit 08/18/17 [Rx] Omeprazole [PriLOSEC] 20 mg PO DAILY #30 cap 08/18/17 [Rx] Furosemide [Lasix] 40 mg PO BID 09/29/17 [History] Methyl Salicylate/Menthol [Bengay] 1 appl TP QID tube 10/03/17 [Rx] Sucralfate [Carafate] 1 gm PO QIDAC #120 tablet 10/03/17 [Rx] 3 Allergy/AdvReac Type Severity Reaction Status Date / Time Penicillins [PCN] Allergy Mild Itching Verified 11/01/17 10:12 Sulfa (Sulfonamide Allergy Mild Hives Verified 11/01/17 14:14 Antibiotics) pheniramine Allergy Unknown UNKNOWN Verified 11/01/17 10:12 PER PATIENT codeine AdvReac Mild "HARD ON Verified 11/01/17 14:14 BOWELS" All Systems Review: The remainder of the systems were reviewed and are negative - Cardiovascular Cardiovascular: as per HPI - Gastrointestinal Gastrointestinal: abdominal pain, diarrhea Physical Examination Vital Signs, Last 4 Hours Temp Pulse Resp BP 11/02/17 08:34 95.8 F L 11/02/17 08:19 102 12 102/76 General: Conversant, No Apparent Distress HEENT: Atraumatic, Normocephaly, Mucus Membranes Moist Neck: No JVD, Normal carotid pulses Cardiac: Normal S1 and S2, No Murmur, Other (Irregularly irregular. ) Lungs: Normal Breath Sounds, No Wheeze, Rales, Rhonchi Neuro: Alert and responsive, No focal deficits noted Abdomen: Soft, Non-Tender Skin: No rashes noted on visualized skin Musculoskeletal: No Chest Wall Tenderness Extremities: No Clubbing, No Cyanosis, No Edema, Normal Pulses Results 11/02/17 00:32 11/02/17 00:32 Lab Results Impressions Abdomen/Pelvis CT 11/01/17 10:30 IMPRESSION: 1. Nonspecific periportal edema can be seen with hepatitis. This can also be reactive. 2. Gallbladder findings suggesting cholelithiasis and acute cholecystitis. 3. Cardiomegaly. 4. Small volume pericardial effusion. 5. Rather extensive calcific atherosclerosis aorta and its branches. 6. Right renal cysts. 7. Trace pelvic ascites is probably reactive. Nonspecific. 8. Portions of the pelvis are obscured by beam hardening artifact related to right hip arthroplasty. D/ / Jc Comer Interpreting Provider: Jc Comer Chest X-Ray 11/01/17 12:14 IMPRESSION: 1. Cardiomegaly. 2. Calcific atherosclerosis aorta. 3. Chronic interstitial disease. 4. Given history of rib and thoracic back pain, dedicated rib and thoracic spine series may be considered. D/ / Jc Comer / Jc Comer Interpreting Provider: Jc Comer Active Medications Acetaminophen (Tylenol) 650 mg PO Q6HR PRN PRN Reason: Mild Pain/Fever Stop: 05/03/18 13:48 Last Admin: 11/01/17 15:33 Dose: 650 mg Hydrocodone Bitart/Acetaminophen (Ragland 5-325 Mg) 1 tab PO Q6HR PRN PRN Reason: Moderate Pain Stop: 05/03/18 16:05 Last Admin: 11/01/17 20:45 Dose: 1 tab Aspirin (Aspirin) 81 mg PO DAILY DAIMANTE Stop: 05/04/18 09:01 Last Admin: 11/02/17 08:01 Dose: 81 mg Carvedilol (Coreg) 25 mg PO BIDWM DIAMANTE PRN Reason: Protocol Stop: 05/03/18 17:01 Last Admin: 11/02/17 07:58 Dose: 25 mg Furosemide (Lasix) 40 mg PO 0800,1400 DIAMANTE Stop: 05/03/18 16:16 Last Admin: 11/02/17 07:57 Dose: 40 mg Heparin Sodium (Porcine) (Heparin) 2,900 unit 60 unit/kg (2900 unit) IVP Q6HR PRN PRN Reason: SEE COMMENTS Stop: 05/04/18 01:07 Heparin Sodium (Porcine) (Heparin) 1,400 unit 30 unit/kg (1400 unit) IVP Q6H PRN PRN Reason: SEE COMMENTS Stop: 05/04/18 01:07 Sodium Chloride (0.9 % Sodium Chloride) 1,000 mls @ 50 mls/hr IVC .Q20H DIAMANTE Stop: 05/03/18 22:46 Last Admin: 11/01/17 23:28 Dose: 50 mls/hr Heparin Sodium/Dextrose (Heparin 25,000 Unit/500 Ml D5w) 25,000 unit in 500 mls @ 11.409 mls/hr IVC .Q24H DIAMANTE; 12 UNIT/KG/HR PRN Reason: Protocol Stop: 05/04/18 01:16 Last Admin: 11/02/17 02:08 Dose: 12 unit/kg/hr, 11.409 mls/hr Amiodarone HCl/Dextrose (Amiodarone Drip Premix 360mg/200ml) 360 mg in 200 mls @ 16.667 mls/hr IVC CONT DIAMANTE PRN Reason: 0.5 MG/MIN Stop: 05/04/18 01:16 Last Admin: 11/02/17 07:25 Dose: 0.5 mg/min, 16.667 mls/hr Isosorbide Mononitrate (Imdur) 30 mg PO DAILY DIAMANTE Stop: 05/04/18 09:01 Last Admin: 11/02/17 08:01 Dose: 30 mg Losartan Potassium (Cozaar) 50 mg PO DAILY DIAMANTE Stop: 05/04/18 09:01 Last Admin: 11/02/17 08:09 Dose: 50 mg Menthol/Methyl Salicylate (Bengay) 1 appl TP QID DIAMANTE Stop: 05/03/18 17:01 Last Admin: 11/02/17 08:09 Dose: Not Given Naloxone HCl (Narcan) 0.4 mg IVP Q2MIN PRN PRN Reason: SEE COMMENTS Stop: 05/03/18 13:48 Nicotine (Nicoderm) 21 mg TD DAILY DIAMANTE PRN Reason: Protocol Stop: 05/04/18 09:46 Nitroglycerin (Nitroglycerin) 0.4 mg SL Q5M PRN PRN Reason: Chest Pain Stop: 05/03/18 14:58 Last Admin: 11/02/17 00:07 Dose: 0.4 mg Omeprazole (Prilosec) 20 mg PO 0630 DIAMANTE PRN Reason: Protocol Stop: 05/04/18 06:31 Last Admin: 11/02/17 05:10 Dose: Not Given Ondansetron HCl (Zofran) 4 mg IVP Q6HR PRN; Protocol PRN Reason: Nausea And Vomiting Stop: 05/03/18 13:54 Potassium Chloride (Potassium Chloride) 20 meq PO DAILY [facility] Stop: 05/04/18 09:01 Last Admin: 11/02/17 07:58 Dose: 20 meq Sucralfate (Carafate) 1 gm PO QIDAC [facility] Stop: 05/03/18 16:31 Last Admin: 11/02/17 06:36 Dose: 1 gm Vancomycin HCl (Firvanq) 125 mg PO QID [facility] Stop: 05/03/18 15:40 Last Admin: 11/02/17 08:49 Dose: 125 mg Laboratory Tests 11/02/17 11/02/17 11/02/17 00:01 00:32 00:32 Hgb 11.2 L Potassium 4.3 Creatinine 1.22 H Magnesium 1.9 Troponin I 0.03 11/02/17 07:18 Hgb Potassium Creatinine Magnesium Troponin I 0.03 - Imaging and Cardiology Chest Xray: report reviewed Stress Test: report reviewed Echo: report reviewed Cardiac cath: report reviewed - EKG Interpretation EKG results cardiology: personally reviewed (ECG with a.fib RVR, HR 105. PVCs noted. T wave inversions noted in inferior and lateral leads.), other ( Telemetry reviewed with average HR previous 12 hours noted to be 92, a.fib. PVCs noted.) Consult Discharge Plan - Plan Referrals: Tana Delgado DO [Primary Care Provider] -
[2017-11-02] MEDS: Nicotine 21 MG PATCH.TD24 TD SCH (10:55)
[2017-11-02] MEDS: *HR* HYDROcodone/Acet 5/325 mg TABLET PO PRN (13:50)
--- NOTE | 2017-11-02 14:21 | Palliative - Consult Note ---
Date of Encounter: 11/02/17 Time of Encounter: 13:00 - Assessment and Plan (1) Acute exacerbation of CHF (congestive heart failure) Current Visit: No Status: Acute Assessment and plan: Cardiology consulted, patient refused anticoagulant. EF 40-45%. Qualifiers: Heart failure type: systolic Qualified Code(s): I50.23 - Acute on chronic systolic (congestive) heart failure (2) COPD (chronic obstructive pulmonary disease) Current Visit: No Status: Chronic Qualifiers: COPD type: chronic bronchitis Chronic bronchitis type: simple Qualified Code(s): J41.0 - Simple chronic bronchitis (3) Paroxysmal atrial fibrillation Current Visit: Yes Status: Acute Assessment and plan: Cardiology signed off after patient refused all medication regimen considerations for treatment. (4) Cholelithiasis Current Visit: Yes Status: Acute Assessment and plan: Surgery consulted. Patient refuses surgical intervention. Spoke with patient's daughter who reports patient's granddaughter in law has had 13 post surgical return visits due to complications form gall bladder surgery in the last few months and that is why patient will not have surgery. Qualifiers: Cholelithiasis location: gallbladder Cholecystitis presence: without cholecystitis Biliary obstruction: without biliary obstruction Qualified Code(s): K80.20 - Calculus of gallbladder without cholecystitis without obstruction (5) C. difficile diarrhea Current Visit: Yes Status: Acute Assessment and plan: Patient on PO Vancomycin for treatment. Reports some intermittent diarrhea, but has improved. Continue current treatment. (6) Back pain Current Visit: No Status: Acute Assessment and plan: Patient reports back pain 8/10. Describes as a throbbing ache, impacts ADLs and improves with [place]. Patient has received 2 doses of norco in the last 24 hours. Continue [place] PRN. Qualifiers: Back pain location: thoracic back pain Chronicity: acute Back pain laterality: right Qualified Code(s): M54.6 - Pain in thoracic spine (7) Goals of care, counseling/discussion Current Visit: Yes Status: Acute Assessment and plan: Spoke with patient in depth regarding goals of treatment. Patient continues to refuse Surgical intervention for cholelithiasis. Surgery signed off. Patient continues to refuse Cardiology recommendations for anticoagulation. Cardiology signed off. Patient is agreeable to consider rehab placement for assistance to regain strength at discharge. Patient originally desires [facility]; however, after speaking to patient's daughter patient desires [facility] for rehab placement. Per patient's daughter patient had agreed to alf placement and applied for Medicaid prior to this admission as she is unable to care for self at home. Patient does not desire hospice services at this time. Educated on requirements for eligibility and until patient has Medicaid ECF would be private pay if she went Hospice; not financially reasonable at this time. Patient is aware she could be eligible in the future; verbalized understanding. Discussed CODE STATUS and risks of CPR/intubation. Patient has already experienced CPR and is okay with repeating scenario if needed. Desires not to be in a vegatative state. Patient and daughter report that there are MPOA forms completed and daughter will bring in form. Daughter is well aware patient only desires CPR for 20 minutes maximum. Per patient's daughter Medicaid forms have already been completed for patient and awaiting response. Family and patient desire for patient to be discharged to [facility] upon discharge.Continue current treatment plan. Palliative care will continue to follow to monitor progress and assist with finalizing discharge planning needs. (8) Generalized weakness Current Visit: Yes Status: Acute Assessment and plan: Patient reports general weakness since prior to admission. PT/OT consulted, require evaluation for discharge planning. Palliative-CN HPI - Data of Consult Patient: new to practice Consult date: 11/02/17 Requesting Physician: Cynthia Pollack MD Primary Care Provider: Matias Klein - Consult Narrative Palliative Care/Comfort Measures: Palliative care Reason for consult: Refuses aggressive interventions History of present illness: Ms. Randall is a 82 year old female Arrived to [facility] on 11/01/2017 for complaints of abdominal pain and loose stools from SNF. Initial electrocardiogram showing: Uncertain irregular rhythm, electronic ventricular pacemaker, and contour analysis based on intrinsic rhythm. CT of Abdomen and Pelvis without contrast showing: Nonspecific periportal; Gallbladder findings suggesting cholelithiasis and acute cholecystitis; Cardiomegaly; Small volume pericardial effusion; Rather extensive calcific atherosclerosis aorta and its branches; Right renal cysts; Trace pelvic ascites; and Portions of the pelvis are obscured by beam hardening artifact related to right hip arthroplasty. Patient admitted for dehydration and IVF initiated. PMH: cancer, cardiomyopathy , CHF, COPD, CAD, HTN, [place], and pacemaker. Chest x-ray showed: Cardiomegaly; Calcific atherosclerosis aorta; Chronic interstitial disease; and Given history of rib and thoracic back pain, dedicated rib and thoracic spine series may be considered. General Surgery consulted for cholethiasis w/o acute cholecystitis vs. PUD and viral etiology for diarrhea; recommend IVF, PPI and Carafate, supportive care, and patient refused surgical intervention. Patient had multiple episodes of diarrhea over the previous 2 weeks. Patient admitted and medical managed for Cholelithiasis, Cholecystitis, C. difficile diarrhea, abdominal pain, generalized weakness, dehydration, CAD, HARMONY, Anemia, GERD, and CHF. On 11/02/17, patient had episode of PVCs and chest pain. Patient given Metoprolol and heparin drip with amiodarone drip initiated. Surgery signed off as patient refuses surgical intervention. Cardiology consulted for Paroxysmal atrial fibrillation, systolic CHF, and chest pain; patient adamantly refuses additional medications or change in meds, amiodarone drip and heparin drip stopped, palliative care consult recommendation as cardiology signed off. Palliative care consulted for patient refusing aggressive interventions, refuses placement, refusing surgery, and refusing anticoagulation for Atrial Fibrillation with RVR. Patient lying in bed with eyes closed upon arrival for assessment. Patient is alert and oriented times 3. Patient noted to be quite abrasive in discussion of medical care; however, once further discussion took place regarding goal to help her with discharge planning patient became receptive to palliative care involvement. Patient denies nausea/vomiting during assessment; however, reports the nausea does occur every now and then. Patient denies anxiety and reports agitation at health system. Patient reports pain in back as a throbbing ache, rated an 8/10 and needing pain medication. Patient has [place] ordered for pain, has taken two doses in the last 24 hours and reports it is effective. Patient reports daughter helps her make decisions regarding her care. Patient reports increased debility and lack of home support for care at home. PT/OT consults are already placed. CC: Cynthia Pollack MD Past Med Surg Social Fam HX - Past Medical History Medical history: atrial fibrillation, cancer, cardiomyopathy, CHF, COPD, coronary artery disease, hyperlipidemia, hypertension, myocardial infarction, other Additional medical history: Breast Cancer Psychiatric history: no psych history - Past Surgical History Surgical History: pacemaker/AICD, other Additional surgical history: breast biopsy, stent placement, bladder tuck - Social History Smoking Status: Current every day smoker Smokeless Tobacco Status: No Alcohol use: rarely Drug use: none - Family History Mother Race: Family Member Ethnicity: Non- Living Status: Age at : 85 Cause of : Unknown Brother Race: Family Member Ethnicity: Non- Living Status: Age at : 54 Cause of : Stomach cancer Hx Family Cancer: Yes (Stomach) Father Adopted: No Race: Family Member Ethnicity: Non- Living Status: Age at : 87 Cause of : Heart failure Hx Family Cardiac Disorders: Yes (HF, CAD, KS) Medications and Allergies Carvedilol [Coreg] 25 mg PO BIDWM #60 tablet 04/21/17 [Rx] Aspirin 81 mg PO DAILY 07/18/17 [History] Isosorbide MONOnitrate (24 HR) [Imdur] 30 mg PO DAILY 08/16/17 [History] Losartan Potassium [Cozaar] 50 mg PO DAILY 08/16/17 [History] Nitroglycerin [Nitrostat] 0.4 mg PO Q5M PRN 08/16/17 [History] Potassium Chloride [K-Tab ER] 20 meq PO DAILY 08/16/17 [History] Menthol [Biofreeze] 118 ml TP BID PRN #1 unit 08/18/17 [Rx] Omeprazole [PriLOSEC] 20 mg PO DAILY #30 cap 08/18/17 [Rx] Furosemide [Lasix] 40 mg PO BID 09/29/17 [History] Methyl Salicylate/Menthol [Bengay] 1 appl TP QID tube 10/03/17 [Rx] Sucralfate [Carafate] 1 gm PO QIDAC #120 tablet 10/03/17 [Rx] 3 Allergy/AdvReac Type Severity Reaction Status Date / Time Penicillins [PCN] Allergy Mild Itching Verified 11/01/17 10:12 Sulfa (Sulfonamide Allergy Mild Hives Verified 11/01/17 14:14 Antibiotics) pheniramine Allergy Unknown UNKNOWN Verified 11/01/17 10:12 PER PATIENT codeine AdvReac Mild "HARD ON Verified 11/01/17 14:14 BOWELS" - Constitutional Constitutional ROS PAL: decreased appetite, fatigue - Cardiovascular Cardiovascular ROS: chest pain, no pedal edema, no radiating pain - Respiratory Respiratory: dyspnea on exertion - Gastrointestinal Gastrointestinal: change in bowel habits, change in stool character, diarrhea, loose stools - Musculoskeletal Musculoskeletal ROS IM: back pain - Neurological Neurological ROS: confusion - Psychiatric Psychiatric general PM: no anxiety Palliative Care-Exam - Constitutional Vitals: Temp Pulse Resp BP Pulse Ox 98.5 F 81 16 103/70 96 11/02/17 12:24 11/02/17 13:38 11/02/17 13:38 11/02/17 13:38 11/02/17 13:38 General appearance: Present: cooperative (once built report.), mild distress - Head Head Exam: Present: atraumatic, normal inspection - Expanded Head Exam Head exam expanded IM: Absent: raccoon eyes - Eye Eye exam: Present: EOMI, normal appearance, PERRL. Absent: nystagmus, periorbital swelling, periorbital tenderness Pupils: Present: normal accommodation, PERRL - ENT ENT exam: Present: mucous membranes dry - Expanded ENT Exam Mouth Exam: Present: normal external inspection. Absent: drooling - Neck Neck exam: Present: full ROM, normal inspection. Absent: tenderness - Respiratory Respiratory exam: Present: CTAB. Absent: accessory muscle use, decreased breath sounds, tachypnea - Cardiovascular Cardiovascular exam: Present: irregular rhythm - Expanded Cardiovascular Exam Peripheral pulses: 2+: Radial (L), Radial (R), Posterior Tibialis (L), Posterior Tibialis (R), Dorsalis Pedis (L) PM, Dorsalis Pedis (R) PM - GI/Abdominal Exam GI/Abdominal exam: Present: normal bowel sounds, soft. Absent: tenderness - Rectal Rectal exam: Present: deferred - Extremities Exam Extremities exam: Present: normal inspection. Absent: calf tenderness, pedal edema - Neurological Exam Neurological exam: Present: alert, oriented X3, strengths equal and symetr throughout - Expanded Neurological Exam Coma Scale Eye Opening: Spontaneous Coma Scale Motor Response: Obeys Commands Coma Scale Verbal Response: Oriented Coma Scale Total: 15 - Psychiatric Psychiatric exam: Present: agitated, normal affect, normal mood (after report was built) Internal Medicine - CN: Reslt - Labs CBC & Chem 7: 11/02/17 00:32 11/02/17 00:32 Labs: Short CBC 11/02/17 Range/Units 00:32 WBC 5.6 (4.3-11.1) K/mcL Hgb 11.2 L (11.5-15.4) g/dL Hct 33.7 L (35.3-44.9) % Plt Count 208 (140-400) K/mcL Neutrophils # 3.9 (1.6-8.9) K/mcL BMP 11/02/17 00:32 Sodium 130 L Potassium 4.3 Chloride 103 Carbon Dioxide 19 L BUN 26 H Creatinine 1.22 H Glucose 103 Calcium 8.3 L Cardiac Enzymes 11/02/17 11/02/17 11/02/17 Range/Units 00:01 07:18 12:23 Troponin I 0.03 0.03 0.03 (< 0.04) ng/mL Liver Function 11/02/17 Range/Units 00:32 Total Bilirubin 0.7 (0.3-1.0) mg/dL AST 13 (13-39) Units/L ALT 7 (7-52) Units/L Alkaline Phosphatase 69 (34-104) Units/L Albumin 3.0 L (3.5-5.7) g/dL - ABG Interpretation ABG results: PT/INR, D-dimer PT 14.0 Seconds (9.4-12.1) H 11/02/17 00:23 Consult Discharge Plan - Plan Referrals: Taan Delgado DO [Primary Care Provider] - Palliative Quality Palliative Quality: Screen for Code Status: Yes, Screen for Goals of Care: Yes, Screen for Pain: Yes, If Pain Regimen Started, Initiate Bowel Regimen: NA ( diarrhea/cdiff), Screen for Nausea/Vomitting: Yes
--- NOTE | 2017-11-02 14:36 | Internal Med Progress Note ---
Date of Encounter: 11/02/17 Time of Encounter: 08:45 - Assessment and plan (1) Paroxysmal atrial fibrillation Current Visit: Yes Status: Acute Assessment and plan: Patient has history of paroxysmal A. fib, currently developed rapid ventricular response. She was started on IV amiodarone and heparin drips per cardiology recommendations. Heart rate noted to be appropriately controlled today. Cardiology consult appreciated, patient declines anticoagulation due to risks of bleeding despite being explained the risk of CVA; she is currently off IV amiodarone and heparin drip. Continue beta marcelino. Patient has had multiple admissions in the past due to recurrent CHF due to noncompliance. Limited echocardiogram from August 2017 showed mildly reduced EF around 40-45%, mild segmental systolic dysfunction. We will consult palliative care for CODE STATUS and goals of care discussion since patient declines most of our recommendations/treatment regimens. (2) GERD (gastroesophageal reflux disease) Current Visit: Yes Status: Chronic Qualifiers: Esophagitis presence: esophagitis presence not specified Qualified Code(s) : K21.9 - Gastro-esophageal reflux disease without esophagitis (3) C. difficile diarrhea Current Visit: Yes Status: Acute Assessment and plan: Presented with gastroenteritis. Stool GI panel positive for C. difficile toxin. Continue oral vancomycin, diet as tolerated. Probiotics. (4) DVT prophylaxis Current Visit: Yes Status: Acute (5) Generalized weakness Current Visit: Yes Status: Acute Assessment and plan: Due to gastroenteritis, A. fib with RVR. Plan as mentioned above. Physical and occupational therapy evaluation. (6) HARMONY (acute kidney injury) Current Visit: Yes Status: Acute Assessment and plan: Due to dehydration from GI losses. Serum creatinine improving, 1.22 today. Hold losartan. (7) Cholelithiasis Current Visit: Yes Status: Acute Assessment and plan: Patient has subacute history of right upper quadrant abdominal and right shoulder pain, which could be explained by peptic ulcer disease versus symptomatic cholelithiasis. Surgery has been consulted, recommended laparoscopic cholecystectomy, however patient continues to refuse. Continue supportive care and diet as tolerated. Qualifiers: Cholelithiasis location: gallbladder Cholecystitis presence: without cholecystitis Biliary obstruction: without biliary obstruction Qualified Code(s): K80.20 - Calculus of gallbladder without cholecystitis without obstruction (8) CAD (coronary artery disease) Current Visit: Yes Status: Chronic Qualifiers: Coronary Disease-Associated Artery/Lesion type: [place] artery [place] vs. transplanted heart: [place] heart Associated angina: without angina Qualified Code(s): I25.10 - Atherosclerotic heart disease of [place] coronary artery without angina pectoris (9) CHF (congestive heart failure) Current Visit: Yes Status: Chronic Qualifiers: Heart failure type: systolic Heart failure chronicity: chronic Qualified Code(s): I50.22 - Chronic systolic (congestive) heart failure - Time Spent With Patient Total time spent is greater than 50% in coordination of care (as documented) at patient's floor/unit and/or counseling patient: - Subjective Interval history: Reports improvement in vomiting and diarrhea, continues to have nausea and some right upper abdominal pain. Also reports right ankle pain due to recent fall and sprain. Patient continues to be difficult, refuses aggressive treatment, refuses placement, wishes to be discharged home. - Constitutional Vitals: Temp Pulse Resp BP Pulse Ox 98.5 F 81 16 103/70 96 11/02/17 12:24 11/02/17 13:38 11/02/17 13:38 11/02/17 13:38 11/02/17 13:38 General appearance: Present: cooperative, A&O X 2, underweight, answers questions appropriately - Respiratory Respiratory exam: Present: CTAB, rales (bibasal). Absent: accessory muscle use , rhonchi, wheezes - Cardiovascular Cardiovascular exam: Present: irregular rhythm, +S1, +S2. Absent: diastolic murmur, gallop, rubs, systolic murmur - GI/Abdominal GI/Abdominal exam: Present: normal bowel sounds, soft (tenderness in RUQ, no guarding/rigidity), no peritoneal signs. Absent: distended, tenderness - Extremities Exam Extremities exam: Present: full ROM, warm, radial pulses palpable and symmetrical. Absent: calf tenderness, cyanotic, pedal edema - Neurological Exam Neurological exam: Present: CN II-XII intact, oriented X3, no focal deficits. Absent: pronater drift, facial droop, speech deficit Internal Medicine: Result - Labs CBC & Chem 7: 11/02/17 00:32 11/02/17 00:32 Labs: Short CBC 11/02/17 Range/Units 00:32 WBC 5.6 (4.3-11.1) K/mcL Hgb 11.2 L (11.5-15.4) g/dL Hct 33.7 L (35.3-44.9) % Plt Count 208 (140-400) K/mcL Neutrophils # 3.9 (1.6-8.9) K/mcL BMP 11/02/17 00:32 Sodium 130 L Potassium 4.3 Chloride 103 Carbon Dioxide 19 L BUN 26 H Creatinine 1.22 H Glucose 103 Calcium 8.3 L Cardiac Enzymes 11/02/17 11/02/17 11/02/17 Range/Units 00:01 07:18 12:23 Troponin I 0.03 0.03 0.03 (< 0.04) ng/mL Liver Function 11/02/17 Range/Units 00:32 Total Bilirubin 0.7 (0.3-1.0) mg/dL AST 13 (13-39) Units/L ALT 7 (7-52) Units/L Alkaline Phosphatase 69 (34-104) Units/L Albumin 3.0 L (3.5-5.7) g/dL - ABG Interpretation ABG results: PT/INR, D-dimer PT 14.0 Seconds (9.4-12.1) H 11/02/17 00:23 Consult Discharge Plan - Plan Referrals: Tana Delgado DO [Primary Care Provider] -
--- NOTE | 2017-11-02 16:18 | Electrocardiograph Report ---
[address] [place], [place] [address] Test Date: 2017-11-01 Pat Name: Julissa Randall Department: 115 Room: 3A21 Gender: F [place]: [id number] : 1935 Requested By: [id number] Order Number: [id number] Reading MD: Candice Henderson Measurements Intervals [place] Rate: 106 P: CA: 0 QRS: 50 QRSD: 111 T: 269 QT: 346 QTc: 408 Interpretive Statements ELECTRONIC VENTRICULAR PACEMAKER PROBABLY UNDERLYING ATRIAL FIBRILLATION MODERATE T-WAVE ABNORMALITY, CONSIDER LATERAL ISCHEMIA MODERATE T-WAVE ABNORMALITY, CONSIDER INFERIOR ISCHEMIA Electronically Signed On 11-02-2017 16:16:49 EDT by Candice Henderson
--- NOTE | 2017-11-02 16:19 | Electrocardiograph Report ---
[address] [place] [address] Test Date: 2017-11-02 Pat Name: Julissa Randall Department: 115 Room: 3A21 Gender: F Visual Educator: [id number] : 1935 Requested By: [id number] Order Number: [id number] Reading MD: Candice Henderson Measurements Intervals [place] Rate: 118 P: DC: 0 QRS: 69 QRSD: 112 T: 270 QT: 323 QTc: 393 Interpretive Statements ELECTRONIC VENTRICULAR PACEMAKER PROBABLE UNDERLYING ATRIAL FIBRILLATION SEPTAL MYOCARDIAL INFARCTION, OF INDETERMINATE AGE MODERATE T-WAVE ABNORMALITY, CONSIDER LATERAL ISCHEMIA MODERATE T-WAVE ABNORMALITY, CONSIDER INFERIOR ISCHEMIA Electronically Signed On 11-02-2017 16:17:49 EDT by Candice Henderson
[2017-11-02] MEDS: Lactobacillus 1 EACH CAP.SPRINK PO SCH (20:51)
[2017-11-03] MEDS: *HR* HYDROcodone/Acet 5/325 mg TABLET PO PRN ×3 (03:51→21:44)
[2017-11-03 06:16] LABS: Basophils % 0.4 %; Eosinophils # 0.1 K/mcL (0.0-0.6); Eosinophils % 1.8 %; Hematocrit 34.8 % (35.3-44.9); Hemoglobin 11.2 g/dL (11.5-15.4); Immature Granulocytes % 0.7 % (0-4); Lymphocytes # 0.5 K/mcL (0.6-4.6); Lymphocytes % 9.9 %; Mean Corpuscular HGB Conc 32.2 g/dL (31.6-35.5); Mean Corpuscular Hemoglobin 29.2 pg (28.0-33.3); Mean Corpuscular Volume 90.6 fL (83.0-100.0); Mean Platelet Volume 9.7 fL (9.4-12.4); Monocytes # 0.7 K/mcL (0.0-1.3); Monocytes % 12.8 %; Neutrophils # 4.1 K/mcL (1.6-8.9); Platelet Count 194 K/mcL (140-400); Red Blood Count 3.84 M/mcL (3.82-4.97); Red Cell Distribution Width 15.2 % (11.5-14.5); Segmented Neutrophils % 74.4 %
[2017-11-03 06:31] LABS: Albumin/Globulin Ratio 1.4 (1.1-2.2); Bilirubin,Total 0.6 mg/dL (0.3-1.0); Calcium 8.7 mg/dL (8.6-10.3); Globulin 2.2 g/dL (2.4-3.5); Potassium 4.9 mEq/L (3.5-5.1); Total Protein 5.2 g/dL (6.4-8.9)
[2017-11-03] MEDS: Isosorbide MONOnitrate (24 HR) 30 MG TAB.ER.24H PO SCH (09:25)
[2017-11-03] MEDS: Vancomycin Oral Soln 125 MG/2.5 ML UDC PO SCH ×4 (09:25→21:03)
[2017-11-03] MEDS: Sucralfate 1 GM TABLET PO SCH ×4 (09:25→21:00)
[2017-11-03] MEDS: Aspirin 81 MG TAB.CHEW PO SCH (09:26)
[2017-11-03] MEDS: Nicotine 21 MG PATCH.TD24 TD SCH (09:26)
[2017-11-03] MEDS: Lactobacillus 1 EACH CAP.SPRINK PO SCH ×2 (09:26→21:00)
[2017-11-03] MEDS: Methyl Salicylate/Menthol 28 GM TUBE TP SCH ×4 (09:29→21:15)
--- NOTE | 2017-11-03 10:02 | Palliative Progress Note ---
Date of Encounter: 11/03/17 Time of Encounter: 09:30 - Assessment and plan (1) Acute exacerbation of CHF (congestive heart failure) Current Visit: No Status: Acute Qualifiers: Heart failure type: systolic Qualified Code(s): I50.23 - Acute on chronic systolic (congestive) heart failure (2) COPD (chronic obstructive pulmonary disease) Current Visit: No Status: Chronic Assessment and plan: Continue oxygen therapy. Oxygen saturation 97%. Qualifiers: COPD type: chronic bronchitis Chronic bronchitis type: simple Qualified Code(s): J41.0 - Simple chronic bronchitis (3) Paroxysmal atrial fibrillation Current Visit: Yes Status: Acute Assessment and plan: Patient continues to have irregular heart beat. Patient taking Imdur. Patient continues to refuse Lasix and Lopressor. Patient able to verbalize risks of refusing medication. Daughter made aware of situation yesterday afternoon and acknowledges understanding of situation as she reports patient "can be very difficult to manage." (4) Cholelithiasis Current Visit: Yes Status: Acute Assessment and plan: Patient continues to refuse surgical intervention. Desires medical management. Qualifiers: Cholelithiasis location: gallbladder Cholecystitis presence: without cholecystitis Biliary obstruction: without biliary obstruction Qualified Code(s): K80.20 - Calculus of gallbladder without cholecystitis without obstruction (5) C. difficile diarrhea Current Visit: Yes Status: Acute Assessment and plan: Continue oral vancomycin. (6) Back pain Current Visit: No Status: Acute Assessment and plan: Patient denies pain during assessment. Patient has received 3 Mccoy in the last 24 hours. Continue Mccoy PRN. Qualifiers: Back pain location: thoracic back pain Chronicity: acute Back pain laterality: right Qualified Code(s): M54.6 - Pain in thoracic spine (7) Goals of care, counseling/discussion Current Visit: Yes Status: Acute Assessment and plan: Patient and family desire patient to be discharged to [facility] for rehab. Family has already completed Medicaid paperwork so if patient decides not to perform therapy will stay at [facility]. Family reports unable to care for her at home. Family verbalized understanding of patient's desire to forgoing anticoagulants and cholecystectomy and risks. MPOA previously completed, requested daughter to bring copy when visiting. Patient and family in agreement with goals of care. In regards to CODE STATUS, MPOA has been made very clear that patient desires to have compressions and is ok with short term intubation and CPR to only last 20 minutes. 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 MPOA explained she has tried to explain risks to patient and lack of understanding when won't agree to cardiac intervention and MPOA explains patient "wants what she wants and I have to follow it; I can't force her to do something against her wishes." Palliative will continue to follow at a distance and assist with discharge planning arrangements. (8) Generalized weakness Current Visit: Yes Status: Acute - Time Spent With Patient Total time spent is greater than 50% in coordination of care (as documented) at patient's floor/unit and/or counseling patient: - Subjective Interval history: Arrived at patient's bedside for assessment. Patient's nurse present, patient in jovial mood this morning. Patient is alert and oriented times 3. Denies pain , anxiety, nausea, vomiting, or shortness of breath during assessment. Patient has received 3 doses of Mccoy in the last 24 hours. WBC improved. VSS. Patient reports being ready for therapy at the end of assessment. - Constitutional Vitals: Abnormal lab results Hgb 11.2 g/dL (11.5-15.4) L 11/03/17 05:45 Hct 34.8 % (35.3-44.9) L 11/03/17 05:45 RDW 15.2 % (11.5-14.5) H 11/03/17 05:45 Lymphocytes # 0.5 K/mcL (0.6-4.6) L 11/03/17 05:45 PT 14.0 Seconds (9.4-12.1) H 11/02/17 00:23 APTT 50.2 Seconds (26.0-36.0) H 11/02/17 07:18 Sodium 127 mEq/L (136-145) L 11/03/17 05:45 Carbon Dioxide 17 mEq/L (23-29) L 11/03/17 05:45 BUN 26 mg/dL (8-23) H 11/03/17 05:45 Est GFR ( Amer) 53 (> 60) L 11/03/17 05:45 Est GFR (Non-Af Amer) 44 (> 60) L 11/03/17 05:45 Calculated Osmolality 269 (280-300) L 11/03/17 05:45 Serum Total Protein 5.2 g/dL (6.4-8.9) L 11/03/17 05:45 Albumin 3.0 g/dL (3.5-5.7) L 11/03/17 05:45 Globulin 2.2 g/dL (2.4-3.5) L 11/03/17 05:45 Ur Specimen Adequacy See below A 11/01/17 14:55 Urine Blood Trace-intact (Negative) H 11/01/17 14:55 Urine Bilirubin Small (Negative) H 11/01/17 14:55 Ur Leukocyte Esterase Trace (Negative) H 11/01/17 14:55 Urine Microscopic WBC 3-5 per hpf (0-3) H 11/01/17 14:55 Ur Squamous Epith Cells Many per lpf (None-Few) H 11/01/17 14:55 Ur Culture Indicated? NO. (NO) A 11/01/17 14:55 Stl C. diff Tox A/B PCR See reflex test (Not detect) A 11/01/17 12:27 General appearance: Present: cooperative, no acute distress - Head Head exam: Present: atraumatic, normal inspection - Eye Eye exam: Present: EOMI, PERRL. Absent: periorbital swelling, periorbital tenderness Pupils: Present: normal accommodation, PERRL - ENT ENT exam: Present: mucous membranes moist, normal external ear exam - Neck Neck exam: Present: full ROM, normal inspection - Respiratory Respiratory exam: Present: CTAB. Absent: accessory muscle use, respiratory distress - Cardiovascular Cardiovascular exam: Present: irregular rhythm - GI/Abdominal GI/Abdominal exam: Present: normal bowel sounds, soft. Absent: tenderness - Rectal Rectal exam: Present: deferred - Extremities Exam Extremities exam: Present: full ROM, normal inspection. Absent: pedal edema - Back Exam Back exam: Present: full ROM - Neurological Exam Neurological exam: Present: alert, oriented X3, strengths equal and symetr throughout. Absent: altered - Psychiatric Psychiatric exam: Present: normal affect, normal mood. Absent: agitated, anxious - Skin Skin exam: Present: intact Palliative Quality Palliative Quality: Screen for Code Status: Yes, Screen for Goals of Care: Yes, Screen for Pain: Yes, If Pain Regimen Started, Initiate Bowel Regimen: NA ( diarrhea/cdiff), Screen for Nausea/Vomitting: Yes - Labs CBC & Chem 7: 11/03/17 05:45 11/03/17 05:45 Labs: Laboratory Results - last 24 hr 11/02/17 11/03/17 11/03/17 12:23 05:45 05:45 WBC 5.5 RBC 3.84 Hgb 11.2 L Hct 34.8 L MCV 90.6 MCH 29.2 MCHC 32.2 RDW 15.2 H Plt Count 194 MPV 9.7 Immature Gran % 0.7 Seg Neutrophils % 74.4 Lymphocytes % 9.9 Monocytes % 12.8 Eosinophils % 1.8 Basophils % 0.4 Neutrophils # 4.1 Lymphocytes # 0.5 L Monocytes # 0.7 Eosinophils # 0.1 Basophils # 0.0 Sodium 127 L Potassium 4.9 Chloride 102 Carbon Dioxide 17 L BUN 26 H Creatinine 1.19 Est GFR ( Amer) 53 L Est GFR (Non-Af Amer) 44 L BUN/Creatinine Ratio 22 Glucose 102 Calculated Osmolality 269 L Calcium 8.7 Total Bilirubin 0.6 AST 14 ALT 7 Alkaline Phosphatase 75 Troponin I 0.03 Serum Total Protein 5.2 L Albumin 3.0 L Globulin 2.2 L Albumin/Globulin Ratio 1.4 - ABG Interpretation ABG results: PT/INR, D-dimer PT 14.0 Seconds (9.4-12.1) H 11/02/17 00:23 Consult Discharge Plan - Plan Referrals: Tana Delgado DO [Primary Care Provider] -
[2017-11-03] MEDS: Furosemide 40 MG TABLET PO SCH (10:59)
--- NOTE | 2017-11-03 15:56 | Internal Med Progress Note ---
Date of Encounter: 11/03/17 Time of Encounter: 11:00 - Assessment and plan (1) Paroxysmal atrial fibrillation Current Visit: Yes Status: Acute Assessment and plan: Currently rate controlled. Off IV Amiodarone and heparin drips. Continues to refuse anticoagulation due to risks of bleeding. Changed to Coreg to metoprolol due to low blood pressure and for better HR control, however patient refuses; Cardiology signed off. Patient has had multiple admissions in the past due to recurrent CHF due to noncompliance. Limited echocardiogram from August 2017 showed mildly reduced EF around 40-45%, mild segmental systolic dysfunction. Palliative care consult noted-patient wishes to remain full code at this time. Daughter, who is her medical power of environmental remediation engineer, aware of the current plan and situation. financial services consultant on board, working on placement. (2) GERD (gastroesophageal reflux disease) Current Visit: Yes Status: Chronic Qualifiers: Esophagitis presence: esophagitis presence not specified Qualified Code(s) : K21.9 - Gastro-esophageal reflux disease without esophagitis (3) C. difficile diarrhea Current Visit: Yes Status: Acute Assessment and plan: Presented with gastroenteritis. Stool GI panel positive for C. difficile toxin. Continue oral vancomycin, diet as tolerated. Probiotics. (4) DVT prophylaxis Current Visit: Yes Status: Acute (5) Generalized weakness Current Visit: Yes Status: Acute Assessment and plan: Due to gastroenteritis, A. fib with RVR. Plan as mentioned above. Improving. Physical and occupational therapy evaluation Noted, recommend ECF placement. (6) HARMONY (acute kidney injury) Current Visit: Yes Status: Acute Assessment and plan: Due to dehydration from GI losses. Serum creatinine improving, 1.19 today. Hold Lasix and losartan. (7) Cholelithiasis Current Visit: Yes Status: Acute Assessment and plan: Patient has subacute history of right upper quadrant abdominal and right shoulder pain, which could be explained by peptic ulcer disease versus symptomatic cholelithiasis. Surgery has been consulted, recommended laparoscopic cholecystectomy, however patient declined surgery. Continue supportive care and diet as tolerated. Qualifiers: Cholelithiasis location: gallbladder Cholecystitis presence: without cholecystitis Biliary obstruction: without biliary obstruction Qualified Code(s): K80.20 - Calculus of gallbladder without cholecystitis without obstruction (8) CAD (coronary artery disease) Current Visit: Yes Status: Chronic Qualifiers: Coronary Disease-Associated Artery/Lesion type: [place] artery [place] vs. transplanted heart: [place] heart Associated angina: without angina Qualified Code(s): I25.10 - Atherosclerotic heart disease of [place] coronary artery without angina pectoris (9) CHF (congestive heart failure) Current Visit: Yes Status: Chronic Qualifiers: Heart failure type: systolic Heart failure chronicity: chronic Qualified Code(s): I50.22 - Chronic systolic (congestive) heart failure (10) Metabolic acidosis Current Visit: Yes Status: Acute Assessment and plan: Non-anion gap metabolic acidosis, likely due to diarrhea. Continue to monitor at this time. (11) Hyponatremia Current Visit: Yes Status: Acute Assessment and plan: Serum sodium 127 today. Likely due to use of diuretics and diarrhea. Hold Lasix, continue to monitor closely. - Time Spent With Patient Total time spent is greater than 50% in coordination of care (as documented) at patient's floor/unit and/or counseling patient: - Subjective Interval history: Patient continues to be extremely irritable, reports that this hospital keeps adding to her medication regimen without taking care of her acute issues; improving diarrhea; reports pain in both her hands and feet, which is chronic; no chest pain, shortness of breath, palpitations; awaiting rehab placement; - Constitutional Vitals: Temp Pulse Resp BP Pulse Ox 98.4 F 74 18 115/66 100 11/03/17 14:43 11/03/17 14:43 11/03/17 14:43 11/03/17 14:43 11/03/17 14:43 General appearance: Present: A&O X 2, answers questions appropriately - Respiratory Respiratory exam: Present: CTAB. Absent: accessory muscle use, rales, rhonchi, wheezes - Cardiovascular Cardiovascular exam: Present: irregular rhythm, +S1, +S2. Absent: diastolic murmur, gallop, rubs, systolic murmur - GI/Abdominal GI/Abdominal exam: Present: normal bowel sounds, soft, no peritoneal signs. Absent: distended, tenderness Internal Medicine: Result - Labs CBC & Chem 7: 11/03/17 05:45 11/03/17 05:45 Labs: Short CBC 11/03/17 Range/Units 05:45 WBC 5.5 (4.3-11.1) K/mcL Hgb 11.2 L (11.5-15.4) g/dL Hct 34.8 L (35.3-44.9) % Plt Count 194 (140-400) K/mcL Neutrophils # 4.1 (1.6-8.9) K/mcL BMP 11/03/17 05:45 Sodium 127 L Potassium 4.9 Chloride 102 Carbon Dioxide 17 L BUN 26 H Creatinine 1.19 Glucose 102 Calcium 8.7 Liver Function 11/03/17 Range/Units 05:45 Total Bilirubin 0.6 (0.3-1.0) mg/dL AST 14 (13-39) Units/L ALT 7 (7-52) Units/L Alkaline Phosphatase 75 (34-104) Units/L Albumin 3.0 L (3.5-5.7) g/dL - ABG Interpretation ABG results: PT/INR, D-dimer PT 14.0 Seconds (9.4-12.1) H 11/02/17 00:23 Consult Discharge Plan - Plan Referrals: Tana Delgado DO [Primary Care Provider] -
[2017-11-03] MEDS ORDERED: *HR* Metoprolol 5 MG/5 ML VIAL IVP ONE ×2 (18:33→18:34)
[2017-11-03] MEDS ORDERED: 0.9 % Sodium Chloride 1,000 ML IVC SCH (21:45)
[2017-11-03] MEDS ORDERED: *HR* LORazepam 0.5 MG TABLET PO ONE (22:23)
[2017-11-03] MEDS: Ondansetron 4 MG/2 ML VIAL IVP PRN (22:32)
--- NOTE | 2017-11-03 22:48 | Event Note ---
Date of Encounter: 11/03/17 Time of Encounter: 22:46 Patient heart rate in the 130-140's tonight. 12 lead ekg showed a-flutter/ tachycardia with rvr, rate 137. Trop and cardizem drip at this time. The patient also c/o shoulder pain, which she could not tell me if it could be cardiac pain. Trop was 0.03. Cardizem drip started and effective.
[2017-11-04 05:54] LABS: Basophils % 0.2 %; Hematocrit 34.5 % (35.3-44.9); Hemoglobin 11.3 g/dL (11.5-15.4); Immature Granulocytes % 0.9 % (0-4); Lymphocytes # 0.5 K/mcL (0.6-4.6); Lymphocytes % 7.5 %; Mean Corpuscular HGB Conc 32.8 g/dL (31.6-35.5); Mean Corpuscular Hemoglobin 29.4 pg (28.0-33.3); Mean Corpuscular Volume 89.6 fL (83.0-100.0); Mean Platelet Volume 9.7 fL (9.4-12.4); Monocytes # 0.6 K/mcL (0.0-1.3); Monocytes % 9.1 %; Neutrophils # 5.2 K/mcL (1.6-8.9); Platelet Count 196 K/mcL (140-400); Red Blood Count 3.85 M/mcL (3.82-4.97); Red Cell Distribution Width 15.3 % (11.5-14.5); Segmented Neutrophils % 82.3 %
[2017-11-04 06:16] LABS: Albumin 3.1 g/dL (3.5-5.7); Albumin/Globulin Ratio 1.3 (1.1-2.2); Bilirubin,Total 0.8 mg/dL (0.3-1.0); Calcium 8.3 mg/dL (8.6-10.3); Globulin 2.3 g/dL (2.4-3.5); Magnesium 1.9 mg/dL (1.6-2.6); Potassium 5.8 mEq/L (3.5-5.1); Total Protein 5.4 g/dL (6.4-8.9)
[2017-11-04] MEDS: Aspirin 81 MG TAB.CHEW PO SCH (09:24)
[2017-11-04] MEDS: Sucralfate 1 GM TABLET PO SCH ×4 (09:24→21:46)
[2017-11-04] MEDS: Vancomycin Oral Soln 125 MG/2.5 ML UDC PO SCH ×4 (09:24→21:46)
[2017-11-04] MEDS: Lactobacillus 1 EACH CAP.SPRINK PO SCH ×2 (09:24→21:46)
[2017-11-04] MEDS: Isosorbide MONOnitrate (24 HR) 30 MG TAB.ER.24H PO SCH (09:24)
[2017-11-04] MEDS: Methyl Salicylate/Menthol 28 GM TUBE TP SCH ×4 (09:26→21:47)
[2017-11-04] MEDS: Nicotine 21 MG PATCH.TD24 TD SCH (09:26)
[2017-11-04] MEDS ORDERED: Sodium Bicarbonate 75 MEQ in 0.45 % Sodium Chloride 1,000 ML IVC SCH (12:45)
--- NOTE | 2017-11-04 15:59 | Internal Med Progress Note ---
Date of Encounter: 11/04/17 Time of Encounter: 11:30 - Assessment and plan (1) Paroxysmal atrial fibrillation Current Visit: Yes Status: Acute Assessment and plan: Currently rate controlled. But noted to have episodes of RVR towards evening. She refused oral metoprolol yesterday, had to be started on IV Cardizem drip overnight. Heart rate is currently well controlled with low normal blood pressure. We will discontinue IV Cardizem drip, reinforced the importance of metoprolol and patient is agreeable to taking it today. Continues to refuse anticoagulation due to risks of bleeding. Cardiology signed off. Patient has had multiple admissions in the past due to recurrent CHF due to noncompliance. Limited echocardiogram from August 2017 showed mildly reduced EF around 40-45%, mild segmental systolic dysfunction. Palliative care consult noted-patient wishes to remain full code at this time. Daughter, who is her medical power of granite installer, aware of the current plan and situation. dining services director on board, working on placement. (2) GERD (gastroesophageal reflux disease) Current Visit: Yes Status: Chronic Qualifiers: Esophagitis presence: esophagitis presence not specified Qualified Code(s) : K21.9 - Gastro-esophageal reflux disease without esophagitis (3) C. difficile diarrhea Current Visit: Yes Status: Acute Assessment and plan: Presented with gastroenteritis. Stool GI panel positive for C. difficile toxin. Continue oral vancomycin, diet as tolerated. Probiotics. (4) DVT prophylaxis Current Visit: Yes Status: Acute (5) Generalized weakness Current Visit: Yes Status: Acute Assessment and plan: Due to gastroenteritis, A. fib with RVR. Plan as mentioned above. Improving. Physical and occupational therapy evaluation Noted, recommend ECF placement. (6) HARMONY (acute kidney injury) Current Visit: Yes Status: Acute Assessment and plan: Due to dehydration from GI losses. Serum creatinine slightly worse, 1.25 today. Hold Lasix and losartan. Continues to have hyperkalemia and despite holding losartan and potassium supplements. We will give a dose of oral Kayexalate. Started on IV hydration with bicarbonate drip, as mentioned below. (7) Cholelithiasis Current Visit: Yes Status: Acute Assessment and plan: Patient has subacute history of right upper quadrant abdominal and right shoulder pain, which could be explained by peptic ulcer disease versus symptomatic cholelithiasis. Surgery has been consulted, recommended laparoscopic cholecystectomy, however patient declined surgery. Continue supportive care and diet as tolerated. Patient reports abdominal pain today and states she has been in a lot of discomfort and agony due to the pain, abdomen seems to be nontender at this time. Qualifiers: Cholelithiasis location: gallbladder Cholecystitis presence: without cholecystitis Biliary obstruction: without biliary obstruction Qualified Code(s): K80.20 - Calculus of gallbladder without cholecystitis without obstruction (8) CAD (coronary artery disease) Current Visit: Yes Status: Chronic Qualifiers: Coronary Disease-Associated Artery/Lesion type: [place] artery [place] vs. transplanted heart: [place] heart Associated angina: without angina Qualified Code(s): I25.10 - Atherosclerotic heart disease of [place] coronary artery without angina pectoris (9) CHF (congestive heart failure) Current Visit: Yes Status: Chronic Qualifiers: Heart failure type: systolic Heart failure chronicity: chronic Qualified Code(s): I50.22 - Chronic systolic (congestive) heart failure (10) Metabolic acidosis Current Visit: Yes Status: Acute Assessment and plan: Non-anion gap metabolic acidosis, likely due to diarrhea. Continues to get worse, serum bicarbonate of 16 and serum sodium at 122. We will start bicarbonate drip with half normal saline. (11) Hyponatremia Current Visit: Yes Status: Acute Assessment and plan: Serum sodium 127 today. Likely due to use of diuretics and diarrhea. Hold Lasix, started on IV fluids as above; - Time Spent With Patient Total time spent is greater than 50% in coordination of care (as documented) at patient's floor/unit and/or counseling patient: - Subjective Interval history: Patient continues to be extremely irritable, reports that this hospital keeps adding to her medication regimen without taking care of her acute issues; goes around in circles when asked any question; reports abdominal pain today; had uncontrolled heart rate and started on IV Cardizem drip overnight; improving diarrhea; reports pain in both her hands and feet, which is chronic; no chest pain, shortness of breath, palpitations; - Constitutional Vitals: Temp Pulse Resp BP Pulse Ox 97.5 F L 78 18 109/64 99 11/04/17 14:28 11/04/17 14:28 11/04/17 14:28 11/04/17 14:28 11/04/17 14:28 General appearance: Present: A&O X 2, answers questions appropriately - Respiratory Respiratory exam: Present: CTAB. Absent: accessory muscle use, rales, rhonchi, wheezes - Cardiovascular Cardiovascular exam: Present: irregular rhythm, +S1, +S2. Absent: diastolic murmur, gallop, rubs, systolic murmur - GI/Abdominal GI/Abdominal exam: Present: normal bowel sounds, soft, no peritoneal signs. Absent: distended, tenderness - Extremities Exam Extremities exam: Present: full ROM, warm, radial pulses palpable and symmetrical. Absent: calf tenderness, cyanotic, pedal edema Internal Medicine: Result - Labs CBC & Chem 7: 11/04/17 05:34 11/04/17 05:34 Labs: Short CBC 11/04/17 Range/Units 05:34 WBC 6.4 (4.3-11.1) K/mcL Hgb 11.3 L (11.5-15.4) g/dL Hct 34.5 L (35.3-44.9) % Plt Count 196 (140-400) K/mcL Neutrophils # 5.2 (1.6-8.9) K/mcL BMP 11/04/17 05:34 Sodium 122 L Potassium 5.8 H Chloride 100 Carbon Dioxide 16 L BUN 29 H Creatinine 1.25 H Glucose 134 H Calcium 8.3 L Cardiac Enzymes 11/03/17 Range/Units 21:40 Troponin I 0.03 (< 0.04) ng/mL Liver Function 11/04/17 Range/Units 05:34 Total Bilirubin 0.8 (0.3-1.0) mg/dL AST 15 (13-39) Units/L ALT 9 (7-52) Units/L Alkaline Phosphatase 84 (34-104) Units/L Albumin 3.1 L (3.5-5.7) g/dL - ABG Interpretation ABG results: PT/INR, D-dimer PT 14.0 Seconds (9.4-12.1) H 11/02/17 00:23 Consult Discharge Plan - Plan Referrals: Tana Delgado DO [Primary Care Provider] -
--- NOTE | 2017-11-04 16:37 | Electrocardiograph Report ---
[place] [address] Test Date: 2017-11-04 Pat Name: Julissa Randall Department: 115 Room: 3A21 Gender: F Vascular Tech: KANIKA : 1935 Requested By: Wendie Pollack Order Number: [id number] Reading MD: Candice Henderson Measurements Intervals [place] Rate: 79 P: 85 MD: 192 QRS: 69 QRSD: 118 T: -78 QT: 399 QTc: 434 Interpretive Statements VENTRICULAR PACING UNDERLYING RHYTHM INTERPRETATION LIMITED BY ARTIFACT INTRAVENTRICULAR CONDUCTION DELAY Electronically Signed On 11-04-2017 16:35:45 EDT by Candice Henderson
--- NOTE | 2017-11-04 16:40 | Electrocardiograph Report ---
[address] [place], [place] [address] Test Date: 2017-11-03 Pat Name: Julissa Randall Department: 115 Room: 3A21 Gender: F Process Design Engineer: TARI : 1935 Requested By: Mell Xavier Order Number: [id number] Reading MD: Candice Henderson Measurements Intervals [place] Rate: 137 P: [place]: 0 QRS: 89 QRSD: 114 T: -72 QT: 279 QTc: 359 Interpretive Statements ATRIAL FLUTTER/TACHYCARDIA WITH RAPID VENTRICULAR RESPONSE LOW QRS VOLTAGE IN EXTREMITY LEADS POSSIBLE ANTERIOR MYOCARDIAL INFARCTION, OF INDETERMINATE AGE Electronically Signed On 11-04-2017 16:39:09 EDT by Candice Henderson
[2017-11-05 06:13] LABS: Calcium 8.6 mg/dL (8.6-10.3); Magnesium 1.8 mg/dL (1.6-2.6); Potassium 4.9 mEq/L (3.5-5.1)
[2017-11-05] MEDS: Sucralfate 1 GM TABLET PO SCH ×4 (06:34→21:18)
[2017-11-05] MEDS: Lactobacillus 1 EACH CAP.SPRINK PO SCH ×2 (07:39→21:18)
[2017-11-05] MEDS: Vancomycin Oral Soln 125 MG/2.5 ML UDC PO SCH ×4 (07:39→21:18)
[2017-11-05] MEDS: Aspirin 81 MG TAB.CHEW PO SCH (07:39)
[2017-11-05] MEDS: Isosorbide MONOnitrate (24 HR) 30 MG TAB.ER.24H PO SCH (07:39)
[2017-11-05] MEDS: Nicotine 21 MG PATCH.TD24 TD SCH (07:39)
[2017-11-05] MEDS: Methyl Salicylate/Menthol 28 GM TUBE TP SCH ×4 (07:43→21:19)
--- NOTE | 2017-11-05 15:34 | Internal Med Progress Note ---
Date of Encounter: 11/05/17 Time of Encounter: 11:30 - Assessment and plan (1) Paroxysmal atrial fibrillation Current Visit: Yes Status: Acute Assessment and plan: Currently rate controlled. continue beta marcelino and Telemetry monitoring; Continues to refuse anticoagulation due to risks of bleeding. Cardiology signed off. Patient has had multiple admissions in the past due to recurrent CHF due to noncompliance. Limited echocardiogram from August 2017 showed mildly reduced EF around 40-45%, mild segmental systolic dysfunction. Palliative care consult noted-patient wishes to remain full code at this time. Daughter, who is her medical power of employment attorney, aware of the current plan and situation. coordinator of library services on board, working on placement. (2) GERD (gastroesophageal reflux disease) Current Visit: Yes Status: Chronic Qualifiers: Esophagitis presence: esophagitis presence not specified Qualified Code(s) : K21.9 - Gastro-esophageal reflux disease without esophagitis (3) C. difficile diarrhea Current Visit: Yes Status: Acute Assessment and plan: Presented with gastroenteritis. Stool GI panel positive for C. difficile toxin. Continue oral vancomycin- day 4, diet as tolerated. Probiotics. (4) DVT prophylaxis Current Visit: Yes Status: Acute (5) Generalized weakness Current Visit: Yes Status: Acute Assessment and plan: Due to gastroenteritis, A. fib with RVR. Plan as mentioned above. Improving. Physical and occupational therapy evaluation Noted, recommend ECF placement. (6) HARMONY (acute kidney injury) Current Visit: Yes Status: Acute Assessment and plan: Due to dehydration from GI losses. Serum creatinine slightly worse, 1.3 today. continue to Hold Lasix and losartan. Review of previous labs show consistently low GFR for the last 2-3 months, but now slightly worse; received 1L IV hydration with bicarb drip; will give one more L; (7) Cholelithiasis Current Visit: Yes Status: Acute Assessment and plan: Patient has subacute history of right upper quadrant abdominal and right shoulder pain, which could be explained by peptic ulcer disease versus symptomatic cholelithiasis. Surgery has been consulted, recommended laparoscopic cholecystectomy, however patient declined surgery. Continue supportive care with PRN PO Hydrocodone and diet as tolerated. Qualifiers: Cholelithiasis location: gallbladder Cholecystitis presence: without cholecystitis Biliary obstruction: without biliary obstruction Qualified Code(s): K80.20 - Calculus of gallbladder without cholecystitis without obstruction (8) CAD (coronary artery disease) Current Visit: Yes Status: Chronic Qualifiers: Coronary Disease-Associated Artery/Lesion type: [place] artery [place] vs. transplanted heart: [place] heart Associated angina: without angina Qualified Code(s): I25.10 - Atherosclerotic heart disease of [place] coronary artery without angina pectoris (9) CHF (congestive heart failure) Current Visit: Yes Status: Chronic Assessment and plan: Echocardiogram of 08/24/17 shows LVEF of 40-45%, mild segmental left ventricular systolic function, normal right ventricular structure and function, and a device lead was visualized in the right atrium and right ventricle. Continuous cardiac telemetry. Hold ACEI, Lasix; gentle IV hydration, monitor for signs of fluid overload; Qualifiers: Heart failure type: systolic Heart failure chronicity: chronic Qualified Code(s): I50.22 - Chronic systolic (congestive) heart failure (10) Metabolic acidosis Current Visit: Yes Status: Acute Assessment and plan: Non-anion gap metabolic acidosis, likely due to diarrhea. Improving; continue IV hydration with bicarbonate drip with half normal saline. (11) Hyponatremia Current Visit: Yes Status: Acute Assessment and plan: Serum sodium 125 today, improving. Hold Lasix, continue IV fluids as above; - Time Spent With Patient Total time spent is greater than 50% in coordination of care (as documented) at patient's floor/unit and/or counseling patient: - Subjective Interval history: Appears somewhat depressed today, not very talkative, but answers appropriately; Continues to have diarrhea per patient; no chest pain, dyspnea, palpitations; enquires when she will be transferred ti half-way; - Constitutional Vitals: Temp Pulse Resp BP Pulse Ox 97.5 F L 100 20 111/75 97 11/05/17 15:21 11/05/17 15:21 11/05/17 15:21 11/05/17 15:21 11/05/17 15:21 General appearance: Present: A&O X 2, answers questions appropriately - Respiratory Respiratory exam: Present: CTAB (coarse breath sounds B/L, faint left basal crackles). Absent: accessory muscle use, rales, rhonchi, wheezes - Cardiovascular Cardiovascular exam: Present: RRR, +S1, +S2. Absent: diastolic murmur, gallop, rubs, systolic murmur - GI/Abdominal GI/Abdominal exam: Present: normal bowel sounds, soft, no peritoneal signs. Absent: distended, tenderness Internal Medicine: Result - Labs CBC & Chem 7: 11/04/17 05:34 11/05/17 05:28 Labs: BMP 11/05/17 05:28 Sodium 125 L Potassium 4.9 Chloride 97 L Carbon Dioxide 21 L BUN 26 H Creatinine 1.30 H Glucose 99 Calcium 8.6 - ABG Interpretation ABG results: PT/INR, D-dimer PT 14.0 Seconds (9.4-12.1) H 11/02/17 00:23 Consult Discharge Plan - Plan Referrals: Tana Delgado DO [Primary Care Provider] -
[2017-11-05] MEDS ORDERED: Sodium Bicarbonate 75 MEQ in 0.45 % Sodium Chloride 1,000 ML IVC SCH (15:45)
[2017-11-05] MEDS ORDERED: *HR* Metoprolol 5 MG/5 ML VIAL IVP ONE ×2 (17:24→17:27)
[2017-11-05] MEDS: Ondansetron 4 MG/2 ML VIAL IVP PRN (17:33)
[2017-11-05] MEDS: *HR* HYDROcodone/Acet 5/325 mg TABLET PO PRN (21:18)
[2017-11-06 05:21] LABS: Calcium 8.4 mg/dL (8.6-10.3); Magnesium 1.7 mg/dL (1.6-2.6); Potassium 5.1 mEq/L (3.5-5.1)
[2017-11-06] MEDS: *HR* HYDROcodone/Acet 5/325 mg TABLET PO PRN ×2 (06:13→20:38)
[2017-11-06] MEDS: Aspirin 81 MG TAB.CHEW PO SCH (09:15)
[2017-11-06] MEDS: Isosorbide MONOnitrate (24 HR) 30 MG TAB.ER.24H PO SCH (09:15)
[2017-11-06] MEDS: Sucralfate 1 GM TABLET PO SCH ×4 (09:16→20:38)
[2017-11-06] MEDS: Lactobacillus 1 EACH CAP.SPRINK PO SCH ×2 (09:16→20:37)
[2017-11-06] MEDS: Vancomycin Oral Soln 125 MG/2.5 ML UDC PO SCH ×4 (09:17→20:37)
[2017-11-06] MEDS: Nicotine 21 MG PATCH.TD24 TD SCH (09:30)
--- NOTE | 2017-11-06 11:18 | Electrocardiograph Report ---
[address] [place], [place] [address] Test Date: 2017-11-04 Pat Name: Julissa Randall Department: 115 Room: 3A21 Gender: F Shipping And Receiving: : 1935 Requested By: Mell Xavier Order Number: [id number] Reading MD: Dung Larios Measurements Intervals [place] Rate: 114 P: [place]: 0 QRS: 40 QRSD: 130 T: -60 QT: 321 QTc: 388 Interpretive Statements ATRIAL FLUTTER/TACHYCARDIA WITH RAPID VENTRICULAR RESPONSE PROBABLE SEPTAL MYOCARDIAL INFARCTION, OF INDETERMINATE AGE MODERATE T-WAVE ABNORMALITY, CONSIDER LATERAL ISCHEMIA Electronically Signed On 11-06-2017 11:17:10 EDT by Dung Larios
[2017-11-06] MEDS: Methyl Salicylate/Menthol 28 GM TUBE TP SCH ×3 (11:29→20:39)
--- NOTE | 2017-11-06 12:10 | Nephrology Consult Note ---
Date of Encounter: 11/06/17 Time of Encounter: 12:00 Assessment and Plan (1) Hyponatremia Current Visit: Yes Status: Acute likely from decerased po intake of sodium Liberalize in diet if possible Will check urine and serum osmolality Agree with holding lasix for now (2) HARMONY (acute kidney injury) Current Visit: Yes Status: Acute SCr almost at baseline IVF no longer needed if tolerating po fluids Will check UA, urine urea and creatinine Agree with holding losrtan and lasix for now (3) Metabolic acidosis Current Visit: Yes Status: Acute Non-gap acidosis likely from GI losses Agree with holding lasix. Will check urine anion gap Will recommend sodium bicarb tabs for now History of Present Illness - Reason for Consult Consult date: 11/06/17 Acute Kidney Injury, hyponatremia, metabolic acidosis Requesting physician: Cynthia Pollack - History of Present Illness 82 y o female with PMH of HTN, CAD s/p NM, CHF s/p AICD admitted 11/01 with N/V/ D and abdominal pain. She was treated for c.diff colitis and cholecystitis ( refusing surgery) and also Afib now rate controlled. Renal consulted for persistent hyponatremia, elevated SCr from baseline and metabolic acidosis. Pt seen and examined denying anymore diarrhea today. Lasix and losartan on hold. Pt received fluids (1/2NS with 75mEq bicarb) yesterday. SCr noted at 1.23, GFR today, has been as high as 1.3, GFR 39 this hospital stay. Baseline GFR typically high 40s-50s this year. Sodium noted at 123, lowest 122 2 days ago. Pt reports not drinking much water as she does not like the taste. Past Med Surg Social Fam HX - Past Medical History Medical history: atrial fibrillation, cancer, cardiomyopathy, CHF, COPD, coronary artery disease, hyperlipidemia, hypertension, myocardial infarction, other Additional medical history: Breast Cancer Psychiatric history: no psych history - Past Surgical History Surgical History: pacemaker/AICD, other Additional surgical history: breast biopsy, stent placement, bladder tuck - Social History Smoking Status: Current every day smoker Smokeless Tobacco Status: No Alcohol use: rarely Drug use: none - Family History Mother Race: Family Member Ethnicity: Non- Living Status: Age at : 85 Cause of : Unknown Brother Race: Family Member Ethnicity: Non- Living Status: Age at : 54 Cause of : Stomach cancer Hx Family Cancer: Yes (Stomach) Father Adopted: No Race: Family Member Ethnicity: Non- Living Status: Age at : 87 Cause of : Heart failure Hx Family Cardiac Disorders: Yes (HF, CAD, NM) Medications and Allergies Carvedilol [Coreg] 25 mg PO BIDWM #60 tablet 04/21/17 [Rx] Aspirin 81 mg PO DAILY 07/18/17 [History] Isosorbide MONOnitrate (24 HR) [Imdur] 30 mg PO DAILY 08/16/17 [History] Losartan Potassium [Cozaar] 50 mg PO DAILY 08/16/17 [History] Nitroglycerin [Nitrostat] 0.4 mg PO Q5M PRN 08/16/17 [History] Potassium Chloride [K-Tab ER] 20 meq PO DAILY 08/16/17 [History] Menthol [Biofreeze] 118 ml TP BID PRN #1 unit 08/18/17 [Rx] Omeprazole [PriLOSEC] 20 mg PO DAILY #30 cap 08/18/17 [Rx] Furosemide [Lasix] 40 mg PO BID 09/29/17 [History] Methyl Salicylate/Menthol [Bengay] 1 appl TP QID tube 10/03/17 [Rx] Sucralfate [Carafate] 1 gm PO QIDAC #120 tablet 10/03/17 [Rx] 3 Allergy/AdvReac Type Severity Reaction Status Date / Time Penicillins [PCN] Allergy Mild Itching Verified 11/01/17 10:12 Sulfa (Sulfonamide Allergy Mild Hives Verified 11/01/17 14:14 Antibiotics) pheniramine Allergy Unknown UNKNOWN Verified 11/01/17 10:12 PER PATIENT codeine AdvReac Mild "HARD ON Verified 11/01/17 14:14 BOWELS" Review of Systems All Systems: reviewed and no additional remarkable complaints except as stated ( 10 systems reviewed and noted in HPI) Exam - Vital Signs Vital signs: Initial Vital Signs Temp Pulse Resp BP Pulse Ox 97.5 F L 109 18 90/62 95 11/01/17 10:07 11/01/17 10:07 11/01/17 10:07 11/01/17 10:07 11/01/17 10:07 Vital Signs - Last 8 Hours Temp Pulse Resp BP Pulse Ox 11/06/17 10:41 97.4 F L 88 15 115/75 98 11/06/17 09:30 98 11/06/17 06:30 97.3 F L 109 16 107/71 98 11/06/17 04:09 97.4 F L 91 15 126/85 98 Intake and Output 11/05/17 11/06/17 11/06/17 23:59 07:59 15:59 Intake Total 0 / 0 0 / 0 1195 / 1195 Output Total 0 / 0 50 / 50 Balance 0 / 0 -50 / -50 1195 / 1195 Intake: IV Fluids 1075 / 1075 Sodium Bicarbonate 75 MEQ In 0. 1075 / 1075 45% Sodium Chloride 1000 Ml 1000 Ml 1,000 ML @ 60 mls/hr IVC .[id number] [facility] Rx#:[id number] Oral 0 / 0 0 / 0 120 / 120 Output: Urine 0 / 0 50 / 50 Other: Meal Breakfast Percent of Meal Consumed 5% # Voids 2 # Urine Diapers 2 1 Weight 59.3 kg Patient Weight 11/06/17 23:59 Weight 59.3 kg - General Appearance General appearance: chronically ill, frail EENT: ATNC, mucous membranes dry Neck: no JVD Respiratory: clear Cardiology: no edema, normal S1, normal S2 Gastrointestinal: no tenderness, no guarding Integumentary: warm and dry Neurologic: no focal deficit Musculoskeletal: no deformities Psychiatric: mood/affect appropriate, cooperative Results - Lab Results 11/04/17 05:34 11/06/17 04:47 Most recent lab results Calcium 8.4 mg/dL (8.6-10.3) L 11/06/17 04:47 Magnesium 1.7 mg/dL (1.6-2.6) 11/06/17 04:47 Consult Discharge Plan - Plan Referrals: Tana Delgado DO [Primary Care Provider] -
--- NOTE | 2017-11-06 15:45 | Internal Med Progress Note ---
Date of Encounter: 11/06/17 Time of Encounter: 11:30 - Assessment and plan (1) Paroxysmal atrial fibrillation Current Visit: Yes Status: Acute Assessment and plan: Currently rate controlled. continue beta marcelino and Telemetry monitoring; Continues to refuse anticoagulation due to risks of bleeding. Cardiology signed off. Patient has had multiple admissions in the past due to recurrent CHF due to noncompliance. Limited echocardiogram from August 2017 showed mildly reduced EF around 40-45%, mild segmental systolic dysfunction. Palliative care consult noted-patient wishes to remain full code at this time. Daughter, who is her medical power of vehicle cost engineer, aware of the current plan and situation. financial services assistant on board, working on placement. (2) GERD (gastroesophageal reflux disease) Current Visit: Yes Status: Chronic Qualifiers: Esophagitis presence: esophagitis presence not specified Qualified Code(s) : K21.9 - Gastro-esophageal reflux disease without esophagitis (3) C. difficile diarrhea Current Visit: Yes Status: Acute Assessment and plan: Presented with gastroenteritis. Improved diarrhea. Stool GI panel positive for C. difficile toxin. Continue oral vancomycin- day 5, diet as tolerated. Probiotics. (4) DVT prophylaxis Current Visit: Yes Status: Acute (5) Generalized weakness Current Visit: Yes Status: Acute Assessment and plan: Due to gastroenteritis, A. fib with RVR. Plan as mentioned above. Improving. Physical and occupational therapy evaluation Noted, recommend ECF placement. (6) HARMONY (acute kidney injury) Current Visit: Yes Status: Acute Assessment and plan: Due to dehydration from GI losses. Serum creatinine slightly better, 1.23 today. continue to Hold Lasix and losartan. Review of previous labs show consistently low GFR for the last 2-3 months, probably has stage 3 CKD; received 2L IV hydration with bicarb drip; (7) Cholelithiasis Current Visit: Yes Status: Acute Assessment and plan: Patient has subacute history of right upper quadrant abdominal and right shoulder pain, which could be explained by peptic ulcer disease versus symptomatic cholelithiasis. Surgery has been consulted, recommended laparoscopic cholecystectomy, however patient declined surgery. Continue supportive care with PRN PO Hydrocodone and diet as tolerated. Qualifiers: Cholelithiasis location: gallbladder Cholecystitis presence: without cholecystitis Biliary obstruction: without biliary obstruction Qualified Code(s): K80.20 - Calculus of gallbladder without cholecystitis without obstruction (8) CAD (coronary artery disease) Current Visit: Yes Status: Chronic Qualifiers: Coronary Disease-Associated Artery/Lesion type: [place] artery [place] vs. transplanted heart: [place] heart Associated angina: without angina Qualified Code(s): I25.10 - Atherosclerotic heart disease of [place] coronary artery without angina pectoris (9) CHF (congestive heart failure) Current Visit: Yes Status: Chronic Assessment and plan: Echocardiogram of 08/24/17 shows LVEF of 40-45%, mild segmental left ventricular systolic function, normal right ventricular structure and function, and a device lead was visualized in the right atrium and right ventricle. Continuous cardiac telemetry. Hold ACEI, Lasix; noted to have peripheral edema, will avoid further IV fluids; Qualifiers: Heart failure type: systolic Heart failure chronicity: chronic Qualified Code(s): I50.22 - Chronic systolic (congestive) heart failure (10) Metabolic acidosis Current Visit: Yes Status: Acute Assessment and plan: Non-anion gap metabolic acidosis, likely due to diarrhea. Persistent; Nephrology consulted and recommendations appreciated- started oral sodium bicarbonate, f/up urine electrolytes and osmolality; (11) Hyponatremia Current Visit: Yes Status: Acute Assessment and plan: Serum sodium 123 today. Hold Lasix. Nephrology consult appreciated, f/up serum and urine osmolality and urine anion gap and electrolytes; - Time Spent With Patient Total time spent is greater than 50% in coordination of care (as documented) at patient's floor/unit and/or counseling patient: - Subjective Interval history: Reports feeling well; denies nausea, vomiting, diarrhea; does not like hospital food, so does not want any breakfast. Awaiting rehab placement; patient reports today that she does not want ECF placement, and would just want to go home; explained that she is not safe to live alone at this time; - Constitutional Vitals: Temp Pulse Resp BP Pulse Ox 97.5 F L 80 16 101/69 97 11/06/17 14:58 11/06/17 14:58 11/06/17 14:58 11/06/17 14:58 11/06/17 14:58 General appearance: Present: A&O X 2, answers questions appropriately - Respiratory Respiratory exam: Present: CTAB, rales (faint crackles at right base). Absent: accessory muscle use, rhonchi, wheezes - Cardiovascular Cardiovascular exam: Present: RRR, +S1, +S2. Absent: diastolic murmur, gallop, rubs, systolic murmur - GI/Abdominal GI/Abdominal exam: Present: normal bowel sounds, soft, no peritoneal signs. Absent: distended, tenderness - Extremities Exam Extremities exam: Present: pedal edema (trace B/L), warm, radial pulses palpable and symmetrical. Absent: calf tenderness, cyanotic - Neurological Exam Neurological exam: Present: CN II-XII intact, oriented X3, no focal deficits. Absent: pronater drift, facial droop, speech deficit Internal Medicine: Result - Labs CBC & Chem 7: 11/04/17 05:34 11/06/17 04:47 Labs: BMP 11/06/17 04:47 Sodium 123 L Potassium 5.1 Chloride 97 L Carbon Dioxide 17 L BUN 28 H Creatinine 1.23 H Glucose 97 Calcium 8.4 L - ABG Interpretation ABG results: PT/INR, D-dimer PT 14.0 Seconds (9.4-12.1) H 11/02/17 00:23 Consult Discharge Plan - Plan Referrals: Tana Delgado DO [Primary Care Provider] -
[2017-11-06 19:33] LABS: Bilirubin,Urine Negative (Negative); Blood,Urine Small (Negative); Clarity,Urine Turbid (Clear); Color,Urine Yellow (Yellow); Glucose,Urine (UA) Normal (Normal); Ketones,Urine Negative (Negative); Leukocyte Esterase,Urine Large (Negative); Nitrite,Urine Positive (Negative); Protein,Urine Trace mg/dL (Neg-Trace); Specific Gravity,Urine 1.012 (1.010-1.025); Urobilinogen,Urine Normal (Normal)
[2017-11-06 19:34] LABS: Bacteria,Urine Many per hpf (None-Few); Hyaline Casts,Urine None Seen per lpf (None-Few); Squamous Epithelial Cell,Urine Many per lpf (None-Few); WBC,Urine TNTC per hpf (0-3)
[2017-11-06 19:59] LABS: Chloride,Urine < 15 mEq/L; Creatinine,Urine 59 mg/dL; Potassium,Urine 25.4 mEq/L; Sodium, Urine < 10.0 mEq/L
[2017-11-06] MEDS: Nitroglycerin 0.4 MG TAB.SUBL SL PRN ×2 (21:40→21:50)
--- NOTE | 2017-11-06 22:00 | Event Note ---
Date of Encounter: 11/06/17 Time of Encounter: 21:57 Patient indicated that she was having CP, nurse reported that pacer not firing appropriately per continuous EKG. The patient will get a 12 lead EKG and troponin x1 at tjis time. I also ordered for pacer interrogation. Apparently the patient has declined multiple cardiac treatments, so cardiology signed off.
[2017-11-07 08:20] LABS: Calcium 8.8 mg/dL (8.6-10.3); Magnesium 1.9 mg/dL (1.6-2.6); Potassium 5.5 mEq/L (3.5-5.1)
[2017-11-07] MEDS: Isosorbide MONOnitrate (24 HR) 30 MG TAB.ER.24H PO SCH (08:27)
[2017-11-07] MEDS: Lactobacillus 1 EACH CAP.SPRINK PO SCH ×2 (08:27→20:52)
[2017-11-07] MEDS: Ondansetron 4 MG/2 ML VIAL IVP PRN (08:28)
[2017-11-07] MEDS: Sucralfate 1 GM TABLET PO SCH ×4 (08:28→20:52)
[2017-11-07] MEDS: Vancomycin Oral Soln 125 MG/2.5 ML UDC PO SCH ×4 (08:28→20:53)
[2017-11-07] MEDS: Aspirin 81 MG TAB.CHEW PO SCH (08:28)
[2017-11-07] MEDS: Nicotine 21 MG PATCH.TD24 TD SCH (08:29)
[2017-11-07] MEDS: Methyl Salicylate/Menthol 28 GM TUBE TP SCH ×3 (08:29→20:54)
--- NOTE | 2017-11-07 10:42 | Nephrology Progress Note ---
Date of Encounter: 11/07/17 Time of Encounter: 12:00 - Assessment and Plan (1) Hyponatremia Current Visit: Yes Status: Acute Sodium worse due to poor po intake, agree with IVF with NS will add nutritional supplements as well (2) HARMONY (acute kidney injury) Current Visit: Yes Status: Acute Scr back to within range of baseline at 1.2, no further intervention needed Continue to avoid nephrotoxins if possible (3) Metabolic acidosis Current Visit: Yes Status: Acute Continue sodium bicarb tabs (4) Hyperkalemia Current Visit: Yes Status: Acute potassium noted at 5.5, agree with kayexalate Renal diet advised if possible Subjective Interval history: Pt seen and examined with no complaints, appears confused today and reports poor po intake Objective - Vital Signs Vital signs: Vital Signs Temp Pulse Resp BP Pulse Ox 11/07/17 07:00 97.6 F 105 18 114/76 97 11/07/17 04:02 97.4 F L 83 16 119/80 97 11/06/17 23:13 97.7 F 103 15 111/75 98 11/06/17 19:20 97.5 F L 100 16 129/83 99 11/06/17 14:58 97.5 F L 80 16 101/69 97 Intake and Output 11/06/17 11/07/17 11/07/17 23:59 07:59 15:59 Intake Total 240 / 240 120 / 120 120 / 120 Output Total 50 / 50 0 / 0 50 / 50 Balance 190 / 190 120 / 120 70 / 70 Intake: Oral 240 / 240 120 / 120 120 / 120 Output: Urine 50 / 50 0 / 0 50 / 50 Other: Meal Dinner Breakfast Percent of Meal Consumed 25% 25% # Urine Diapers 1 1 - General Appearance General appearance: Present: chronically ill, frail EENT: Present: ATNC, mucous membranes dry Neck: Present: no JVD, supple Respiratory: Present: clear Cardiology: Present: no edema, normal S1, normal S2 Gastrointestinal: Present: no tenderness, no guarding Integumentary: Present: warm and dry Neurologic: Present: confused Musculoskeletal: Present: no deformities Psychiatric: Present: mood/affect appropriate, cooperative - Lab 11/04/17 05:34 11/07/17 06:30 Most recent lab results Calcium 8.8 mg/dL (8.6-10.3) 11/07/17 06:30 Magnesium 1.9 mg/dL (1.6-2.6) 11/07/17 06:30 Urine Creatinine 59 mg/dL 11/06/17 19:19 Urine Sodium < 10.0 mEq/L 11/06/17 19:19 Consult Discharge Plan - Plan Referrals: Tana Delgado DO [Primary Care Provider] -
[2017-11-07] MEDS: 0.9 % Sodium Chloride 1,000 ML IVC SCH ×2 (11:02→23:18)
--- NOTE | 2017-11-07 17:03 | Internal Med Progress Note ---
Date of Encounter: 11/07/17 Time of Encounter: 10:15 - Assessment and plan (1) Paroxysmal atrial fibrillation Current Visit: Yes Status: Acute Assessment and plan: Currently rate controlled. continue beta marcelino and Telemetry monitoring; Continues to refuse anticoagulation due to risks of bleeding. Cardiology signed off. Patient has had multiple admissions in the past due to recurrent CHF due to noncompliance. Limited echocardiogram from August 2017 showed mildly reduced EF around 40-45%, mild segmental systolic dysfunction. Palliative care consult noted-patient wishes to remain full code at this time. Daughter, who is her medical power of assistant district attorney, aware of the current plan and situation. shared services manager on board, working on placement. (2) GERD (gastroesophageal reflux disease) Current Visit: Yes Status: Chronic Qualifiers: Esophagitis presence: esophagitis presence not specified Qualified Code(s) : K21.9 - Gastro-esophageal reflux disease without esophagitis (3) C. difficile diarrhea Current Visit: Yes Status: Acute Assessment and plan: Presented with gastroenteritis. Improved diarrhea. Stool GI panel positive for C. difficile toxin. Continue oral vancomycin- day 6, diet as tolerated. Probiotics. (4) DVT prophylaxis Current Visit: Yes Status: Acute (5) Generalized weakness Current Visit: Yes Status: Acute (6) HARMONY (acute kidney injury) Current Visit: Yes Status: Acute Assessment and plan: Due to dehydration from GI losses. Serum creatinine slightly better, 1.20 today. continue to Hold Lasix and losartan. started IV hydration due to hyponatremia; Review of previous labs show consistently low GFR for the last 2-3 months, probably has stage 3 CKD; (7) Cholelithiasis Current Visit: Yes Status: Acute Assessment and plan: Patient has subacute history of right upper quadrant abdominal and right shoulder pain, which could be explained by peptic ulcer disease versus symptomatic cholelithiasis. Surgery has been consulted, recommended laparoscopic cholecystectomy, however patient declined surgery. Continue supportive care with PRN PO Hydrocodone and diet as tolerated. Qualifiers: Cholelithiasis location: gallbladder Cholecystitis presence: without cholecystitis Biliary obstruction: without biliary obstruction Qualified Code(s): K80.20 - Calculus of gallbladder without cholecystitis without obstruction (8) CAD (coronary artery disease) Current Visit: Yes Status: Chronic Qualifiers: Coronary Disease-Associated Artery/Lesion type: [place] artery [place] vs. transplanted heart: [place] heart Associated angina: without angina Qualified Code(s): I25.10 - Atherosclerotic heart disease of [place] coronary artery without angina pectoris (9) CHF (congestive heart failure) Current Visit: Yes Status: Chronic Qualifiers: Heart failure type: systolic Heart failure chronicity: chronic Qualified Code(s): I50.22 - Chronic systolic (congestive) heart failure (10) Metabolic acidosis Current Visit: Yes Status: Acute Assessment and plan: Non-anion gap metabolic acidosis, likely due to diarrhea. Persistent; Nephrology consulted and recommendations appreciated- started oral sodium bicarbonate, f/up urine electrolytes and osmolality; (11) Hyponatremia Current Visit: Yes Status: Acute Assessment and plan: Serum sodium 119 today. continue to Hold Lasix. Nephrology on board, agree with hydration with NS; urine and serum osmolality and urine Na very low; - Time Spent With Patient Total time spent is greater than 50% in coordination of care (as documented) at patient's floor/unit and/or counseling patient: - Subjective Interval history: No new complaints; improved diarrhea; no chest or abdominal pain, shortness of breath; refuses most meals as she does not like hospital food; - Constitutional Vitals: Temp Pulse Resp BP Pulse Ox 98.0 F 125 16 114/72 97 11/07/17 16:14 11/07/17 16:14 11/07/17 16:14 11/07/17 16:14 11/07/17 16:14 General appearance: Present: cachectic, A&O X 2, answers questions appropriately - Respiratory Respiratory exam: Present: CTAB. Absent: accessory muscle use, rales, rhonchi, wheezes - Cardiovascular Cardiovascular exam: Present: irregular rhythm, +S1, +S2. Absent: diastolic murmur, gallop, rubs, systolic murmur - GI/Abdominal GI/Abdominal exam: Present: normal bowel sounds, soft, no peritoneal signs. Absent: distended, tenderness - Extremities Exam Extremities exam: Present: full ROM, pedal edema, warm, radial pulses palpable and symmetrical. Absent: calf tenderness, cyanotic - Neurological Exam Neurological exam: Present: CN II-XII intact, oriented X3, no focal deficits. Absent: pronater drift, facial droop, speech deficit Internal Medicine: Result - Labs CBC & Chem 7: 11/04/17 05:34 11/07/17 06:30 Labs: BMP 11/07/17 06:30 Sodium 119 L* Potassium 5.5 H Chloride 92 L Carbon Dioxide 20 L BUN 28 H Creatinine 1.20 Glucose 112 H Calcium 8.8 Cardiac Enzymes 11/06/17 11/07/17 Range/Units 22:07 06:30 Troponin I 0.03 0.03 (< 0.04) ng/mL Urine 11/06/17 Range/Units 19:19 Urine Color Yellow (Yellow) Urine Clarity Turbid A (Clear) Urine pH 6.0 (5.0-8.0) pH Units Ur Specific [place] 1.012 (1.010-1.025) Urine Protein Trace (Neg-Trace) mg/dL Urine Glucose (UA) Normal (Normal) mg/dL - ABG Interpretation ABG results: PT/INR, D-dimer PT 14.0 Seconds (9.4-12.1) H 11/02/17 00:23 - VTE Documentation of Mechanical Device: Intermittent pneumatic compression device Consult Discharge Plan - Plan Referrals: Tana Delgado DO [Primary Care Provider] -
[2017-11-07] MEDS: *HR* HYDROcodone/Acet 5/325 mg TABLET PO PRN (20:53)
[2017-11-08] MEDS: *HR* HYDROcodone/Acet 5/325 mg TABLET PO PRN ×2 (06:18→20:31)
[2017-11-08 06:32] LABS: Calcium 8.7 mg/dL (8.6-10.3); Potassium 5.2 mEq/L (3.5-5.1)
--- NOTE | 2017-11-08 09:09 | Palliative Progress Note ---
Date of Encounter: 11/08/17 Time of Encounter: 08:40 - Assessment and plan (1) Acute exacerbation of CHF (congestive heart failure) Current Visit: No Status: Acute Qualifiers: Heart failure type: systolic Qualified Code(s): I50.23 - Acute on chronic systolic (congestive) heart failure (2) COPD (chronic obstructive pulmonary disease) Current Visit: No Status: Chronic Assessment and plan: Continue oxygen therapy. Oxygen saturation 97% on 2L NC. Qualifiers: COPD type: chronic bronchitis Chronic bronchitis type: simple Qualified Code(s): J41.0 - Simple chronic bronchitis (3) Paroxysmal atrial fibrillation Current Visit: Yes Status: Acute Assessment and plan: Patient continues to have irregular heart beat. Patient taking Imdur and Lopressor. Required Cardizem drip over the weekend; no longer requires. (4) Cholelithiasis Current Visit: Yes Status: Acute Assessment and plan: Continued medical management with diet at tolerated. Qualifiers: Cholelithiasis location: gallbladder Cholecystitis presence: without cholecystitis Biliary obstruction: without biliary obstruction Qualified Code(s): K80.20 - Calculus of gallbladder without cholecystitis without obstruction (5) C. difficile diarrhea Current Visit: Yes Status: Acute Assessment and plan: Continue oral vancomycin. (6) Back pain Current Visit: No Status: Acute Assessment and plan: Patient denies pain during assessment. Patient has received 3 Rembert in the last 72 hours. Continue Rembert PRN. Qualifiers: Back pain location: thoracic back pain Chronicity: acute Back pain laterality: right Qualified Code(s): M54.6 - Pain in thoracic spine (7) Goals of care, counseling/discussion Current Visit: Yes Status: Acute Assessment and plan: Patient desires to go to rehab today, if approval. Oswald LUNA working on placement. (8) Generalized weakness Current Visit: Yes Status: Acute - Time Spent With Patient Total time spent is greater than 50% in coordination of care (as documented) at patient's floor/unit and/or counseling patient: - Subjective Interval history: Arrived at patient's bedside for assessment with COMMUNITY [employer] CENTRE MANAGER present, patient in pleasant mood. Alert and oriented times 3. Discussed weekend, including new onset of Atrial Fib with RVR and Chest pain; patient reports chest pain has resolved. Spoke with patient's primary RN Oralia and noted patient is no longer on Cardizem drip. Patient denies pain, anxiety, nausea, vomiting, or shortness of breath. Patient has taken 3 doses of Rembert in the last 72 hours. Reports ready for rehab placement. VSS at this time. - Constitutional Vitals: Abnormal lab results Hgb 11.3 g/dL (11.5-15.4) L 11/04/17 05:34 Hct 34.5 % (35.3-44.9) L 11/04/17 05:34 RDW 15.3 % (11.5-14.5) H 11/04/17 05:34 Lymphocytes # 0.5 K/mcL (0.6-4.6) L 11/04/17 05:34 PT 14.0 Seconds (9.4-12.1) H 11/02/17 00:23 APTT 50.2 Seconds (26.0-36.0) H 11/02/17 07:18 Sodium 122 mEq/L (136-145) L 11/08/17 05:56 Potassium 5.2 mEq/L (3.5-5.1) H 11/08/17 05:56 Chloride 93 mEq/L (98-107) L 11/08/17 05:56 BUN 27 mg/dL (8-23) H 11/08/17 05:56 Creatinine 1.21 mg/dL (0.60-1.20) H 11/08/17 05:56 Est GFR ( Amer) 52 (> 60) L 11/08/17 05:56 Est GFR (Non-Af Amer) 43 (> 60) L 11/08/17 05:56 Glucose 109 mg/dL (70-105) H 11/08/17 05:56 Serum Osmolality 267 mOsm/kg (280-300) L 11/06/17 12:57 Calculated Osmolality 260 (280-300) L 11/08/17 05:56 Serum Total Protein 5.4 g/dL (6.4-8.9) L 11/04/17 05:34 Albumin 3.1 g/dL (3.5-5.7) L 11/04/17 05:34 Globulin 2.3 g/dL (2.4-3.5) L 11/04/17 05:34 Ur Specimen Adequacy See below A 11/01/17 14:55 Urine Clarity Turbid (Clear) A 11/06/17 19:19 Urine Blood Small (Negative) H 11/06/17 19:19 Urine Nitrite Positive (Negative) A 11/06/17 19:19 Ur Leukocyte Esterase Large (Negative) H 11/06/17 19:19 Urine Microscopic RBC 5-15 per hpf (0-3) H 11/06/17 19:19 Urine Microscopic WBC TNTC per hpf (0-3) H 11/06/17 19:19 Ur Squamous Epith Cells Many per lpf (None-Few) H 11/06/17 19:19 Urine Bacteria Many per hpf (None-Few) H 11/06/17 19:19 Ur Culture Indicated? NO. (NO) A 11/06/17 19:19 Urine Osmolality 258 mOsm/kg (300-1090) L 11/06/17 19:19 Stl C. diff Tox A/B PCR See reflex test (Not detect) A 11/01/17 12:27 General appearance: Present: cooperative, no acute distress - Head Head exam: Present: atraumatic, normal inspection - Eye Eye exam: Present: EOMI, normal appearance. Absent: nystagmus, periorbital swelling, periorbital tenderness Pupils: Present: normal accommodation, PERRL - ENT ENT exam: Present: mucous membranes moist, normal external ear exam, normal oropharynx - Neck Neck exam: Present: full ROM, normal inspection - Expanded Neck Exam Neck exam: Absent: tenderness - Respiratory Respiratory exam: Present: CTAB. Absent: accessory muscle use, respiratory distress - Cardiovascular Cardiovascular exam: Present: irregular rhythm, +S1, +S2 - GI/Abdominal GI/Abdominal exam: Present: normal bowel sounds, soft. Absent: tenderness - Rectal Rectal exam: Present: deferred - Extremities Exam Extremities exam: Present: full ROM, normal inspection, pedal edema. Absent: calf tenderness - Back Exam Back exam: Present: full ROM - Neurological Exam Neurological exam: Present: alert, CN II-XII intact, oriented X3, reflexes normal, strengths equal and symetr throughout. Absent: altered - Psychiatric Psychiatric exam: Present: normal affect, normal mood. Absent: anxious - Skin Skin exam: Present: dry, intact, warm Palliative Quality Palliative Quality: Screen for Code Status: Yes, Screen for Goals of Care: Yes, Screen for Pain: Yes, If Pain Regimen Started, Initiate Bowel Regimen: NA ( diarrhea/cdiff), Screen for Nausea/Vomitting: Yes - Labs CBC & Chem 7: 11/04/17 05:34 11/08/17 05:56 Labs: Laboratory Results - last 24 hr 11/08/17 05:56 Sodium 122 L Potassium 5.2 H Chloride 93 L Carbon Dioxide 24 BUN 27 H Creatinine 1.21 H Est GFR ( Amer) 52 L Est GFR (Non-Af Amer) 43 L BUN/Creatinine Ratio 22 Glucose 109 H Calculated Osmolality 260 L Calcium 8.7 - ABG Interpretation ABG results: PT/INR, D-dimer PT 14.0 Seconds (9.4-12.1) H 11/02/17 00:23 Consult Discharge Plan - Plan Referrals: Tana Delgado DO [Primary Care Provider] -
[2017-11-08] MEDS: Sucralfate 1 GM TABLET PO SCH ×4 (10:07→20:30)
[2017-11-08] MEDS: Isosorbide MONOnitrate (24 HR) 30 MG TAB.ER.24H PO SCH (10:07)
[2017-11-08] MEDS: Aspirin 81 MG TAB.CHEW PO SCH (10:07)
[2017-11-08] MEDS: Vancomycin Oral Soln 125 MG/2.5 ML UDC PO SCH ×4 (10:07→20:30)
[2017-11-08] MEDS: Lactobacillus 1 EACH CAP.SPRINK PO SCH ×2 (10:07→20:30)
[2017-11-08] MEDS: Nicotine 21 MG PATCH.TD24 TD SCH (10:08)
[2017-11-08] MEDS: Methyl Salicylate/Menthol 28 GM TUBE TP SCH ×4 (10:16→20:31)
[2017-11-08] MEDS: 0.9 % Sodium Chloride 1,000 ML IVC SCH (12:29)
--- NOTE | 2017-11-08 12:51 | Nephrology Progress Note ---
Date of Encounter: 11/08/17 - Assessment and Plan (1) Hyponatremia Current Visit: Yes Status: Acute Sodium worse due to poor po intake, agree with IVF with NS will add nutritional supplements as well (2) HARMONY (acute kidney injury) Current Visit: Yes Status: Acute Scr back to within range of baseline at 1.2, no further intervention needed Continue to avoid nephrotoxins if possible (3) Metabolic acidosis Current Visit: Yes Status: Acute Continue sodium bicarb tabs (4) Hyperkalemia Current Visit: Yes Status: Acute potassium noted at 5.5, agree with kayexalate Renal diet advised if possible Subjective Interval history: Pt seen and examined with no complaints, appears confused today and reports poor po intake Objective - Vital Signs Vital signs: Vital Signs Temp Pulse Resp BP Pulse Ox 11/08/17 10:52 97.8 F 103 18 113/74 99 11/08/17 08:01 97.5 F L 96 19 105/72 97 11/08/17 03:56 97.1 F L 105 16 111/75 94 11/07/17 23:19 97.8 F 100 15 112/77 97 11/07/17 20:00 99 11/07/17 18:55 97.2 F L 110 14 139/73 99 11/07/17 16:14 98.0 F 125 16 114/72 97 Intake and Output 11/07/17 11/08/17 11/08/17 23:59 07:59 15:59 Intake Total 1120 / 1120 240 / 240 1000 / 1000 Balance 1120 / 1120 240 / 240 1000 / 1000 Intake: IV Fluids 1000 / 1000 1000 / 1000 0.9 % Sodium Chloride 1,000 ML 1000 / 1000 1000 / 1000 @ 75 mls/hr IVC .[id number] [facility] Rx #:[id number] Oral 120 / 120 240 / 240 Other: Meal Dinner Percent of Meal Consumed 5% Stool Size Small Small Stool Consistency soft soft Stool Color Brown Brown # Voids 1 # Urine Diapers 2 # Bowel Movements 1 Weight 62.5 kg Patient Weight 11/08/17 23:59 Weight 62.5 kg - Lab 11/04/17 05:34 11/08/17 05:56 Most recent lab results Calcium 8.7 mg/dL (8.6-10.3) 11/08/17 05:56 Magnesium 1.9 mg/dL (1.6-2.6) 11/07/17 06:30 Urine Creatinine 59 mg/dL 11/06/17 19:19 Urine Sodium < 10.0 mEq/L 11/06/17 19:19 - VTE Documentation of Mechanical Device: Intermittent pneumatic compression device Consult Discharge Plan - Plan Referrals: Tana Delgado DO [Primary Care Provider] -
--- NOTE | 2017-11-08 17:46 | Electrocardiograph Report ---
[address] [place], [place] [address] Test Date: 2017-11-05 Pat Name: Julissa Randall Department: 115 Room: 3A21 Gender: F Rim Technician: KANIKA : 1935 Requested By: Wendie Pollack Order Number: [id number] Reading MD: Addi Simental Measurements Intervals [place] Rate: 124 P: [place]: 0 QRS: 42 QRSD: 112 T: 265 QT: 296 QTc: 370 Interpretive Statements ATRIAL FIBRILLATION WITH RAPID VENTRICULAR RESPONSE LOW QRS VOLTAGE IN EXTREMITY LEADS POOR R WAVE PROGRESSION INFEROLATERAL ISCHEMIA Electronically Signed On 11-08-2017 17:44:41 EDT by Addi Simental
--- NOTE | 2017-11-08 18:15 | Electrocardiograph Report ---
[place] [address] Test Date: 2017-11-06 Pat Name: Julissa Randall Department: 115 Room: 3A21 Gender: F Flat Spring Assembler: [id number] : 1935 Requested By: Wendie Pollack Order Number: [id number] Reading MD: Addi Simental Measurements Intervals [place] Rate: 122 P: [place]: 0 QRS: 55 QRSD: 126 T: -83 QT: 304 QTc: 376 Interpretive Statements ATRIAL FIBRILLATION WITH RAPID VENTRICULAR RESPONSE Poor R wave progression Electronically Signed On 11-08-2017 18:14:14 EDT by Addi Simental
--- NOTE | 2017-11-08 19:04 | Discharge Summary ---
- NOTES TO OUTPATIENT PROVIDER Notes to Outpatient Provider: Songjael with RVR, hyponatremia, metabolic acidosis, started on salt tablets and oral sodium bicarbonate; beta marcelino changed to Metoprolol; Orders not resulted at time of discharge: Pending orders 11/09/17 04:00 BMP [Basic Metabolic Panel] AM 0400 Complete Blood Count [HEME] AM 0400 Date of Encounter: 11/08/17 Time of Encounter: 11:15 - Discharge Diagnosis (1) Paroxysmal atrial fibrillation Priority: Primary Status: Acute (2) GERD (gastroesophageal reflux disease) Priority: Secondary Status: Chronic Qualifiers: Esophagitis presence: esophagitis presence not specified Qualified Code(s) : K21.9 - Gastro-esophageal reflux disease without esophagitis (3) C. difficile diarrhea Priority: Primary Status: Acute (4) Generalized weakness Priority: Primary Status: Chronic (5) HARMONY (acute kidney injury) Priority: Primary Status: Acute (6) Cholelithiasis Priority: Primary Status: Acute Qualifiers: Cholelithiasis location: gallbladder Cholecystitis presence: without cholecystitis Biliary obstruction: without biliary obstruction Qualified Code(s): K80.20 - Calculus of gallbladder without cholecystitis without obstruction (7) CAD (coronary artery disease) Priority: Secondary Status: Chronic Qualifiers: Coronary Disease-Associated Artery/Lesion type: [place] artery [place] vs. transplanted heart: [place] heart Associated angina: without angina Qualified Code(s): I25.10 - Atherosclerotic heart disease of [place] coronary artery without angina pectoris (8) CHF (congestive heart failure) Priority: Secondary Status: Chronic Qualifiers: Heart failure type: systolic Heart failure chronicity: chronic Qualified Code(s): I50.22 - Chronic systolic (congestive) heart failure (9) Metabolic acidosis Priority: Primary Status: Acute (10) Hyponatremia Priority: Primary Status: Acute Hospital course: Ms. Randall is a 82 year old female with the above medical problems, admitted with generalized weakness and abdominal pain. She was noted to have RUQ and right shoulder blade pain, that has been ongoing since a previous admission. CT abdomen showed gallstones and possible acute cholecystitis. She was given bowel rest and IV hydration and Surgery was consulted, who recommended laparoscopic cholecystectomy for symptomatic gallstones. However patient refused surgical intervention and was restarted on diet as tolerated, along with pain control. She then developed atrial fibrillation with RVR, had to be transferred to ICU, started on IV Amiodarone and Heparin drips. Cardiology was consulted- patient refused anticoagulation due to risks of bleeding, was started on beta marcelino with appropriate HR control. Last TTE with LVEF 40-45% 07/2017. She also had diarrhea, stool was positive for c.diff toxin, and was started on PO Vancomycin, will complete a 7-day course tomorrow. Diarrhea resolved now. Palliative care was consulted, multiple discussions were held with patient and her daughter- patient is adamant about her treatment decisions; wishes to be Full Code. She was being planned for discharge to ECF when she developed hyponatremia, likely hypovolemic, along with metabolic acidosis, that did not improve with IV bicarbonate drip. Nephrology was consulted, urine Na and osmolality were low, she received IV NS hydration and PO sodium bicarbonate with some improvement in labs. Lasix and Losartan have been held during this admission. SHe is however getting volume overloaded, so she is switched to salt tablets today. Patient has poor oral and salt intake as she claims she does not like hospital food. She is otherwise medically stable for transfer to ECF if her sodium remains stable. Discharge discussed with: patient, family, nurse - Time Spent with Patient Total time spent providing and/or coordinating discharge services: Greater than 30 minutes (50 min) - Discharge Medications Home Medications: Carvedilol [Coreg] 25 mg PO BIDWM #60 tablet 04/21/17 [Rx] Aspirin 81 mg PO DAILY 07/18/17 [History] Isosorbide MONOnitrate (24 HR) [Imdur] 30 mg PO DAILY 08/16/17 [History] Losartan Potassium [Cozaar] 50 mg PO DAILY 08/16/17 [History] Nitroglycerin [Nitrostat] 0.4 mg PO Q5M PRN 08/16/17 [History] Potassium Chloride [K-Tab ER] 20 meq PO DAILY 08/16/17 [History] Menthol [Biofreeze] 118 ml TP BID PRN #1 unit 08/18/17 [Rx] Omeprazole [PriLOSEC] 20 mg PO DAILY #30 cap 08/18/17 [Rx] Furosemide [Lasix] 40 mg PO BID 09/29/17 [History] Methyl Salicylate/Menthol [Bengay] 1 appl TP QID tube 10/03/17 [Rx] Sucralfate [Carafate] 1 gm PO QIDAC #120 tablet 10/03/17 [Rx] Allergies/Adverse Reactions: 3 Allergy/AdvReac Type Severity Reaction Status Date / Time Penicillins [PCN] Allergy Mild Itching Verified 11/01/17 10:12 Sulfa (Sulfonamide Allergy Mild Hives Verified 11/01/17 14:14 Antibiotics) pheniramine Allergy Unknown UNKNOWN Verified 11/01/17 10:12 PER PATIENT codeine AdvReac Mild "HARD ON Verified 11/01/17 14:14 BOWELS" Date of admission: 11/05/17 17:17 Primary care physician: Matias Klein Consults: 11/06/17 10:52 Consult to Nephrology [CONS] Routine Consulting Provider: Kidney Radha/JHONY/YAYA/CAMILLE Reason for Consult: Persistent hyponatremia, acidosis; c.diff diarrhea and h/ o- CHF, COPD;received bicarb drip 2L; Call Completed: Yes Discharging clinician: Cynthia Pollack Anticipated date of discharge: 11/08/17 - Constitutional Vitals: Temp Pulse Resp BP Pulse Ox 98.2 F 98 18 116/75 95 11/08/17 14:58 11/08/17 14:58 11/08/17 14:58 11/08/17 14:58 11/08/17 14:58 General appearance: Present: cachectic, A&O X 2, answers questions appropriately - Cardiovascular Cardiovascular exam: Present: irregular rhythm, +S1, +S2. Absent: diastolic murmur, gallop, rubs, systolic murmur - Patient Status Disposition: Transfer SNF Condition: Fair Functional capacity at discharge: uses cane/walker Overall status at discharge: patient is progressing back to baseline - Discharge Instructions Follow Up With: Tana Delgado DO [Primary Care Provider] - Additional Instructions: F/up with PCP in 1-2 weeks - Diet and Activity Activity: as per physical therapy Diet: low fat, low cholesterol, low salt diet - VTE Documentation of Mechanical Device: Intermittent pneumatic compression device
--- NOTE | 2017-11-08 22:06 | Physician Discharge Referral ---
ExtendedCare Referral Info Transfer To: [facility] Provider in Charge: Cynthia Pollack Provider in Charge after Transfer: PCP Institutional Level of Care: Skilled - Diagnosis (1) Paroxysmal atrial fibrillation Priority: Primary Status: Acute (2) GERD (gastroesophageal reflux disease) Priority: Secondary Status: Chronic (3) C. difficile diarrhea Priority: Primary Status: Acute (4) Generalized weakness Priority: Primary Status: Chronic (5) HARMONY (acute kidney injury) Priority: Primary Status: Acute (6) Cholelithiasis Priority: Primary Status: Acute (7) CAD (coronary artery disease) Priority: Secondary Status: Chronic (8) CHF (congestive heart failure) Priority: Secondary Status: Chronic (9) Metabolic acidosis Priority: Primary Status: Acute (10) Hyponatremia Priority: Primary Status: Acute Expected Duration of Placement: 3 weeks Prognosis: Fair Aware of Diagnosis: Patient Aware of Prognosis: Patient - Transfer Medications Home Medications: Aspirin 81 mg PO DAILY 07/18/17 [History] Isosorbide MONOnitrate (24 HR) [Imdur] 30 mg PO DAILY 08/16/17 [History] Nitroglycerin [Nitrostat] 0.4 mg PO Q5M PRN 08/16/17 [History] Menthol [Biofreeze] 118 ml TP BID PRN #1 unit 08/18/17 [Rx] Omeprazole [PriLOSEC] 20 mg PO DAILY #30 cap 08/18/17 [Rx] Methyl Salicylate/Menthol [Bengay] 1 appl TP QID tube 10/03/17 [Rx] Sucralfate [Carafate] 1 gm PO QIDAC #120 tablet 10/03/17 [Rx] HYDROcodone/Acet 5/325 mg [[place] 5-325 mg] 1 tab PO Q6HR PRN 5 Days #10 tablet 11/08/17 [Rx] Lactobacillus [Culturelle] 1 each PO BID cap.sprink 11/08/17 [Rx] Metoprolol [Lopressor] 50 mg PO BID tablet 11/08/17 [Rx] Sodium Bicarbonate 650 mg PO BID tablet 11/08/17 [Rx] Sodium Chloride [Sodium Chloride Tab] 1 gm PO BID tablet 11/08/17 [Rx] Vancomycin Oral Soln [Firvanq] 125 mg PO QID 1 Days udc 11/08/17 [Rx] Allergies/Adverse Reactions: 3 Allergy/AdvReac Type Severity Reaction Status Date / Time Penicillins [PCN] Allergy Mild Itching Verified 11/01/17 10:12 Sulfa (Sulfonamide Allergy Mild Hives Verified 11/01/17 14:14 Antibiotics) pheniramine Allergy Unknown UNKNOWN Verified 11/01/17 10:12 PER PATIENT codeine AdvReac Mild "HARD ON Verified 11/01/17 14:14 BOWELS" - Respiratory Orders Smoking Cessation: Smoking cessation has been advised. For more information, call the [facility] Tobacco Quit Line at 4-096-WXSP-NOW. - Advance Directives Power of Buggy Runner: Yes Code Status: Full Code - Mobility Orders Ambulate - Rehabiliation Orders Rehab Potential: Fair Rehab Orders: Sternal Precautions, ROM Exercises, Evaluation for Physical Therapy, Evaluation for Occupational Therapy - Diet Orders Cardiac CERTIFICATION: I certify that the transfer of the above named patient to an Extended Care Facility is necessary for the continuing treatment of the diagnosis listed. The above information is true and accurate reflection of patient's current condition. Confidential - Redisclosure prohibited without a patient's written consent.
[2017-11-09] MEDS: *HR* HYDROcodone/Acet 5/325 mg TABLET PO PRN (04:36)
[2017-11-09 05:55] LABS: Basophils % 0.3 %; Eosinophils % 0.3 %; Hematocrit 31.9 % (35.3-44.9); Hemoglobin 10.6 g/dL (11.5-15.4); Immature Granulocytes % 0.7 % (0-4); Lymphocytes # 0.5 K/mcL (0.6-4.6); Lymphocytes % 7.8 %; Mean Corpuscular HGB Conc 33.2 g/dL (31.6-35.5); Mean Corpuscular Hemoglobin 29.3 pg (28.0-33.3); Mean Corpuscular Volume 88.1 fL (83.0-100.0); Mean Platelet Volume 9.4 fL (9.4-12.4); Monocytes # 0.9 K/mcL (0.0-1.3); Monocytes % 13.5 %; Neutrophils # 5.3 K/mcL (1.6-8.9); Platelet Count 214 K/mcL (140-400); Red Blood Count 3.62 M/mcL (3.82-4.97); Red Cell Distribution Width 15.4 % (11.5-14.5); Segmented Neutrophils % 77.4 %
--- NOTE | 2017-11-09 06:03 | Electrocardiograph Report ---
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
[2017-11-09 06:12] LABS: Calcium 8.4 mg/dL (8.6-10.3); Potassium 3.9 mEq/L (3.5-5.1)
[2017-11-09] MEDS: Methyl Salicylate/Menthol 28 GM TUBE TP SCH ×2 (08:36→09:21)
[2017-11-09] MEDS: Lactobacillus 1 EACH CAP.SPRINK PO SCH (09:17)
[2017-11-09] MEDS: Vancomycin Oral Soln 125 MG/2.5 ML UDC PO SCH (09:17)
[2017-11-09] MEDS: Sucralfate 1 GM TABLET PO SCH (09:17)
[2017-11-09] MEDS: Isosorbide MONOnitrate (24 HR) 30 MG TAB.ER.24H PO SCH (09:17)
[2017-11-09] MEDS: Aspirin 81 MG TAB.CHEW PO SCH (09:17)
[2017-11-09] MEDS: Nicotine 21 MG PATCH.TD24 TD SCH (09:18)
[2017-11-09 10:15] VITALS: BP 126/85
--- NOTE | 2017-11-09 10:22 | Event Note ---
Date of Encounter: 11/09/17 Time of Encounter: 10:20 Chart review completed. VSS. Discharge plan in place to discharge to [place] once Physician completes discharge. Palliative care signing off.
== END 2017-11-09 11:53 | DRG 444 ==
LOC: 3ANU 10:06 → EMEROO 10:06 → 3ANU 15:06 → SUATTDRO 17:40 → ICNU 11-02 02:07 → 3ANU 11-02 12:06 → SUATTDRO 11-05 17:17
PROVIDERS: ADMIT Hospitalist; ATTEND Internal Medicine